=== PATIENT | male | born 1945 | race Caucasian/White ===

== ENCOUNTER 2019-08-26 22:35 | Inpatient (IN) | payer MEDICARE ==
[~2019-08-26] VITALS: Ht 160 cm; Wt 77.6 kg
[2019-08-26 22:30] VITALS: BP 81/56
[2019-08-26 22:45] VITALS: BP 125/56
[2019-08-26 23:00] VITALS: BP 82/41
[2019-08-26] MEDS ORDERED: fentaNYL PF VIAL 100 MCG/2 ML VIAL IV PRN ×2 (23:00)
[2019-08-26] MEDS ORDERED: ENOXAPARIN 40 MG/0.4 ML SYRINGE. SQ SCH (23:00)
[2019-08-26] MEDS ORDERED: MORPHINE SULFATE 2 MG/ML VIAL. IV PRN (23:00)
[2019-08-26] MEDS ORDERED: MORPHINE SULFATE 4 MG/ML VIAL. IV PRN (23:00)
[2019-08-26 23:13] LABS: BASE EXCESS ABG -6 mmol/L (-3-3); CORRECTED PCO2 ABG 35 mmHg; CORRECTED PH ABG 7.35; CORRECTED PO2 ABG 113 mmHg; HCO3 ABG 19 mmol/L (21-28); PCO2 ABG 33 mmHg (35-46); PO2 ABG 106 mmHg (65-108); SAT O2 ABG 97 % (92-99)
[2019-08-26 23:15] VITALS: BP 102/57
[2019-08-26 23:17] LABS: FIO2 ABG 40
[2019-08-26 23:26] LABS: BILIRUBIN,URINE NEGATIVE (NEG); CLARITY,URINE CLOUDY; COLOR,URINE AMBER; NITRITE,URINE NEGATIVE (NEG); PROTEIN,URINE 100 mg/dL (NEG-TRACE); UROBILINOGEN,URINE 0.2 mg/dL (0.2 mg/dL)
[2019-08-26 23:30] VITALS: BP 118/55
[2019-08-26 23:31] LABS: BACTERIA,URINE 0 /HPF (0-FEW); RBC,URINE OCC /HPF (0-2)
[2019-08-26 23:32] LABS: AMORPHOUS SEDIMENT,UR PRESENT /HPF; HYALINE CASTS, URINE FEW /HPF; SQUAMOUS EPITHELIAL CELL,UR OCC /LPF
[2019-08-26 23:39] LABS: BASO # 0.1 x10^3/uL (0.0-0.2); BASO % 1 % (0-3); EOS # 0.3 x10^3/uL (0.0-0.7); EOS % 4 % (0-3); HEMATOCRIT 27.7 % (39.0-53.0); HEMOGLOBIN 9.4 g/dL (13.0-17.5); LYMPH # 0.3 x10^3/uL (1.0-4.8); LYMPH % 4 % (24-48); MEAN CORPUSCULAR HEMOGLOBIN 27 pg (25-35); MEAN CORPUSCULAR HGB CONC 34 g/dL (31-37); MEAN CORPUSCULAR VOLUME 79 fL (79-100); MONO # 0.8 x10^3/uL (0.0-1.1); MONO % 11 % (0-9); NEUT # 6.4 x10^3/uL (1.8-7.7); NEUT % 82 % (31-73); PLATELET COUNT 552 x10^3/uL (140-400); RED BLOOD COUNT 3.49 x10^6/uL (4.30-5.70); RED CELL DISTRIBUTION WIDTH 17.9 % (11.5-14.5); WHITE BLOOD COUNT 7.9 x10^3/uL (4.0-11.0)
[2019-08-26 23:45] VITALS: BP 119/66
--- NOTE | 2019-08-26 23:45 | NUR ---
Patient admitted to room 107, arrived via EMS. Patient transferred to bed, placed on monitor and ventilator. Patient sedated, unable to orient to surroundings. Received admit orders from Dr. Hansen, decided to test patient for covid due to coming from a [facility]. Called Jocelin, given passcode and nurse station telephone number. Jocelin states patient has recently tested negative for covid three times during recent hospital stay at [facility]. Admission and med rec completed using [facility] discharge paperwork as patient was only at [facility] for a few hours.
[2019-08-26 23:51] LABS: ALBUMIN/GLOBULIN RATIO 0.5 (1.0-1.7); CALCIUM 7.6 mg/dL (8.5-10.1); CREATININE 1.6 mg/dL (0.7-1.3); GFR 42.7; TOTAL BILIRUBIN 0.7 mg/dL (0.2-1.0); TOTAL PROTEIN 6.1 g/dL (6.4-8.2)
[2019-08-27] VITALS (41 sets, daily range): BP systolic 63–149; BP diastolic 43–82
[2019-08-27 00:03] LABS: % BANDS 30 % (0-9); % EOS 6 % (0-5); % LYMPHS 3 % (24-48); % MONOS 4 % (0-10); % SEGS 57 % (35-66); ANISOCYTOSIS SLIGHT; NUCLEATED RBC 1; PLT ESTIMATE INCREASED (ADEQUATE); POLYCHROMASIA SLIGHT
[2019-08-27] MEDS: IV NORMAL SALINE 1000ML BAG 1,000 ML IV SCH ×3 (00:43→20:39)
[2019-08-27] MEDS ORDERED: ASPI-630 PEG (01:40)
[2019-08-27] MEDS ORDERED: APIX5TAB PEG (01:40)
[2019-08-27] MEDS ORDERED: INSU100I13 SQ (01:40)
[2019-08-27] MEDS ORDERED: ACET325T21 PEG (01:40)
[2019-08-27] MEDS ORDERED: FAMO-63 PEG (01:40)
[2019-08-27] MEDS ORDERED: FAMO20TA5 PO (01:40)
[2019-08-27] MEDS ORDERED: INSU100V6 SQ (01:40)
[2019-08-27] MEDS ORDERED: PROVENTIL HFA6.7 G2 INH (01:40)
[2019-08-27] MEDS ORDERED: TAMS0.4C97 PEG (01:40)
[2019-08-27] MEDS ORDERED: BUDE10.2 IH (01:40)
[2019-08-27] MEDS ORDERED: OLAN20TA15 PEG (01:40)
[2019-08-27] MEDS ORDERED: METO25TA4 PEG (01:40)
[2019-08-27] MEDS ORDERED: OXYC5TAB88 PEG (01:40)
[2019-08-27] MEDS ORDERED: OLAN10TA9 PEG (01:40)
[2019-08-27] MEDS ORDERED: CRESTOR40 MG PEG (01:40)
[2019-08-27] MEDS: MIDAZOLAM 100mg/100ml NS BAG 100 ML IV PRN (01:52)
[2019-08-27] MEDS ORDERED: ACETAMINOPHEN 650 MG SUPP.RECT. PR PRN (02:00)
--- NOTE | 2019-08-27 02:24 | RAD ---
AP portable chest radiograph 08/26/2019 Clinical History: Post intubation. An AP semi erect portable digital radiograph of the chest was obtained. Comparison study is dated 08/26/2019. The patient is post CABG procedure. An ET tube has been placed. The tip of this tube overlies the trachea 5 cm above the level of the marialuisa. The cardiac silhouette is normal in size. Atherosclerotic calcification thoracic aorta is seen. Prominence of the pulmonary vasculature is again noted. No area of consolidation is seen. Linear bands of subsegmental atelectasis are seen involving both lower lobes. No pneumothorax or pleural effusion is noted. The osseous structures are unchanged. Impression: Interval placement of an ET tube. The tip of this tube overlies the trachea 5 cm above the level of the marialuisa. Electronically signed by: Bimal Vázquez MD (08/27/2019 2:22 AM) [id number]
[2019-08-27] MEDS: NOREPINEPHRINE VIAL 8 MG in IV DEXTROSE 5% 250 ML IV PRN (02:32)
[2019-08-27 08:15] LABS: BASE EXCESS ABG -5 mmol/L (-3-3); HCO3 ABG 19 mmol/L (21-28); PCO2 ABG 32 mmHg (35-46); PO2 ABG 105 mmHg (65-108); SAT O2 ABG 98 % (92-99)
[2019-08-27] MEDS: FAMOTIDINE 20 MG/2 ML VIAL IVP SCH ×2 (08:31→20:32)
[2019-08-27 08:38] LABS: FIO2 ABG 40
[2019-08-27] MEDS ORDERED: cefTRIAXone IV Push 1 GM VIAL. IVP SCH (09:00)
--- NOTE | 2019-08-27 12:22 | PDOC ---
PULMONARY PROGRESS NOTES Vitals Vital Signs Date Time Temp Pulse Resp B/P (MAP) Pulse Ox O2 Delivery O2 Flow Rate FiO2 08/27/19 11:39 100 Ventilator 08/27/19 06:56 16 08/27/19 06:00 99.2 107 111/51 (71) 99.2 Labs Laboratory Tests Test 08/26/19 23:05 08/26/19 23:15 08/26/19 23:20 08/27/19 05:46 O2 Saturation 97 % (92-99) Arterial Blood pH 7.37 (7.35-7.45) Arterial Blood pH (Temp corrected) 7.35 Arterial Blood pCO2 at Patient Temp 33 mmHg (35-46) Arterial Blood pCO2 (Temp correct) 35 mmHg Arterial Blood pO2 at Patient Temp 106 mmHg (65-108) Arterial Blood pO2 (Temp corrected) 113 mmHg Arterial Blood HCO3 19 mmol/L (21-28) Arterial Blood Base Excess -6 mmol/L (-3-3) FiO2 40 Urine Collection Type Unknown Urine Color Flora Urine Clarity Cloudy Urine pH 5.0 (<5.0-8.0) Urine Specific [place] 1.025 (1.000-1.030) Urine Protein 100 mg/dL (NEG-TRACE) Urine Glucose (UA) Negative mg/dL (NEG) Urine Ketones (Stick) Trace mg/dL (NEG) Urine Blood Negative (NEG) Urine Nitrite Negative (NEG) Urine Bilirubin Negative (NEG) Urine Urobilinogen Dipstick 0.2 mg/dL (0.2 mg/dL) Urine Leukocyte Esterase Trace (NEG) Urine RBC Occ /HPF (0-2) Urine WBC 5-10 /HPF (0-4) Urine Squamous Epithelial Cells Occ /LPF Urine Amorphous Sediment Present /HPF Urine Bacteria 0 /HPF (0-FEW) Urine Hyaline Casts Few /HPF Urine Mucus Mod /LPF White Blood Count 7.9 x10^3/uL (4.0-11.0) Red Blood Count 3.49 x10^6/uL (4.30-5.70) Hemoglobin 9.4 g/dL (13.0-17.5) Hematocrit 27.7 % (39.0-53.0) Mean Corpuscular Volume 79 fL (79-100) Mean Corpuscular Hemoglobin 27 pg (25-35) Mean Corpuscular Hemoglobin Concent 34 g/dL (31-37) Red Cell Distribution Width 17.9 % (11.5-14.5) Platelet Count 552 x10^3/uL (140-400) Neutrophils (%) (Auto) 82 % (31-73) Lymphocytes (%) (Auto) 4 % (24-48) Monocytes (%) (Auto) 11 % (0-9) Eosinophils (%) (Auto) 4 % (0-3) Basophils (%) (Auto) 1 % (0-3) Neutrophils # (Auto) 6.4 x10^3/uL (1.8-7.7) Lymphocytes # (Auto) 0.3 x10^3/uL (1.0-4.8) Monocytes # (Auto) 0.8 x10^3/uL (0.0-1.1) Eosinophils # (Auto) 0.3 x10^3/uL (0.0-0.7) Basophils # (Auto) 0.1 x10^3/uL (0.0-0.2) Segmented Neutrophils % 57 % (35-66) Band Neutrophils % 30 % (0-9) Lymphocytes % 3 % (24-48) Monocytes % 4 % (0-10) Eosinophils % 6 % (0-5) Nucleated Red Blood Cells 1 Platelet Estimate Increased (ADEQUATE) Polychromasia Slight Anisocytosis Slight Sodium Level 138 mmol/L (136-145) Potassium Level 5.0 mmol/L (3.5-5.1) Chloride Level 107 mmol/L (98-107) Carbon Dioxide Level 21 mmol/L (21-32) Anion Gap 10 (6-14) Blood Urea Nitrogen 25 mg/dL (8-26) Creatinine 1.6 mg/dL (0.7-1.3) Estimated GFR (Cockcroft-Gault) 42.7 BUN/Creatinine Ratio 16 (6-20) Glucose Level 199 mg/dL (70-99) Lactic Acid Level 1.6 mmol/L (0.4-2.0) Calcium Level 7.6 mg/dL (8.5-10.1) Total Bilirubin 0.7 mg/dL (0.2-1.0) Aspartate Amino Transf (AST/SGOT) 30 U/L (15-37) Alanine Aminotransferase (ALT/SGPT) 40 U/L (16-63) Alkaline Phosphatase 188 U/L (46-116) Total Protein 6.1 g/dL (6.4-8.2) Albumin 2.0 g/dL (3.4-5.0) Albumin/Globulin Ratio 0.5 (1.0-1.7) Glucose (Fingerstick) 155 mg/dL (70-99) Test 08/27/19 08:00 08/27/19 11:41 O2 Saturation 98 % (92-99) Arterial Blood pH 7.39 (7.35-7.45) Arterial Blood pCO2 at Patient Temp 32 mmHg (35-46) Arterial Blood pO2 at Patient Temp 105 mmHg (65-108) Arterial Blood HCO3 19 mmol/L (21-28) Arterial Blood Base Excess -5 mmol/L (-3-3) FiO2 40 Glucose (Fingerstick) 160 mg/dL (70-99) Laboratory Tests Test 08/26/19 23:05 08/26/19 23:15 08/26/19 23:20 08/27/19 05:46 O2 Saturation 97 % (92-99) Arterial Blood pH 7.37 (7.35-7.45) Arterial Blood pH (Temp corrected) 7.35 Arterial Blood pCO2 at Patient Temp 33 mmHg (35-46) Arterial Blood pCO2 (Temp correct) 35 mmHg Arterial Blood pO2 at Patient Temp 106 mmHg (65-108) Arterial Blood pO2 (Temp corrected) 113 mmHg Arterial Blood HCO3 19 mmol/L (21-28) Arterial Blood Base Excess -6 mmol/L (-3-3) FiO2 40 Urine Collection Type Unknown Urine Color Flora Urine Clarity Cloudy Urine pH 5.0 (<5.0-8.0) Urine Specific [place] 1.025 (1.000-1.030) Urine Protein 100 mg/dL (NEG-TRACE) Urine Glucose (UA) Negative mg/dL (NEG) Urine Ketones (Stick) Trace mg/dL (NEG) Urine Blood Negative (NEG) Urine Nitrite Negative (NEG) Urine Bilirubin Negative (NEG) Urine Urobilinogen Dipstick 0.2 mg/dL (0.2 mg/dL) Urine Leukocyte Esterase Trace (NEG) Urine RBC Occ /HPF (0-2) Urine WBC 5-10 /HPF (0-4) Urine Squamous Epithelial Cells Occ /LPF Urine Amorphous Sediment Present /HPF Urine Bacteria 0 /HPF (0-FEW) Urine Hyaline Casts Few /HPF Urine Mucus Mod /LPF White Blood Count 7.9 x10^3/uL (4.0-11.0) Red Blood Count 3.49 x10^6/uL (4.30-5.70) Hemoglobin 9.4 g/dL (13.0-17.5) Hematocrit 27.7 % (39.0-53.0) Mean Corpuscular Volume 79 fL (79-100) Mean Corpuscular Hemoglobin 27 pg (25-35) Mean Corpuscular Hemoglobin Concent 34 g/dL (31-37) Red Cell Distribution Width 17.9 % (11.5-14.5) Platelet Count 552 x10^3/uL (140-400) Neutrophils (%) (Auto) 82 % (31-73) Lymphocytes (%) (Auto) 4 % (24-48) Monocytes (%) (Auto) 11 % (0-9) Eosinophils (%) (Auto) 4 % (0-3) Basophils (%) (Auto) 1 % (0-3) Neutrophils # (Auto) 6.4 x10^3/uL (1.8-7.7) Lymphocytes # (Auto) 0.3 x10^3/uL (1.0-4.8) Monocytes # (Auto) 0.8 x10^3/uL (0.0-1.1) Eosinophils # (Auto) 0.3 x10^3/uL (0.0-0.7) Basophils # (Auto) 0.1 x10^3/uL (0.0-0.2) Segmented Neutrophils % 57 % (35-66) Band Neutrophils % 30 % (0-9) Lymphocytes % 3 % (24-48) Monocytes % 4 % (0-10) Eosinophils % 6 % (0-5) Nucleated Red Blood Cells 1 Platelet Estimate Increased (ADEQUATE) Polychromasia Slight Anisocytosis Slight Sodium Level 138 mmol/L (136-145) Potassium Level 5.0 mmol/L (3.5-5.1) Chloride Level 107 mmol/L (98-107) Carbon Dioxide Level 21 mmol/L (21-32) Anion Gap 10 (6-14) Blood Urea Nitrogen 25 mg/dL (8-26) Creatinine 1.6 mg/dL (0.7-1.3) Estimated GFR (Cockcroft-Gault) 42.7 BUN/Creatinine Ratio 16 (6-20) Glucose Level 199 mg/dL (70-99) Lactic Acid Level 1.6 mmol/L (0.4-2.0) Calcium Level 7.6 mg/dL (8.5-10.1) Total Bilirubin 0.7 mg/dL (0.2-1.0) Aspartate Amino Transf (AST/SGOT) 30 U/L (15-37) Alanine Aminotransferase (ALT/SGPT) 40 U/L (16-63) Alkaline Phosphatase 188 U/L (46-116) Total Protein 6.1 g/dL (6.4-8.2) Albumin 2.0 g/dL (3.4-5.0) Albumin/Globulin Ratio 0.5 (1.0-1.7) Glucose (Fingerstick) 155 mg/dL (70-99) Test 08/27/19 08:00 08/27/19 11:41 O2 Saturation 98 % (92-99) Arterial Blood pH 7.39 (7.35-7.45) Arterial Blood pCO2 at Patient Temp 32 mmHg (35-46) Arterial Blood pO2 at Patient Temp 105 mmHg (65-108) Arterial Blood HCO3 19 mmol/L (21-28) Arterial Blood Base Excess -5 mmol/L (-3-3) FiO2 40 Glucose (Fingerstick) 160 mg/dL (70-99) Medications Active Scripts Medications Dose Route/Sig Max Daily Dose Days Date Category Dose Instructions Pepcid (Famotidine) 20 Mg Tablet 20 Mg PEG BID 08/27/19 Reported Famotidine 20 Mg Tablet 20 Mg PO BID 08/27/19 Reported Aspirin 81 Mg Tab.chew 1 Tab PEG DAILY 08/27/19 Reported Eliquis (Apixaban) 5 Mg Tablet 5 Mg PEG BID 08/27/19 Reported Proventil Hfa (Albuterol Sulfate) 6.7 Gm Hfa.aer.ad 1 Puff INH PRN Q6HRS PRN 08/27/19 Reported Acetaminophen 325 Mg Tablet 2 Tab PEG PRN Q4-6HRS PRN 24 08/27/19 Reported Humalog (Insulin Lispro) 100 Unit/1 Ml Vial 100 Unit SQ Q6HRS 08/27/19 Reported Inject 0-24 units under the skin every 6 hours Lantus Solostar (Insulin Glargine,Hum.rec.anlog) 100 Unit/1 Ml Insuln.pen 35 Unit SQ BID 08/27/19 Reported Symbicort 160-4.5 Mcg Inhaler (Budesonide/Formoterol Fumarate) 10.2 Gm Hfa.aer.ad 2 Puff IH BID 08/27/19 Reported Flomax (Tamsulosin Hcl) 0.4 Mg Cap.er.24h 0.4 Mg PEG DAILY 08/27/19 Reported Crestor (Rosuvastatin Calcium) 40 Mg Tablet 1 Tab PEG HS 08/27/19 Reported Roxicodone (Oxycodone HCl) 5 Mg Tablet 5 Mg PEG PRN Q4HRS PRN 08/27/19 Reported Olanzapine 20 Mg Tablet 1 Tab PEG QHS 08/27/19 Reported Olanzapine 10 Mg Tablet 1 Tab PEG DAILY 08/27/19 Reported Metoprolol Tartrate 25 Mg Tablet 1 Tab PEG BID 08/27/19 Reported Impression . Full note dictated Respiratory failure secondary to sepsis, metabolic toxic encephalopathy, fever. Consult ID, rule out SARS-CoV-2 DIPAK MARTINEZ MD Aug 27, 2019 12:22
--- NOTE | 2019-08-27 13:09 | PDOC ---
Infectious Disease Note Vital Sign Vital Signs Vital Signs Date Time Temp Pulse Resp B/P (MAP) Pulse Ox O2 Delivery O2 Flow Rate FiO2 08/27/19 12:00 122 16 144/82 (102) 100 Ventilator 08/27/19 07:30 98.3 98.3 Labs Lab Laboratory Tests Test 08/26/19 23:05 08/26/19 23:15 08/26/19 23:20 08/27/19 05:46 O2 Saturation 97 % (92-99) Arterial Blood pH 7.37 (7.35-7.45) Arterial Blood pH (Temp corrected) 7.35 Arterial Blood pCO2 at Patient Temp 33 mmHg (35-46) Arterial Blood pCO2 (Temp correct) 35 mmHg Arterial Blood pO2 at Patient Temp 106 mmHg (65-108) Arterial Blood pO2 (Temp corrected) 113 mmHg Arterial Blood HCO3 19 mmol/L (21-28) Arterial Blood Base Excess -6 mmol/L (-3-3) FiO2 40 Urine Collection Type Unknown Urine Color Flora Urine Clarity Cloudy Urine pH 5.0 (<5.0-8.0) Urine Specific [place] 1.025 (1.000-1.030) Urine Protein 100 mg/dL (NEG-TRACE) Urine Glucose (UA) Negative mg/dL (NEG) Urine Ketones (Stick) Trace mg/dL (NEG) Urine Blood Negative (NEG) Urine Nitrite Negative (NEG) Urine Bilirubin Negative (NEG) Urine Urobilinogen Dipstick 0.2 mg/dL (0.2 mg/dL) Urine Leukocyte Esterase Trace (NEG) Urine RBC Occ /HPF (0-2) Urine WBC 5-10 /HPF (0-4) Urine Squamous Epithelial Cells Occ /LPF Urine Amorphous Sediment Present /HPF Urine Bacteria 0 /HPF (0-FEW) Urine Hyaline Casts Few /HPF Urine Mucus Mod /LPF White Blood Count 7.9 x10^3/uL (4.0-11.0) Red Blood Count 3.49 x10^6/uL (4.30-5.70) Hemoglobin 9.4 g/dL (13.0-17.5) Hematocrit 27.7 % (39.0-53.0) Mean Corpuscular Volume 79 fL (79-100) Mean Corpuscular Hemoglobin 27 pg (25-35) Mean Corpuscular Hemoglobin Concent 34 g/dL (31-37) Red Cell Distribution Width 17.9 % (11.5-14.5) Platelet Count 552 x10^3/uL (140-400) Neutrophils (%) (Auto) 82 % (31-73) Lymphocytes (%) (Auto) 4 % (24-48) Monocytes (%) (Auto) 11 % (0-9) Eosinophils (%) (Auto) 4 % (0-3) Basophils (%) (Auto) 1 % (0-3) Neutrophils # (Auto) 6.4 x10^3/uL (1.8-7.7) Lymphocytes # (Auto) 0.3 x10^3/uL (1.0-4.8) Monocytes # (Auto) 0.8 x10^3/uL (0.0-1.1) Eosinophils # (Auto) 0.3 x10^3/uL (0.0-0.7) Basophils # (Auto) 0.1 x10^3/uL (0.0-0.2) Segmented Neutrophils % 57 % (35-66) Band Neutrophils % 30 % (0-9) Lymphocytes % 3 % (24-48) Monocytes % 4 % (0-10) Eosinophils % 6 % (0-5) Nucleated Red Blood Cells 1 Platelet Estimate Increased (ADEQUATE) Polychromasia Slight Anisocytosis Slight Sodium Level 138 mmol/L (136-145) Potassium Level 5.0 mmol/L (3.5-5.1) Chloride Level 107 mmol/L (98-107) Carbon Dioxide Level 21 mmol/L (21-32) Anion Gap 10 (6-14) Blood Urea Nitrogen 25 mg/dL (8-26) Creatinine 1.6 mg/dL (0.7-1.3) Estimated GFR (Cockcroft-Gault) 42.7 BUN/Creatinine Ratio 16 (6-20) Glucose Level 199 mg/dL (70-99) Lactic Acid Level 1.6 mmol/L (0.4-2.0) Calcium Level 7.6 mg/dL (8.5-10.1) Total Bilirubin 0.7 mg/dL (0.2-1.0) Aspartate Amino Transf (AST/SGOT) 30 U/L (15-37) Alanine Aminotransferase (ALT/SGPT) 40 U/L (16-63) Alkaline Phosphatase 188 U/L (46-116) Total Protein 6.1 g/dL (6.4-8.2) Albumin 2.0 g/dL (3.4-5.0) Albumin/Globulin Ratio 0.5 (1.0-1.7) Glucose (Fingerstick) 155 mg/dL (70-99) Test 08/27/19 08:00 08/27/19 11:41 O2 Saturation 98 % (92-99) Arterial Blood pH 7.39 (7.35-7.45) Arterial Blood pCO2 at Patient Temp 32 mmHg (35-46) Arterial Blood pO2 at Patient Temp 105 mmHg (65-108) Arterial Blood HCO3 19 mmol/L (21-28) Arterial Blood Base Excess -5 mmol/L (-3-3) FiO2 40 Glucose (Fingerstick) 160 mg/dL (70-99) Objective Assessment pt seen, consult dictated Plan Plan of Care / REHAN WARE MD Aug 27, 2019 13:09
--- NOTE | 2019-08-27 13:14 | CARD ---
MR#: [id number] Date of Study: 08/27/2019 Ordering Physician: BEBETO RICHTER, Referring Physician: BEBETO RICHTER, Tech: Ibis Burnett APPROVED REPORT EXAM: Two-dimensional and M-mode echocardiogram with Doppler and color Doppler. Other Information Quality : AverageHR: 118bpm INDICATION Respiratory Failure, Hypotension RISK FACTORS Smoking 2D DIMENSIONS Left Atrium(2D)3.8 (1.6-4.0cm)IVSd0.9 (0.7-1.1cm) Aortic Root(2D)3.6 (2.0-3.7cm)LVDd5.5 (3.9-5.9cm) LVOT Diameter1.9 (1.8-2.4cm)PWd1.1 (0.7-1.1cm) LVDs4.6 (2.5-4.0cm)FS (%) 16.4 % SV50.6 mlLVEF(%)34.1 (>50%) Aortic Valve AoV Peak Masoud.154.5cm/sAoV VTI25.4cm AO Peak GR.9.5mmHgLVOT VTI 15.38cm AO Mean GR.6mmHg Mitral Valve MV E Zalttoml62.8cm/sMV E Peak Gr.6mmHg MV DECEL [id number] A Bxaqqpin774.5cm/s MV E Mean Gr.3mmHgE/A Ratio0.7 TDI Lateral E' P. V9.98cm/sMedial E' P. V5.86cm/s E/Lateral E'8.3E/Medial E'14.1 LEFT VENTRICLE The left ventricle is normal size. There is normal left ventricular wall thickness. The left ventricu lar systolic function is low normal. The ejection fraction is 50%. Transmitral Doppler flow pattern i s Grade I-abnormal relaxation pattern. RIGHT VENTRICLE The right ventricle is normal size. There is normal right ventricular wall thickness. The right ventr icular systolic function is normal. ATRIA The left atrium size is normal. The right atrium size is normal. The interatrial septum is intact wit h no evidence for an atrial septal defect or patent foramen ovale as noted on 2-D or Doppler imaging. AORTIC VALVE The aortic valve is calcified. Doppler and Color Flow revealed no significant aortic regurgitation. C alculated aortic valve area is 1.59 cm2 with maximum pressure gradient of 12 mmHg and mean pressure g radient of 8 mmHg. MITRAL VALVE The mitral valve is thickened but opens well. There is no evidence of mitral valve prolapse. There is no mitral valve stenosis. Doppler and Color-flow revealed trace mitral regurgitation. TRICUSPID VALVE The tricuspid valve is normal in structure and function. Doppler and Color Flow revealed no tricuspid valve regurgitation noted. There is no tricuspid valve stenosis. PULMONIC VALVE The pulmonic valve is not well visualized. Doppler and Color Flow revealed no pulmonic valvular regur gitation. GREAT VESSELS The aortic root is normal in size. The IVC is normal in size and collapses >50% with inspiration. PERICARDIAL EFFUSION There is no evidence of significant pericardial effusion. Critical Notification Critical Value: No <Conclusion> The left ventricular systolic function is low normal. The ejection fraction is 50%. Transmitral Doppler flow pattern is Grade I-abnormal relaxation pattern. Doppler and Color-flow revealed trace mitral regurgitation. There is no evidence of significant pericardial effusion. Signed by : Be Zarco, Electronically Approved : 08/27/2019 13:13:38
--- NOTE | 2019-08-27 13:29 | CONS ---
DATE OF CONSULTATION: 08/27/2019 REQUESTING PHYSICIAN: Nahomi Rock MD REASON FOR CONSULTATION: Antibiotic management, suspected aspiration pneumonia. HISTORY OF PRESENT ILLNESS: This is a 73-year-old gentleman with history of hypertension, diabetes, COPD, CAD, CHF, who was at [facility] for a long time with bowel obstruction, has had a surgery done eventually PEG tube placement done and the patient after prolonged stay, he was discharged to shelter facility where he was there for several hours. He vomited and was hypoxic and change in mental status, hence he was taken to [facility] where he required intubation. The patient had fever up to 101 on arrival here, heart rate 132, normal blood pressure, normal white count, creatinine 1.6. The patient has been put on Rocephin and Flagyl and consult has been requested. The patient is not able to provide any information. Information was obtained through chart review and discussing with the patient's nurse. PAST MEDICAL HISTORY: Positive for hypertension, congestive heart failure, coronary artery disease with coronary artery bypass grafting done, COPD, diabetes, recent bowel obstruction, status post surgery and PEG tube placement done. SOCIAL HISTORY: Unable to obtain. ALLERGIES: No known drug allergies. CURRENT MEDICATIONS: Reviewed. REVIEW OF SYSTEMS: As per HPI, all other systems reviewed are negative. PHYSICAL EXAMINATION: GENERAL: Sedated, orally intubated gentleman, not in any distress. VITAL SIGNS: Stable with T-max of 101, pulse 122, respirations 16, blood pressure 144/82. HEENT: Both pupils are round and reacting. No conjunctival lesion. Mouth cannot be visualized, orally intubated. NECK: Supple, no JVP, no lymphadenopathy. LUNGS: Decreased breath sounds bilaterally. HEART: S1, S2 regular. No gallop or murmur. ABDOMEN: Soft, nontender, no organomegaly. PEG tube is in place. EXTREMITIES: No edema, cyanosis. SKIN: Unremarkable. NEUROLOGIC: The patient had been moving all the extremities before intubation and sedation. LABORATORY DATA: White count is normal. BUN and creatinine is 25 and 1.6. Urinalysis 5-10 wbc's. Chest x-ray showed no consolidation, no pneumothorax. IMPRESSION: 1. Respiratory failure. 2. Fever. 3. Suspected aspiration. 4. Recent bowel obstruction, status post surgery and percutaneous endoscopic gastrostomy tube placement. 5. Renal insufficiency. RECOMMENDATIONS: Change Rocephin and Flagyl to Zosyn. Panculture, supportive care and we will continue to follow. Thank you very much, Dr. Hansen and Dr. Rock for giving me the opportunity to participate in this patient's care. REHAN WARE MD DR: HANNAH/felisha JOB#: [id number] / [id number]
[2019-08-27] MEDS: PIPERACILLIN/TAZOBACTAM 3.375 GM in IV NORMAL SALINE 50ML 50 ML IV SCH ×3 (13:35→23:40)
[2019-08-27] MEDS ORDERED: DEXTROSE 50% 25 GM / 50ML DISP.SYRIN. IV PRN (14:00)
--- NOTE | 2019-08-27 15:06 | NUR ---
SS following for discharge planning. SS reviewed pt chart and discussed with pt RN. Pt is skilled rehabilitation resident from [facility], ; fax [phone]. Pt COVID19 pending. Pt currently on the vent and IV Zosyn. SS was notified that pt was only at [facility] for a matter of hours prior to admitting to the hospital. Previous to that [place] [facility] SS will continue to follow for discharge planning.
--- NOTE | 2019-08-27 16:56 | PDOC1 ---
History and Physical Date of Admission Date of Admission DATE: 08/27/19 TIME: 16:44 Identification/Chief Complaint Chief Complaint AMS Source Source: Chart review, Patient History of Present Illness History of Present Illness 73 year old CM hx of HTN, DM, COPD, CAD, CHF, hx of bowel obstruction s/p PEG residing at [place] where he vomited became hypoxic and altered. taken to [facility] where he was intubated. BP dropped and femoral line placed. transferred to [place] for higher level of care. noted fever of 101 upon arrival to [place]. Hx difficult as patient intubated and sedated on vent. Past Medical History Past Medical History hypertension, congestive heart failure,coronary artery disease with coronary artery bypass grafting done, COPD,diabetes, recent bowel obstruction, status post surgery and PEG tube placement Past Surgical History Past Surgical History unable to obtain Family History Family History unable to obtain Social History Smoke: No ALCOHOL: none Drugs: None Current Medications Current Medications Current Medications Norepinephrine Bitartrate 8 mg/ Dextrose 258 ml @ 13.603 mls/ hr CONT PRN IV PER PROTOCOL Last administered on 08/27/19at 02:32; Start 08/26/19 at 23:00 Fentanyl Citrate 30 ml @ 0 mls/hr CONT PRN IV SEE PROTOCOL Last administered on 08/27/19at 06:26; Start 08/26/19 at 23:00 Fentanyl Citrate (Fentanyl 2ml Vial) 25 mcg PRN Q1HR PRN IV SEE COMMENTS; Start 08/26/19 at 23:00 Fentanyl Citrate (Fentanyl 2ml Vial) 50 mcg PRN Q1HR PRN IV SEE COMMENTS; Start 08/26/19 at 23:00 Famotidine (Pepcid Vial) 20 mg BID IVP Last administered on 08/27/19at 08:31; Start 08/27/19 at 09:00 Morphine Sulfate (Morphine Sulfate) 2 mg PRN Q1HR PRN IV SEE COMMENTS.; Start 08/26/19 at 23:00 Morphine Sulfate (Morphine Sulfate) 4 mg PRN Q1HR PRN IV SEE COMMENTS.; Start 08/26/19 at 23:00 Midazolam HCl 100 ml @ 0 mls/hr CONT PRN IV SEE PROTOCOL Last administered on 08/27/19at 01:52; Start 08/26/19 at 23:00 Enoxaparin Sodium (Lovenox 40mg Syringe) 40 mg Q24H SQ Last administered on 08/27/19at 00:42; Start 08/26/19 at 23:00 Metronidazole 100 ml @ 100 mls/hr Q8HRS IV Last administered on 08/27/19at 05:32; Start 08/27/19 at 06:00; Stop 08/27/19 at 13:14; Status DC Ceftriaxone Sodium (Rocephin) 1 gm Q24H IVP Last administered on 08/27/19at 08:32; Start 08/27/19 at 09:00; Stop 08/27/19 at 13:14; Status DC Sodium Chloride 1,000 ml @ 75 mls/hr [id number] IV Last administered on 08/27/19at 13:35; Start 08/26/19 at 23:00 Acetaminophen (Tylenol Supp) 650 mg PRN Q6HRS PRN CA MILD PAIN / TEMP > 100.3'F Last administered on 08/27/19at 02:09; Start 08/27/19 at 02:00 Piperacillin Sod/ Tazobactam Sod 3.375 gm/Sodium Chloride 50 ml @ 100 mls/hr Q6HRS IV Last administered on 08/27/19at 13:35; Start 08/27/19 at 14:00 Insulin Human Lispro (HumaLOG) 0-7 UNITS TIDWMEALS SQ ; Start 08/27/19 at 17:00 Dextrose (Dextrose 50%-Water Syringe) 12.5 gm PRN Q15MIN PRN IV SEE COMMENTS; Start 08/27/19 at 14:00 Active Scripts Active Reported Pepcid (Famotidine) 20 Mg Tablet 20 Mg PEG BID Famotidine 20 Mg Tablet 20 Mg PO BID Aspirin 81 Mg Tab.chew 1 Tab PEG DAILY Eliquis (Apixaban) 5 Mg Tablet 5 Mg PEG BID Proventil Hfa (Albuterol Sulfate) 6.7 Gm Hfa.aer.ad 1 Puff INH PRN Q6HRS PRN Acetaminophen 325 Mg Tablet 2 Tab PEG PRN Q4-6HRS PRN 24 Days Humalog (Insulin Lispro) 100 Unit/1 Ml Vial 100 Unit SQ Q6HRS Inject 0-24 units under the skin every 6 hours Lantus Solostar (Insulin Glargine,Hum.rec.anlog) 100 Unit/1 Ml Insuln.pen 35 Unit SQ BID Symbicort 160-4.5 Mcg Inhaler (Budesonide/Formoterol Fumarate) 10.2 Gm Hfa.aer .ad 2 Puff IH BID Flomax (Tamsulosin Hcl) 0.4 Mg Cap.er.24h 0.4 Mg PEG DAILY Crestor (Rosuvastatin Calcium) 40 Mg Tablet 1 Tab PEG HS Roxicodone (Oxycodone HCl) 5 Mg Tablet 5 Mg PEG PRN Q4HRS PRN Olanzapine 20 Mg Tablet 1 Tab PEG QHS Olanzapine 10 Mg Tablet 1 Tab PEG DAILY Metoprolol Tartrate 25 Mg Tablet 1 Tab PEG BID Allergies Allergies: Coded Allergies: No Known Drug Allergies (Unverified , 08/26/19) ROS Review of System unable to obtain as patient vented Physical Exam Physical Exam GENERAL: sedated on vent HEENT: Head normocephalic, atraumatic. NECK: Supple LUNGS: Clear to auscultation. HEART: RRR, S1, S2 present, pulses intact ABDOMEN: + PEG EXTREMITIES: No cyanosis or edema. NEUROLOGIC: Normal speech, normal tone PSYCHIATRIC: Normal affect, normal mood. SKIN: No ulceration. + alvarez + fem line Vitals Vitals Vital Signs Date Time Temp Pulse Resp B/P (MAP) Pulse Ox O2 Delivery O2 Flow Rate FiO2 08/27/19 15:59 100 Ventilator 08/27/19 12:00 122 16 144/82 (102) 08/27/19 07:30 98.3 98.3 Labs Labs Laboratory Tests Test 08/26/19 23:05 08/26/19 23:15 08/26/19 23:20 08/27/19 05:46 O2 Saturation 97 % (92-99) Arterial Blood pH 7.37 (7.35-7.45) Arterial Blood pH (Temp corrected) 7.35 Arterial Blood pCO2 at Patient Temp 33 mmHg (35-46) Arterial Blood pCO2 (Temp correct) 35 mmHg Arterial Blood pO2 at Patient Temp 106 mmHg (65-108) Arterial Blood pO2 (Temp corrected) 113 mmHg Arterial Blood HCO3 19 mmol/L (21-28) Arterial Blood Base Excess -6 mmol/L (-3-3) FiO2 40 Urine Collection Type Unknown Urine Color Flora Urine Clarity Cloudy Urine pH 5.0 (<5.0-8.0) Urine Specific Liguori 1.025 (1.000-1.030) Urine Protein 100 mg/dL (NEG-TRACE) Urine Glucose (UA) Negative mg/dL (NEG) Urine Ketones (Stick) Trace mg/dL (NEG) Urine Blood Negative (NEG) Urine Nitrite Negative (NEG) Urine Bilirubin Negative (NEG) Urine Urobilinogen Dipstick 0.2 mg/dL (0.2 mg/dL) Urine Leukocyte Esterase Trace (NEG) Urine RBC Occ /HPF (0-2) Urine WBC 5-10 /HPF (0-4) Urine Squamous Epithelial Cells Occ /LPF Urine Amorphous Sediment Present /HPF Urine Bacteria 0 /HPF (0-FEW) Urine Hyaline Casts Few /HPF Urine Mucus Mod /LPF White Blood Count 7.9 x10^3/uL (4.0-11.0) Red Blood Count 3.49 x10^6/uL (4.30-5.70) Hemoglobin 9.4 g/dL (13.0-17.5) Hematocrit 27.7 % (39.0-53.0) Mean Corpuscular Volume 79 fL (79-100) Mean Corpuscular Hemoglobin 27 pg (25-35) Mean Corpuscular Hemoglobin Concent 34 g/dL (31-37) Red Cell Distribution Width 17.9 % (11.5-14.5) Platelet Count 552 x10^3/uL (140-400) Neutrophils (%) (Auto) 82 % (31-73) Lymphocytes (%) (Auto) 4 % (24-48) Monocytes (%) (Auto) 11 % (0-9) Eosinophils (%) (Auto) 4 % (0-3) Basophils (%) (Auto) 1 % (0-3) Neutrophils # (Auto) 6.4 x10^3/uL (1.8-7.7) Lymphocytes # (Auto) 0.3 x10^3/uL (1.0-4.8) Monocytes # (Auto) 0.8 x10^3/uL (0.0-1.1) Eosinophils # (Auto) 0.3 x10^3/uL (0.0-0.7) Basophils # (Auto) 0.1 x10^3/uL (0.0-0.2) Segmented Neutrophils % 57 % (35-66) Band Neutrophils % 30 % (0-9) Lymphocytes % 3 % (24-48) Monocytes % 4 % (0-10) Eosinophils % 6 % (0-5) Nucleated Red Blood Cells 1 Platelet Estimate Increased (ADEQUATE) Polychromasia Slight Anisocytosis Slight Sodium Level 138 mmol/L (136-145) Potassium Level 5.0 mmol/L (3.5-5.1) Chloride Level 107 mmol/L (98-107) Carbon Dioxide Level 21 mmol/L (21-32) Anion Gap 10 (6-14) Blood Urea Nitrogen 25 mg/dL (8-26) Creatinine 1.6 mg/dL (0.7-1.3) Estimated GFR (Cockcroft-Gault) 42.7 BUN/Creatinine Ratio 16 (6-20) Glucose Level 199 mg/dL (70-99) Lactic Acid Level 1.6 mmol/L (0.4-2.0) Calcium Level 7.6 mg/dL (8.5-10.1) Total Bilirubin 0.7 mg/dL (0.2-1.0) Aspartate Amino Transf (AST/SGOT) 30 U/L (15-37) Alanine Aminotransferase (ALT/SGPT) 40 U/L (16-63) Alkaline Phosphatase 188 U/L (46-116) Total Protein 6.1 g/dL (6.4-8.2) Albumin 2.0 g/dL (3.4-5.0) Albumin/Globulin Ratio 0.5 (1.0-1.7) Glucose (Fingerstick) 155 mg/dL (70-99) Test 08/27/19 08:00 08/27/19 11:41 O2 Saturation 98 % (92-99) Arterial Blood pH 7.39 (7.35-7.45) Arterial Blood pCO2 at Patient Temp 32 mmHg (35-46) Arterial Blood pO2 at Patient Temp 105 mmHg (65-108) Arterial Blood HCO3 19 mmol/L (21-28) Arterial Blood Base Excess -5 mmol/L (-3-3) FiO2 40 Glucose (Fingerstick) 160 mg/dL (70-99) Laboratory Tests Test 08/26/19 23:05 08/26/19 23:15 08/26/19 23:20 08/27/19 05:46 O2 Saturation 97 % (92-99) Arterial Blood pH 7.37 (7.35-7.45) Arterial Blood pH (Temp corrected) 7.35 Arterial Blood pCO2 at Patient Temp 33 mmHg (35-46) Arterial Blood pCO2 (Temp correct) 35 mmHg Arterial Blood pO2 at Patient Temp 106 mmHg (65-108) Arterial Blood pO2 (Temp corrected) 113 mmHg Arterial Blood HCO3 19 mmol/L (21-28) Arterial Blood Base Excess -6 mmol/L (-3-3) FiO2 40 Urine Collection Type Unknown Urine Color Flora Urine Clarity Cloudy Urine pH 5.0 (<5.0-8.0) Urine Specific Liguori 1.025 (1.000-1.030) Urine Protein 100 mg/dL (NEG-TRACE) Urine Glucose (UA) Negative mg/dL (NEG) Urine Ketones (Stick) Trace mg/dL (NEG) Urine Blood Negative (NEG) Urine Nitrite Negative (NEG) Urine Bilirubin Negative (NEG) Urine Urobilinogen Dipstick 0.2 mg/dL (0.2 mg/dL) Urine Leukocyte Esterase Trace (NEG) Urine RBC Occ /HPF (0-2) Urine WBC 5-10 /HPF (0-4) Urine Squamous Epithelial Cells Occ /LPF Urine Amorphous Sediment Present /HPF Urine Bacteria 0 /HPF (0-FEW) Urine Hyaline Casts Few /HPF Urine Mucus Mod /LPF White Blood Count 7.9 x10^3/uL (4.0-11.0) Red Blood Count 3.49 x10^6/uL (4.30-5.70) Hemoglobin 9.4 g/dL (13.0-17.5) Hematocrit 27.7 % (39.0-53.0) Mean Corpuscular Volume 79 fL (79-100) Mean Corpuscular Hemoglobin 27 pg (25-35) Mean Corpuscular Hemoglobin Concent 34 g/dL (31-37) Red Cell Distribution Width 17.9 % (11.5-14.5) Platelet Count 552 x10^3/uL (140-400) Neutrophils (%) (Auto) 82 % (31-73) Lymphocytes (%) (Auto) 4 % (24-48) Monocytes (%) (Auto) 11 % (0-9) Eosinophils (%) (Auto) 4 % (0-3) Basophils (%) (Auto) 1 % (0-3) Neutrophils # (Auto) 6.4 x10^3/uL (1.8-7.7) Lymphocytes # (Auto) 0.3 x10^3/uL (1.0-4.8) Monocytes # (Auto) 0.8 x10^3/uL (0.0-1.1) Eosinophils # (Auto) 0.3 x10^3/uL (0.0-0.7) Basophils # (Auto) 0.1 x10^3/uL (0.0-0.2) Segmented Neutrophils % 57 % (35-66) Band Neutrophils % 30 % (0-9) Lymphocytes % 3 % (24-48) Monocytes % 4 % (0-10) Eosinophils % 6 % (0-5) Nucleated Red Blood Cells 1 Platelet Estimate Increased (ADEQUATE) Polychromasia Slight Anisocytosis Slight Sodium Level 138 mmol/L (136-145) Potassium Level 5.0 mmol/L (3.5-5.1) Chloride Level 107 mmol/L (98-107) Carbon Dioxide Level 21 mmol/L (21-32) Anion Gap 10 (6-14) Blood Urea Nitrogen 25 mg/dL (8-26) Creatinine 1.6 mg/dL (0.7-1.3) Estimated GFR (Cockcroft-Gault) 42.7 BUN/Creatinine Ratio 16 (6-20) Glucose Level 199 mg/dL (70-99) Lactic Acid Level 1.6 mmol/L (0.4-2.0) Calcium Level 7.6 mg/dL (8.5-10.1) Total Bilirubin 0.7 mg/dL (0.2-1.0) Aspartate Amino Transf (AST/SGOT) 30 U/L (15-37) Alanine Aminotransferase (ALT/SGPT) 40 U/L (16-63) Alkaline Phosphatase 188 U/L (46-116) Total Protein 6.1 g/dL (6.4-8.2) Albumin 2.0 g/dL (3.4-5.0) Albumin/Globulin Ratio 0.5 (1.0-1.7) Glucose (Fingerstick) 155 mg/dL (70-99) Test 08/27/19 08:00 08/27/19 11:41 O2 Saturation 98 % (92-99) Arterial Blood pH 7.39 (7.35-7.45) Arterial Blood pCO2 at Patient Temp 32 mmHg (35-46) Arterial Blood pO2 at Patient Temp 105 mmHg (65-108) Arterial Blood HCO3 19 mmol/L (21-28) Arterial Blood Base Excess -5 mmol/L (-3-3) FiO2 40 Glucose (Fingerstick) 160 mg/dL (70-99) VTE Prophylaxis Ordered VTE Prophylaxis Devices: Yes VTE Pharmacological Prophylaxi: Yes Assessment/Plan Assessment/Plan ASSESSMENT Acute Hypoxic Resp Failure requiring mechanical Ventilation, intubated 08/25 Suspected Aspiration PNA Septic Shock, present on admission Bowel Obstruction with PEG placement Anemia Acute Renal Failure secondary to Vasomotor Nephropathy DM2 HLD patient on oral AC, need to confirm reason BPH PLAN admit to ICU vent support continue pressors sedation support IV abx changed from Flagyl Rocephin to Zosyn per ID check covid test can resume TFs pulm and ID consults GI and DVT PPX FULL CODE labs in AM Justicifation of Admission Dx: Justifications for Admission: Justification of Admission Dx: Yes Respiratory Failure: Mechanical Ventilation BEBETO RICHTER MD Aug 27, 2019 16:56
[2019-08-27] MEDS ORDERED: INSULIN LISPRO 300 UNITS/3 ML VIAL. SQ SCH (17:00)
--- NOTE | 2019-08-27 17:23 | CONS ---
DATE OF CONSULTATION: 08/27/2019 ATTENDING PHYSICIAN: Dr. Hansen REASON FOR CONSULTATION: The patient is seen in pulmonary consultation at the request of Dr. Hansen for ____ upper respiratory failure, on mechanical ventilation. HISTORY OF PRESENT ILLNESS: The patient is a 73-year-old with comorbidities of hypertension, diabetes, COPD, coronary artery disease, status post coronary artery bypass grafting, and chronic heart failure, who was at a [facility]. Apparently, he had a recent small bowel resection and PEG tube placement. He was at [facility] for a short period of time. He became somewhat unresponsive with altered mental status. The patient was transferred to [facility] Emergency Department. He underwent endotracheal tube placement. He was started on IV fluids and Levophed. Central line placement was attempted. The patient was subsequently transferred to the ICU at [facility]. I was asked to see him in consultation. He is currently sedated. He is on IV fluids. He is on Levophed. LABORATORY DATA: His labs were reviewed. His white count is 7.9, hemoglobin of 9, hematocrit of 27, and platelet count is elevated. Arterial blood gas last time checked was pH 7.39, PaCO2 of 32, and pO2 of 105. His electrolytes were noted. BUN was normal. Creatinine was elevated at 1.6. Glucose was 199. Lactic acid level checked last evening was 1.6. Albumin was low at 2. I reviewed his x-ray. No significant consolidation. There is some mild vascular congestion. PAST MEDICAL HISTORY: As indicated above, COPD, coronary artery disease, chronic heart failure, diabetes, and hypertension. PAST SURGICAL HISTORY: Status post coronary artery bypass grafting, recent small bowel resection, and PEG tube placement. Unknown etiology for the small bowel resection. ALLERGIES: No known drug allergies listed. REVIEW OF SYSTEMS: Unobtainable secondary to the patient's condition. SOCIAL HISTORY: Unknown if he smoked. PHYSICAL EXAMINATION: GENERAL: The patient was in the intensive care unit. VITAL SIGNS: Noted. He was afebrile. O2 saturation was greater than 92%. He had a T-max yesterday of 101.0. HEENT: Eyes, the sclerae were nonicteric. NECK: Jugular venous distention was not elevated. No lymphadenopathy. CHEST: Full expansion. LUNGS: Adequate flow. No wheezes. CARDIOVASCULAR: Regular rate and rhythm with S1, S2. No S3. ABDOMEN: Soft. Evidence of recent surgery. PEG in place. EXTREMITIES: No clubbing, cyanosis, or edema. NEUROLOGIC: The patient was sedated. Labs and chest x-ray as indicated above. IMPRESSION: 1. Acute hypoxemic respiratory failure, multifactorial. 2. Toxic metabolic encephalopathy, present upon admission. 3. Septic shock. 4. Severe protein malnutrition, present upon admission. 5. Recent small bowel resection with PEG tube placement, etiology for the small bowel resection is unclear. 6. Multiple comorbidities of diabetes, chronic obstructive pulmonary disease, and chronic heart failure. 7. Coronary artery disease, status post coronary artery bypass grafting. 8. Acute renal insufficiency. 9. Chronic anemia. PLAN: 1. We will continue support with assist control ventilation. 2. Empiric antibiotics. 3. Continue IV fluids. 4. Levophed for mean arterial pressure above 60. 5. Sedate. 6. DVT and GI prophylaxes. 7. Consult ID. Total cumulative critical care time of 50 minutes reviewing data, chest x-ray, labs, and formulating the plan. The above was discussed with RN and Dr. Hansen. DIPAK MARTINEZ MD DR: JOSEFINA/felisha JOB#: [id number] / [id number]
[2019-08-27] MEDS: ASPIRIN CHEWABLE 81 MG TABLET. PEG SCH (20:32)
[2019-08-27] MEDS: APIXABAN 5 MG TABLET. FT SCH (20:32)
[2019-08-27] MEDS: INSULIN LISPRO 300 UNITS/3 ML VIAL. SQ SCH (23:39)
[2019-08-28] VITALS (30 sets, daily range): BP systolic 85–124; BP diastolic 44–67
[2019-08-28] MEDS: NOREPINEPHRINE VIAL 8 MG in IV DEXTROSE 5% 250 ML IV PRN (01:21)
[2019-08-28] MEDS: MIDAZOLAM 100mg/100ml NS BAG 100 ML IV PRN (03:33)
[2019-08-28 04:42] LABS: BASO # 0.1 x10^3/uL (0.0-0.2); BASO % 1 % (0-3); EOS # 0.9 x10^3/uL (0.0-0.7); EOS % 12 % (0-3); HEMATOCRIT 23.5 % (39.0-53.0); HEMOGLOBIN 7.6 g/dL (13.0-17.5); LYMPH # 0.8 x10^3/uL (1.0-4.8); LYMPH % 10 % (24-48); MEAN CORPUSCULAR HEMOGLOBIN 26 pg (25-35); MEAN CORPUSCULAR HGB CONC 32 g/dL (31-37); MEAN CORPUSCULAR VOLUME 80 fL (79-100); MONO # 0.9 x10^3/uL (0.0-1.1); MONO % 11 % (0-9); NEUT # 5.2 x10^3/uL (1.8-7.7); NEUT % 66 % (31-73); PLATELET COUNT 443 x10^3/uL (140-400); RED BLOOD COUNT 2.94 x10^6/uL (4.30-5.70); WHITE BLOOD COUNT 7.9 x10^3/uL (4.0-11.0)
[2019-08-28 05:07] LABS: ALBUMIN 1.7 g/dL (3.4-5.0); ALBUMIN/GLOBULIN RATIO 0.4 (1.0-1.7); CALCIUM 7.6 mg/dL (8.5-10.1); CREATININE 1.1 mg/dL (0.7-1.3); GFR 65.8; POTASSIUM 4.1 mmol/L (3.5-5.1); TOTAL BILIRUBIN 0.5 mg/dL (0.2-1.0); TOTAL PROTEIN 5.8 g/dL (6.4-8.2)
[2019-08-28] MEDS: INSULIN LISPRO 300 UNITS/3 ML VIAL. SQ SCH ×4 (05:45→23:30)
[2019-08-28] MEDS: PIPERACILLIN/TAZOBACTAM 3.375 GM in IV NORMAL SALINE 50ML 50 ML IV SCH ×4 (05:46→23:30)
--- NOTE | 2019-08-28 08:09 | PDOC ---
Infectious Disease Note Subjective Subjective sedated on vent ROS ROS no n/v/d/sob Vital Sign Vital Signs Vital Signs Date Time Temp Pulse Resp B/P (MAP) Pulse Ox O2 Delivery O2 Flow Rate FiO2 08/28/19 06:15 97/51 (66) 08/28/19 06:00 98 16 100 Ventilator 08/28/19 04:00 98.9 98.9 Physical Exam PHYSICAL EXAM GENERAL: Sedated, orally intubated gentleman, not in any distress. VITAL SIGNS: Stable HEENT: Both pupils are round and reacting. No conjunctival lesion. Mouth cannot be visualized, orally intubated. NECK: Supple, no JVP, no lymphadenopathy. LUNGS: Decreased breath sounds bilaterally. HEART: S1, S2 regular. No gallop or murmur. ABDOMEN: Soft, nontender, no organomegaly. PEG tube is in place. EXTREMITIES: No edema, cyanosis. SKIN: Unremarkable. NEUROLOGIC: The patient had been moving all the extremities before intubation and sedation. Labs Lab Laboratory Tests Test 08/27/19 11:41 08/27/19 17:03 08/27/19 23:38 08/28/19 04:00 Glucose (Fingerstick) 160 mg/dL (70-99) 144 mg/dL (70-99) 130 mg/dL (70-99) White Blood Count 7.9 x10^3/uL (4.0-11.0) Red Blood Count 2.94 x10^6/uL (4.30-5.70) Hemoglobin 7.6 g/dL (13.0-17.5) Hematocrit 23.5 % (39.0-53.0) Mean Corpuscular Volume 80 fL (79-100) Mean Corpuscular Hemoglobin 26 pg (25-35) Mean Corpuscular Hemoglobin Concent 32 g/dL (31-37) Red Cell Distribution Width 18.0 % (11.5-14.5) Platelet Count 443 x10^3/uL (140-400) Neutrophils (%) (Auto) 66 % (31-73) Lymphocytes (%) (Auto) 10 % (24-48) Monocytes (%) (Auto) 11 % (0-9) Eosinophils (%) (Auto) 12 % (0-3) Basophils (%) (Auto) 1 % (0-3) Neutrophils # (Auto) 5.2 x10^3/uL (1.8-7.7) Lymphocytes # (Auto) 0.8 x10^3/uL (1.0-4.8) Monocytes # (Auto) 0.9 x10^3/uL (0.0-1.1) Eosinophils # (Auto) 0.9 x10^3/uL (0.0-0.7) Basophils # (Auto) 0.1 x10^3/uL (0.0-0.2) Sodium Level 139 mmol/L (136-145) Potassium Level 4.1 mmol/L (3.5-5.1) Chloride Level 108 mmol/L (98-107) Carbon Dioxide Level 21 mmol/L (21-32) Anion Gap 10 (6-14) Blood Urea Nitrogen 23 mg/dL (8-26) Creatinine 1.1 mg/dL (0.7-1.3) Estimated GFR (Cockcroft-Gault) 65.8 BUN/Creatinine Ratio 21 (6-20) Glucose Level 137 mg/dL (70-99) Calcium Level 7.6 mg/dL (8.5-10.1) Total Bilirubin 0.5 mg/dL (0.2-1.0) Aspartate Amino Transf (AST/SGOT) 30 U/L (15-37) Alanine Aminotransferase (ALT/SGPT) 25 U/L (16-63) Alkaline Phosphatase 146 U/L (46-116) Total Protein 5.8 g/dL (6.4-8.2) Albumin 1.7 g/dL (3.4-5.0) Albumin/Globulin Ratio 0.4 (1.0-1.7) Test 08/28/19 05:44 Glucose (Fingerstick) 147 mg/dL (70-99) Micro Microbiology 08/26/19 Blood Culture - Preliminary, Resulted NO GROWTH AFTER 1 DAY Objective Assessment IMPRESSION: 1. Respiratory failure. 2. Fever. 3. Suspected aspiration. 4. Recent bowel obstruction, status post surgery and percutaneous endoscopic gastrostomy tube placement. 5. Renal insufficiency. Plan Plan of Care cont zosyn cont supportive care check cultures REHAN WARE MD Aug 28, 2019 08:09
[2019-08-28 08:59] LABS: BASE EXCESS ABG -4 mmol/L (-3-3); HCO3 ABG 20 mmol/L (21-28); PCO2 ABG 33 mmHg (35-46); PO2 ABG 115 mmHg (65-108); SAT O2 ABG 98 % (92-99)
[2019-08-28 09:04] LABS: FIO2 ABG 40
[2019-08-28] MEDS: APIXABAN 5 MG TABLET. FT SCH ×2 (09:42→20:40)
[2019-08-28] MEDS: ASPIRIN CHEWABLE 81 MG TABLET. PEG SCH (09:42)
[2019-08-28] MEDS: FAMOTIDINE 20 MG/2 ML VIAL IVP SCH ×2 (09:42→20:40)
--- NOTE | 2019-08-28 10:25 | PDOC ---
PULMONARY PROGRESS NOTES Subjective Patient sedated on assist control ventilation on Levophed Vitals Vital Signs Date Time Temp Pulse Resp B/P (MAP) Pulse Ox O2 Delivery O2 Flow Rate FiO2 08/28/19 08:18 100 Ventilator 08/28/19 06:15 97/51 (66) 08/28/19 06:00 98 16 08/28/19 04:00 98.9 98.9 Lungs: Clear Cardiovascular: S1, S2 Abdomen: Soft Extremities: No Edema Skin: Warm Labs Laboratory Tests Test 08/26/19 23:05 08/26/19 23:15 08/26/19 23:20 08/27/19 05:46 O2 Saturation 97 % (92-99) Arterial Blood pH 7.37 (7.35-7.45) Arterial Blood pH (Temp corrected) 7.35 Arterial Blood pCO2 at Patient Temp 33 mmHg (35-46) Arterial Blood pCO2 (Temp correct) 35 mmHg Arterial Blood pO2 at Patient Temp 106 mmHg (65-108) Arterial Blood pO2 (Temp corrected) 113 mmHg Arterial Blood HCO3 19 mmol/L (21-28) Arterial Blood Base Excess -6 mmol/L (-3-3) FiO2 40 Urine Collection Type Unknown Urine Color Flora Urine Clarity Cloudy Urine pH 5.0 (<5.0-8.0) Urine Specific [place] 1.025 (1.000-1.030) Urine Protein 100 mg/dL (NEG-TRACE) Urine Glucose (UA) Negative mg/dL (NEG) Urine Ketones (Stick) Trace mg/dL (NEG) Urine Blood Negative (NEG) Urine Nitrite Negative (NEG) Urine Bilirubin Negative (NEG) Urine Urobilinogen Dipstick 0.2 mg/dL (0.2 mg/dL) Urine Leukocyte Esterase Trace (NEG) Urine RBC Occ /HPF (0-2) Urine WBC 5-10 /HPF (0-4) Urine Squamous Epithelial Cells Occ /LPF Urine Amorphous Sediment Present /HPF Urine Bacteria 0 /HPF (0-FEW) Urine Hyaline Casts Few /HPF Urine Mucus Mod /LPF White Blood Count 7.9 x10^3/uL (4.0-11.0) Red Blood Count 3.49 x10^6/uL (4.30-5.70) Hemoglobin 9.4 g/dL (13.0-17.5) Hematocrit 27.7 % (39.0-53.0) Mean Corpuscular Volume 79 fL (79-100) Mean Corpuscular Hemoglobin 27 pg (25-35) Mean Corpuscular Hemoglobin Concent 34 g/dL (31-37) Red Cell Distribution Width 17.9 % (11.5-14.5) Platelet Count 552 x10^3/uL (140-400) Neutrophils (%) (Auto) 82 % (31-73) Lymphocytes (%) (Auto) 4 % (24-48) Monocytes (%) (Auto) 11 % (0-9) Eosinophils (%) (Auto) 4 % (0-3) Basophils (%) (Auto) 1 % (0-3) Neutrophils # (Auto) 6.4 x10^3/uL (1.8-7.7) Lymphocytes # (Auto) 0.3 x10^3/uL (1.0-4.8) Monocytes # (Auto) 0.8 x10^3/uL (0.0-1.1) Eosinophils # (Auto) 0.3 x10^3/uL (0.0-0.7) Basophils # (Auto) 0.1 x10^3/uL (0.0-0.2) Segmented Neutrophils % 57 % (35-66) Band Neutrophils % 30 % (0-9) Lymphocytes % 3 % (24-48) Monocytes % 4 % (0-10) Eosinophils % 6 % (0-5) Nucleated Red Blood Cells 1 Platelet Estimate Increased (ADEQUATE) Polychromasia Slight Anisocytosis Slight Sodium Level 138 mmol/L (136-145) Potassium Level 5.0 mmol/L (3.5-5.1) Chloride Level 107 mmol/L (98-107) Carbon Dioxide Level 21 mmol/L (21-32) Anion Gap 10 (6-14) Blood Urea Nitrogen 25 mg/dL (8-26) Creatinine 1.6 mg/dL (0.7-1.3) Estimated GFR (Cockcroft-Gault) 42.7 BUN/Creatinine Ratio 16 (6-20) Glucose Level 199 mg/dL (70-99) Lactic Acid Level 1.6 mmol/L (0.4-2.0) Calcium Level 7.6 mg/dL (8.5-10.1) Total Bilirubin 0.7 mg/dL (0.2-1.0) Aspartate Amino Transf (AST/SGOT) 30 U/L (15-37) Alanine Aminotransferase (ALT/SGPT) 40 U/L (16-63) Alkaline Phosphatase 188 U/L (46-116) Total Protein 6.1 g/dL (6.4-8.2) Albumin 2.0 g/dL (3.4-5.0) Albumin/Globulin Ratio 0.5 (1.0-1.7) Coronavirus (PCR) Not detected (Not Detected) Glucose (Fingerstick) 155 mg/dL (70-99) Test 08/27/19 08:00 08/27/19 11:41 08/27/19 17:03 08/27/19 23:38 O2 Saturation 98 % (92-99) Arterial Blood pH 7.39 (7.35-7.45) Arterial Blood pCO2 at Patient Temp 32 mmHg (35-46) Arterial Blood pO2 at Patient Temp 105 mmHg (65-108) Arterial Blood HCO3 19 mmol/L (21-28) Arterial Blood Base Excess -5 mmol/L (-3-3) FiO2 40 Glucose (Fingerstick) 160 mg/dL (70-99) 144 mg/dL (70-99) 130 mg/dL (70-99) Test 08/28/19 04:00 08/28/19 05:44 08/28/19 08:00 White Blood Count 7.9 x10^3/uL (4.0-11.0) Red Blood Count 2.94 x10^6/uL (4.30-5.70) Hemoglobin 7.6 g/dL (13.0-17.5) Hematocrit 23.5 % (39.0-53.0) Mean Corpuscular Volume 80 fL (79-100) Mean Corpuscular Hemoglobin 26 pg (25-35) Mean Corpuscular Hemoglobin Concent 32 g/dL (31-37) Red Cell Distribution Width 18.0 % (11.5-14.5) Platelet Count 443 x10^3/uL (140-400) Neutrophils (%) (Auto) 66 % (31-73) Lymphocytes (%) (Auto) 10 % (24-48) Monocytes (%) (Auto) 11 % (0-9) Eosinophils (%) (Auto) 12 % (0-3) Basophils (%) (Auto) 1 % (0-3) Neutrophils # (Auto) 5.2 x10^3/uL (1.8-7.7) Lymphocytes # (Auto) 0.8 x10^3/uL (1.0-4.8) Monocytes # (Auto) 0.9 x10^3/uL (0.0-1.1) Eosinophils # (Auto) 0.9 x10^3/uL (0.0-0.7) Basophils # (Auto) 0.1 x10^3/uL (0.0-0.2) Sodium Level 139 mmol/L (136-145) Potassium Level 4.1 mmol/L (3.5-5.1) Chloride Level 108 mmol/L (98-107) Carbon Dioxide Level 21 mmol/L (21-32) Anion Gap 10 (6-14) Blood Urea Nitrogen 23 mg/dL (8-26) Creatinine 1.1 mg/dL (0.7-1.3) Estimated GFR (Cockcroft-Gault) 65.8 BUN/Creatinine Ratio 21 (6-20) Glucose Level 137 mg/dL (70-99) Calcium Level 7.6 mg/dL (8.5-10.1) Total Bilirubin 0.5 mg/dL (0.2-1.0) Aspartate Amino Transf (AST/SGOT) 30 U/L (15-37) Alanine Aminotransferase (ALT/SGPT) 25 U/L (16-63) Alkaline Phosphatase 146 U/L (46-116) Total Protein 5.8 g/dL (6.4-8.2) Albumin 1.7 g/dL (3.4-5.0) Albumin/Globulin Ratio 0.4 (1.0-1.7) Glucose (Fingerstick) 147 mg/dL (70-99) O2 Saturation 98 % (92-99) Arterial Blood pH 7.39 (7.35-7.45) Arterial Blood pCO2 at Patient Temp 33 mmHg (35-46) Arterial Blood pO2 at Patient Temp 115 mmHg (65-108) Arterial Blood HCO3 20 mmol/L (21-28) Arterial Blood Base Excess -4 mmol/L (-3-3) FiO2 40 Laboratory Tests Test 08/27/19 11:41 08/27/19 17:03 08/27/19 23:38 08/28/19 04:00 Glucose (Fingerstick) 160 mg/dL (70-99) 144 mg/dL (70-99) 130 mg/dL (70-99) White Blood Count 7.9 x10^3/uL (4.0-11.0) Red Blood Count 2.94 x10^6/uL (4.30-5.70) Hemoglobin 7.6 g/dL (13.0-17.5) Hematocrit 23.5 % (39.0-53.0) Mean Corpuscular Volume 80 fL (79-100) Mean Corpuscular Hemoglobin 26 pg (25-35) Mean Corpuscular Hemoglobin Concent 32 g/dL (31-37) Red Cell Distribution Width 18.0 % (11.5-14.5) Platelet Count 443 x10^3/uL (140-400) Neutrophils (%) (Auto) 66 % (31-73) Lymphocytes (%) (Auto) 10 % (24-48) Monocytes (%) (Auto) 11 % (0-9) Eosinophils (%) (Auto) 12 % (0-3) Basophils (%) (Auto) 1 % (0-3) Neutrophils # (Auto) 5.2 x10^3/uL (1.8-7.7) Lymphocytes # (Auto) 0.8 x10^3/uL (1.0-4.8) Monocytes # (Auto) 0.9 x10^3/uL (0.0-1.1) Eosinophils # (Auto) 0.9 x10^3/uL (0.0-0.7) Basophils # (Auto) 0.1 x10^3/uL (0.0-0.2) Sodium Level 139 mmol/L (136-145) Potassium Level 4.1 mmol/L (3.5-5.1) Chloride Level 108 mmol/L (98-107) Carbon Dioxide Level 21 mmol/L (21-32) Anion Gap 10 (6-14) Blood Urea Nitrogen 23 mg/dL (8-26) Creatinine 1.1 mg/dL (0.7-1.3) Estimated GFR (Cockcroft-Gault) 65.8 BUN/Creatinine Ratio 21 (6-20) Glucose Level 137 mg/dL (70-99) Calcium Level 7.6 mg/dL (8.5-10.1) Total Bilirubin 0.5 mg/dL (0.2-1.0) Aspartate Amino Transf (AST/SGOT) 30 U/L (15-37) Alanine Aminotransferase (ALT/SGPT) 25 U/L (16-63) Alkaline Phosphatase 146 U/L (46-116) Total Protein 5.8 g/dL (6.4-8.2) Albumin 1.7 g/dL (3.4-5.0) Albumin/Globulin Ratio 0.4 (1.0-1.7) Test 08/28/19 05:44 08/28/19 08:00 Glucose (Fingerstick) 147 mg/dL (70-99) O2 Saturation 98 % (92-99) Arterial Blood pH 7.39 (7.35-7.45) Arterial Blood pCO2 at Patient Temp 33 mmHg (35-46) Arterial Blood pO2 at Patient Temp 115 mmHg (65-108) Arterial Blood HCO3 20 mmol/L (21-28) Arterial Blood Base Excess -4 mmol/L (-3-3) FiO2 40 Medications Active Scripts Medications Dose Route/Sig Max Daily Dose Days Date Category Dose Instructions Pepcid (Famotidine) 20 Mg Tablet 20 Mg PEG BID 08/27/19 Reported Famotidine 20 Mg Tablet 20 Mg PO BID 08/27/19 Reported Aspirin 81 Mg Tab.chew 1 Tab PEG DAILY 08/27/19 Reported Eliquis (Apixaban) 5 Mg Tablet 5 Mg PEG BID 08/27/19 Reported Proventil Hfa (Albuterol Sulfate) 6.7 Gm Hfa.aer.ad 1 Puff INH PRN Q6HRS PRN 08/27/19 Reported Acetaminophen 325 Mg Tablet 2 Tab PEG PRN Q4-6HRS PRN 24 08/27/19 Reported Humalog (Insulin Lispro) 100 Unit/1 Ml Vial 100 Unit SQ Q6HRS 08/27/19 Reported Inject 0-24 units under the skin every 6 hours Lantus Solostar (Insulin Glargine,Hum.rec.anlog) 100 Unit/1 Ml Insuln.pen 35 Unit SQ BID 08/27/19 Reported Symbicort 160-4.5 Mcg Inhaler (Budesonide/Formoterol Fumarate) 10.2 Gm Hfa.aer.ad 2 Puff IH BID 08/27/19 Reported Flomax (Tamsulosin Hcl) 0.4 Mg Cap.er.24h 0.4 Mg PEG DAILY 08/27/19 Reported Crestor (Rosuvastatin Calcium) 40 Mg Tablet 1 Tab PEG HS 08/27/19 Reported Roxicodone (Oxycodone HCl) 5 Mg Tablet 5 Mg PEG PRN Q4HRS PRN 08/27/19 Reported Olanzapine 20 Mg Tablet 1 Tab PEG QHS 08/27/19 Reported Olanzapine 10 Mg Tablet 1 Tab PEG DAILY 08/27/19 Reported Metoprolol Tartrate 25 Mg Tablet 1 Tab PEG BID 08/27/19 Reported Impression . IMPRESSION: 1. Acute hypoxemic respiratory failure, multifactorial. 2. Toxic metabolic encephalopathy, present upon admission. 3. Septic shock. 4. Severe protein malnutrition, present upon admission. 5. Recent small bowel resection with PEG tube placement, etiology for the small bowel resection is unclear. 6. Multiple comorbidities of diabetes, chronic obstructive pulmonary disease, and chronic heart failure. 7. Coronary artery disease, status post coronary artery bypass grafting. 8. Acute renal insufficiency. 9. Chronic anemia. 10. SARS-CoV-2 negative 11. Acute drop in hematocrit, will monitor Plan . Monitor H&H Continue assist control ventilation Continue Levophed IV fluids Empiric antibiotics per ID Above discussed with RN Total cumulative critical care time of 30 minutes reviewing data, chest x-ray, labs, and formulating the plan. DIPAK MARTINEZ MD Aug 28, 2019 10:25
--- NOTE | 2019-08-28 13:00 | PDOC ---
PROGRESS NOTES Chief Complaint Chief Complaint ASSESSMENT Acute Hypoxic Resp Failure requiring mechanical Ventilation, intubated 08/25 Suspected Aspiration PNA Septic Shock, present on admission Bowel Obstruction with PEG placement Anemia Acute Renal Failure secondary to Vasomotor Nephropathy, resolved DM2 HLD patient on oral AC, need to confirm reason BPH PLAN vent support continue pressors sedation support zosyn covid negative check covid test pulm and ID consults GI and DVT PPX FULL CODE labs in AM History of Present Illness History of Present Illness remains sedated on vent. Vitals Vitals Vital Signs Date Time Temp Pulse Resp B/P (MAP) Pulse Ox O2 Delivery O2 Flow Rate FiO2 08/28/19 11:42 100 Ventilator 08/28/19 06:15 97/51 (66) 08/28/19 06:00 98 16 08/28/19 04:00 98.9 98.9 Physical Exam Physical Exam GENERAL: Sedated, orally intubated gentleman, not in any distress. VITAL SIGNS: Stable HEENT: Both pupils are round and reacting. No conjunctival lesion. Mouth cannot be visualized, orally intubated. NECK: Supple, no JVP, no lymphadenopathy. LUNGS: Decreased breath sounds bilaterally. HEART: S1, S2 regular. No gallop or murmur. ABDOMEN: Soft, nontender, no organomegaly. PEG tube is in place. EXTREMITIES: No edema, cyanosis. SKIN: Unremarkable. NEUROLOGIC: The patient had been moving all the extremities before intubation and sedation. General: Other (sedated on vent) Heart: Regular rate Lungs: Clear Abdomen: Normal bowel sounds Skin: No rashes Labs LABS Laboratory Tests Test 08/27/19 17:03 08/27/19 23:38 08/28/19 04:00 08/28/19 05:44 Glucose (Fingerstick) 144 mg/dL (70-99) 130 mg/dL (70-99) 147 mg/dL (70-99) White Blood Count 7.9 x10^3/uL (4.0-11.0) Red Blood Count 2.94 x10^6/uL (4.30-5.70) Hemoglobin 7.6 g/dL (13.0-17.5) Hematocrit 23.5 % (39.0-53.0) Mean Corpuscular Volume 80 fL (79-100) Mean Corpuscular Hemoglobin 26 pg (25-35) Mean Corpuscular Hemoglobin Concent 32 g/dL (31-37) Red Cell Distribution Width 18.0 % (11.5-14.5) Platelet Count 443 x10^3/uL (140-400) Neutrophils (%) (Auto) 66 % (31-73) Lymphocytes (%) (Auto) 10 % (24-48) Monocytes (%) (Auto) 11 % (0-9) Eosinophils (%) (Auto) 12 % (0-3) Basophils (%) (Auto) 1 % (0-3) Neutrophils # (Auto) 5.2 x10^3/uL (1.8-7.7) Lymphocytes # (Auto) 0.8 x10^3/uL (1.0-4.8) Monocytes # (Auto) 0.9 x10^3/uL (0.0-1.1) Eosinophils # (Auto) 0.9 x10^3/uL (0.0-0.7) Basophils # (Auto) 0.1 x10^3/uL (0.0-0.2) Sodium Level 139 mmol/L (136-145) Potassium Level 4.1 mmol/L (3.5-5.1) Chloride Level 108 mmol/L (98-107) Carbon Dioxide Level 21 mmol/L (21-32) Anion Gap 10 (6-14) Blood Urea Nitrogen 23 mg/dL (8-26) Creatinine 1.1 mg/dL (0.7-1.3) Estimated GFR (Cockcroft-Gault) 65.8 BUN/Creatinine Ratio 21 (6-20) Glucose Level 137 mg/dL (70-99) Calcium Level 7.6 mg/dL (8.5-10.1) Total Bilirubin 0.5 mg/dL (0.2-1.0) Aspartate Amino Transf (AST/SGOT) 30 U/L (15-37) Alanine Aminotransferase (ALT/SGPT) 25 U/L (16-63) Alkaline Phosphatase 146 U/L (46-116) Total Protein 5.8 g/dL (6.4-8.2) Albumin 1.7 g/dL (3.4-5.0) Albumin/Globulin Ratio 0.4 (1.0-1.7) Test 08/28/19 08:00 O2 Saturation 98 % (92-99) Arterial Blood pH 7.39 (7.35-7.45) Arterial Blood pCO2 at Patient Temp 33 mmHg (35-46) Arterial Blood pO2 at Patient Temp 115 mmHg (65-108) Arterial Blood HCO3 20 mmol/L (21-28) Arterial Blood Base Excess -4 mmol/L (-3-3) FiO2 40 Comment Review of Relevant I have reviewed the following items parminder (where applicable) has been applied. Labs Laboratory Tests Test 08/26/19 23:05 08/26/19 23:15 08/26/19 23:20 08/27/19 05:46 O2 Saturation 97 % (92-99) Arterial Blood pH 7.37 (7.35-7.45) Arterial Blood pH (Temp corrected) 7.35 Arterial Blood pCO2 at Patient Temp 33 mmHg (35-46) Arterial Blood pCO2 (Temp correct) 35 mmHg Arterial Blood pO2 at Patient Temp 106 mmHg (65-108) Arterial Blood pO2 (Temp corrected) 113 mmHg Arterial Blood HCO3 19 mmol/L (21-28) Arterial Blood Base Excess -6 mmol/L (-3-3) FiO2 40 Urine Collection Type Unknown Urine Color Flora Urine Clarity Cloudy Urine pH 5.0 (<5.0-8.0) Urine Specific Nunn 1.025 (1.000-1.030) Urine Protein 100 mg/dL (NEG-TRACE) Urine Glucose (UA) Negative mg/dL (NEG) Urine Ketones (Stick) Trace mg/dL (NEG) Urine Blood Negative (NEG) Urine Nitrite Negative (NEG) Urine Bilirubin Negative (NEG) Urine Urobilinogen Dipstick 0.2 mg/dL (0.2 mg/dL) Urine Leukocyte Esterase Trace (NEG) Urine RBC Occ /HPF (0-2) Urine WBC 5-10 /HPF (0-4) Urine Squamous Epithelial Cells Occ /LPF Urine Amorphous Sediment Present /HPF Urine Bacteria 0 /HPF (0-FEW) Urine Hyaline Casts Few /HPF Urine Mucus Mod /LPF White Blood Count 7.9 x10^3/uL (4.0-11.0) Red Blood Count 3.49 x10^6/uL (4.30-5.70) Hemoglobin 9.4 g/dL (13.0-17.5) Hematocrit 27.7 % (39.0-53.0) Mean Corpuscular Volume 79 fL (79-100) Mean Corpuscular Hemoglobin 27 pg (25-35) Mean Corpuscular Hemoglobin Concent 34 g/dL (31-37) Red Cell Distribution Width 17.9 % (11.5-14.5) Platelet Count 552 x10^3/uL (140-400) Neutrophils (%) (Auto) 82 % (31-73) Lymphocytes (%) (Auto) 4 % (24-48) Monocytes (%) (Auto) 11 % (0-9) Eosinophils (%) (Auto) 4 % (0-3) Basophils (%) (Auto) 1 % (0-3) Neutrophils # (Auto) 6.4 x10^3/uL (1.8-7.7) Lymphocytes # (Auto) 0.3 x10^3/uL (1.0-4.8) Monocytes # (Auto) 0.8 x10^3/uL (0.0-1.1) Eosinophils # (Auto) 0.3 x10^3/uL (0.0-0.7) Basophils # (Auto) 0.1 x10^3/uL (0.0-0.2) Segmented Neutrophils % 57 % (35-66) Band Neutrophils % 30 % (0-9) Lymphocytes % 3 % (24-48) Monocytes % 4 % (0-10) Eosinophils % 6 % (0-5) Nucleated Red Blood Cells 1 Platelet Estimate Increased (ADEQUATE) Polychromasia Slight Anisocytosis Slight Sodium Level 138 mmol/L (136-145) Potassium Level 5.0 mmol/L (3.5-5.1) Chloride Level 107 mmol/L (98-107) Carbon Dioxide Level 21 mmol/L (21-32) Anion Gap 10 (6-14) Blood Urea Nitrogen 25 mg/dL (8-26) Creatinine 1.6 mg/dL (0.7-1.3) Estimated GFR (Cockcroft-Gault) 42.7 BUN/Creatinine Ratio 16 (6-20) Glucose Level 199 mg/dL (70-99) Lactic Acid Level 1.6 mmol/L (0.4-2.0) Calcium Level 7.6 mg/dL (8.5-10.1) Total Bilirubin 0.7 mg/dL (0.2-1.0) Aspartate Amino Transf (AST/SGOT) 30 U/L (15-37) Alanine Aminotransferase (ALT/SGPT) 40 U/L (16-63) Alkaline Phosphatase 188 U/L (46-116) Total Protein 6.1 g/dL (6.4-8.2) Albumin 2.0 g/dL (3.4-5.0) Albumin/Globulin Ratio 0.5 (1.0-1.7) Coronavirus (PCR) Not detected (Not Detected) Glucose (Fingerstick) 155 mg/dL (70-99) Test 08/27/19 08:00 08/27/19 11:41 08/27/19 17:03 08/27/19 23:38 O2 Saturation 98 % (92-99) Arterial Blood pH 7.39 (7.35-7.45) Arterial Blood pCO2 at Patient Temp 32 mmHg (35-46) Arterial Blood pO2 at Patient Temp 105 mmHg (65-108) Arterial Blood HCO3 19 mmol/L (21-28) Arterial Blood Base Excess -5 mmol/L (-3-3) FiO2 40 Glucose (Fingerstick) 160 mg/dL (70-99) 144 mg/dL (70-99) 130 mg/dL (70-99) Test 08/28/19 04:00 08/28/19 05:44 08/28/19 08:00 White Blood Count 7.9 x10^3/uL (4.0-11.0) Red Blood Count 2.94 x10^6/uL (4.30-5.70) Hemoglobin 7.6 g/dL (13.0-17.5) Hematocrit 23.5 % (39.0-53.0) Mean Corpuscular Volume 80 fL (79-100) Mean Corpuscular Hemoglobin 26 pg (25-35) Mean Corpuscular Hemoglobin Concent 32 g/dL (31-37) Red Cell Distribution Width 18.0 % (11.5-14.5) Platelet Count 443 x10^3/uL (140-400) Neutrophils (%) (Auto) 66 % (31-73) Lymphocytes (%) (Auto) 10 % (24-48) Monocytes (%) (Auto) 11 % (0-9) Eosinophils (%) (Auto) 12 % (0-3) Basophils (%) (Auto) 1 % (0-3) Neutrophils # (Auto) 5.2 x10^3/uL (1.8-7.7) Lymphocytes # (Auto) 0.8 x10^3/uL (1.0-4.8) Monocytes # (Auto) 0.9 x10^3/uL (0.0-1.1) Eosinophils # (Auto) 0.9 x10^3/uL (0.0-0.7) Basophils # (Auto) 0.1 x10^3/uL (0.0-0.2) Sodium Level 139 mmol/L (136-145) Potassium Level 4.1 mmol/L (3.5-5.1) Chloride Level 108 mmol/L (98-107) Carbon Dioxide Level 21 mmol/L (21-32) Anion Gap 10 (6-14) Blood Urea Nitrogen 23 mg/dL (8-26) Creatinine 1.1 mg/dL (0.7-1.3) Estimated GFR (Cockcroft-Gault) 65.8 BUN/Creatinine Ratio 21 (6-20) Glucose Level 137 mg/dL (70-99) Calcium Level 7.6 mg/dL (8.5-10.1) Total Bilirubin 0.5 mg/dL (0.2-1.0) Aspartate Amino Transf (AST/SGOT) 30 U/L (15-37) Alanine Aminotransferase (ALT/SGPT) 25 U/L (16-63) Alkaline Phosphatase 146 U/L (46-116) Total Protein 5.8 g/dL (6.4-8.2) Albumin 1.7 g/dL (3.4-5.0) Albumin/Globulin Ratio 0.4 (1.0-1.7) Glucose (Fingerstick) 147 mg/dL (70-99) O2 Saturation 98 % (92-99) Arterial Blood pH 7.39 (7.35-7.45) Arterial Blood pCO2 at Patient Temp 33 mmHg (35-46) Arterial Blood pO2 at Patient Temp 115 mmHg (65-108) Arterial Blood HCO3 20 mmol/L (21-28) Arterial Blood Base Excess -4 mmol/L (-3-3) FiO2 40 Laboratory Tests Test 08/27/19 17:03 08/27/19 23:38 08/28/19 04:00 08/28/19 05:44 Glucose (Fingerstick) 144 mg/dL (70-99) 130 mg/dL (70-99) 147 mg/dL (70-99) White Blood Count 7.9 x10^3/uL (4.0-11.0) Red Blood Count 2.94 x10^6/uL (4.30-5.70) Hemoglobin 7.6 g/dL (13.0-17.5) Hematocrit 23.5 % (39.0-53.0) Mean Corpuscular Volume 80 fL (79-100) Mean Corpuscular Hemoglobin 26 pg (25-35) Mean Corpuscular Hemoglobin Concent 32 g/dL (31-37) Red Cell Distribution Width 18.0 % (11.5-14.5) Platelet Count 443 x10^3/uL (140-400) Neutrophils (%) (Auto) 66 % (31-73) Lymphocytes (%) (Auto) 10 % (24-48) Monocytes (%) (Auto) 11 % (0-9) Eosinophils (%) (Auto) 12 % (0-3) Basophils (%) (Auto) 1 % (0-3) Neutrophils # (Auto) 5.2 x10^3/uL (1.8-7.7) Lymphocytes # (Auto) 0.8 x10^3/uL (1.0-4.8) Monocytes # (Auto) 0.9 x10^3/uL (0.0-1.1) Eosinophils # (Auto) 0.9 x10^3/uL (0.0-0.7) Basophils # (Auto) 0.1 x10^3/uL (0.0-0.2) Sodium Level 139 mmol/L (136-145) Potassium Level 4.1 mmol/L (3.5-5.1) Chloride Level 108 mmol/L (98-107) Carbon Dioxide Level 21 mmol/L (21-32) Anion Gap 10 (6-14) Blood Urea Nitrogen 23 mg/dL (8-26) Creatinine 1.1 mg/dL (0.7-1.3) Estimated GFR (Cockcroft-Gault) 65.8 BUN/Creatinine Ratio 21 (6-20) Glucose Level 137 mg/dL (70-99) Calcium Level 7.6 mg/dL (8.5-10.1) Total Bilirubin 0.5 mg/dL (0.2-1.0) Aspartate Amino Transf (AST/SGOT) 30 U/L (15-37) Alanine Aminotransferase (ALT/SGPT) 25 U/L (16-63) Alkaline Phosphatase 146 U/L (46-116) Total Protein 5.8 g/dL (6.4-8.2) Albumin 1.7 g/dL (3.4-5.0) Albumin/Globulin Ratio 0.4 (1.0-1.7) Test 08/28/19 08:00 O2 Saturation 98 % (92-99) Arterial Blood pH 7.39 (7.35-7.45) Arterial Blood pCO2 at Patient Temp 33 mmHg (35-46) Arterial Blood pO2 at Patient Temp 115 mmHg (65-108) Arterial Blood HCO3 20 mmol/L (21-28) Arterial Blood Base Excess -4 mmol/L (-3-3) FiO2 40 Microbiology 08/26/19 Urine Culture - Final, Complete 08/26/19 Blood Culture - Preliminary, Resulted NO GROWTH AFTER 1 DAY Medications Current Medications Norepinephrine Bitartrate 8 mg/ Dextrose 258 ml @ 13.603 mls/ hr CONT PRN IV PER PROTOCOL Last administered on 08/28/19at 01:21; Start 08/26/19 at 23:00 Fentanyl Citrate 30 ml @ 0 mls/hr CONT PRN IV SEE PROTOCOL Last administered on 08/28/19at 04:50; Start 08/26/19 at 23:00 Fentanyl Citrate (Fentanyl 2ml Vial) 25 mcg PRN Q1HR PRN IV SEE COMMENTS; Start 08/26/19 at 23:00 Fentanyl Citrate (Fentanyl 2ml Vial) 50 mcg PRN Q1HR PRN IV SEE COMMENTS; Start 08/26/19 at 23:00 Famotidine (Pepcid Vial) 20 mg BID IVP Last administered on 08/28/19at 09:42; Start 08/27/19 at 09:00 Morphine Sulfate (Morphine Sulfate) 2 mg PRN Q1HR PRN IV SEE COMMENTS.; Start 08/26/19 at 23:00 Morphine Sulfate (Morphine Sulfate) 4 mg PRN Q1HR PRN IV SEE COMMENTS.; Start 08/26/19 at 23:00 Midazolam HCl 100 ml @ 0 mls/hr CONT PRN IV SEE PROTOCOL Last administered on 08/28/19at 03:33; Start 08/26/19 at 23:00 Enoxaparin Sodium (Lovenox 40mg Syringe) 40 mg Q24H SQ Last administered on 08/27/19at 00:42; Start 08/26/19 at 23:00; Stop 08/27/19 at 16:55; Status DC Metronidazole 100 ml @ 100 mls/hr Q8HRS IV Last administered on 08/27/19at 05:32; Start 08/27/19 at 06:00; Stop 08/27/19 at 13:14; Status DC Ceftriaxone Sodium (Rocephin) 1 gm Q24H IVP Last administered on 08/27/19at 08:32; Start 08/27/19 at 09:00; Stop 08/27/19 at 13:14; Status DC Sodium Chloride 1,000 ml @ 75 mls/hr [id number] IV Last administered on 08/27/19at 20:39; Start 08/26/19 at 23:00 Acetaminophen (Tylenol Supp) 650 mg PRN Q6HRS PRN [place] MILD PAIN / TEMP > 100.3'F Last administered on 08/27/19at 02:09; Start 08/27/19 at 02:00 Piperacillin Sod/ Tazobactam Sod 3.375 gm/Sodium Chloride 50 ml @ 100 mls/hr Q6HRS IV Last administered on 08/28/19at 05:46; Start 08/27/19 at 14:00 Insulin Human Lispro (HumaLOG) 0-7 UNITS TIDWMEALS SQ ; Start 08/27/19 at 17:00; Stop 08/27/19 at 20:28; Status DC Dextrose (Dextrose 50%-Water Syringe) 12.5 gm PRN Q15MIN PRN IV SEE COMMENTS; Start 08/27/19 at 14:00 Apixaban (Eliquis) 5 mg BID FT Last administered on 08/28/19at 09:42; Start 08/27/19 at 21:00 Aspirin (Aspirin Chewable) 81 mg DAILY PEG Last administered on 08/28/19at 09:42; Start 08/27/19 at 17:00 Insulin Human Lispro (HumaLOG) 0-7 UNITS Q6HRS SQ ; Start 08/28/19 at 00:00 Active Scripts Active Reported Pepcid (Famotidine) 20 Mg Tablet 20 Mg PEG BID Famotidine 20 Mg Tablet 20 Mg PO BID Aspirin 81 Mg Tab.chew 1 Tab PEG DAILY Eliquis (Apixaban) 5 Mg Tablet 5 Mg PEG BID Proventil Hfa (Albuterol Sulfate) 6.7 Gm Hfa.aer.ad 1 Puff INH PRN Q6HRS PRN Acetaminophen 325 Mg Tablet 2 Tab PEG PRN Q4-6HRS PRN 24 Days Humalog (Insulin Lispro) 100 Unit/1 Ml Vial 100 Unit SQ Q6HRS Inject 0-24 units under the skin every 6 hours Lantus Solostar (Insulin Glargine,Hum.rec.anlog) 100 Unit/1 Ml Insuln.pen 35 Unit SQ BID Symbicort 160-4.5 Mcg Inhaler (Budesonide/Formoterol Fumarate) 10.2 Gm Hfa.aer.ad 2 Puff IH BID Flomax (Tamsulosin Hcl) 0.4 Mg Cap.er.24h 0.4 Mg PEG DAILY Crestor (Rosuvastatin Calcium) 40 Mg Tablet 1 Tab PEG HS Roxicodone (Oxycodone HCl) 5 Mg Tablet 5 Mg PEG PRN Q4HRS PRN Olanzapine 20 Mg Tablet 1 Tab PEG QHS Olanzapine 10 Mg Tablet 1 Tab PEG DAILY Metoprolol Tartrate 25 Mg Tablet 1 Tab PEG BID Vitals/I & O Vital Sign - Last 24 Hours 08/27/19 08/27/19 08/27/19 08/27/19 13:00 13:30 14:00 14:30 Temp 99.3 99.3 Pulse 122 122 122 120 Resp 16 16 16 16 B/P (MAP) 100/55 (70) 87/43 (58) Pulse Ox 40 40 40 40 O2 Delivery Ventilator Ventilator Ventilator Ventilator 08/27/19 08/27/19 08/27/19 08/27/19 15:00 15:30 15:59 16:00 Temp 99.2 99.2 Pulse 118 114 Resp 16 16 B/P (MAP) 91/48 (62) 104/55 (71) Pulse Ox 40 40 100 O2 Delivery Ventilator Ventilator Ventilator Mechanical Ventilator 08/27/19 08/27/19 08/27/19 08/27/19 16:00 17:00 17:00 17:30 Pulse 108 106 Resp 16 16 16 16 B/P (MAP) 112/53 (72) 114/61 (78) Pulse Ox 40 40 O2 Delivery Ventilator Ventilator Ventilator Ventilator 08/27/19 08/27/19 08/27/19 08/27/19 18:00 19:00 19:50 20:00 Temp 99.1 99.1 Pulse 104 107 108 Resp 16 16 16 B/P (MAP) 104/54 (71) 100/54 (69) 99/52 (68) Pulse Ox 100 100 O2 Delivery Ventilator Ventilator Mechanical Ventilator Ventilator 08/27/19 08/27/19 08/27/19 08/27/19 20:01 21:00 22:00 23:00 Pulse 102 107 98 Resp 16 16 16 B/P (MAP) 103/55 (71) 110/54 (72) 93/45 (61) Pulse Ox 100 100 100 100 O2 Delivery Ventilator Ventilator Ventilator Ventilator 08/27/19 08/28/19 08/28/19 08/28/19 23:16 00:00 00:00 00:15 Temp 98.7 98.7 Pulse 100 Resp 16 B/P (MAP) 107/56 (73) 103/50 (67) Pulse Ox 100 100 O2 Delivery Ventilator Mechanical Ventilator Ventilator 08/28/19 08/28/19 08/28/19 08/28/19 00:45 01:00 02:00 02:15 Pulse 98 93 Resp 16 16 B/P (MAP) 108/52 (70) 110/53 (72) 97/55 (69) 90/49 (63) Pulse Ox 100 100 O2 Delivery Ventilator Ventilator 08/28/19 08/28/19 08/28/19 08/28/19 03:00 03:10 03:30 04:00 Temp 98.9 98.9 Pulse 90 90 Resp 16 16 B/P (MAP) 92/50 (64) 96/51 (66) Pulse Ox 100 100 100 O2 Delivery Ventilator Ventilator Mechanical Ventilator Ventilator 08/28/19 08/28/19 08/28/19 08/28/19 04:30 04:45 04:50 05:00 Pulse 93 Resp 16 B/P (MAP) 95/47 (63) 106/52 (70) 98/52 (67) Pulse Ox 100 100 O2 Delivery Ventilator Ventilator 08/28/19 08/28/19 08/28/19 08/28/19 05:30 05:45 06:00 06:15 Pulse 98 Resp 16 16 B/P (MAP) 102/46 (64) 85/58 (67) 97/51 (66) Pulse Ox 100 100 O2 Delivery Ventilator Ventilator 08/28/19 08/28/19 08:18 11:42 Pulse Ox 100 100 O2 Delivery Ventilator Ventilator Intake and Output 08/27/19 08/27/19 08/28/19 15:00 23:00 07:00 Intake Total 1442 ml 1996 ml Output Total 170 ml 475 ml 280 ml Balance -170 ml 967 ml 1716 ml Justicifation of Admission Dx: Justifications for Admission: Justification of Admission Dx: Yes Respiratory Failure: Mechanical Ventilation BEBETO RICHTER MD Aug 28, 2019 13:00
--- NOTE | 2019-08-28 14:57 | NUR ---
SS following up with discharge planning. SS reviewed pt chart and discussed with pt RN. Pt remains on the vent at this time. Pt on IV Zosyn. COVID19 negative. SS will continue to follow for discharge planning.
[2019-08-28] MEDS: IV NORMAL SALINE 1000ML BAG 1,000 ML IV SCH (18:01)
[2019-08-29] VITALS (26 sets, daily range): BP systolic 87–134; BP diastolic 50–78
[2019-08-29] MEDS: IV NORMAL SALINE 1000ML BAG 1,000 ML IV SCH ×2 (03:04→18:31)
[2019-08-29 04:35] LABS: BASO # 0.1 x10^3/uL (0.0-0.2); BASO % 1 % (0-3); EOS # 0.8 x10^3/uL (0.0-0.7); EOS % 10 % (0-3); HEMATOCRIT 21.8 % (39.0-53.0); HEMOGLOBIN 7.2 g/dL (13.0-17.5); LYMPH # 0.9 x10^3/uL (1.0-4.8); LYMPH % 11 % (24-48); MEAN CORPUSCULAR HEMOGLOBIN 26 pg (25-35); MEAN CORPUSCULAR HGB CONC 33 g/dL (31-37); MEAN CORPUSCULAR VOLUME 79 fL (79-100); MONO # 0.8 x10^3/uL (0.0-1.1); MONO % 10 % (0-9); NEUT # 5.4 x10^3/uL (1.8-7.7); NEUT % 68 % (31-73); PLATELET COUNT 431 x10^3/uL (140-400); RED BLOOD COUNT 2.77 x10^6/uL (4.30-5.70); RED CELL DISTRIBUTION WIDTH 17.8 % (11.5-14.5); WHITE BLOOD COUNT 7.9 x10^3/uL (4.0-11.0)
[2019-08-29 05:00] LABS: ALBUMIN 1.6 g/dL (3.4-5.0); CALCIUM 7.8 mg/dL (8.5-10.1); DIRECT BILIRUBIN 0.3 mg/dL (0.0-0.2); GFR 73.5; POTASSIUM 3.4 mmol/L (3.5-5.1); TOTAL BILIRUBIN 0.4 mg/dL (0.2-1.0); TOTAL PROTEIN 5.5 g/dL (6.4-8.2)
[2019-08-29] MEDS: INSULIN LISPRO 300 UNITS/3 ML VIAL. SQ SCH ×4 (05:22→23:25)
[2019-08-29] MEDS: PIPERACILLIN/TAZOBACTAM 3.375 GM in IV NORMAL SALINE 50ML 50 ML IV SCH ×4 (05:23→23:23)
--- NOTE | 2019-08-29 07:48 | PDOC ---
Infectious Disease Note Subjective Subjective sedated on vent ROS ROS No nausea vomiting diarrhea Low-grade fever Vital Sign Vital Signs Vital Signs Date Time Temp Pulse Resp B/P (MAP) Pulse Ox O2 Delivery O2 Flow Rate FiO2 08/29/19 05:15 107 22 114/54 (74) 100 Ventilator 08/29/19 04:00 98.6 98.6 Physical Exam PHYSICAL EXAM GENERAL: Sedated, orally intubated gentleman, not in any distress. VITAL SIGNS: Stable HEENT: Both pupils are round and reacting. No conjunctival lesion. Mouth cannot be visualized, orally intubated. NECK: Supple, no JVP, no lymphadenopathy. LUNGS: Decreased breath sounds bilaterally. HEART: S1, S2 regular. No gallop or murmur. ABDOMEN: Soft, nontender, no organomegaly. PEG tube is in place. EXTREMITIES: No edema, cyanosis. SKIN: Unremarkable. NEUROLOGIC: The patient had been moving all the extremities before intubation and sedation. Labs Lab Laboratory Tests Test 08/28/19 08:00 08/28/19 18:03 08/28/19 23:26 08/29/19 04:00 O2 Saturation 98 % (92-99) Arterial Blood pH 7.39 (7.35-7.45) Arterial Blood pCO2 at Patient Temp 33 mmHg (35-46) Arterial Blood pO2 at Patient Temp 115 mmHg (65-108) Arterial Blood HCO3 20 mmol/L (21-28) Arterial Blood Base Excess -4 mmol/L (-3-3) FiO2 40 Glucose (Fingerstick) 161 mg/dL (70-99) 164 mg/dL (70-99) White Blood Count 7.9 x10^3/uL (4.0-11.0) Red Blood Count 2.77 x10^6/uL (4.30-5.70) Hemoglobin 7.2 g/dL (13.0-17.5) Hematocrit 21.8 % (39.0-53.0) Mean Corpuscular Volume 79 fL (79-100) Mean Corpuscular Hemoglobin 26 pg (25-35) Mean Corpuscular Hemoglobin Concent 33 g/dL (31-37) Red Cell Distribution Width 17.8 % (11.5-14.5) Platelet Count 431 x10^3/uL (140-400) Neutrophils (%) (Auto) 68 % (31-73) Lymphocytes (%) (Auto) 11 % (24-48) Monocytes (%) (Auto) 10 % (0-9) Eosinophils (%) (Auto) 10 % (0-3) Basophils (%) (Auto) 1 % (0-3) Neutrophils # (Auto) 5.4 x10^3/uL (1.8-7.7) Lymphocytes # (Auto) 0.9 x10^3/uL (1.0-4.8) Monocytes # (Auto) 0.8 x10^3/uL (0.0-1.1) Eosinophils # (Auto) 0.8 x10^3/uL (0.0-0.7) Basophils # (Auto) 0.1 x10^3/uL (0.0-0.2) Sodium Level 139 mmol/L (136-145) Potassium Level 3.4 mmol/L (3.5-5.1) Chloride Level 107 mmol/L (98-107) Carbon Dioxide Level 21 mmol/L (21-32) Anion Gap 11 (6-14) Blood Urea Nitrogen 17 mg/dL (8-26) Creatinine 1.0 mg/dL (0.7-1.3) Estimated GFR (Cockcroft-Gault) 73.5 Glucose Level 185 mg/dL (70-99) Calcium Level 7.8 mg/dL (8.5-10.1) Total Bilirubin 0.4 mg/dL (0.2-1.0) Direct Bilirubin 0.3 mg/dL (0.0-0.2) Aspartate Amino Transf (AST/SGOT) 23 U/L (15-37) Alanine Aminotransferase (ALT/SGPT) 20 U/L (16-63) Alkaline Phosphatase 179 U/L (46-116) Total Protein 5.5 g/dL (6.4-8.2) Albumin 1.6 g/dL (3.4-5.0) Test 08/29/19 05:19 Glucose (Fingerstick) 166 mg/dL (70-99) Micro Microbiology 08/26/19 Blood Culture - Preliminary, Resulted NO GROWTH AFTER 1 DAY Objective Assessment IMPRESSION: 1. Respiratory failure. 2. Fever. 3. Suspected aspiration. 4. Recent bowel obstruction, status post surgery and percutaneous endoscopic gastrostomy tube placement. 5. Renal insufficiency. Plan Plan of Care cont zosyn cont supportive care check cultures REHAN WARE MD Aug 29, 2019 07:48
[2019-08-29 08:13] LABS: BASE EXCESS ABG -3 mmol/L (-3-3); HCO3 ABG 21 mmol/L (21-28); PCO2 ABG 33 mmHg (35-46); PO2 ABG 93 mmHg (65-108); SAT O2 ABG 97 % (92-99)
[2019-08-29 08:32] LABS: FIO2 ABG 35% VENT
[2019-08-29] MEDS: APIXABAN 5 MG TABLET. FT SCH ×2 (08:59→20:44)
[2019-08-29] MEDS ORDERED: POTASSIUM BICARB 20 MEQ EFFERVESCENT TABLET. PO ONE (09:00)
--- NOTE | 2019-08-29 09:05 | PDOC ---
PULMONARY PROGRESS NOTES Subjective On Levophed assist control ventilation sedated Vitals Vital Signs Date Time Temp Pulse Resp B/P (MAP) Pulse Ox O2 Delivery O2 Flow Rate FiO2 08/29/19 08:47 100 Ventilator 08/29/19 05:15 107 22 114/54 (74) 08/29/19 04:00 98.6 98.6 Lungs: Clear Cardiovascular: S1, S2 Abdomen: Soft Extremities: No Edema Skin: Warm Labs Laboratory Tests Test 08/27/19 11:41 08/27/19 17:03 08/27/19 23:38 08/28/19 04:00 Glucose (Fingerstick) 160 mg/dL (70-99) 144 mg/dL (70-99) 130 mg/dL (70-99) White Blood Count 7.9 x10^3/uL (4.0-11.0) Red Blood Count 2.94 x10^6/uL (4.30-5.70) Hemoglobin 7.6 g/dL (13.0-17.5) Hematocrit 23.5 % (39.0-53.0) Mean Corpuscular Volume 80 fL (79-100) Mean Corpuscular Hemoglobin 26 pg (25-35) Mean Corpuscular Hemoglobin Concent 32 g/dL (31-37) Red Cell Distribution Width 18.0 % (11.5-14.5) Platelet Count 443 x10^3/uL (140-400) Neutrophils (%) (Auto) 66 % (31-73) Lymphocytes (%) (Auto) 10 % (24-48) Monocytes (%) (Auto) 11 % (0-9) Eosinophils (%) (Auto) 12 % (0-3) Basophils (%) (Auto) 1 % (0-3) Neutrophils # (Auto) 5.2 x10^3/uL (1.8-7.7) Lymphocytes # (Auto) 0.8 x10^3/uL (1.0-4.8) Monocytes # (Auto) 0.9 x10^3/uL (0.0-1.1) Eosinophils # (Auto) 0.9 x10^3/uL (0.0-0.7) Basophils # (Auto) 0.1 x10^3/uL (0.0-0.2) Sodium Level 139 mmol/L (136-145) Potassium Level 4.1 mmol/L (3.5-5.1) Chloride Level 108 mmol/L (98-107) Carbon Dioxide Level 21 mmol/L (21-32) Anion Gap 10 (6-14) Blood Urea Nitrogen 23 mg/dL (8-26) Creatinine 1.1 mg/dL (0.7-1.3) Estimated GFR (Cockcroft-Gault) 65.8 BUN/Creatinine Ratio 21 (6-20) Glucose Level 137 mg/dL (70-99) Calcium Level 7.6 mg/dL (8.5-10.1) Total Bilirubin 0.5 mg/dL (0.2-1.0) Aspartate Amino Transf (AST/SGOT) 30 U/L (15-37) Alanine Aminotransferase (ALT/SGPT) 25 U/L (16-63) Alkaline Phosphatase 146 U/L (46-116) Total Protein 5.8 g/dL (6.4-8.2) Albumin 1.7 g/dL (3.4-5.0) Albumin/Globulin Ratio 0.4 (1.0-1.7) Test 08/28/19 05:44 08/28/19 08:00 08/28/19 18:03 08/28/19 23:26 Glucose (Fingerstick) 147 mg/dL (70-99) 161 mg/dL (70-99) 164 mg/dL (70-99) O2 Saturation 98 % (92-99) Arterial Blood pH 7.39 (7.35-7.45) Arterial Blood pCO2 at Patient Temp 33 mmHg (35-46) Arterial Blood pO2 at Patient Temp 115 mmHg (65-108) Arterial Blood HCO3 20 mmol/L (21-28) Arterial Blood Base Excess -4 mmol/L (-3-3) FiO2 40 Test 08/29/19 04:00 08/29/19 05:19 08/29/19 08:00 White Blood Count 7.9 x10^3/uL (4.0-11.0) Red Blood Count 2.77 x10^6/uL (4.30-5.70) Hemoglobin 7.2 g/dL (13.0-17.5) Hematocrit 21.8 % (39.0-53.0) Mean Corpuscular Volume 79 fL (79-100) Mean Corpuscular Hemoglobin 26 pg (25-35) Mean Corpuscular Hemoglobin Concent 33 g/dL (31-37) Red Cell Distribution Width 17.8 % (11.5-14.5) Platelet Count 431 x10^3/uL (140-400) Neutrophils (%) (Auto) 68 % (31-73) Lymphocytes (%) (Auto) 11 % (24-48) Monocytes (%) (Auto) 10 % (0-9) Eosinophils (%) (Auto) 10 % (0-3) Basophils (%) (Auto) 1 % (0-3) Neutrophils # (Auto) 5.4 x10^3/uL (1.8-7.7) Lymphocytes # (Auto) 0.9 x10^3/uL (1.0-4.8) Monocytes # (Auto) 0.8 x10^3/uL (0.0-1.1) Eosinophils # (Auto) 0.8 x10^3/uL (0.0-0.7) Basophils # (Auto) 0.1 x10^3/uL (0.0-0.2) Sodium Level 139 mmol/L (136-145) Potassium Level 3.4 mmol/L (3.5-5.1) Chloride Level 107 mmol/L (98-107) Carbon Dioxide Level 21 mmol/L (21-32) Anion Gap 11 (6-14) Blood Urea Nitrogen 17 mg/dL (8-26) Creatinine 1.0 mg/dL (0.7-1.3) Estimated GFR (Cockcroft-Gault) 73.5 Glucose Level 185 mg/dL (70-99) Calcium Level 7.8 mg/dL (8.5-10.1) Total Bilirubin 0.4 mg/dL (0.2-1.0) Direct Bilirubin 0.3 mg/dL (0.0-0.2) Aspartate Amino Transf (AST/SGOT) 23 U/L (15-37) Alanine Aminotransferase (ALT/SGPT) 20 U/L (16-63) Alkaline Phosphatase 179 U/L (46-116) Total Protein 5.5 g/dL (6.4-8.2) Albumin 1.6 g/dL (3.4-5.0) Glucose (Fingerstick) 166 mg/dL (70-99) O2 Saturation 97 % (92-99) Arterial Blood pH 7.42 (7.35-7.45) Arterial Blood pCO2 at Patient Temp 33 mmHg (35-46) Arterial Blood pO2 at Patient Temp 93 mmHg (65-108) Arterial Blood HCO3 21 mmol/L (21-28) Arterial Blood Base Excess -3 mmol/L (-3-3) FiO2 35% vent Laboratory Tests Test 08/28/19 18:03 08/28/19 23:26 08/29/19 04:00 08/29/19 05:19 Glucose (Fingerstick) 161 mg/dL (70-99) 164 mg/dL (70-99) 166 mg/dL (70-99) White Blood Count 7.9 x10^3/uL (4.0-11.0) Red Blood Count 2.77 x10^6/uL (4.30-5.70) Hemoglobin 7.2 g/dL (13.0-17.5) Hematocrit 21.8 % (39.0-53.0) Mean Corpuscular Volume 79 fL (79-100) Mean Corpuscular Hemoglobin 26 pg (25-35) Mean Corpuscular Hemoglobin Concent 33 g/dL (31-37) Red Cell Distribution Width 17.8 % (11.5-14.5) Platelet Count 431 x10^3/uL (140-400) Neutrophils (%) (Auto) 68 % (31-73) Lymphocytes (%) (Auto) 11 % (24-48) Monocytes (%) (Auto) 10 % (0-9) Eosinophils (%) (Auto) 10 % (0-3) Basophils (%) (Auto) 1 % (0-3) Neutrophils # (Auto) 5.4 x10^3/uL (1.8-7.7) Lymphocytes # (Auto) 0.9 x10^3/uL (1.0-4.8) Monocytes # (Auto) 0.8 x10^3/uL (0.0-1.1) Eosinophils # (Auto) 0.8 x10^3/uL (0.0-0.7) Basophils # (Auto) 0.1 x10^3/uL (0.0-0.2) Sodium Level 139 mmol/L (136-145) Potassium Level 3.4 mmol/L (3.5-5.1) Chloride Level 107 mmol/L (98-107) Carbon Dioxide Level 21 mmol/L (21-32) Anion Gap 11 (6-14) Blood Urea Nitrogen 17 mg/dL (8-26) Creatinine 1.0 mg/dL (0.7-1.3) Estimated GFR (Cockcroft-Gault) 73.5 Glucose Level 185 mg/dL (70-99) Calcium Level 7.8 mg/dL (8.5-10.1) Total Bilirubin 0.4 mg/dL (0.2-1.0) Direct Bilirubin 0.3 mg/dL (0.0-0.2) Aspartate Amino Transf (AST/SGOT) 23 U/L (15-37) Alanine Aminotransferase (ALT/SGPT) 20 U/L (16-63) Alkaline Phosphatase 179 U/L (46-116) Total Protein 5.5 g/dL (6.4-8.2) Albumin 1.6 g/dL (3.4-5.0) Test 08/29/19 08:00 O2 Saturation 97 % (92-99) Arterial Blood pH 7.42 (7.35-7.45) Arterial Blood pCO2 at Patient Temp 33 mmHg (35-46) Arterial Blood pO2 at Patient Temp 93 mmHg (65-108) Arterial Blood HCO3 21 mmol/L (21-28) Arterial Blood Base Excess -3 mmol/L (-3-3) FiO2 35% vent Medications Active Scripts Medications Dose Route/Sig Max Daily Dose Days Date Category Dose Instructions Pepcid (Famotidine) 20 Mg Tablet 20 Mg PEG BID 08/27/19 Reported Famotidine 20 Mg Tablet 20 Mg PO BID 08/27/19 Reported Aspirin 81 Mg Tab.chew 1 Tab PEG DAILY 08/27/19 Reported Eliquis (Apixaban) 5 Mg Tablet 5 Mg PEG BID 08/27/19 Reported Proventil Hfa (Albuterol Sulfate) 6.7 Gm Hfa.aer.ad 1 Puff INH PRN Q6HRS PRN 08/27/19 Reported Acetaminophen 325 Mg Tablet 2 Tab PEG PRN Q4-6HRS PRN 24 08/27/19 Reported Humalog (Insulin Lispro) 100 Unit/1 Ml Vial 100 Unit SQ Q6HRS 08/27/19 Reported Inject 0-24 units under the skin every 6 hours Lantus Solostar (Insulin Glargine,Hum.rec.anlog) 100 Unit/1 Ml Insuln.pen 35 Unit SQ BID 08/27/19 Reported Symbicort 160-4.5 Mcg Inhaler (Budesonide/Formoterol Fumarate) 10.2 Gm Hfa.aer.ad 2 Puff IH BID 08/27/19 Reported Flomax (Tamsulosin Hcl) 0.4 Mg Cap.er.24h 0.4 Mg PEG DAILY 08/27/19 Reported Crestor (Rosuvastatin Calcium) 40 Mg Tablet 1 Tab PEG HS 08/27/19 Reported Roxicodone (Oxycodone HCl) 5 Mg Tablet 5 Mg PEG PRN Q4HRS PRN 08/27/19 Reported Olanzapine 20 Mg Tablet 1 Tab PEG QHS 08/27/19 Reported Olanzapine 10 Mg Tablet 1 Tab PEG DAILY 08/27/19 Reported Metoprolol Tartrate 25 Mg Tablet 1 Tab PEG BID 08/27/19 Reported Impression . IMPRESSION: 1. Acute hypoxemic respiratory failure, multifactorial. 2. Toxic metabolic encephalopathy, present upon admission. 3. Septic shock. 4. Severe protein malnutrition, present upon admission. 5. Recent small bowel resection with PEG tube placement, etiology for the small bowel resection is unclear. 6. Multiple comorbidities of diabetes, chronic obstructive pulmonary disease, and chronic heart failure. 7. Coronary artery disease, status post coronary artery bypass grafting. 8. Acute renal insufficiency. 9. Chronic anemia. 10. SARS-CoV-2 negative 11. Acute drop in hematocrit, will monitor Plan . H&H noted continue the same Continue assist control ventilation Continue Levophed IV fluids Empiric antibiotics per ID Above discussed with RN Total cumulative critical care time of 30 minutes reviewing data, chest x-ray, labs, and formulating the plan. DIPAK MARTINEZ MD Aug 29, 2019 09:05
[2019-08-29] MEDS: ASPIRIN CHEWABLE 81 MG TABLET. PEG SCH (09:14)
[2019-08-29] MEDS: FAMOTIDINE 20 MG/2 ML VIAL IVP SCH ×2 (09:14→20:44)
--- NOTE | 2019-08-29 10:49 | PDOC ---
PROGRESS NOTES Chief Complaint Chief Complaint ASSESSMENT Acute Hypoxic Resp Failure requiring mechanical Ventilation, intubated 08/25 Suspected Aspiration PNA Septic Shock, present on admission Bowel Obstruction with PEG placement Anemia Acute Renal Failure secondary to Vasomotor Nephropathy, resolved DM2 HLD patient on oral AC, need to confirm reason BPH PLAN vent support continue pressors, wean a tolerated sedation support zosyn covid negative pulm and ID consults GI and DVT PPX FULL CODE follow labs History of Present Illness History of Present Illness remains sedated on vent. Vitals Vitals Vital Signs Date Time Temp Pulse Resp B/P (MAP) Pulse Ox O2 Delivery O2 Flow Rate FiO2 08/29/19 09:00 104 19 111/51 (71) 99 Ventilator 08/29/19 08:00 100.0 100.0 Physical Exam Physical Exam GENERAL: Sedated, orally intubated gentleman, not in any distress. VITAL SIGNS: Stable HEENT: Both pupils are round and reacting. No conjunctival lesion. Mouth cannot be visualized, orally intubated. NECK: Supple, no JVP, no lymphadenopathy. LUNGS: Decreased breath sounds bilaterally. HEART: S1, S2 regular. No gallop or murmur. ABDOMEN: Soft, nontender, no organomegaly. PEG tube is in place. EXTREMITIES: No edema, cyanosis. SKIN: Unremarkable. NEUROLOGIC: The patient had been moving all the extremities before intubation and sedation. General: Other (sedated on vent) Heart: Regular rate Lungs: Clear Abdomen: Normal bowel sounds Skin: No rashes Labs LABS Laboratory Tests Test 08/28/19 18:03 08/28/19 23:26 08/29/19 04:00 08/29/19 05:19 Glucose (Fingerstick) 161 mg/dL (70-99) 164 mg/dL (70-99) 166 mg/dL (70-99) White Blood Count 7.9 x10^3/uL (4.0-11.0) Red Blood Count 2.77 x10^6/uL (4.30-5.70) Hemoglobin 7.2 g/dL (13.0-17.5) Hematocrit 21.8 % (39.0-53.0) Mean Corpuscular Volume 79 fL (79-100) Mean Corpuscular Hemoglobin 26 pg (25-35) Mean Corpuscular Hemoglobin Concent 33 g/dL (31-37) Red Cell Distribution Width 17.8 % (11.5-14.5) Platelet Count 431 x10^3/uL (140-400) Neutrophils (%) (Auto) 68 % (31-73) Lymphocytes (%) (Auto) 11 % (24-48) Monocytes (%) (Auto) 10 % (0-9) Eosinophils (%) (Auto) 10 % (0-3) Basophils (%) (Auto) 1 % (0-3) Neutrophils # (Auto) 5.4 x10^3/uL (1.8-7.7) Lymphocytes # (Auto) 0.9 x10^3/uL (1.0-4.8) Monocytes # (Auto) 0.8 x10^3/uL (0.0-1.1) Eosinophils # (Auto) 0.8 x10^3/uL (0.0-0.7) Basophils # (Auto) 0.1 x10^3/uL (0.0-0.2) Sodium Level 139 mmol/L (136-145) Potassium Level 3.4 mmol/L (3.5-5.1) Chloride Level 107 mmol/L (98-107) Carbon Dioxide Level 21 mmol/L (21-32) Anion Gap 11 (6-14) Blood Urea Nitrogen 17 mg/dL (8-26) Creatinine 1.0 mg/dL (0.7-1.3) Estimated GFR (Cockcroft-Gault) 73.5 Glucose Level 185 mg/dL (70-99) Calcium Level 7.8 mg/dL (8.5-10.1) Total Bilirubin 0.4 mg/dL (0.2-1.0) Direct Bilirubin 0.3 mg/dL (0.0-0.2) Aspartate Amino Transf (AST/SGOT) 23 U/L (15-37) Alanine Aminotransferase (ALT/SGPT) 20 U/L (16-63) Alkaline Phosphatase 179 U/L (46-116) Total Protein 5.5 g/dL (6.4-8.2) Albumin 1.6 g/dL (3.4-5.0) Test 08/29/19 08:00 O2 Saturation 97 % (92-99) Arterial Blood pH 7.42 (7.35-7.45) Arterial Blood pCO2 at Patient Temp 33 mmHg (35-46) Arterial Blood pO2 at Patient Temp 93 mmHg (65-108) Arterial Blood HCO3 21 mmol/L (21-28) Arterial Blood Base Excess -3 mmol/L (-3-3) FiO2 35% vent Comment Review of Relevant I have reviewed the following items parminder (where applicable) has been applied. Labs Laboratory Tests Test 08/27/19 11:41 08/27/19 17:03 08/27/19 23:38 08/28/19 04:00 Glucose (Fingerstick) 160 mg/dL (70-99) 144 mg/dL (70-99) 130 mg/dL (70-99) White Blood Count 7.9 x10^3/uL (4.0-11.0) Red Blood Count 2.94 x10^6/uL (4.30-5.70) Hemoglobin 7.6 g/dL (13.0-17.5) Hematocrit 23.5 % (39.0-53.0) Mean Corpuscular Volume 80 fL (79-100) Mean Corpuscular Hemoglobin 26 pg (25-35) Mean Corpuscular Hemoglobin Concent 32 g/dL (31-37) Red Cell Distribution Width 18.0 % (11.5-14.5) Platelet Count 443 x10^3/uL (140-400) Neutrophils (%) (Auto) 66 % (31-73) Lymphocytes (%) (Auto) 10 % (24-48) Monocytes (%) (Auto) 11 % (0-9) Eosinophils (%) (Auto) 12 % (0-3) Basophils (%) (Auto) 1 % (0-3) Neutrophils # (Auto) 5.2 x10^3/uL (1.8-7.7) Lymphocytes # (Auto) 0.8 x10^3/uL (1.0-4.8) Monocytes # (Auto) 0.9 x10^3/uL (0.0-1.1) Eosinophils # (Auto) 0.9 x10^3/uL (0.0-0.7) Basophils # (Auto) 0.1 x10^3/uL (0.0-0.2) Sodium Level 139 mmol/L (136-145) Potassium Level 4.1 mmol/L (3.5-5.1) Chloride Level 108 mmol/L (98-107) Carbon Dioxide Level 21 mmol/L (21-32) Anion Gap 10 (6-14) Blood Urea Nitrogen 23 mg/dL (8-26) Creatinine 1.1 mg/dL (0.7-1.3) Estimated GFR (Cockcroft-Gault) 65.8 BUN/Creatinine Ratio 21 (6-20) Glucose Level 137 mg/dL (70-99) Calcium Level 7.6 mg/dL (8.5-10.1) Total Bilirubin 0.5 mg/dL (0.2-1.0) Aspartate Amino Transf (AST/SGOT) 30 U/L (15-37) Alanine Aminotransferase (ALT/SGPT) 25 U/L (16-63) Alkaline Phosphatase 146 U/L (46-116) Total Protein 5.8 g/dL (6.4-8.2) Albumin 1.7 g/dL (3.4-5.0) Albumin/Globulin Ratio 0.4 (1.0-1.7) Test 08/28/19 05:44 08/28/19 08:00 08/28/19 18:03 08/28/19 23:26 Glucose (Fingerstick) 147 mg/dL (70-99) 161 mg/dL (70-99) 164 mg/dL (70-99) O2 Saturation 98 % (92-99) Arterial Blood pH 7.39 (7.35-7.45) Arterial Blood pCO2 at Patient Temp 33 mmHg (35-46) Arterial Blood pO2 at Patient Temp 115 mmHg (65-108) Arterial Blood HCO3 20 mmol/L (21-28) Arterial Blood Base Excess -4 mmol/L (-3-3) FiO2 40 Test 08/29/19 04:00 08/29/19 05:19 08/29/19 08:00 White Blood Count 7.9 x10^3/uL (4.0-11.0) Red Blood Count 2.77 x10^6/uL (4.30-5.70) Hemoglobin 7.2 g/dL (13.0-17.5) Hematocrit 21.8 % (39.0-53.0) Mean Corpuscular Volume 79 fL (79-100) Mean Corpuscular Hemoglobin 26 pg (25-35) Mean Corpuscular Hemoglobin Concent 33 g/dL (31-37) Red Cell Distribution Width 17.8 % (11.5-14.5) Platelet Count 431 x10^3/uL (140-400) Neutrophils (%) (Auto) 68 % (31-73) Lymphocytes (%) (Auto) 11 % (24-48) Monocytes (%) (Auto) 10 % (0-9) Eosinophils (%) (Auto) 10 % (0-3) Basophils (%) (Auto) 1 % (0-3) Neutrophils # (Auto) 5.4 x10^3/uL (1.8-7.7) Lymphocytes # (Auto) 0.9 x10^3/uL (1.0-4.8) Monocytes # (Auto) 0.8 x10^3/uL (0.0-1.1) Eosinophils # (Auto) 0.8 x10^3/uL (0.0-0.7) Basophils # (Auto) 0.1 x10^3/uL (0.0-0.2) Sodium Level 139 mmol/L (136-145) Potassium Level 3.4 mmol/L (3.5-5.1) Chloride Level 107 mmol/L (98-107) Carbon Dioxide Level 21 mmol/L (21-32) Anion Gap 11 (6-14) Blood Urea Nitrogen 17 mg/dL (8-26) Creatinine 1.0 mg/dL (0.7-1.3) Estimated GFR (Cockcroft-Gault) 73.5 Glucose Level 185 mg/dL (70-99) Calcium Level 7.8 mg/dL (8.5-10.1) Total Bilirubin 0.4 mg/dL (0.2-1.0) Direct Bilirubin 0.3 mg/dL (0.0-0.2) Aspartate Amino Transf (AST/SGOT) 23 U/L (15-37) Alanine Aminotransferase (ALT/SGPT) 20 U/L (16-63) Alkaline Phosphatase 179 U/L (46-116) Total Protein 5.5 g/dL (6.4-8.2) Albumin 1.6 g/dL (3.4-5.0) Glucose (Fingerstick) 166 mg/dL (70-99) O2 Saturation 97 % (92-99) Arterial Blood pH 7.42 (7.35-7.45) Arterial Blood pCO2 at Patient Temp 33 mmHg (35-46) Arterial Blood pO2 at Patient Temp 93 mmHg (65-108) Arterial Blood HCO3 21 mmol/L (21-28) Arterial Blood Base Excess -3 mmol/L (-3-3) FiO2 35% vent Laboratory Tests Test 08/28/19 18:03 08/28/19 23:26 08/29/19 04:00 08/29/19 05:19 Glucose (Fingerstick) 161 mg/dL (70-99) 164 mg/dL (70-99) 166 mg/dL (70-99) White Blood Count 7.9 x10^3/uL (4.0-11.0) Red Blood Count 2.77 x10^6/uL (4.30-5.70) Hemoglobin 7.2 g/dL (13.0-17.5) Hematocrit 21.8 % (39.0-53.0) Mean Corpuscular Volume 79 fL (79-100) Mean Corpuscular Hemoglobin 26 pg (25-35) Mean Corpuscular Hemoglobin Concent 33 g/dL (31-37) Red Cell Distribution Width 17.8 % (11.5-14.5) Platelet Count 431 x10^3/uL (140-400) Neutrophils (%) (Auto) 68 % (31-73) Lymphocytes (%) (Auto) 11 % (24-48) Monocytes (%) (Auto) 10 % (0-9) Eosinophils (%) (Auto) 10 % (0-3) Basophils (%) (Auto) 1 % (0-3) Neutrophils # (Auto) 5.4 x10^3/uL (1.8-7.7) Lymphocytes # (Auto) 0.9 x10^3/uL (1.0-4.8) Monocytes # (Auto) 0.8 x10^3/uL (0.0-1.1) Eosinophils # (Auto) 0.8 x10^3/uL (0.0-0.7) Basophils # (Auto) 0.1 x10^3/uL (0.0-0.2) Sodium Level 139 mmol/L (136-145) Potassium Level 3.4 mmol/L (3.5-5.1) Chloride Level 107 mmol/L (98-107) Carbon Dioxide Level 21 mmol/L (21-32) Anion Gap 11 (6-14) Blood Urea Nitrogen 17 mg/dL (8-26) Creatinine 1.0 mg/dL (0.7-1.3) Estimated GFR (Cockcroft-Gault) 73.5 Glucose Level 185 mg/dL (70-99) Calcium Level 7.8 mg/dL (8.5-10.1) Total Bilirubin 0.4 mg/dL (0.2-1.0) Direct Bilirubin 0.3 mg/dL (0.0-0.2) Aspartate Amino Transf (AST/SGOT) 23 U/L (15-37) Alanine Aminotransferase (ALT/SGPT) 20 U/L (16-63) Alkaline Phosphatase 179 U/L (46-116) Total Protein 5.5 g/dL (6.4-8.2) Albumin 1.6 g/dL (3.4-5.0) Test 08/29/19 08:00 O2 Saturation 97 % (92-99) Arterial Blood pH 7.42 (7.35-7.45) Arterial Blood pCO2 at Patient Temp 33 mmHg (35-46) Arterial Blood pO2 at Patient Temp 93 mmHg (65-108) Arterial Blood HCO3 21 mmol/L (21-28) Arterial Blood Base Excess -3 mmol/L (-3-3) FiO2 35% vent Microbiology 08/26/19 Urine Culture - Final, Complete 08/26/19 Blood Culture - Preliminary, Resulted NO GROWTH AFTER 2 DAYS Medications Current Medications Norepinephrine Bitartrate 8 mg/ Dextrose 258 ml @ 13.603 mls/ hr CONT PRN IV PER PROTOCOL Last administered on 08/28/19at 01:21; Start 08/26/19 at 23:00 Fentanyl Citrate 30 ml @ 0 mls/hr CONT PRN IV SEE PROTOCOL Last administered on 08/28/19at 18:27; Start 08/26/19 at 23:00 Fentanyl Citrate (Fentanyl 2ml Vial) 25 mcg PRN Q1HR PRN IV SEE COMMENTS; Start 08/26/19 at 23:00 Fentanyl Citrate (Fentanyl 2ml Vial) 50 mcg PRN Q1HR PRN IV SEE COMMENTS; Start 08/26/19 at 23:00 Famotidine (Pepcid Vial) 20 mg BID IVP Last administered on 08/29/19at 09:14; Start 08/27/19 at 09:00 Morphine Sulfate (Morphine Sulfate) 2 mg PRN Q1HR PRN IV SEE COMMENTS.; Start 08/26/19 at 23:00 Morphine Sulfate (Morphine Sulfate) 4 mg PRN Q1HR PRN IV SEE COMMENTS.; Start 08/26/19 at 23:00 Midazolam HCl 100 ml @ 0 mls/hr CONT PRN IV SEE PROTOCOL Last administered on 08/28/19at 03:33; Start 08/26/19 at 23:00 Enoxaparin Sodium (Lovenox 40mg Syringe) 40 mg Q24H SQ Last administered on 08/27/19at 00:42; Start 08/26/19 at 23:00; Stop 08/27/19 at 16:55; Status DC Metronidazole 100 ml @ 100 mls/hr Q8HRS IV Last administered on 08/27/19at 05:32; Start 08/27/19 at 06:00; Stop 08/27/19 at 13:14; Status DC Ceftriaxone Sodium (Rocephin) 1 gm Q24H IVP Last administered on 08/27/19at 08:32; Start 08/27/19 at 09:00; Stop 08/27/19 at 13:14; Status DC Sodium Chloride 1,000 ml @ 75 mls/hr [id number] IV Last administered on 08/29/19at 03:04; Start 08/26/19 at 23:00 Acetaminophen (Tylenol Supp) 650 mg PRN Q6HRS PRN GA MILD PAIN / TEMP > 100.3'F Last administered on 08/27/19at 02:09; Start 08/27/19 at 02:00 Piperacillin Sod/ Tazobactam Sod 3.375 gm/Sodium Chloride 50 ml @ 100 mls/hr Q6HRS IV Last administered on 08/29/19at 05:23; Start 08/27/19 at 14:00 Insulin Human Lispro (HumaLOG) 0-7 UNITS TIDWMEALS SQ ; Start 08/27/19 at 17:00; Stop 08/27/19 at 20:28; Status DC Dextrose (Dextrose 50%-Water Syringe) 12.5 gm PRN Q15MIN PRN IV SEE COMMENTS; Start 08/27/19 at 14:00 Apixaban (Eliquis) 5 mg BID FT Last administered on 08/29/19at 08:59; Start 08/27/19 at 21:00 Aspirin (Aspirin Chewable) 81 mg DAILY PEG Last administered on 08/29/19at 09:14; Start 08/27/19 at 17:00 Insulin Human Lispro (HumaLOG) 0-7 UNITS Q6HRS SQ Last administered on 08/29/19at 05:22; Start 08/28/19 at 00:00 Potassium Bicarbonate (Potassium Effervescent Tablet) 40 meq 1X ONCE PO Last administered on 08/29/19at 08:59; Start 08/29/19 at 09:00; Stop 08/29/19 at 09:01; Status DC Active Scripts Active Reported Pepcid (Famotidine) 20 Mg Tablet 20 Mg PEG BID Famotidine 20 Mg Tablet 20 Mg PO BID Aspirin 81 Mg Tab.chew 1 Tab PEG DAILY Eliquis (Apixaban) 5 Mg Tablet 5 Mg PEG BID Proventil Hfa (Albuterol Sulfate) 6.7 Gm Hfa.aer.ad 1 Puff INH PRN Q6HRS PRN Acetaminophen 325 Mg Tablet 2 Tab PEG PRN Q4-6HRS PRN 24 Days Humalog (Insulin Lispro) 100 Unit/1 Ml Vial 100 Unit SQ Q6HRS Inject 0-24 units under the skin every 6 hours Lantus Solostar (Insulin Glargine,Hum.rec.anlog) 100 Unit/1 Ml Insuln.pen 35 Unit SQ BID Symbicort 160-4.5 Mcg Inhaler (Budesonide/Formoterol Fumarate) 10.2 Gm Hfa.aer.ad 2 Puff IH BID Flomax (Tamsulosin Hcl) 0.4 Mg Cap.er.24h 0.4 Mg PEG DAILY Crestor (Rosuvastatin Calcium) 40 Mg Tablet 1 Tab PEG HS Roxicodone (Oxycodone HCl) 5 Mg Tablet 5 Mg PEG PRN Q4HRS PRN Olanzapine 20 Mg Tablet 1 Tab PEG QHS Olanzapine 10 Mg Tablet 1 Tab PEG DAILY Metoprolol Tartrate 25 Mg Tablet 1 Tab PEG BID Vitals/I & O Vital Sign - Last 24 Hours 08/28/19 08/28/19 08/28/19 08/28/19 11:00 11:42 12:00 12:00 Temp 99.2 99.2 Pulse 98 98 Resp 16 16 B/P (MAP) 110/55 (73) 104/57 (73) Pulse Ox 100 100 100 O2 Delivery Ventilator Ventilator Ventilator Mechanical Ventilator 08/28/19 08/28/19 08/28/19 08/28/19 13:00 14:00 15:00 15:46 Pulse 98 98 98 Resp 16 16 16 B/P (MAP) 117/57 (77) 105/53 (70) 118/60 (79) Pulse Ox 100 100 100 100 O2 Delivery Ventilator Ventilator Ventilator Ventilator 08/28/19 08/28/19 08/28/19 08/28/19 16:00 16:00 17:00 18:00 Temp 99.9 99.9 Pulse 98 98 112 Resp 16 16 16 B/P (MAP) 111/58 (75) 102/58 (73) 116/57 (76) Pulse Ox 100 100 96 O2 Delivery Ventilator Mechanical Ventilator Ventilator Ventilator 08/28/19 08/28/19 08/28/19 08/28/19 18:21 18:27 19:00 19:00 Pulse 98 Resp 17 16 B/P (MAP) 104/52 (69) Pulse Ox 98 98 99 O2 Delivery Ventilator Ventilator Ventilator 08/28/19 08/28/19 08/28/19 08/28/19 20:00 20:00 20:07 21:00 Temp 99.2 99.2 Pulse 100 96 Resp 17 16 B/P (MAP) 116/64 (81) 116/56 (76) Pulse Ox 99 99 99 O2 Delivery Ventilator Mechanical Ventilator Ventilator Ventilator 08/28/19 08/28/19 08/29/19 08/29/19 22:00 23:00 00:00 00:00 Temp 99.3 99.3 Pulse 107 97 105 Resp 16 17 17 B/P (MAP) 117/67 (84) 119/61 (80) 87/54 (65) Pulse Ox 97 99 100 O2 Delivery Ventilator Ventilator Mechanical Ventilator Ventilator 08/29/19 08/29/19 08/29/19 08/29/19 00:28 01:00 01:15 02:00 Pulse 100 101 Resp 16 16 B/P (MAP) 115/55 (75) 121/54 (76) 114/61 (78) Pulse Ox 99 99 99 O2 Delivery Ventilator Ventilator Ventilator 08/29/19 08/29/19 08/29/19 08/29/19 02:15 03:00 03:15 04:00 Pulse 114 Resp 24 B/P (MAP) 124/57 (79) 134/63 (86) 122/56 (78) Pulse Ox 100 O2 Delivery Ventilator Mechanical Ventilator 08/29/19 08/29/19 08/29/19 08/29/19 04:00 04:46 05:00 05:15 Temp 98.6 98.6 Pulse 106 104 Resp 19 B/P (MAP) 104/53 (70) 124/56 (78) 124/54 (77) Pulse Ox 100 99 100 O2 Delivery Ventilator Ventilator Ventilator 08/29/19 08/29/19 08/29/19 08/29/19 05:15 07:00 08:00 08:00 Temp 100.0 100.0 Pulse 107 107 104 Resp 20 B/P (MAP) 114/54 (74) 102/50 (67) 93/52 (66) Pulse Ox 100 99 99 100 O2 Delivery Ventilator Ventilator Ventilator Ventilator 08/29/19 08/29/19 08/29/19 08:00 08:47 09:00 Pulse 104 Resp 19 B/P (MAP) 111/51 (71) Pulse Ox 100 99 O2 Delivery Mechanical Ventilator Ventilator Ventilator Intake and Output 08/28/19 08/28/19 08/29/19 15:00 23:00 07:00 Intake Total 300 ml 2081 ml 1407 ml Output Total 650 ml 810 ml 315 ml Balance -350 ml 1271 ml 1092 ml Justicifation of Admission Dx: Justifications for Admission: Justification of Admission Dx: Yes Respiratory Failure: Mechanical Ventilation BEBETO RICHTER MD Aug 29, 2019 10:48
--- NOTE | 2019-08-29 13:47 | NUR ---
SS following up with discharge planning. SS reviewed pt chart and discussed with pt RN. Pt remains on the vent at this time. Per RN, pt having difficulties coming off sedation. Pt on IV Zosyn. LTACH referral requested. SS phoned and faxed referral to [facility], ; fax [phone]. SS will continue to follow for discharge planning.
[2019-08-30] VITALS (22 sets, daily range): BP systolic 86–131; BP diastolic 41–78
[2019-08-30] MEDS: PIPERACILLIN/TAZOBACTAM 3.375 GM in IV NORMAL SALINE 50ML 50 ML IV SCH ×4 (06:11→23:45)
[2019-08-30] MEDS: INSULIN LISPRO 300 UNITS/3 ML VIAL. SQ SCH ×4 (06:11→23:44)
--- NOTE | 2019-08-30 06:50 | PDOC ---
PULMONARY PROGRESS NOTES Subjective on vent sedated, on versed fentanyl, small ett secretion, off levo Vitals Vital Signs Date Time Temp Pulse Resp B/P (MAP) Pulse Ox O2 Delivery O2 Flow Rate FiO2 08/30/19 06:00 100 20 101/57 (72) 100 Ventilator 08/30/19 04:00 99.0 99.0 Comments ros unable to obtain sedated on vent HEENT: Other (nc at perrl nose clear orally intibated neck no lad no thyromegaly) Lungs: Crackles Cardiovascular: S1, S2 Abdomen: Soft, Non-tender Extremities: No Edema Skin: Warm Labs Laboratory Tests Test 08/28/19 08:00 08/28/19 18:03 08/28/19 23:26 08/29/19 04:00 O2 Saturation 98 % (92-99) Arterial Blood pH 7.39 (7.35-7.45) Arterial Blood pCO2 at Patient Temp 33 mmHg (35-46) Arterial Blood pO2 at Patient Temp 115 mmHg (65-108) Arterial Blood HCO3 20 mmol/L (21-28) Arterial Blood Base Excess -4 mmol/L (-3-3) FiO2 40 Glucose (Fingerstick) 161 mg/dL (70-99) 164 mg/dL (70-99) White Blood Count 7.9 x10^3/uL (4.0-11.0) Red Blood Count 2.77 x10^6/uL (4.30-5.70) Hemoglobin 7.2 g/dL (13.0-17.5) Hematocrit 21.8 % (39.0-53.0) Mean Corpuscular Volume 79 fL (79-100) Mean Corpuscular Hemoglobin 26 pg (25-35) Mean Corpuscular Hemoglobin Concent 33 g/dL (31-37) Red Cell Distribution Width 17.8 % (11.5-14.5) Platelet Count 431 x10^3/uL (140-400) Neutrophils (%) (Auto) 68 % (31-73) Lymphocytes (%) (Auto) 11 % (24-48) Monocytes (%) (Auto) 10 % (0-9) Eosinophils (%) (Auto) 10 % (0-3) Basophils (%) (Auto) 1 % (0-3) Neutrophils # (Auto) 5.4 x10^3/uL (1.8-7.7) Lymphocytes # (Auto) 0.9 x10^3/uL (1.0-4.8) Monocytes # (Auto) 0.8 x10^3/uL (0.0-1.1) Eosinophils # (Auto) 0.8 x10^3/uL (0.0-0.7) Basophils # (Auto) 0.1 x10^3/uL (0.0-0.2) Sodium Level 139 mmol/L (136-145) Potassium Level 3.4 mmol/L (3.5-5.1) Chloride Level 107 mmol/L (98-107) Carbon Dioxide Level 21 mmol/L (21-32) Anion Gap 11 (6-14) Blood Urea Nitrogen 17 mg/dL (8-26) Creatinine 1.0 mg/dL (0.7-1.3) Estimated GFR (Cockcroft-Gault) 73.5 Glucose Level 185 mg/dL (70-99) Calcium Level 7.8 mg/dL (8.5-10.1) Total Bilirubin 0.4 mg/dL (0.2-1.0) Direct Bilirubin 0.3 mg/dL (0.0-0.2) Aspartate Amino Transf (AST/SGOT) 23 U/L (15-37) Alanine Aminotransferase (ALT/SGPT) 20 U/L (16-63) Alkaline Phosphatase 179 U/L (46-116) Total Protein 5.5 g/dL (6.4-8.2) Albumin 1.6 g/dL (3.4-5.0) Test 08/29/19 05:19 08/29/19 08:00 08/29/19 15:30 08/29/19 18:27 Glucose (Fingerstick) 166 mg/dL (70-99) 186 mg/dL (70-99) 172 mg/dL (70-99) O2 Saturation 97 % (92-99) Arterial Blood pH 7.42 (7.35-7.45) Arterial Blood pCO2 at Patient Temp 33 mmHg (35-46) Arterial Blood pO2 at Patient Temp 93 mmHg (65-108) Arterial Blood HCO3 21 mmol/L (21-28) Arterial Blood Base Excess -3 mmol/L (-3-3) FiO2 35% vent Test 08/29/19 23:24 08/30/19 06:09 Glucose (Fingerstick) 147 mg/dL (70-99) 152 mg/dL (70-99) Laboratory Tests Test 08/29/19 08:00 08/29/19 15:30 08/29/19 18:27 08/29/19 23:24 O2 Saturation 97 % (92-99) Arterial Blood pH 7.42 (7.35-7.45) Arterial Blood pCO2 at Patient Temp 33 mmHg (35-46) Arterial Blood pO2 at Patient Temp 93 mmHg (65-108) Arterial Blood HCO3 21 mmol/L (21-28) Arterial Blood Base Excess -3 mmol/L (-3-3) FiO2 35% vent Glucose (Fingerstick) 186 mg/dL (70-99) 172 mg/dL (70-99) 147 mg/dL (70-99) Test 08/30/19 06:09 Glucose (Fingerstick) 152 mg/dL (70-99) Medications Active Scripts Medications Dose Route/Sig Max Daily Dose Days Date Category Dose Instructions Pepcid (Famotidine) 20 Mg Tablet 20 Mg PEG BID 08/27/19 Reported Famotidine 20 Mg Tablet 20 Mg PO BID 08/27/19 Reported Aspirin 81 Mg Tab.chew 1 Tab PEG DAILY 08/27/19 Reported Eliquis (Apixaban) 5 Mg Tablet 5 Mg PEG BID 08/27/19 Reported Proventil Hfa (Albuterol Sulfate) 6.7 Gm Hfa.aer.ad 1 Puff INH PRN Q6HRS PRN 08/27/19 Reported Acetaminophen 325 Mg Tablet 2 Tab PEG PRN Q4-6HRS PRN 24 08/27/19 Reported Humalog (Insulin Lispro) 100 Unit/1 Ml Vial 100 Unit SQ Q6HRS 08/27/19 Reported Inject 0-24 units under the skin every 6 hours Lantus Solostar (Insulin Glargine,Hum.rec.anlog) 100 Unit/1 Ml Insuln.pen 35 Unit SQ BID 08/27/19 Reported Symbicort 160-4.5 Mcg Inhaler (Budesonide/Formoterol Fumarate) 10.2 Gm Hfa.aer.ad 2 Puff IH BID 08/27/19 Reported Flomax (Tamsulosin Hcl) 0.4 Mg Cap.er.24h 0.4 Mg PEG DAILY 08/27/19 Reported Crestor (Rosuvastatin Calcium) 40 Mg Tablet 1 Tab PEG HS 08/27/19 Reported Roxicodone (Oxycodone HCl) 5 Mg Tablet 5 Mg PEG PRN Q4HRS PRN 08/27/19 Reported Olanzapine 20 Mg Tablet 1 Tab PEG QHS 08/27/19 Reported Olanzapine 10 Mg Tablet 1 Tab PEG DAILY 08/27/19 Reported Metoprolol Tartrate 25 Mg Tablet 1 Tab PEG BID 08/27/19 Reported Comments cxr reviewed ett ok increased vm Impression . IMPRESSION: 1. Acute hypoxemic respiratory failure, multifactorial. 2. Toxic metabolic encephalopathy, present upon admission. 3. Septic shock. 4. Severe protein malnutrition, present upon admission. 5. Recent small bowel resection with PEG tube placement, etiology for the small bowel resection is unclear. 6. Multiple comorbidities of diabetes, chronic obstructive pulmonary disease, and chronic heart failure. 7. Coronary artery disease, status post coronary artery bypass grafting. 8. Acute renal insufficiency. 9. Chronic anemia. 10. SARS-CoV-2 negative 11. Acute drop in hematocrit, will monitor Plan . cont vent support, setting reviewed, will decrease sedation, sbt when awake monitor H/H Continue assist control ventilation IV fluids Empiric antibiotics per ID Above discussed with RN critically ill Total cumulative critical care time of 30 minutes reviewing data, chest x-ray, labs, and formulating the plan. no overlap BRANDY MANTILLA MD Aug 30, 2019 06:50
[2019-08-30] MEDS: ASPIRIN CHEWABLE 81 MG TABLET. PEG SCH (08:06)
[2019-08-30] MEDS: APIXABAN 5 MG TABLET. FT SCH ×2 (08:06→21:05)
[2019-08-30] MEDS: FAMOTIDINE 20 MG/2 ML VIAL IVP SCH ×2 (08:07→21:05)
[2019-08-30] MEDS: IV NORMAL SALINE 1000ML BAG 1,000 ML IV SCH ×2 (08:07→21:05)
--- NOTE | 2019-08-30 08:23 | PDOC ---
Infectious Disease Note Subjective Subjective Intubated/vent, FiO2 35% Less fevers. Tmax 100.7 ROS ROS unobtainable due to patient's condition Vital Sign Vital Signs Vital Signs Date Time Temp Pulse Resp B/P (MAP) Pulse Ox O2 Delivery O2 Flow Rate FiO2 08/30/19 08:05 Mechanical Ventilator 08/30/19 08:04 100 104/52 (69) 97 08/30/19 07:00 99.2 20 99.2 Physical Exam PHYSICAL EXAM GENERAL: Sedated, orally intubated, + mitts HEENT: Both pupils are round and reacting. No conjunctival lesion. ETT NECK: Supple, no JVP, no lymphadenopathy. LUNGS: Decreased breath sounds bilaterally. HEART: S1, S2 regular w/ PVCs : Nava ABDOMEN: Soft, + BS, PEG tube is in place. EXTREMITIES: Trace edema. No cyanosis. SCDs bilaterally SKIN: without rash NEUROLOGIC:Sedated PIV Labs Lab Laboratory Tests Test 08/29/19 15:30 08/29/19 18:27 08/29/19 23:24 08/30/19 06:09 Glucose (Fingerstick) 186 mg/dL (70-99) 172 mg/dL (70-99) 147 mg/dL (70-99) 152 mg/dL (70-99) Micro 08/26/19 Blood Culture - Preliminary, Resulted NO GROWTH AFTER 3 DAYS Objective Assessment Respiratory failure. Fever. Suspected aspiration. Recent bowel obstruction, s/p surgery and PEG-tube placement. Renal insufficiency. Plan Plan of Care continue zosyn f/u cultures Monitor WBC/temp Maintain aspiration precautions Supportive care D/w nursing Critically ill Attending Co-Sign The patient was seen and interviewed as well as examined at the bedside. The chart was reviewed. The case was discussed. Agree with the plan of care. AMANDA CHACKO APRN Aug 30, 2019 08:23 REHAN WARE MD Aug 30, 2019 13:03
[2019-08-30 08:45] LABS: BASE EXCESS ABG -2 mmol/L (-3-3); HCO3 ABG 22 mmol/L (21-28); PCO2 ABG 31 mmHg (35-46); PO2 ABG 81 mmHg (65-108); SAT O2 ABG 96 % (92-99)
[2019-08-30 08:47] LABS: FIO2 ABG 35
--- NOTE | 2019-08-30 10:29 | PDOC ---
PROGRESS NOTES Chief Complaint Chief Complaint ASSESSMENT Acute Hypoxic Resp Failure requiring mechanical Ventilation, intubated 08/25 Suspected Aspiration PNA Septic Shock, present on admission Bowel Obstruction with PEG placement Anemia Acute Renal Failure secondary to Vasomotor Nephropathy, resolved DM2 HLD patient on oral AC, need to confirm reason BPH Severe protein malnutrition, present upon admission. Coronary artery disease, status post coronary artery bypass grafting PLAN vent support, weaning trial today off pressors zosyn continue oral AC covid negative pulm and ID consults GI and DVT PPX FULL CODE follow labs History of Present Illness History of Present Illness remains on vent support. weaning trial today. Vitals Vitals Vital Signs Date Time Temp Pulse Resp B/P (MAP) Pulse Ox O2 Delivery O2 Flow Rate FiO2 08/30/19 08:32 98 Ventilator 08/30/19 08:04 100 104/52 (69) 08/30/19 07:00 99.2 20 99.2 Physical Exam Physical Exam GENERAL: Sedated, orally intubated, + mitts HEENT: Both pupils are round and reacting. No conjunctival lesion. ETT NECK: Supple, no JVP, no lymphadenopathy. LUNGS: Decreased breath sounds bilaterally. HEART: S1, S2 regular w/ PVCs : Nava ABDOMEN: Soft, + BS, PEG tube is in place. EXTREMITIES: Trace edema. No cyanosis. SCDs bilaterally SKIN: without rash NEUROLOGIC:Sedated PIV General: Other (sedated on vent) Heart: Regular rate Lungs: Clear Abdomen: Normal bowel sounds Skin: No rashes Labs LABS Laboratory Tests Test 08/29/19 15:30 08/29/19 18:27 08/29/19 23:24 08/30/19 06:09 Glucose (Fingerstick) 186 mg/dL (70-99) 172 mg/dL (70-99) 147 mg/dL (70-99) 152 mg/dL (70-99) Test 08/30/19 08:40 O2 Saturation 96 % (92-99) Arterial Blood pH 7.47 (7.35-7.45) Arterial Blood pCO2 at Patient Temp 31 mmHg (35-46) Arterial Blood pO2 at Patient Temp 81 mmHg (65-108) Arterial Blood HCO3 22 mmol/L (21-28) Arterial Blood Base Excess -2 mmol/L (-3-3) FiO2 35 Comment Review of Relevant I have reviewed the following items parminder (where applicable) has been applied. Labs Laboratory Tests Test 08/28/19 18:03 08/28/19 23:26 08/29/19 04:00 08/29/19 05:19 Glucose (Fingerstick) 161 mg/dL (70-99) 164 mg/dL (70-99) 166 mg/dL (70-99) White Blood Count 7.9 x10^3/uL (4.0-11.0) Red Blood Count 2.77 x10^6/uL (4.30-5.70) Hemoglobin 7.2 g/dL (13.0-17.5) Hematocrit 21.8 % (39.0-53.0) Mean Corpuscular Volume 79 fL (79-100) Mean Corpuscular Hemoglobin 26 pg (25-35) Mean Corpuscular Hemoglobin Concent 33 g/dL (31-37) Red Cell Distribution Width 17.8 % (11.5-14.5) Platelet Count 431 x10^3/uL (140-400) Neutrophils (%) (Auto) 68 % (31-73) Lymphocytes (%) (Auto) 11 % (24-48) Monocytes (%) (Auto) 10 % (0-9) Eosinophils (%) (Auto) 10 % (0-3) Basophils (%) (Auto) 1 % (0-3) Neutrophils # (Auto) 5.4 x10^3/uL (1.8-7.7) Lymphocytes # (Auto) 0.9 x10^3/uL (1.0-4.8) Monocytes # (Auto) 0.8 x10^3/uL (0.0-1.1) Eosinophils # (Auto) 0.8 x10^3/uL (0.0-0.7) Basophils # (Auto) 0.1 x10^3/uL (0.0-0.2) Sodium Level 139 mmol/L (136-145) Potassium Level 3.4 mmol/L (3.5-5.1) Chloride Level 107 mmol/L (98-107) Carbon Dioxide Level 21 mmol/L (21-32) Anion Gap 11 (6-14) Blood Urea Nitrogen 17 mg/dL (8-26) Creatinine 1.0 mg/dL (0.7-1.3) Estimated GFR (Cockcroft-Gault) 73.5 Glucose Level 185 mg/dL (70-99) Calcium Level 7.8 mg/dL (8.5-10.1) Total Bilirubin 0.4 mg/dL (0.2-1.0) Direct Bilirubin 0.3 mg/dL (0.0-0.2) Aspartate Amino Transf (AST/SGOT) 23 U/L (15-37) Alanine Aminotransferase (ALT/SGPT) 20 U/L (16-63) Alkaline Phosphatase 179 U/L (46-116) Total Protein 5.5 g/dL (6.4-8.2) Albumin 1.6 g/dL (3.4-5.0) Test 08/29/19 08:00 08/29/19 15:30 08/29/19 18:27 08/29/19 23:24 O2 Saturation 97 % (92-99) Arterial Blood pH 7.42 (7.35-7.45) Arterial Blood pCO2 at Patient Temp 33 mmHg (35-46) Arterial Blood pO2 at Patient Temp 93 mmHg (65-108) Arterial Blood HCO3 21 mmol/L (21-28) Arterial Blood Base Excess -3 mmol/L (-3-3) FiO2 35% vent Glucose (Fingerstick) 186 mg/dL (70-99) 172 mg/dL (70-99) 147 mg/dL (70-99) Test 08/30/19 06:09 08/30/19 08:40 Glucose (Fingerstick) 152 mg/dL (70-99) O2 Saturation 96 % (92-99) Arterial Blood pH 7.47 (7.35-7.45) Arterial Blood pCO2 at Patient Temp 31 mmHg (35-46) Arterial Blood pO2 at Patient Temp 81 mmHg (65-108) Arterial Blood HCO3 22 mmol/L (21-28) Arterial Blood Base Excess -2 mmol/L (-3-3) FiO2 35 Laboratory Tests Test 08/29/19 15:30 08/29/19 18:27 08/29/19 23:24 08/30/19 06:09 Glucose (Fingerstick) 186 mg/dL (70-99) 172 mg/dL (70-99) 147 mg/dL (70-99) 152 mg/dL (70-99) Test 08/30/19 08:40 O2 Saturation 96 % (92-99) Arterial Blood pH 7.47 (7.35-7.45) Arterial Blood pCO2 at Patient Temp 31 mmHg (35-46) Arterial Blood pO2 at Patient Temp 81 mmHg (65-108) Arterial Blood HCO3 22 mmol/L (21-28) Arterial Blood Base Excess -2 mmol/L (-3-3) FiO2 35 Microbiology 08/26/19 Urine Culture - Final, Complete 08/26/19 Blood Culture - Preliminary, Resulted NO GROWTH AFTER 3 DAYS Medications Current Medications Norepinephrine Bitartrate 8 mg/ Dextrose 258 ml @ 13.603 mls/ hr CONT PRN IV PER PROTOCOL Last administered on 08/28/19at 01:21; Start 08/26/19 at 23:00 Fentanyl Citrate 30 ml @ 0 mls/hr CONT PRN IV SEE PROTOCOL Last administered on 08/29/19at 20:50; Start 08/26/19 at 23:00 Fentanyl Citrate (Fentanyl 2ml Vial) 25 mcg PRN Q1HR PRN IV SEE COMMENTS; Start 08/26/19 at 23:00 Fentanyl Citrate (Fentanyl 2ml Vial) 50 mcg PRN Q1HR PRN IV SEE COMMENTS; Start 08/26/19 at 23:00 Famotidine (Pepcid Vial) 20 mg BID IVP Last administered on 08/30/19at 08:07; Start 08/27/19 at 09:00 Morphine Sulfate (Morphine Sulfate) 2 mg PRN Q1HR PRN IV SEE COMMENTS.; Start 08/26/19 at 23:00 Morphine Sulfate (Morphine Sulfate) 4 mg PRN Q1HR PRN IV SEE COMMENTS.; Start 08/26/19 at 23:00 Midazolam HCl 100 ml @ 0 mls/hr CONT PRN IV SEE PROTOCOL Last administered on 08/28/19at 03:33; Start 08/26/19 at 23:00 Enoxaparin Sodium (Lovenox 40mg Syringe) 40 mg Q24H SQ Last administered on 08/27/19at 00:42; Start 08/26/19 at 23:00; Stop 08/27/19 at 16:55; Status DC Metronidazole 100 ml @ 100 mls/hr Q8HRS IV Last administered on 08/27/19at 05:32; Start 08/27/19 at 06:00; Stop 08/27/19 at 13:14; Status DC Ceftriaxone Sodium (Rocephin) 1 gm Q24H IVP Last administered on 08/27/19at 08:32; Start 08/27/19 at 09:00; Stop 08/27/19 at 13:14; Status DC Sodium Chloride 1,000 ml @ 75 mls/hr [id number] IV Last administered on 08/30/19at 08:07; Start 08/26/19 at 23:00 Acetaminophen (Tylenol Supp) 650 mg PRN Q6HRS PRN HI MILD PAIN / TEMP > 100.3'F Last administered on 08/27/19at 02:09; Start 08/27/19 at 02:00 Piperacillin Sod/ Tazobactam Sod 3.375 gm/Sodium Chloride 50 ml @ 100 mls/hr Q6HRS IV Last administered on 08/30/19at 06:11; Start 08/27/19 at 14:00 Insulin Human Lispro (HumaLOG) 0-7 UNITS TIDWMEALS SQ ; Start 08/27/19 at 17:00; Stop 08/27/19 at 20:28; Status DC Dextrose (Dextrose 50%-Water Syringe) 12.5 gm PRN Q15MIN PRN IV SEE COMMENTS; Start 08/27/19 at 14:00 Apixaban (Eliquis) 5 mg BID FT Last administered on 08/30/19at 08:06; Start 08/27/19 at 21:00 Aspirin (Aspirin Chewable) 81 mg DAILY PEG Last administered on 08/30/19at 08:06; Start 08/27/19 at 17:00 Insulin Human Lispro (HumaLOG) 0-7 UNITS Q6HRS SQ Last administered on 08/30/19at 06:11; Start 08/28/19 at 00:00 Potassium Bicarbonate (Potassium Effervescent Tablet) 40 meq 1X ONCE PO Last administered on 08/29/19at 08:59; Start 08/29/19 at 09:00; Stop 08/29/19 at 09:01; Status DC Active Scripts Active Reported Pepcid (Famotidine) 20 Mg Tablet 20 Mg PEG BID Famotidine 20 Mg Tablet 20 Mg PO BID Aspirin 81 Mg Tab.chew 1 Tab PEG DAILY Eliquis (Apixaban) 5 Mg Tablet 5 Mg PEG BID Proventil Hfa (Albuterol Sulfate) 6.7 Gm Hfa.aer.ad 1 Puff INH PRN Q6HRS PRN Acetaminophen 325 Mg Tablet 2 Tab PEG PRN Q4-6HRS PRN 24 Days Humalog (Insulin Lispro) 100 Unit/1 Ml Vial 100 Unit SQ Q6HRS Inject 0-24 units under the skin every 6 hours Lantus Solostar (Insulin Glargine,Hum.rec.anlog) 100 Unit/1 Ml Insuln.pen 35 Unit SQ BID Symbicort 160-4.5 Mcg Inhaler (Budesonide/Formoterol Fumarate) 10.2 Gm Hfa.aer.ad 2 Puff IH BID Flomax (Tamsulosin Hcl) 0.4 Mg Cap.er.24h 0.4 Mg PEG DAILY Crestor (Rosuvastatin Calcium) 40 Mg Tablet 1 Tab PEG HS Roxicodone (Oxycodone HCl) 5 Mg Tablet 5 Mg PEG PRN Q4HRS PRN Olanzapine 20 Mg Tablet 1 Tab PEG QHS Olanzapine 10 Mg Tablet 1 Tab PEG DAILY Metoprolol Tartrate 25 Mg Tablet 1 Tab PEG BID Vitals/I & O Vital Sign - Last 24 Hours 08/29/19 08/29/19 08/29/19 08/29/19 11:00 12:00 12:00 12:22 Temp 99.2 99.2 Pulse 108 108 Resp 19 22 B/P (MAP) 111/51 (71) 111/51 (71) Pulse Ox 99 97 100 O2 Delivery Ventilator Ventilator Mechanical Ventilator Ventilator 08/29/19 08/29/19 08/29/19 08/29/19 13:00 14:00 15:00 15:41 Pulse 106 110 110 Resp 20 23 20 B/P (MAP) 111/51 (71) 111/51 (71) 111/51 (71) Pulse Ox 96 99 97 97 O2 Delivery Ventilator Ventilator Ventilator Ventilator 08/29/19 08/29/19 08/29/19 08/29/19 16:00 16:00 17:00 17:08 Temp 100.1 100.1 Pulse 110 110 Resp 20 19 B/P (MAP) 111/51 (71) 111/51 (71) Pulse Ox 97 97 98 O2 Delivery Ventilator Mechanical Ventilator Ventilator Ventilator 08/29/19 08/29/19 08/29/19 08/29/19 18:00 20:00 20:00 20:50 Temp 100.7 99.9 100.7 99.9 Pulse 112 105 Resp 18 B/P (MAP) 111/51 (71) 117/57 (77) Pulse Ox 95 99 O2 Delivery Ventilator Ventilator Mechanical Ventilator Ventilator 08/29/19 08/29/19 08/29/19 08/29/19 20:50 21:00 21:30 22:00 Pulse 101 108 Resp 18 18 20 B/P (MAP) 103/53 (70) 92/53 (66) Pulse Ox 98 99 100 O2 Delivery Ventilator Ventilator Ventilator Ventilator 08/29/19 08/30/19 08/30/19 08/30/19 23:00 00:00 00:00 00:12 Temp 99.8 99.8 Pulse 110 95 Resp 17 B/P (MAP) 131/78 (95) 131/78 (95) Pulse Ox 96 98 98 O2 Delivery Ventilator Ventilator Mechanical Ventilator Ventilator 08/30/19 08/30/19 08/30/19 08/30/19 01:00 02:00 03:00 04:00 Temp 99.0 99.0 Pulse 107 96 108 109 Resp 18 18 B/P (MAP) 103/50 (67) 86/44 (58) 99/52 (68) 93/53 (66) Pulse Ox 99 99 99 99 O2 Delivery Ventilator Ventilator Ventilator Ventilator 08/30/19 08/30/19 08/30/19 08/30/19 04:00 04:21 05:00 06:00 Pulse 103 100 Resp 18 20 B/P (MAP) 94/54 (67) 101/57 (72) Pulse Ox 98 99 100 O2 Delivery Mechanical Ventilator Ventilator Ventilator Ventilator 08/30/19 08/30/19 08/30/19 08/30/19 07:00 08:04 08:05 08:32 Temp 99.2 99.2 Pulse 101 100 Resp 20 B/P (MAP) 100/41 (60) 104/52 (69) Pulse Ox 97 97 98 O2 Delivery Ventilator Ventilator Mechanical Ventilator Ventilator Intake and Output 08/29/19 08/29/19 08/30/19 15:00 23:00 07:00 Intake Total 250 ml 2405 ml 1805 ml Output Total 405 ml 315 ml 385 ml Balance -155 ml 2090 ml 1420 ml Justicifation of Admission Dx: Justifications for Admission: Justification of Admission Dx: Yes Respiratory Failure: Mechanical Ventilation BEBETO RICHTER MD Aug 30, 2019 10:29
[2019-08-30 11:14] LABS: CALCIUM 7.9 mg/dL (8.5-10.1); CREATININE 0.9 mg/dL (0.7-1.3); GFR 82.9
[2019-08-30 11:15] LABS: POTASSIUM 3.6 mmol/L (3.5-5.1)
[2019-08-30 11:19] LABS: BASO # 0.1 x10^3/uL (0.0-0.2); BASO % 1 % (0-3); EOS # 0.7 x10^3/uL (0.0-0.7); EOS % 9 % (0-3); HEMOGLOBIN 7.4 g/dL (13.0-17.5); LYMPH # 1.1 x10^3/uL (1.0-4.8); LYMPH % 14 % (24-48); MEAN CORPUSCULAR HEMOGLOBIN 26 pg (25-35); MEAN CORPUSCULAR HGB CONC 32 g/dL (31-37); MEAN CORPUSCULAR VOLUME 80 fL (79-100); MONO # 0.7 x10^3/uL (0.0-1.1); MONO % 9 % (0-9); NEUT # 5.2 x10^3/uL (1.8-7.7); NEUT % 67 % (31-73); PLATELET COUNT 388 x10^3/uL (140-400); RED BLOOD COUNT 2.87 x10^6/uL (4.30-5.70); RED CELL DISTRIBUTION WIDTH 17.8 % (11.5-14.5); WHITE BLOOD COUNT 7.9 x10^3/uL (4.0-11.0)
[2019-08-30] MEDS: MIDAZOLAM 100mg/100ml NS BAG 100 ML IV PRN (11:23)
[2019-08-31] VITALS (22 sets, daily range): BP systolic 79–132; BP diastolic 37–67
[2019-08-31] MEDS: INSULIN LISPRO 300 UNITS/3 ML VIAL. SQ SCH ×4 (06:00→23:46)
[2019-08-31] MEDS: PIPERACILLIN/TAZOBACTAM 3.375 GM in IV NORMAL SALINE 50ML 50 ML IV SCH ×4 (06:15→23:44)
--- NOTE | 2019-08-31 07:04 | PDOC ---
PULMONARY PROGRESS NOTES Subjective on vent sedated, on versed fentanyl, small ett secretion, off levo, became agitated on sbt yesterday Vitals Vital Signs Date Time Temp Pulse Resp B/P (MAP) Pulse Ox O2 Delivery O2 Flow Rate FiO2 08/31/19 06:00 96 16 112/51 (71) 99 Ventilator 08/31/19 04:00 98.7 98.7 Comments ros unable to obtain sedated on vent HEENT: Other (nc at perrl nose clear orally intibated neck no lad no thyromegaly) Lungs: Crackles Cardiovascular: S1, S2 Abdomen: Soft, Non-tender Extremities: No Edema Skin: Warm Labs Laboratory Tests Test 08/29/19 08:00 08/29/19 15:30 08/29/19 18:27 08/29/19 23:24 O2 Saturation 97 % (92-99) Arterial Blood pH 7.42 (7.35-7.45) Arterial Blood pCO2 at Patient Temp 33 mmHg (35-46) Arterial Blood pO2 at Patient Temp 93 mmHg (65-108) Arterial Blood HCO3 21 mmol/L (21-28) Arterial Blood Base Excess -3 mmol/L (-3-3) FiO2 35% vent Glucose (Fingerstick) 186 mg/dL (70-99) 172 mg/dL (70-99) 147 mg/dL (70-99) Test 08/30/19 06:09 08/30/19 08:40 08/30/19 09:55 08/30/19 11:26 Glucose (Fingerstick) 152 mg/dL (70-99) 171 mg/dL (70-99) O2 Saturation 96 % (92-99) Arterial Blood pH 7.47 (7.35-7.45) Arterial Blood pCO2 at Patient Temp 31 mmHg (35-46) Arterial Blood pO2 at Patient Temp 81 mmHg (65-108) Arterial Blood HCO3 22 mmol/L (21-28) Arterial Blood Base Excess -2 mmol/L (-3-3) FiO2 35 White Blood Count 7.9 x10^3/uL (4.0-11.0) Red Blood Count 2.87 x10^6/uL (4.30-5.70) Hemoglobin 7.4 g/dL (13.0-17.5) Hematocrit 23.0 % (39.0-53.0) Mean Corpuscular Volume 80 fL (79-100) Mean Corpuscular Hemoglobin 26 pg (25-35) Mean Corpuscular Hemoglobin Concent 32 g/dL (31-37) Red Cell Distribution Width 17.8 % (11.5-14.5) Platelet Count 388 x10^3/uL (140-400) Neutrophils (%) (Auto) 67 % (31-73) Lymphocytes (%) (Auto) 14 % (24-48) Monocytes (%) (Auto) 9 % (0-9) Eosinophils (%) (Auto) 9 % (0-3) Basophils (%) (Auto) 1 % (0-3) Neutrophils # (Auto) 5.2 x10^3/uL (1.8-7.7) Lymphocytes # (Auto) 1.1 x10^3/uL (1.0-4.8) Monocytes # (Auto) 0.7 x10^3/uL (0.0-1.1) Eosinophils # (Auto) 0.7 x10^3/uL (0.0-0.7) Basophils # (Auto) 0.1 x10^3/uL (0.0-0.2) Sodium Level 137 mmol/L (136-145) Potassium Level 3.6 mmol/L (3.5-5.1) Chloride Level 108 mmol/L (98-107) Carbon Dioxide Level 21 mmol/L (21-32) Anion Gap 8 (6-14) Blood Urea Nitrogen 15 mg/dL (8-26) Creatinine 0.9 mg/dL (0.7-1.3) Estimated GFR (Cockcroft-Gault) 82.9 Glucose Level 171 mg/dL (70-99) Calcium Level 7.9 mg/dL (8.5-10.1) Test 08/30/19 17:32 08/30/19 23:42 08/31/19 06:14 Glucose (Fingerstick) 152 mg/dL (70-99) 155 mg/dL (70-99) 129 mg/dL (70-99) Laboratory Tests Test 08/30/19 08:40 08/30/19 09:55 08/30/19 11:26 08/30/19 17:32 O2 Saturation 96 % (92-99) Arterial Blood pH 7.47 (7.35-7.45) Arterial Blood pCO2 at Patient Temp 31 mmHg (35-46) Arterial Blood pO2 at Patient Temp 81 mmHg (65-108) Arterial Blood HCO3 22 mmol/L (21-28) Arterial Blood Base Excess -2 mmol/L (-3-3) FiO2 35 White Blood Count 7.9 x10^3/uL (4.0-11.0) Red Blood Count 2.87 x10^6/uL (4.30-5.70) Hemoglobin 7.4 g/dL (13.0-17.5) Hematocrit 23.0 % (39.0-53.0) Mean Corpuscular Volume 80 fL (79-100) Mean Corpuscular Hemoglobin 26 pg (25-35) Mean Corpuscular Hemoglobin Concent 32 g/dL (31-37) Red Cell Distribution Width 17.8 % (11.5-14.5) Platelet Count 388 x10^3/uL (140-400) Neutrophils (%) (Auto) 67 % (31-73) Lymphocytes (%) (Auto) 14 % (24-48) Monocytes (%) (Auto) 9 % (0-9) Eosinophils (%) (Auto) 9 % (0-3) Basophils (%) (Auto) 1 % (0-3) Neutrophils # (Auto) 5.2 x10^3/uL (1.8-7.7) Lymphocytes # (Auto) 1.1 x10^3/uL (1.0-4.8) Monocytes # (Auto) 0.7 x10^3/uL (0.0-1.1) Eosinophils # (Auto) 0.7 x10^3/uL (0.0-0.7) Basophils # (Auto) 0.1 x10^3/uL (0.0-0.2) Sodium Level 137 mmol/L (136-145) Potassium Level 3.6 mmol/L (3.5-5.1) Chloride Level 108 mmol/L (98-107) Carbon Dioxide Level 21 mmol/L (21-32) Anion Gap 8 (6-14) Blood Urea Nitrogen 15 mg/dL (8-26) Creatinine 0.9 mg/dL (0.7-1.3) Estimated GFR (Cockcroft-Gault) 82.9 Glucose Level 171 mg/dL (70-99) Calcium Level 7.9 mg/dL (8.5-10.1) Glucose (Fingerstick) 171 mg/dL (70-99) 152 mg/dL (70-99) Test 08/30/19 23:42 08/31/19 06:14 Glucose (Fingerstick) 155 mg/dL (70-99) 129 mg/dL (70-99) Medications Active Scripts Medications Dose Route/Sig Max Daily Dose Days Date Category Dose Instructions Pepcid (Famotidine) 20 Mg Tablet 20 Mg PEG BID 08/27/19 Reported Famotidine 20 Mg Tablet 20 Mg PO BID 08/27/19 Reported Aspirin 81 Mg Tab.chew 1 Tab PEG DAILY 08/27/19 Reported Eliquis (Apixaban) 5 Mg Tablet 5 Mg PEG BID 08/27/19 Reported Proventil Hfa (Albuterol Sulfate) 6.7 Gm Hfa.aer.ad 1 Puff INH PRN Q6HRS PRN 08/27/19 Reported Acetaminophen 325 Mg Tablet 2 Tab PEG PRN Q4-6HRS PRN 24 08/27/19 Reported Humalog (Insulin Lispro) 100 Unit/1 Ml Vial 100 Unit SQ Q6HRS 08/27/19 Reported Inject 0-24 units under the skin every 6 hours Lantus Solostar (Insulin Glargine,Hum.rec.anlog) 100 Unit/1 Ml Insuln.pen 35 Unit SQ BID 08/27/19 Reported Symbicort 160-4.5 Mcg Inhaler (Budesonide/Formoterol Fumarate) 10.2 Gm Hfa.aer.ad 2 Puff IH BID 08/27/19 Reported Flomax (Tamsulosin Hcl) 0.4 Mg Cap.er.24h 0.4 Mg PEG DAILY 08/27/19 Reported Crestor (Rosuvastatin Calcium) 40 Mg Tablet 1 Tab PEG HS 08/27/19 Reported Roxicodone (Oxycodone HCl) 5 Mg Tablet 5 Mg PEG PRN Q4HRS PRN 08/27/19 Reported Olanzapine 20 Mg Tablet 1 Tab PEG QHS 08/27/19 Reported Olanzapine 10 Mg Tablet 1 Tab PEG DAILY 08/27/19 Reported Metoprolol Tartrate 25 Mg Tablet 1 Tab PEG BID 08/27/19 Reported Comments cxr reviewed ett ok increased vm Impression . IMPRESSION: 1. Acute hypoxemic respiratory failure, multifactorial. 2. Toxic metabolic encephalopathy, present upon admission. 3. Septic shock. 4. Severe protein malnutrition, present upon admission. 5. Recent small bowel resection with PEG tube placement, etiology for the small bowel resection is unclear. 6. Multiple comorbidities of diabetes, chronic obstructive pulmonary disease, and chronic heart failure. 7. Coronary artery disease, status post coronary artery bypass grafting. 8. Acute renal insufficiency. 9. Chronic anemia. 10. SARS-CoV-2 negative 11. Acute drop in hematocrit, will monitor Plan . cont vent support, setting reviewed, will decrease sedation, sbt when awake am cxr monitor H/H Continue assist control ventilation antibiotics per ID, cx neg Above discussed with RN critically ill Total cumulative critical care time of 30 minutes reviewing data, chest x-ray, labs, and formulating the plan. no overlap BRANDY MANTILLA MD Aug 31, 2019 07:04
--- NOTE | 2019-08-31 08:13 | PDOC ---
Infectious Disease Note Subjective Subjective Remains intubated/vent, FiO2 35% No fevers last 24 hrs + tube feedings ROS ROS unobtainable due to patient's condition Vital Sign Vital Signs Vital Signs Date Time Temp Pulse Resp B/P (MAP) Pulse Ox O2 Delivery O2 Flow Rate FiO2 08/31/19 07:11 16 98 Ventilator 08/31/19 06:00 96 112/51 (71) 08/31/19 04:00 98.7 98.7 Physical Exam PHYSICAL EXAM GENERAL: Sedated, orally intubated, + mitts HEENT: Pupils equal. ETT NECK: Supple LUNGS: Decreased breath sounds bilaterally. HEART: S1, S2 regular w/ PVCs : Nava ABDOMEN: Soft, + BS, PEG tube is in place. EXTREMITIES: Trace edema. No cyanosis. SCDs bilaterally SKIN: without rash NEUROLOGIC:Sedated PIV Labs Lab Laboratory Tests Test 08/30/19 08:40 08/30/19 09:55 08/30/19 11:26 08/30/19 17:32 O2 Saturation 96 % (92-99) Arterial Blood pH 7.47 (7.35-7.45) Arterial Blood pCO2 at Patient Temp 31 mmHg (35-46) Arterial Blood pO2 at Patient Temp 81 mmHg (65-108) Arterial Blood HCO3 22 mmol/L (21-28) Arterial Blood Base Excess -2 mmol/L (-3-3) FiO2 35 White Blood Count 7.9 x10^3/uL (4.0-11.0) Red Blood Count 2.87 x10^6/uL (4.30-5.70) Hemoglobin 7.4 g/dL (13.0-17.5) Hematocrit 23.0 % (39.0-53.0) Mean Corpuscular Volume 80 fL (79-100) Mean Corpuscular Hemoglobin 26 pg (25-35) Mean Corpuscular Hemoglobin Concent 32 g/dL (31-37) Red Cell Distribution Width 17.8 % (11.5-14.5) Platelet Count 388 x10^3/uL (140-400) Neutrophils (%) (Auto) 67 % (31-73) Lymphocytes (%) (Auto) 14 % (24-48) Monocytes (%) (Auto) 9 % (0-9) Eosinophils (%) (Auto) 9 % (0-3) Basophils (%) (Auto) 1 % (0-3) Neutrophils # (Auto) 5.2 x10^3/uL (1.8-7.7) Lymphocytes # (Auto) 1.1 x10^3/uL (1.0-4.8) Monocytes # (Auto) 0.7 x10^3/uL (0.0-1.1) Eosinophils # (Auto) 0.7 x10^3/uL (0.0-0.7) Basophils # (Auto) 0.1 x10^3/uL (0.0-0.2) Sodium Level 137 mmol/L (136-145) Potassium Level 3.6 mmol/L (3.5-5.1) Chloride Level 108 mmol/L (98-107) Carbon Dioxide Level 21 mmol/L (21-32) Anion Gap 8 (6-14) Blood Urea Nitrogen 15 mg/dL (8-26) Creatinine 0.9 mg/dL (0.7-1.3) Estimated GFR (Cockcroft-Gault) 82.9 Glucose Level 171 mg/dL (70-99) Calcium Level 7.9 mg/dL (8.5-10.1) Glucose (Fingerstick) 171 mg/dL (70-99) 152 mg/dL (70-99) Test 08/30/19 23:42 08/31/19 06:14 Glucose (Fingerstick) 155 mg/dL (70-99) 129 mg/dL (70-99) Micro 08/26/19 Blood Culture - Preliminary, Resulted NO GROWTH AFTER 3 DAYS Objective Assessment Respiratory failure. Fever - better Suspected aspiration. Recent bowel obstruction, s/p surgery and PEG-tube placement. Renal insufficiency. Plan Plan of Care continue zosyn f/u cultures Monitor WBC/temp Maintain aspiration precautions Supportive care D/w nursing Critically ill Attending Co-Sign The patient was seen and interviewed as well as examined at the bedside. The xiomara post was reviewed. The case was discussed. Agree with the plan of care. AMANDA CHACKO APRN Aug 31, 2019 08:13 REHAN WARE MD Aug 31, 2019 10:22
[2019-08-31 08:23] LABS: BASE EXCESS ABG -1 mmol/L (-3-3); HCO3 ABG 23 mmol/L (21-28); PCO2 ABG 33 mmHg (35-46); PO2 ABG 77 mmHg (65-108); SAT O2 ABG 96 % (92-99)
[2019-08-31 08:30] LABS: FIO2 ABG 35
[2019-08-31] MEDS ORDERED: PROPOFOL 100 ML IV PRN (08:30)
[2019-08-31] MEDS: APIXABAN 5 MG TABLET. FT SCH ×2 (08:34→21:20)
[2019-08-31] MEDS: ASPIRIN CHEWABLE 81 MG TABLET. PEG SCH (08:34)
[2019-08-31] MEDS: FAMOTIDINE 20 MG/2 ML VIAL IVP SCH ×2 (08:35→21:20)
[2019-08-31] MEDS: ANTI-COAG MONITOR BY PHARMACY. MC PRN (09:48)
--- NOTE | 2019-08-31 10:31 | PDOC ---
PROGRESS NOTES Chief Complaint Chief Complaint ASSESSMENT Acute Hypoxic Resp Failure requiring mechanical Ventilation, intubated 08/25 Suspected Aspiration PNA Septic Shock, present on admission hx of Bowel Obstruction with PEG placement Anemia Acute Renal Failure secondary to Vasomotor Nephropathy, resolved DM2 HLD BPH Severe protein malnutrition, present upon admission. Coronary artery disease, status post coronary artery bypass grafting on oral AC PLAN on vent sedated, on versed fentanyl, became agitated on sbt yesterday off pressors zosyn continue oral AC covid negative pulm and ID consults GI and DVT PPX FULL CODE follow labs attempt liberation jazz. chest xray in AM History of Present Illness History of Present Illness remains on vent support. weaning trial today. Vitals Vitals Vital Signs Date Time Temp Pulse Resp B/P (MAP) Pulse Ox O2 Delivery O2 Flow Rate FiO2 08/31/19 09:50 100 16 100/45 (63) 99 Ventilator 08/31/19 08:00 99.2 99.2 Physical Exam Physical Exam GENERAL: Sedated, orally intubated, + mitts HEENT: Pupils equal. ETT NECK: Supple LUNGS: Decreased breath sounds bilaterally. HEART: S1, S2 regular w/ PVCs : Nava ABDOMEN: Soft, + BS, PEG tube is in place. EXTREMITIES: Trace edema. No cyanosis. SCDs bilaterally SKIN: without rash NEUROLOGIC:Sedated PIV General: Other (sedated on vent) Heart: Regular rate Lungs: Crackles Abdomen: Normal bowel sounds Skin: No rashes Labs LABS Laboratory Tests Test 08/30/19 11:26 08/30/19 17:32 08/30/19 23:42 08/31/19 06:14 Glucose (Fingerstick) 171 mg/dL (70-99) 152 mg/dL (70-99) 155 mg/dL (70-99) 129 mg/dL (70-99) Test 08/31/19 08:00 O2 Saturation 96 % (92-99) Arterial Blood pH 7.46 (7.35-7.45) Arterial Blood pCO2 at Patient Temp 33 mmHg (35-46) Arterial Blood pO2 at Patient Temp 77 mmHg (65-108) Arterial Blood HCO3 23 mmol/L (21-28) Arterial Blood Base Excess -1 mmol/L (-3-3) FiO2 35 Comment Review of Relevant I have reviewed the following items parminder (where applicable) has been applied. Labs Laboratory Tests Test 08/29/19 15:30 08/29/19 18:27 08/29/19 23:24 08/30/19 06:09 Glucose (Fingerstick) 186 mg/dL (70-99) 172 mg/dL (70-99) 147 mg/dL (70-99) 152 mg/dL (70-99) Test 08/30/19 08:40 08/30/19 09:55 08/30/19 11:26 08/30/19 17:32 O2 Saturation 96 % (92-99) Arterial Blood pH 7.47 (7.35-7.45) Arterial Blood pCO2 at Patient Temp 31 mmHg (35-46) Arterial Blood pO2 at Patient Temp 81 mmHg (65-108) Arterial Blood HCO3 22 mmol/L (21-28) Arterial Blood Base Excess -2 mmol/L (-3-3) FiO2 35 White Blood Count 7.9 x10^3/uL (4.0-11.0) Red Blood Count 2.87 x10^6/uL (4.30-5.70) Hemoglobin 7.4 g/dL (13.0-17.5) Hematocrit 23.0 % (39.0-53.0) Mean Corpuscular Volume 80 fL (79-100) Mean Corpuscular Hemoglobin 26 pg (25-35) Mean Corpuscular Hemoglobin Concent 32 g/dL (31-37) Red Cell Distribution Width 17.8 % (11.5-14.5) Platelet Count 388 x10^3/uL (140-400) Neutrophils (%) (Auto) 67 % (31-73) Lymphocytes (%) (Auto) 14 % (24-48) Monocytes (%) (Auto) 9 % (0-9) Eosinophils (%) (Auto) 9 % (0-3) Basophils (%) (Auto) 1 % (0-3) Neutrophils # (Auto) 5.2 x10^3/uL (1.8-7.7) Lymphocytes # (Auto) 1.1 x10^3/uL (1.0-4.8) Monocytes # (Auto) 0.7 x10^3/uL (0.0-1.1) Eosinophils # (Auto) 0.7 x10^3/uL (0.0-0.7) Basophils # (Auto) 0.1 x10^3/uL (0.0-0.2) Sodium Level 137 mmol/L (136-145) Potassium Level 3.6 mmol/L (3.5-5.1) Chloride Level 108 mmol/L (98-107) Carbon Dioxide Level 21 mmol/L (21-32) Anion Gap 8 (6-14) Blood Urea Nitrogen 15 mg/dL (8-26) Creatinine 0.9 mg/dL (0.7-1.3) Estimated GFR (Cockcroft-Gault) 82.9 Glucose Level 171 mg/dL (70-99) Calcium Level 7.9 mg/dL (8.5-10.1) Glucose (Fingerstick) 171 mg/dL (70-99) 152 mg/dL (70-99) Test 08/30/19 23:42 08/31/19 06:14 08/31/19 08:00 Glucose (Fingerstick) 155 mg/dL (70-99) 129 mg/dL (70-99) O2 Saturation 96 % (92-99) Arterial Blood pH 7.46 (7.35-7.45) Arterial Blood pCO2 at Patient Temp 33 mmHg (35-46) Arterial Blood pO2 at Patient Temp 77 mmHg (65-108) Arterial Blood HCO3 23 mmol/L (21-28) Arterial Blood Base Excess -1 mmol/L (-3-3) FiO2 35 Laboratory Tests Test 08/30/19 11:26 08/30/19 17:32 08/30/19 23:42 08/31/19 06:14 Glucose (Fingerstick) 171 mg/dL (70-99) 152 mg/dL (70-99) 155 mg/dL (70-99) 129 mg/dL (70-99) Test 08/31/19 08:00 O2 Saturation 96 % (92-99) Arterial Blood pH 7.46 (7.35-7.45) Arterial Blood pCO2 at Patient Temp 33 mmHg (35-46) Arterial Blood pO2 at Patient Temp 77 mmHg (65-108) Arterial Blood HCO3 23 mmol/L (21-28) Arterial Blood Base Excess -1 mmol/L (-3-3) FiO2 35 Microbiology 08/26/19 Urine Culture - Final, Complete 08/26/19 Blood Culture - Preliminary, Resulted NO GROWTH AFTER 4 DAYS Medications Current Medications Norepinephrine Bitartrate 8 mg/ Dextrose 258 ml @ 13.603 mls/ hr CONT PRN IV PER PROTOCOL Last administered on 08/28/19at 01:21; Start 08/26/19 at 23:00 Fentanyl Citrate 30 ml @ 0 mls/hr CONT PRN IV SEE PROTOCOL Last administered on 08/31/19at 07:11; Start 08/26/19 at 23:00 Fentanyl Citrate (Fentanyl 2ml Vial) 25 mcg PRN Q1HR PRN IV SEE COMMENTS; Start 08/26/19 at 23:00 Fentanyl Citrate (Fentanyl 2ml Vial) 50 mcg PRN Q1HR PRN IV SEE COMMENTS; Start 08/26/19 at 23:00 Famotidine (Pepcid Vial) 20 mg BID IVP Last administered on 08/31/19at 08:35; Start 08/27/19 at 09:00 Morphine Sulfate (Morphine Sulfate) 2 mg PRN Q1HR PRN IV SEE COMMENTS.; Start 08/26/19 at 23:00 Morphine Sulfate (Morphine Sulfate) 4 mg PRN Q1HR PRN IV SEE COMMENTS.; Start 08/26/19 at 23:00 Midazolam HCl 100 ml @ 0 mls/hr CONT PRN IV SEE PROTOCOL Last administered on 08/30/19at 11:23; Start 08/26/19 at 23:00 Enoxaparin Sodium (Lovenox 40mg Syringe) 40 mg Q24H SQ Last administered on 08/27/19at 00:42; Start 08/26/19 at 23:00; Stop 08/27/19 at 16:55; Status DC Metronidazole 100 ml @ 100 mls/hr Q8HRS IV Last administered on 08/27/19at 05:32; Start 08/27/19 at 06:00; Stop 08/27/19 at 13:14; Status DC Ceftriaxone Sodium (Rocephin) 1 gm Q24H IVP Last administered on 08/27/19at 08:32; Start 08/27/19 at 09:00; Stop 08/27/19 at 13:14; Status DC Sodium Chloride 1,000 ml @ 75 mls/hr [id number] IV Last administered on 08/30/19at 21:05; Start 08/26/19 at 23:00 Acetaminophen (Tylenol Supp) 650 mg PRN Q6HRS PRN [place] MILD PAIN / TEMP > 100.3'F Last administered on 08/27/19at 02:09; Start 08/27/19 at 02:00 Piperacillin Sod/ Tazobactam Sod 3.375 gm/Sodium Chloride 50 ml @ 100 mls/hr Q6HRS IV Last administered on 08/31/19at 06:15; Start 08/27/19 at 14:00 Insulin Human Lispro (HumaLOG) 0-7 UNITS TIDWMEALS SQ ; Start 08/27/19 at 17:00; Stop 08/27/19 at 20:28; Status DC Dextrose (Dextrose 50%-Water Syringe) 12.5 gm PRN Q15MIN PRN IV SEE COMMENTS; Start 08/27/19 at 14:00 Apixaban (Eliquis) 5 mg BID FT Last administered on 08/31/19at 08:34; Start 08/27/19 at 21:00 Aspirin (Aspirin Chewable) 81 mg DAILY PEG Last administered on 08/31/19at 08:34; Start 08/27/19 at 17:00 Insulin Human Lispro (HumaLOG) 0-7 UNITS Q6HRS SQ Last administered on 08/30/19at 23:44; Start 08/28/19 at 00:00 Potassium Bicarbonate (Potassium Effervescent Tablet) 40 meq 1X ONCE PO Last administered on 08/29/19at 08:59; Start 08/29/19 at 09:00; Stop 08/29/19 at 09:01; Status DC Info (Anti-Coagulation Monitoring By Pharmacy) 1 each PRN DAILY PRN MC SEE COMMENTS Last administered on 08/31/19at 09:48; Start 08/31/19 at 08:30 Propofol 100 ml @ 1.133 mls/ hr CONT PRN IV SEE I/O RECORD; Start 08/31/19 at 08:30 Active Scripts Active Reported Pepcid (Famotidine) 20 Mg Tablet 20 Mg PEG BID Famotidine 20 Mg Tablet 20 Mg PO BID Aspirin 81 Mg Tab.chew 1 Tab PEG DAILY Eliquis (Apixaban) 5 Mg Tablet 5 Mg PEG BID Proventil Hfa (Albuterol Sulfate) 6.7 Gm Hfa.aer.ad 1 Puff INH PRN Q6HRS PRN Acetaminophen 325 Mg Tablet 2 Tab PEG PRN Q4-6HRS PRN 24 Days Humalog (Insulin Lispro) 100 Unit/1 Ml Vial 100 Unit SQ Q6HRS Inject 0-24 units under the skin every 6 hours Lantus Solostar (Insulin Glargine,Hum.rec.anlog) 100 Unit/1 Ml Insuln.pen 35 Unit SQ BID Symbicort 160-4.5 Mcg Inhaler (Budesonide/Formoterol Fumarate) 10.2 Gm Hfa.aer.ad 2 Puff IH BID Flomax (Tamsulosin Hcl) 0.4 Mg Cap.er.24h 0.4 Mg PEG DAILY Crestor (Rosuvastatin Calcium) 40 Mg Tablet 1 Tab PEG HS Roxicodone (Oxycodone HCl) 5 Mg Tablet 5 Mg PEG PRN Q4HRS PRN Olanzapine 20 Mg Tablet 1 Tab PEG QHS Olanzapine 10 Mg Tablet 1 Tab PEG DAILY Metoprolol Tartrate 25 Mg Tablet 1 Tab PEG BID Vitals/I & O Vital Sign - Last 24 Hours 08/30/19 08/30/19 08/30/19 08/30/19 11:00 11:40 12:00 12:01 Temp 98.6 98.6 Pulse 104 98 B/P (MAP) 97/51 (66) 100/60 (73) Pulse Ox 98 99 99 O2 Delivery Ventilator Mechanical Ventilator Ventilator Ventilator 08/30/19 08/30/19 08/30/19 08/30/19 14:00 15:00 15:09 15:39 Pulse 98 98 Resp 16 16 20 20 B/P (MAP) 101/58 (72) 108/50 (69) Pulse Ox 99 99 97 O2 Delivery Ventilator Ventilator Ventilator 08/30/19 08/30/19 08/30/19 08/30/19 15:52 16:00 16:00 17:00 Pulse 98 98 Resp 16 16 B/P (MAP) 103/58 (73) 99/58 (72) Pulse Ox 98 99 99 O2 Delivery Ventilator Ventilator Mechanical Ventilator Ventilator 08/30/19 08/30/19 08/30/19 08/30/19 19:00 20:00 20:06 20:48 Pulse 94 80 Resp 16 16 B/P (MAP) 107/60 (76) 102/59 (73) Pulse Ox 99 99 98 O2 Delivery Ventilator Ventilator Mechanical Ventilator Ventilator 08/30/19 08/30/19 08/30/19 08/31/19 21:00 22:00 23:00 00:00 Temp 98.8 98.8 Pulse 92 92 94 88 Resp 16 16 16 16 B/P (MAP) 120/60 (80) 108/52 (70) 113/56 (75) 108/61 (77) Pulse Ox 99 99 99 98 O2 Delivery Ventilator Ventilator Ventilator Ventilator 08/31/19 08/31/19 08/31/19 08/31/19 00:02 00:29 01:00 02:00 Pulse 94 92 Resp 16 16 B/P (MAP) 95/61 (72) 97/50 (66) Pulse Ox 98 98 100 O2 Delivery Mechanical Ventilator Ventilator Ventilator Ventilator 08/31/19 08/31/19 08/31/19 08/31/19 03:00 04:00 04:14 04:15 Temp 98.7 98.7 Pulse 90 98 Resp 16 16 B/P (MAP) 92/58 (69) 107/56 (73) Pulse Ox 99 99 98 O2 Delivery Ventilator Ventilator Ventilator Mechanical Ventilator 08/31/19 08/31/19 08/31/19 08/31/19 05:00 06:00 07:11 08:00 Temp 99.2 99.2 Pulse 100 96 111 Resp 16 16 16 18 B/P (MAP) 109/55 (73) 112/51 (71) 117/61 (79) Pulse Ox 99 99 98 97 O2 Delivery Ventilator Ventilator Ventilator Ventilator 08/31/19 08/31/19 08/31/19 08:00 08:00 09:50 Pulse 100 Resp 16 B/P (MAP) 100/45 (63) Pulse Ox 99 99 O2 Delivery Ventilator Mechanical Ventilator Ventilator Intake and Output 08/30/19 08/30/19 08/31/19 15:00 23:00 07:00 Intake Total 250 ml 2805 ml 1769 ml Output Total 165 ml 190 ml 425 ml Balance 85 ml 2615 ml 1344 ml Justicifation of Admission Dx: Justifications for Admission: Justification of Admission Dx: Yes Respiratory Failure: Mechanical Ventilation BEBETO RICHTER MD Aug 31, 2019 10:31
[2019-08-31] MEDS: IV NORMAL SALINE 1000ML BAG 1,000 ML IV SCH ×2 (11:30→23:44)
[2019-08-31] MEDS: DEXMEDETOMIDINE 400 MCG in IV NORMAL SALINE 100ML 96 ML IV PRN ×2 (13:01→23:43)
[2019-08-31] MEDS: NICOTINE 21MG PATCH. TD SCH (13:20)
[2019-08-31 16:54] LABS: BILIRUBIN,URINE NEGATIVE (NEG); CLARITY,URINE CLOUDY; COLOR,URINE YELLOW; NITRITE,URINE NEGATIVE (NEG); PROTEIN,URINE 30 mg/dL (NEG-TRACE); UROBILINOGEN,URINE 0.2 mg/dL (0.2 mg/dL)
[2019-08-31 17:04] LABS: BACTERIA,URINE 0 /HPF (0-FEW); WBC,URINE 20-40 /HPF (0-4); YEAST,URINE PRESENT /HPF
[2019-08-31] MEDS: NYSTATIN TOPICAL POWDER 15GM BOTTLE. TP SCH (21:20)
[2019-09-01] VITALS (26 sets, daily range): BP systolic 83–146; BP diastolic 40–68
[2019-09-01] MEDS: PIPERACILLIN/TAZOBACTAM 3.375 GM in IV NORMAL SALINE 50ML 50 ML IV SCH ×3 (05:31→18:25)
[2019-09-01] MEDS: INSULIN LISPRO 300 UNITS/3 ML VIAL. SQ SCH ×3 (05:36→18:00)
--- NOTE | 2019-09-01 08:43 | PDOC ---
Infectious Disease Note Subjective: Subjective Remains intubated/vent No fevers last 24 hrs + tube feedings Vital Signs: Vital Signs Vital Signs Date Time Temp Pulse Resp B/P (MAP) Pulse Ox O2 Delivery O2 Flow Rate FiO2 09/01/19 08:25 82 16 114/68 (83) 98 Ventilator 09/01/19 07:54 97.0 09/01/19 07:01 98.8 98.8 Physical Exam: PHYSICAL EXAM GENERAL: Sedated, orally intubated, + mitts HEENT: Pupils equal. ETT NECK: Supple LUNGS: Decreased breath sounds bilaterally. HEART: S1, S2 regular w/ PVCs : Nava ABDOMEN: Soft, + BS, PEG tube is in place. Yeast in groin EXTREMITIES: Trace edema. No cyanosis. SCDs bilaterally SKIN: without rash NEUROLOGIC:Sedated PIV Medications: Inpatient Meds: Current Medications Medications (Trade) Dose Ordered Sig/Yanet Start Time Stop Time Status Last Admin Dose Admin Acetaminophen (Tylenol Supp) 650 mg PRN Q6HRS PRN 08/27/19 02:00 08/27/19 02:09 650 MG Apixaban (Eliquis) 5 mg BID 08/27/19 21:00 08/31/19 21:20 5 MG Aspirin (Aspirin Chewable) 81 mg DAILY 08/27/19 17:00 08/31/19 08:34 81 MG Ceftriaxone Sodium (Rocephin) 1 gm Q24H 08/27/19 09:00 08/27/19 13:14 DC 08/27/19 08:32 1 GM Dexmedetomidine HCl 400 mcg/ Sodium Chloride 100 ml @ 0 mls/hr CONT PRN 08/31/19 12:45 08/31/19 23:43 7 MLS/HR Dextrose (Dextrose 50%-Water Syringe) 12.5 gm PRN Q15MIN PRN 08/27/19 14:00 Enoxaparin Sodium (Lovenox 40mg Syringe) 40 mg Q24H 08/26/19 23:00 08/27/19 16:55 DC 08/27/19 00:42 40 MG Famotidine (Pepcid Vial) 20 mg BID 08/27/19 09:00 08/31/19 21:20 20 MG Fentanyl Citrate (Fentanyl 2ml Vial) 50 mcg PRN Q1HR PRN 08/26/19 23:00 Info (Anti-Coagulation Monitoring By Pharmacy) 1 each PRN DAILY PRN 08/31/19 08:30 08/31/19 09:48 1 EACH Insulin Human Lispro (HumaLOG) 0-7 UNITS Q6HRS 08/28/19 00:00 09/01/19 05:36 3 UNITS Metronidazole 100 ml @ 100 mls/hr Q8HRS 08/27/19 06:00 08/27/19 13:14 DC 08/27/19 05:32 100 MLS/HR Midazolam HCl 100 ml @ 0 mls/hr CONT PRN 08/26/19 23:00 08/30/19 11:23 2 MLS/HR Morphine Sulfate (Morphine Sulfate) 4 mg PRN Q1HR PRN 08/26/19 23:00 Nicotine (Nicoderm Cq 21mg) 1 patch DAILY 08/31/19 13:30 08/31/19 13:20 1 PATCH Norepinephrine Bitartrate 8 mg/ Dextrose 258 ml @ 13.603 mls/ hr CONT PRN 08/26/19 23:00 08/28/19 01:21 10.882 MLS/HR Nystatin (Nystop) 1 lexus BID 08/31/19 21:00 08/31/19 21:20 1 LEXUS Piperacillin Sod/ Tazobactam Sod 3.375 gm/Sodium Chloride 50 ml @ 100 mls/hr Q6HRS 08/27/19 14:00 09/01/19 05:31 100 MLS/HR Potassium Bicarbonate (Potassium Effervescent Tablet) 40 meq 1X ONCE 08/29/19 09:00 08/29/19 09:01 DC 08/29/19 08:59 40 MEQ Propofol 100 ml @ 1.133 mls/ hr CONT PRN 08/31/19 08:30 Sodium Chloride 1,000 ml @ 75 mls/hr [id number] 08/26/19 23:00 08/31/19 23:44 75 MLS/HR Labs: Lab Laboratory Tests Test 08/31/19 11:37 08/31/19 15:00 08/31/19 17:53 08/31/19 23:42 Glucose (Fingerstick) 154 mg/dL (70-99) 164 mg/dL (70-99) 167 mg/dL (70-99) Urine Collection Type Unknown Urine Color Yellow Urine Clarity Cloudy Urine pH 6.0 (<5.0-8.0) Urine Specific [place] 1.025 (1.000-1.030) Urine Protein 30 mg/dL (NEG-TRACE) Urine Glucose (UA) Negative mg/dL (NEG) Urine Ketones (Stick) Negative mg/dL (NEG) Urine Blood Moderate (NEG) Urine Nitrite Negative (NEG) Urine Bilirubin Negative (NEG) Urine Urobilinogen Dipstick 0.2 mg/dL (0.2 mg/dL) Urine Leukocyte Esterase Large (NEG) Urine RBC 6-10 /HPF (0-2) Urine WBC 20-40 /HPF (0-4) Urine Bacteria 0 /HPF (0-FEW) Urine Yeast Present /HPF Test 09/01/19 05:34 Glucose (Fingerstick) 188 mg/dL (70-99) Objective: Assessment: Respiratory failure. Fever - better Suspected aspiration.;sputum culture positive for MRSA Recent bowel obstruction, s/p surgery and PEG-tube placement. Renal insufficiency yeast in groin. Plan: Plan of Care continue zosyn micafungin zyvox 600 mg bid f/u cultures Monitor WBC/temp Maintain aspiration precautions Supportive care D/w nursing Critically ill KAYCEE WARE MD Sep 01, 2019 08:43
[2019-09-01] MEDS ORDERED: MICAFUNGIN 100 MG in IV DEXTROSE 5% 100ML 100 ML IV SCH (09:00)
[2019-09-01 09:01] LABS: BASE EXCESS ABG -2 mmol/L (-3-3); HCO3 ABG 21 mmol/L (21-28); PCO2 ABG 30 mmHg (35-46); PO2 ABG 76 mmHg (65-108); SAT O2 ABG 95 % (92-99)
[2019-09-01 09:04] LABS: FIO2 ABG 35% cpap
[2019-09-01] MEDS: NICOTINE 21MG PATCH. TD SCH (09:22)
[2019-09-01] MEDS: ASPIRIN CHEWABLE 81 MG TABLET. PEG SCH (09:23)
[2019-09-01] MEDS: FAMOTIDINE 20 MG/2 ML VIAL IVP SCH ×2 (09:23→21:12)
[2019-09-01] MEDS: LINEZOLID 600 MG TABLET PO SCH ×2 (09:23→21:12)
[2019-09-01] MEDS: NYSTATIN TOPICAL POWDER 15GM BOTTLE. TP SCH ×2 (09:23→21:16)
[2019-09-01] MEDS: APIXABAN 5 MG TABLET. FT SCH ×2 (09:23→21:12)
--- NOTE | 2019-09-01 09:29 | RAD ---
CHEST AP ONLY History: Reason: vent patient / Spl. Instructions: / History: Comparison: August 26, 2019 Findings: Increased patchy bibasilar opacities, left greater than right. Mild interstitial thickening, increased compared to prior. No pleural effusion. Unchanged heart size. Stable endotracheal tube. Prior median sternotomy. Impression: 1. Increased interstitial thickening and patchy bibasilar opacities, may represent pulmonary edema. Electronically signed by: Piero Husain DO (09/01/2019 9:26 AM) [id number]
[2019-09-01] MEDS ORDERED: MICAFUNGIN 100 MG in IV DEXTROSE 5% 100ML 100 ML IV ONE (10:00)
[2019-09-01] MEDS ORDERED: FUROSEMIDE 40 MG/4 ML VIAL. IVP ONE (10:45)
[2019-09-01 10:52] LABS: CALCIUM 8.4 mg/dL (8.5-10.1); CREATININE 0.8 mg/dL (0.7-1.3); POTASSIUM 3.4 mmol/L (3.5-5.1)
[2019-09-01 10:58] LABS: BASO # 0.1 x10^3/uL (0.0-0.2); BASO % 1 % (0-3); EOS # 0.1 x10^3/uL (0.0-0.7); EOS % 2 % (0-3); LYMPH # 1.4 x10^3/uL (1.0-4.8); LYMPH % 17 % (24-48); MEAN CORPUSCULAR HEMOGLOBIN 26 pg (25-35); MEAN CORPUSCULAR HGB CONC 33 g/dL (31-37); MEAN CORPUSCULAR VOLUME 80 fL (79-100); MONO # 0.2 x10^3/uL (0.0-1.1); MONO % 2 % (0-9); NEUT # 6.8 x10^3/uL (1.8-7.7); NEUT % 79 % (31-73); PLATELET COUNT 353 x10^3/uL (140-400); RED BLOOD COUNT 2.62 x10^6/uL (4.30-5.70); RED CELL DISTRIBUTION WIDTH 17.8 % (11.5-14.5); WHITE BLOOD COUNT 8.6 x10^3/uL (4.0-11.0)
[2019-09-01 11:04] LABS: HEMOGLOBIN 6.9 g/dL (13.0-17.5)
[2019-09-01] MEDS ORDERED: ACETAMINOPHEN 325 MG TABLET. PO PRN (11:30)
[2019-09-01] MEDS: OLANZapine 5 MG TABLET PEG SCH (12:44)
[2019-09-01] MEDS: TAMSULOSIN 0.4 MG CAP.ER.24H. PO SCH (12:47)
[2019-09-01] MEDS: METOPROLOL TART IMMED RELEASE 25 MG TABLET. PEG SCH ×2 (12:47→21:16)
[2019-09-01] MEDS: IV NORMAL SALINE 1000ML BAG 1,000 ML IV SCH (12:48)
--- NOTE | 2019-09-01 13:24 | PDOC ---
PULMONARY PROGRESS NOTES Subjective Patient seen during spontaneous breathing trial, awake alert following commands shakes he had yes to removing tube Vitals Vital Signs Date Time Temp Pulse Resp B/P (MAP) Pulse Ox O2 Delivery O2 Flow Rate FiO2 09/01/19 12:47 97 128/61 09/01/19 12:00 Mechanical Ventilator 09/01/19 11:32 100 09/01/19 11:04 98.3 16 98.3 09/01/19 07:54 97.0 HEENT: Other (nc at perrl nose clear orally intibated neck no lad no thyromegaly) Lungs: Crackles Cardiovascular: S1, S2 Abdomen: Soft, Non-tender Extremities: No Edema Skin: Warm Labs Laboratory Tests Test 08/30/19 17:32 08/30/19 23:42 08/31/19 06:14 08/31/19 08:00 Glucose (Fingerstick) 152 mg/dL (70-99) 155 mg/dL (70-99) 129 mg/dL (70-99) O2 Saturation 96 % (92-99) Arterial Blood pH 7.46 (7.35-7.45) Arterial Blood pCO2 at Patient Temp 33 mmHg (35-46) Arterial Blood pO2 at Patient Temp 77 mmHg (65-108) Arterial Blood HCO3 23 mmol/L (21-28) Arterial Blood Base Excess -1 mmol/L (-3-3) FiO2 35 Test 08/31/19 11:37 08/31/19 15:00 08/31/19 17:53 08/31/19 23:42 Glucose (Fingerstick) 154 mg/dL (70-99) 164 mg/dL (70-99) 167 mg/dL (70-99) Urine Collection Type Unknown Urine Color Yellow Urine Clarity Cloudy Urine pH 6.0 (<5.0-8.0) Urine Specific [place] 1.025 (1.000-1.030) Urine Protein 30 mg/dL (NEG-TRACE) Urine Glucose (UA) Negative mg/dL (NEG) Urine Ketones (Stick) Negative mg/dL (NEG) Urine Blood Moderate (NEG) Urine Nitrite Negative (NEG) Urine Bilirubin Negative (NEG) Urine Urobilinogen Dipstick 0.2 mg/dL (0.2 mg/dL) Urine Leukocyte Esterase Large (NEG) Urine RBC 6-10 /HPF (0-2) Urine WBC 20-40 /HPF (0-4) Urine Bacteria 0 /HPF (0-FEW) Urine Yeast Present /HPF Test 09/01/19 05:34 09/01/19 08:58 09/01/19 10:05 09/01/19 12:50 Glucose (Fingerstick) 188 mg/dL (70-99) 227 mg/dL (70-99) O2 Saturation 95 % (92-99) Arterial Blood pH 7.47 (7.35-7.45) Arterial Blood pCO2 at Patient Temp 30 mmHg (35-46) Arterial Blood pO2 at Patient Temp 76 mmHg (65-108) Arterial Blood HCO3 21 mmol/L (21-28) Arterial Blood Base Excess -2 mmol/L (-3-3) FiO2 35% cpap White Blood Count 8.6 x10^3/uL (4.0-11.0) Red Blood Count 2.62 x10^6/uL (4.30-5.70) Hemoglobin 6.9 g/dL (13.0-17.5) Hematocrit 21.0 % (39.0-53.0) Mean Corpuscular Volume 80 fL (79-100) Mean Corpuscular Hemoglobin 26 pg (25-35) Mean Corpuscular Hemoglobin Concent 33 g/dL (31-37) Red Cell Distribution Width 17.8 % (11.5-14.5) Platelet Count 353 x10^3/uL (140-400) Neutrophils (%) (Auto) 79 % (31-73) Lymphocytes (%) (Auto) 17 % (24-48) Monocytes (%) (Auto) 2 % (0-9) Eosinophils (%) (Auto) 2 % (0-3) Basophils (%) (Auto) 1 % (0-3) Neutrophils # (Auto) 6.8 x10^3/uL (1.8-7.7) Lymphocytes # (Auto) 1.4 x10^3/uL (1.0-4.8) Monocytes # (Auto) 0.2 x10^3/uL (0.0-1.1) Eosinophils # (Auto) 0.1 x10^3/uL (0.0-0.7) Basophils # (Auto) 0.1 x10^3/uL (0.0-0.2) Sodium Level 138 mmol/L (136-145) Potassium Level 3.4 mmol/L (3.5-5.1) Chloride Level 106 mmol/L (98-107) Carbon Dioxide Level 21 mmol/L (21-32) Anion Gap 11 (6-14) Blood Urea Nitrogen 14 mg/dL (8-26) Creatinine 0.8 mg/dL (0.7-1.3) Estimated GFR (Cockcroft-Gault) 95.0 Glucose Level 221 mg/dL (70-99) Calcium Level 8.4 mg/dL (8.5-10.1) Laboratory Tests Test 08/31/19 15:00 08/31/19 17:53 08/31/19 23:42 09/01/19 05:34 Urine Collection Type Unknown Urine Color Yellow Urine Clarity Cloudy Urine pH 6.0 (<5.0-8.0) Urine Specific [place] 1.025 (1.000-1.030) Urine Protein 30 mg/dL (NEG-TRACE) Urine Glucose (UA) Negative mg/dL (NEG) Urine Ketones (Stick) Negative mg/dL (NEG) Urine Blood Moderate (NEG) Urine Nitrite Negative (NEG) Urine Bilirubin Negative (NEG) Urine Urobilinogen Dipstick 0.2 mg/dL (0.2 mg/dL) Urine Leukocyte Esterase Large (NEG) Urine RBC 6-10 /HPF (0-2) Urine WBC 20-40 /HPF (0-4) Urine Bacteria 0 /HPF (0-FEW) Urine Yeast Present /HPF Glucose (Fingerstick) 164 mg/dL (70-99) 167 mg/dL (70-99) 188 mg/dL (70-99) Test 09/01/19 08:58 09/01/19 10:05 09/01/19 12:50 O2 Saturation 95 % (92-99) Arterial Blood pH 7.47 (7.35-7.45) Arterial Blood pCO2 at Patient Temp 30 mmHg (35-46) Arterial Blood pO2 at Patient Temp 76 mmHg (65-108) Arterial Blood HCO3 21 mmol/L (21-28) Arterial Blood Base Excess -2 mmol/L (-3-3) FiO2 35% cpap White Blood Count 8.6 x10^3/uL (4.0-11.0) Red Blood Count 2.62 x10^6/uL (4.30-5.70) Hemoglobin 6.9 g/dL (13.0-17.5) Hematocrit 21.0 % (39.0-53.0) Mean Corpuscular Volume 80 fL (79-100) Mean Corpuscular Hemoglobin 26 pg (25-35) Mean Corpuscular Hemoglobin Concent 33 g/dL (31-37) Red Cell Distribution Width 17.8 % (11.5-14.5) Platelet Count 353 x10^3/uL (140-400) Neutrophils (%) (Auto) 79 % (31-73) Lymphocytes (%) (Auto) 17 % (24-48) Monocytes (%) (Auto) 2 % (0-9) Eosinophils (%) (Auto) 2 % (0-3) Basophils (%) (Auto) 1 % (0-3) Neutrophils # (Auto) 6.8 x10^3/uL (1.8-7.7) Lymphocytes # (Auto) 1.4 x10^3/uL (1.0-4.8) Monocytes # (Auto) 0.2 x10^3/uL (0.0-1.1) Eosinophils # (Auto) 0.1 x10^3/uL (0.0-0.7) Basophils # (Auto) 0.1 x10^3/uL (0.0-0.2) Sodium Level 138 mmol/L (136-145) Potassium Level 3.4 mmol/L (3.5-5.1) Chloride Level 106 mmol/L (98-107) Carbon Dioxide Level 21 mmol/L (21-32) Anion Gap 11 (6-14) Blood Urea Nitrogen 14 mg/dL (8-26) Creatinine 0.8 mg/dL (0.7-1.3) Estimated GFR (Cockcroft-Gault) 95.0 Glucose Level 221 mg/dL (70-99) Calcium Level 8.4 mg/dL (8.5-10.1) Glucose (Fingerstick) 227 mg/dL (70-99) Medications Active Scripts Medications Dose Route/Sig Max Daily Dose Days Date Category Dose Instructions Pepcid (Famotidine) 20 Mg Tablet 20 Mg PEG BID 08/27/19 Reported Famotidine 20 Mg Tablet 20 Mg PO BID 08/27/19 Reported Aspirin 81 Mg Tab.chew 1 Tab PEG DAILY 08/27/19 Reported Eliquis (Apixaban) 5 Mg Tablet 5 Mg PEG BID 08/27/19 Reported Proventil Hfa (Albuterol Sulfate) 6.7 Gm Hfa.aer.ad 1 Puff INH PRN Q6HRS PRN 08/27/19 Reported Acetaminophen 325 Mg Tablet 2 Tab PEG PRN Q4-6HRS PRN 24 08/27/19 Reported Humalog (Insulin Lispro) 100 Unit/1 Ml Vial 100 Unit SQ Q6HRS 08/27/19 Reported Inject 0-24 units under the skin every 6 hours Lantus Solostar (Insulin Glargine,Hum.rec.anlog) 100 Unit/1 Ml Insuln.pen 35 Unit SQ BID 08/27/19 Reported Symbicort 160-4.5 Mcg Inhaler (Budesonide/Formoterol Fumarate) 10.2 Gm Hfa.aer.ad 2 Puff IH BID 08/27/19 Reported Flomax (Tamsulosin Hcl) 0.4 Mg Cap.er.24h 0.4 Mg PEG DAILY 08/27/19 Reported Crestor (Rosuvastatin Calcium) 40 Mg Tablet 1 Tab PEG HS 08/27/19 Reported Roxicodone (Oxycodone HCl) 5 Mg Tablet 5 Mg PEG PRN Q4HRS PRN 08/27/19 Reported Olanzapine 20 Mg Tablet 1 Tab PEG QHS 08/27/19 Reported Olanzapine 10 Mg Tablet 1 Tab PEG DAILY 08/27/19 Reported Metoprolol Tartrate 25 Mg Tablet 1 Tab PEG BID 08/27/19 Reported Comments cxr reviewed ett ok increased vm Impression . IMPRESSION: 1. Acute hypoxemic respiratory failure, multifactorial. 2. Toxic metabolic encephalopathy, present upon admission. 3. Septic shock. 4. Severe protein malnutrition, present upon admission. 5. Recent small bowel resection with PEG tube placement, etiology for the small bowel resection is unclear. 6. Multiple comorbidities of diabetes, chronic obstructive pulmonary disease, and chronic heart failure. 7. Coronary artery disease, status post coronary artery bypass grafting. 8. Acute renal insufficiency. 9. Chronic anemia. 10. SARS-CoV-2 negative 11. Acute drop in hematocrit Plan . Transfuse Did well on spontaneous breathing trial will extubate Monitor H&H Antibiotics per ID DVT GI prophylaxis Above discussed with RN critically ill Total cumulative critical care time of 30 minutes reviewing data, chest x-ray, labs, and formulating the plan. no overlap DIPAK MARTINEZ MD Sep 01, 2019 13:24
--- NOTE | 2019-09-01 13:44 | PDOC ---
[employer] PROGRESS NOTE Chief Complaint Chief Complaint Acute Hypoxic Resp Failure requiring mechanical Ventilation, intubated 08/25 Suspected Aspiration PNA Septic Shock, present on admission hx of Bowel Obstruction with PEG placement Anemia Acute Renal Failure secondary to Vasomotor Nephropathy, resolved DM2 HLD BPH Severe protein malnutrition, present upon admission. Coronary artery disease, status post coronary artery bypass grafting on oral AC History of Present Illness History of Present Illness 09/01/2019 Patient seen and examined in the ICU He remains mechanically ventilated 100/35% Hemoglobin has dropped to 6.9 we have ordered 1 unit of blood Also ordered 40 of Lasix He is currently being fed via PEG Discussed with RN Chart reviewed Discussed with returned case inspector Vitals/I&O Vitals/I&O: Vital Signs Date Time Temp Pulse Resp B/P (MAP) Pulse Ox O2 Delivery O2 Flow Rate FiO2 09/01/19 13:17 83 16 128/67 (87) 100 Ventilator 09/01/19 11:04 98.3 98.3 09/01/19 07:54 97.0 I & O 08/31/19 08/31/19 09/01/19 15:00 23:00 07:00 Intake Total 300 ml 2151 ml 2104 ml Output Total 440 ml 250 ml 215 ml Balance -140 ml 1901 ml 1889 ml Physical Exam Physical Exam: GENERAL: Sedated, orally intubated, + mitts HEENT: Pupils equal. ETT NECK: Supple LUNGS: Decreased breath sounds bilaterally. HEART: S1, S2 regular w/ PVCs : Nava ABDOMEN: Soft, + BS, PEG tube is in place. Yeast in groin EXTREMITIES: Trace edema. No cyanosis. SCDs bilaterally SKIN: without rash NEUROLOGIC:Sedated PIV General: Other (sedated on vent) Heart: Regular rate Lungs: Crackles Abdomen: Normal bowel sounds Skin: No rashes Labs Labs: Laboratory Tests Test 08/31/19 15:00 08/31/19 17:53 08/31/19 23:42 09/01/19 05:34 Urine Collection Type Unknown Urine Color Yellow Urine Clarity Cloudy Urine pH 6.0 (<5.0-8.0) Urine Specific [place] 1.025 (1.000-1.030) Urine Protein 30 mg/dL (NEG-TRACE) Urine Glucose (UA) Negative mg/dL (NEG) Urine Ketones (Stick) Negative mg/dL (NEG) Urine Blood Moderate (NEG) Urine Nitrite Negative (NEG) Urine Bilirubin Negative (NEG) Urine Urobilinogen Dipstick 0.2 mg/dL (0.2 mg/dL) Urine Leukocyte Esterase Large (NEG) Urine RBC 6-10 /HPF (0-2) Urine WBC 20-40 /HPF (0-4) Urine Bacteria 0 /HPF (0-FEW) Urine Yeast Present /HPF Glucose (Fingerstick) 164 mg/dL (70-99) 167 mg/dL (70-99) 188 mg/dL (70-99) Test 09/01/19 08:58 09/01/19 10:05 09/01/19 12:50 O2 Saturation 95 % (92-99) Arterial Blood pH 7.47 (7.35-7.45) Arterial Blood pCO2 at Patient Temp 30 mmHg (35-46) Arterial Blood pO2 at Patient Temp 76 mmHg (65-108) Arterial Blood HCO3 21 mmol/L (21-28) Arterial Blood Base Excess -2 mmol/L (-3-3) FiO2 35% cpap White Blood Count 8.6 x10^3/uL (4.0-11.0) Red Blood Count 2.62 x10^6/uL (4.30-5.70) Hemoglobin 6.9 g/dL (13.0-17.5) Hematocrit 21.0 % (39.0-53.0) Mean Corpuscular Volume 80 fL (79-100) Mean Corpuscular Hemoglobin 26 pg (25-35) Mean Corpuscular Hemoglobin Concent 33 g/dL (31-37) Red Cell Distribution Width 17.8 % (11.5-14.5) Platelet Count 353 x10^3/uL (140-400) Neutrophils (%) (Auto) 79 % (31-73) Lymphocytes (%) (Auto) 17 % (24-48) Monocytes (%) (Auto) 2 % (0-9) Eosinophils (%) (Auto) 2 % (0-3) Basophils (%) (Auto) 1 % (0-3) Neutrophils # (Auto) 6.8 x10^3/uL (1.8-7.7) Lymphocytes # (Auto) 1.4 x10^3/uL (1.0-4.8) Monocytes # (Auto) 0.2 x10^3/uL (0.0-1.1) Eosinophils # (Auto) 0.1 x10^3/uL (0.0-0.7) Basophils # (Auto) 0.1 x10^3/uL (0.0-0.2) Sodium Level 138 mmol/L (136-145) Potassium Level 3.4 mmol/L (3.5-5.1) Chloride Level 106 mmol/L (98-107) Carbon Dioxide Level 21 mmol/L (21-32) Anion Gap 11 (6-14) Blood Urea Nitrogen 14 mg/dL (8-26) Creatinine 0.8 mg/dL (0.7-1.3) Estimated GFR (Cockcroft-Gault) 95.0 Glucose Level 221 mg/dL (70-99) Calcium Level 8.4 mg/dL (8.5-10.1) Glucose (Fingerstick) 227 mg/dL (70-99) Assessment and Plan Assessmemt and Plan Acute Hypoxic Resp Failure requiring mechanical Ventilation, intubated 08/25 Suspected Aspiration PNA Septic Shock, present on admission hx of Bowel Obstruction with PEG placement Anemia Acute Renal Failure secondary to Vasomotor Nephropathy, resolved DM2 HLD BPH Severe protein malnutrition, present upon admission. Coronary artery disease, status post coronary artery bypass grafting on oral AC Plan ICU monitoring Vent weaning Transfuse 1 unit of blood IV Lasix PEG feeds DVT prophylaxis Full code Trend labs Home meds Appreciate subspecialist input He remains critically ill Total time 31 Comment Review of Relevant I have reviewed the following items parminder (where applicable) has been applied. Medications: Current Medications Medications (Trade) Dose Ordered Sig/Yanet Route PRN Reason Start Time Stop Time Status Last Admin Dose Admin Nystatin (Nystop) 1 lexus BID TP 08/31/19 21:00 09/01/19 09:23 Linezolid (Zyvox) 600 mg BID PO 09/01/19 09:00 09/01/19 09:23 Micafungin Sodium 100 mg/Dextrose 100 ml @ 100 mls/hr ONCE ONCE IV 09/01/19 10:00 09/01/19 10:59 DC 09/01/19 09:41 Furosemide (Lasix) 40 mg 1X ONCE IVP 09/01/19 10:45 09/01/19 11:03 DC 09/01/19 11:10 Metoprolol Tartrate (Lopressor) 25 mg BID PEG 09/01/19 12:00 09/01/19 12:47 Tamsulosin HCl (Flomax) 0.4 mg DAILY PO 09/01/19 12:00 09/01/19 12:47 Olanzapine (ZyPREXA) 10 mg DAILY PEG 09/01/19 12:00 09/01/19 12:44 Justicifation of Admission Dx: Justifications for Admission: Justification of Admission Dx: Yes Respiratory Failure: Mechanical Ventilation HASMUKH GRANGER III DO Sep 01, 2019 13:44
--- NOTE | 2019-09-01 13:54 | NUR ---
SS following up with discharge planning. SS reviewed pt chart and discussed with pt RN. Pt remains on the vent at this time. Pt on IV Zosyn and IV Micafungin. Pt being extubated to day. Pt accepted at [facility], ; fax [phone]. SS phoned and faxed clinical updates to [facility]. SS will continue to follow for discharge planning.
--- NOTE | 2019-09-01 17:13 | NUR ---
Wound Care Wound care consult for wounds to buttocks, scrotum and inner thighs. Pt has yeast rash, nystatin powder already ordered. Cleansed rash and reapplied powder. Turned pt to right side with heels floated. Pt unable to retain teaching due to mental status. Discussed POC with Cally PAN.
[2019-09-01] MEDS: OLANZapine 5 MG TABLET PO SCH (21:12)
[2019-09-01] MEDS: ATORVASTATIN CALCIUM 40 MG TABLET. PEG SCH (21:12)
[2019-09-02] VITALS (18 sets, daily range): BP systolic 119–158; BP diastolic 58–77
[2019-09-02] MEDS: PIPERACILLIN/TAZOBACTAM 3.375 GM in IV NORMAL SALINE 50ML 50 ML IV SCH ×4 (01:01→18:05)
[2019-09-02] MEDS: INSULIN LISPRO 300 UNITS/3 ML VIAL. SQ SCH ×4 (01:02→18:13)
[2019-09-02] MEDS: IV NORMAL SALINE 1000ML BAG 1,000 ML IV SCH (03:17)
--- NOTE | 2019-09-02 08:02 | PDOC ---
Infectious Disease Note Subjective: Subjective Patient extubated remainsconfused No fevers last 24 hrs + tube feedings Vital Signs: Vital Signs Vital Signs Date Time Temp Pulse Resp B/P (MAP) Pulse Ox O2 Delivery O2 Flow Rate FiO2 09/02/19 07:54 Nasal Cannula 2.0 09/02/19 07:04 110 28 129/64 (85) 98 09/02/19 04:00 99.0 99.0 Physical Exam: PHYSICAL EXAM GENERAL: Alert awake confused; not answer any questions, pulse HEENT: anicteric NECK: Supple LUNGS: Decreased breath sounds bilaterally. HEART: S1, S2 regular w/ PVCs : Nava ABDOMEN: Soft, + BS, incision intact ,PEG tube is in place. Yeast in groin EXTREMITIES: Trace edema. No cyanosis. SCDs bilaterally SKIN: without rash NEUROLOGIC alert awake confused PIV Medications: Inpatient Meds: Current Medications Medications (Trade) Dose Ordered Sig/Yanet Start Time Stop Time Status Last Admin Dose Admin Acetaminophen (Tylenol Supp) 650 mg PRN Q6HRS PRN 08/27/19 02:00 08/27/19 02:09 650 MG Acetaminophen (Tylenol) 650 mg PRN Q6HRS PRN 09/01/19 11:30 UNV Apixaban (Eliquis) 5 mg BID 08/27/19 21:00 09/01/19 21:12 5 MG Aspirin (Aspirin Chewable) 81 mg DAILY 08/27/19 17:00 09/01/19 09:23 81 MG Atorvastatin Calcium (Lipitor) 40 mg QHS 09/01/19 21:00 09/01/19 21:12 40 MG Ceftriaxone Sodium (Rocephin) 1 gm Q24H 08/27/19 09:00 08/27/19 13:14 DC 08/27/19 08:32 1 GM Dexmedetomidine HCl 400 mcg/ Sodium Chloride 100 ml @ 0 mls/hr CONT PRN 08/31/19 12:45 08/31/19 23:43 7 MLS/HR Dextrose (Dextrose 50%-Water Syringe) 12.5 gm PRN Q15MIN PRN 08/27/19 14:00 Enoxaparin Sodium (Lovenox 40mg Syringe) 40 mg Q24H 08/26/19 23:00 08/27/19 16:55 DC 08/27/19 00:42 40 MG Famotidine (Pepcid Vial) 20 mg BID 08/27/19 09:00 09/01/19 21:12 20 MG Fentanyl Citrate (Fentanyl 2ml Vial) 50 mcg PRN Q1HR PRN 08/26/19 23:00 Furosemide (Lasix) 40 mg 1X ONCE 09/01/19 10:45 09/01/19 11:03 DC 09/01/19 11:10 40 MG Info (Anti-Coagulation Monitoring By Pharmacy) 1 each PRN DAILY PRN 08/31/19 08:30 08/31/19 09:48 1 EACH Insulin Human Lispro (HumaLOG) 0-7 UNITS Q6HRS 08/28/19 00:00 09/02/19 05:57 3 UNITS Linezolid (Zyvox) 600 mg BID 09/01/19 09:00 09/01/19 21:12 600 MG Metoprolol Tartrate (Lopressor) 25 mg BID 09/01/19 12:00 09/01/19 21:16 25 MG Metronidazole 100 ml @ 100 mls/hr Q8HRS 08/27/19 06:00 08/27/19 13:14 DC 08/27/19 05:32 100 MLS/HR Micafungin Sodium 100 mg/Dextrose 100 ml @ 100 mls/hr ONCE ONCE 09/01/19 10:00 09/01/19 10:59 DC 09/01/19 09:41 100 MLS/HR Midazolam HCl 100 ml @ 0 mls/hr CONT PRN 08/26/19 23:00 08/30/19 11:23 2 MLS/HR Morphine Sulfate (Morphine Sulfate) 4 mg PRN Q1HR PRN 08/26/19 23:00 Nicotine (Nicoderm Cq 21mg) 1 patch DAILY 08/31/19 13:30 09/01/19 09:22 1 PATCH Norepinephrine Bitartrate 8 mg/ Dextrose 258 ml @ 13.603 mls/ hr CONT PRN 08/26/19 23:00 08/28/19 01:21 10.882 MLS/HR Nystatin (Nystop) 1 lexus BID 08/31/19 21:00 09/01/19 21:16 1 LEXUS Olanzapine (ZyPREXA) 20 mg QHS 09/01/19 21:00 09/01/19 21:12 20 MG Piperacillin Sod/ Tazobactam Sod 3.375 gm/Sodium Chloride 50 ml @ 100 mls/hr Q6HRS 08/27/19 14:00 09/02/19 05:54 100 MLS/HR Potassium Bicarbonate (Potassium Effervescent Tablet) 40 meq 1X ONCE 08/29/19 09:00 08/29/19 09:01 DC 08/29/19 08:59 40 MEQ Propofol 100 ml @ 1.133 mls/ hr CONT PRN 08/31/19 08:30 Sodium Chloride 1,000 ml @ 75 mls/hr [id number] 08/26/19 23:00 09/02/19 03:17 75 MLS/HR Tamsulosin HCl (Flomax) 0.4 mg DAILY 09/01/19 12:00 09/01/19 12:47 0.4 MG Labs: Lab Laboratory Tests Test 09/01/19 08:58 09/01/19 10:05 09/01/19 12:50 09/02/19 00:11 O2 Saturation 95 % (92-99) Arterial Blood pH 7.47 (7.35-7.45) Arterial Blood pCO2 at Patient Temp 30 mmHg (35-46) Arterial Blood pO2 at Patient Temp 76 mmHg (65-108) Arterial Blood HCO3 21 mmol/L (21-28) Arterial Blood Base Excess -2 mmol/L (-3-3) FiO2 35% cpap White Blood Count 8.6 x10^3/uL (4.0-11.0) Red Blood Count 2.62 x10^6/uL (4.30-5.70) Hemoglobin 6.9 g/dL (13.0-17.5) Hematocrit 21.0 % (39.0-53.0) Mean Corpuscular Volume 80 fL (79-100) Mean Corpuscular Hemoglobin 26 pg (25-35) Mean Corpuscular Hemoglobin Concent 33 g/dL (31-37) Red Cell Distribution Width 17.8 % (11.5-14.5) Platelet Count 353 x10^3/uL (140-400) Neutrophils (%) (Auto) 79 % (31-73) Lymphocytes (%) (Auto) 17 % (24-48) Monocytes (%) (Auto) 2 % (0-9) Eosinophils (%) (Auto) 2 % (0-3) Basophils (%) (Auto) 1 % (0-3) Neutrophils # (Auto) 6.8 x10^3/uL (1.8-7.7) Lymphocytes # (Auto) 1.4 x10^3/uL (1.0-4.8) Monocytes # (Auto) 0.2 x10^3/uL (0.0-1.1) Eosinophils # (Auto) 0.1 x10^3/uL (0.0-0.7) Basophils # (Auto) 0.1 x10^3/uL (0.0-0.2) Sodium Level 138 mmol/L (136-145) Potassium Level 3.4 mmol/L (3.5-5.1) Chloride Level 106 mmol/L (98-107) Carbon Dioxide Level 21 mmol/L (21-32) Anion Gap 11 (6-14) Blood Urea Nitrogen 14 mg/dL (8-26) Creatinine 0.8 mg/dL (0.7-1.3) Estimated GFR (Cockcroft-Gault) 95.0 Glucose Level 221 mg/dL (70-99) Calcium Level 8.4 mg/dL (8.5-10.1) Glucose (Fingerstick) 227 mg/dL (70-99) 169 mg/dL (70-99) Test 09/02/19 05:24 Glucose (Fingerstick) 151 mg/dL (70-99) Objective: Assessment: Respiratory failure. Fever - better Suspected aspiration.;sputum culture positive for MRSA Recent bowel obstruction, s/p surgery and PEG-tube placement. Renal insufficiency yeast in groin. Plan: Plan of Care continue zosyn micafungin for couple of days cont zyvox 600 mg bid f/u cultures Monitor WBC/temp Maintain aspiration precautions Supportive care D/w nursing Critically ill KAYCEE WARE MD Sep 02, 2019 08:02
[2019-09-02] MEDS: TAMSULOSIN 0.4 MG CAP.ER.24H. PO SCH (09:53)
[2019-09-02] MEDS: OLANZapine 5 MG TABLET PEG SCH (09:53)
[2019-09-02] MEDS: APIXABAN 5 MG TABLET. FT SCH ×2 (09:53→21:27)
[2019-09-02] MEDS: FAMOTIDINE 20 MG/2 ML VIAL IVP SCH ×2 (09:53→21:23)
[2019-09-02] MEDS: ASPIRIN CHEWABLE 81 MG TABLET. PEG SCH (09:53)
[2019-09-02] MEDS: LINEZOLID 600 MG TABLET PO SCH ×2 (09:54→21:28)
[2019-09-02] MEDS: METOPROLOL TART IMMED RELEASE 25 MG TABLET. PEG SCH ×2 (09:54→21:28)
[2019-09-02] MEDS: NICOTINE 21MG PATCH. TD SCH (09:54)
[2019-09-02] MEDS: NYSTATIN TOPICAL POWDER 15GM BOTTLE. TP SCH ×2 (09:56→21:28)
[2019-09-02] MEDS: MICAFUNGIN 100 MG in IV DEXTROSE 5% 100ML 100 ML IV SCH (09:56)
[2019-09-02 10:19] LABS: BASO # 0.1 x10^3/uL (0.0-0.2); BASO % 1 % (0-3); EOS # 0.4 x10^3/uL (0.0-0.7); EOS % 3 % (0-3); HEMATOCRIT 27.3 % (39.0-53.0); HEMOGLOBIN 8.9 g/dL (13.0-17.5); LYMPH # 1.6 x10^3/uL (1.0-4.8); LYMPH % 13 % (24-48); MEAN CORPUSCULAR HEMOGLOBIN 25 pg (25-35); MEAN CORPUSCULAR HGB CONC 33 g/dL (31-37); MEAN CORPUSCULAR VOLUME 78 fL (79-100); MONO # 0.9 x10^3/uL (0.0-1.1); MONO % 7 % (0-9); NEUT # 9.1 x10^3/uL (1.8-7.7); NEUT % 75 % (31-73); PLATELET COUNT 419 x10^3/uL (140-400); RED BLOOD COUNT 3.52 x10^6/uL (4.30-5.70); RED CELL DISTRIBUTION WIDTH 17.2 % (11.5-14.5); WHITE BLOOD COUNT 12.1 x10^3/uL (4.0-11.0)
[2019-09-02 10:29] LABS: CALCIUM 8.2 mg/dL (8.5-10.1); CREATININE 0.8 mg/dL (0.7-1.3)
[2019-09-02 10:34] LABS: POTASSIUM 2.7 mmol/L (3.5-5.1)
[2019-09-02] MEDS ORDERED: MAGNESIUM SULFATE 2GM 50 ML IV ONE (11:00)
[2019-09-02] MEDS: POTASSIUM CHLORIDE 10MEQ 100 ML IV SCH ×8 (11:21→18:06)
--- NOTE | 2019-09-02 12:11 | NUR ---
SS following up with discharge planning. SS reviewed pt chart and discussed with pt RN. COVID19 negative. Pt is currently requiring oxygen. Pt on IV Micafungin and Zosyn. PT/OT ordered. Pt has PEG tube. LTACH recommended. Pt accepted at [facility], ; fax [phone]. Per RN, not medically ready today. SS discussed with [facility]. Pt on list for bed. SS will continue to follow for discharge planning.
--- NOTE | 2019-09-02 13:16 | PDOC ---
[facility] PROGRESS NOTE Chief Complaint Chief Complaint Acute Hypoxic Resp Failure requiring mechanical Ventilation, intubated 08/25 Suspected Aspiration PNA Sputum culture returned MRSA Septic Shock, present on admission hx of Bowel Obstruction with PEG placement Anemia Acute Renal Failure secondary to Vasomotor Nephropathy, resolved DM2 HLD BPH Severe protein malnutrition, present upon admission. Coronary artery disease, status post coronary artery bypass grafting on oral AC History of Present Illness History of Present Illness 09/01 Patient seen and examined Chart reviewed Discussed with RN 09/01/2019 Patient seen and examined in the ICU He remains mechanically ventilated 100/35% Hemoglobin has dropped to 6.9 we have ordered 1 unit of blood Also ordered 40 of Lasix He is currently being fed via PEG Discussed with RN Chart reviewed Discussed with director case Vitals/I&O Vitals/I&O: Vital Signs Date Time Temp Pulse Resp B/P (MAP) Pulse Ox O2 Delivery O2 Flow Rate FiO2 09/02/19 12:50 95 29 141/71 (94) 97 Nasal Cannula 2.0 09/02/19 11:17 97.8 97.8 I & O 09/01/19 09/01/19 09/02/19 15:00 23:00 07:00 Intake Total 250 ml 1050 ml 3428 ml Output Total 1810 ml 1530 ml 740 ml Balance -1560 ml -480 ml 2688 ml Physical Exam Physical Exam: GENERAL: Sedated HEENT: Anicteric NECK: Supple LUNGS: Decreased breath sounds bilaterally. HEART: S1, S2 regular w/ PVCs : Nava ABDOMEN: Soft, + BS, incision intact, PEG tube is in place. Yeast in groin. EXTREMITIES: Trace edema. No cyanosis. SCDs bilaterally SKIN: Without rash NEUROLOGIC: Sedated PIV General: Other (sedated on vent) Heart: Regular rate Lungs: Crackles Abdomen: Normal bowel sounds Skin: No rashes Labs Labs: Laboratory Tests Test 09/02/19 00:11 09/02/19 05:24 09/02/19 09:18 09/02/19 13:08 Glucose (Fingerstick) 169 mg/dL (70-99) 151 mg/dL (70-99) 214 mg/dL (70-99) White Blood Count 12.1 x10^3/uL (4.0-11.0) Red Blood Count 3.52 x10^6/uL (4.30-5.70) Hemoglobin 8.9 g/dL (13.0-17.5) Hematocrit 27.3 % (39.0-53.0) Mean Corpuscular Volume 78 fL (79-100) Mean Corpuscular Hemoglobin 25 pg (25-35) Mean Corpuscular Hemoglobin Concent 33 g/dL (31-37) Red Cell Distribution Width 17.2 % (11.5-14.5) Platelet Count 419 x10^3/uL (140-400) Neutrophils (%) (Auto) 75 % (31-73) Lymphocytes (%) (Auto) 13 % (24-48) Monocytes (%) (Auto) 7 % (0-9) Eosinophils (%) (Auto) 3 % (0-3) Basophils (%) (Auto) 1 % (0-3) Neutrophils # (Auto) 9.1 x10^3/uL (1.8-7.7) Lymphocytes # (Auto) 1.6 x10^3/uL (1.0-4.8) Monocytes # (Auto) 0.9 x10^3/uL (0.0-1.1) Eosinophils # (Auto) 0.4 x10^3/uL (0.0-0.7) Basophils # (Auto) 0.1 x10^3/uL (0.0-0.2) Sodium Level 141 mmol/L (136-145) Potassium Level 2.7 mmol/L (3.5-5.1) Chloride Level 106 mmol/L (98-107) Carbon Dioxide Level 26 mmol/L (21-32) Anion Gap 9 (6-14) Blood Urea Nitrogen 10 mg/dL (8-26) Creatinine 0.8 mg/dL (0.7-1.3) Estimated GFR (Cockcroft-Gault) 95.0 Glucose Level 159 mg/dL (70-99) Calcium Level 8.2 mg/dL (8.5-10.1) Magnesium Level 1.6 mg/dL (1.8-2.4) Assessment and Plan Assessmemt and Plan Assessmemt and Plan Acute Hypoxic Resp Failure requiring mechanical Ventilation, intubated 08/25 Suspected Aspiration PNA, MRSA Septic Shock, present on admission hx of Bowel Obstruction with PEG placement Anemia Acute Renal Failure secondary to Vasomotor Nephropathy, resolved DM2 HLD BPH Severe protein malnutrition, present upon admission. Coronary artery disease, status post coronary artery bypass grafting on oral AC Plan ICU monitoring Vent weaning IV Lasix PEG feeds DVT prophylaxis Full code Trend labs Home meds Appreciate subspecialist input He remains critically ill Comment Review of Relevant I have reviewed the following items parminder (where applicable) has been applied. Medications: Current Medications Medications (Trade) Dose Ordered Sig/Yanet Route PRN Reason Start Time Stop Time Status Last Admin Dose Admin Micafungin Sodium 100 mg/Dextrose 100 ml @ 100 mls/hr DAILY IV 09/02/19 09:00 09/02/19 09:56 Olanzapine (ZyPREXA) 20 mg QHS PO 09/01/19 21:00 09/01/19 21:12 Atorvastatin Calcium (Lipitor) 40 mg QHS PEG 09/01/19 21:00 09/01/19 21:12 Potassium Chloride/Water 100 ml @ 100 mls/hr Q1H IV 09/02/19 11:00 09/02/19 18:59 09/02/19 13:11 Magnesium Sulfate 50 ml @ 25 mls/hr 1X ONCE IV 09/02/19 11:00 09/02/19 12:59 DC 09/02/19 11:21 Justicifation of Admission Dx: Justifications for Admission: Justification of Admission Dx: Yes Respiratory Failure: Mechanical Ventilation HASMUKH GRANGER III DO Sep 02, 2019 13:16
[2019-09-02] MEDS: ANTI-COAG MONITOR BY PHARMACY. MC PRN (13:24)
[2019-09-02] MEDS ORDERED: MAGNESIUM SULFATE 4GM 100 ML IV ONE (14:00)
--- NOTE | 2019-09-02 14:13 | PDOC ---
PULMONARY PROGRESS NOTES Subjective Patient extubated yesterday no signs of respiratory distress Vitals Vital Signs Date Time Temp Pulse Resp B/P (MAP) Pulse Ox O2 Delivery O2 Flow Rate FiO2 09/02/19 14:04 114 30 158/73 (101) 95 Nasal Cannula 2.0 09/02/19 11:17 97.8 97.8 HEENT: Other (nc at perrl nose clear orally intibated neck no lad no thyromegaly) Lungs: Crackles Cardiovascular: S1, S2 Abdomen: Soft, Non-tender Extremities: No Edema Skin: Warm Labs Laboratory Tests Test 08/31/19 15:00 08/31/19 17:53 08/31/19 23:42 09/01/19 05:34 Urine Collection Type Unknown Urine Color Yellow Urine Clarity Cloudy Urine pH 6.0 (<5.0-8.0) Urine Specific [place] 1.025 (1.000-1.030) Urine Protein 30 mg/dL (NEG-TRACE) Urine Glucose (UA) Negative mg/dL (NEG) Urine Ketones (Stick) Negative mg/dL (NEG) Urine Blood Moderate (NEG) Urine Nitrite Negative (NEG) Urine Bilirubin Negative (NEG) Urine Urobilinogen Dipstick 0.2 mg/dL (0.2 mg/dL) Urine Leukocyte Esterase Large (NEG) Urine RBC 6-10 /HPF (0-2) Urine WBC 20-40 /HPF (0-4) Urine Bacteria 0 /HPF (0-FEW) Urine Yeast Present /HPF Glucose (Fingerstick) 164 mg/dL (70-99) 167 mg/dL (70-99) 188 mg/dL (70-99) Test 09/01/19 08:58 09/01/19 10:05 09/01/19 12:50 09/02/19 00:11 O2 Saturation 95 % (92-99) Arterial Blood pH 7.47 (7.35-7.45) Arterial Blood pCO2 at Patient Temp 30 mmHg (35-46) Arterial Blood pO2 at Patient Temp 76 mmHg (65-108) Arterial Blood HCO3 21 mmol/L (21-28) Arterial Blood Base Excess -2 mmol/L (-3-3) FiO2 35% cpap White Blood Count 8.6 x10^3/uL (4.0-11.0) Red Blood Count 2.62 x10^6/uL (4.30-5.70) Hemoglobin 6.9 g/dL (13.0-17.5) Hematocrit 21.0 % (39.0-53.0) Mean Corpuscular Volume 80 fL (79-100) Mean Corpuscular Hemoglobin 26 pg (25-35) Mean Corpuscular Hemoglobin Concent 33 g/dL (31-37) Red Cell Distribution Width 17.8 % (11.5-14.5) Platelet Count 353 x10^3/uL (140-400) Neutrophils (%) (Auto) 79 % (31-73) Lymphocytes (%) (Auto) 17 % (24-48) Monocytes (%) (Auto) 2 % (0-9) Eosinophils (%) (Auto) 2 % (0-3) Basophils (%) (Auto) 1 % (0-3) Neutrophils # (Auto) 6.8 x10^3/uL (1.8-7.7) Lymphocytes # (Auto) 1.4 x10^3/uL (1.0-4.8) Monocytes # (Auto) 0.2 x10^3/uL (0.0-1.1) Eosinophils # (Auto) 0.1 x10^3/uL (0.0-0.7) Basophils # (Auto) 0.1 x10^3/uL (0.0-0.2) Sodium Level 138 mmol/L (136-145) Potassium Level 3.4 mmol/L (3.5-5.1) Chloride Level 106 mmol/L (98-107) Carbon Dioxide Level 21 mmol/L (21-32) Anion Gap 11 (6-14) Blood Urea Nitrogen 14 mg/dL (8-26) Creatinine 0.8 mg/dL (0.7-1.3) Estimated GFR (Cockcroft-Gault) 95.0 Glucose Level 221 mg/dL (70-99) Calcium Level 8.4 mg/dL (8.5-10.1) Glucose (Fingerstick) 227 mg/dL (70-99) 169 mg/dL (70-99) Test 09/02/19 05:24 09/02/19 09:18 09/02/19 13:08 Glucose (Fingerstick) 151 mg/dL (70-99) 214 mg/dL (70-99) White Blood Count 12.1 x10^3/uL (4.0-11.0) Red Blood Count 3.52 x10^6/uL (4.30-5.70) Hemoglobin 8.9 g/dL (13.0-17.5) Hematocrit 27.3 % (39.0-53.0) Mean Corpuscular Volume 78 fL (79-100) Mean Corpuscular Hemoglobin 25 pg (25-35) Mean Corpuscular Hemoglobin Concent 33 g/dL (31-37) Red Cell Distribution Width 17.2 % (11.5-14.5) Platelet Count 419 x10^3/uL (140-400) Neutrophils (%) (Auto) 75 % (31-73) Lymphocytes (%) (Auto) 13 % (24-48) Monocytes (%) (Auto) 7 % (0-9) Eosinophils (%) (Auto) 3 % (0-3) Basophils (%) (Auto) 1 % (0-3) Neutrophils # (Auto) 9.1 x10^3/uL (1.8-7.7) Lymphocytes # (Auto) 1.6 x10^3/uL (1.0-4.8) Monocytes # (Auto) 0.9 x10^3/uL (0.0-1.1) Eosinophils # (Auto) 0.4 x10^3/uL (0.0-0.7) Basophils # (Auto) 0.1 x10^3/uL (0.0-0.2) Sodium Level 141 mmol/L (136-145) Potassium Level 2.7 mmol/L (3.5-5.1) Chloride Level 106 mmol/L (98-107) Carbon Dioxide Level 26 mmol/L (21-32) Anion Gap 9 (6-14) Blood Urea Nitrogen 10 mg/dL (8-26) Creatinine 0.8 mg/dL (0.7-1.3) Estimated GFR (Cockcroft-Gault) 95.0 Glucose Level 159 mg/dL (70-99) Calcium Level 8.2 mg/dL (8.5-10.1) Magnesium Level 1.6 mg/dL (1.8-2.4) Laboratory Tests Test 09/02/19 00:11 09/02/19 05:24 09/02/19 09:18 09/02/19 13:08 Glucose (Fingerstick) 169 mg/dL (70-99) 151 mg/dL (70-99) 214 mg/dL (70-99) White Blood Count 12.1 x10^3/uL (4.0-11.0) Red Blood Count 3.52 x10^6/uL (4.30-5.70) Hemoglobin 8.9 g/dL (13.0-17.5) Hematocrit 27.3 % (39.0-53.0) Mean Corpuscular Volume 78 fL (79-100) Mean Corpuscular Hemoglobin 25 pg (25-35) Mean Corpuscular Hemoglobin Concent 33 g/dL (31-37) Red Cell Distribution Width 17.2 % (11.5-14.5) Platelet Count 419 x10^3/uL (140-400) Neutrophils (%) (Auto) 75 % (31-73) Lymphocytes (%) (Auto) 13 % (24-48) Monocytes (%) (Auto) 7 % (0-9) Eosinophils (%) (Auto) 3 % (0-3) Basophils (%) (Auto) 1 % (0-3) Neutrophils # (Auto) 9.1 x10^3/uL (1.8-7.7) Lymphocytes # (Auto) 1.6 x10^3/uL (1.0-4.8) Monocytes # (Auto) 0.9 x10^3/uL (0.0-1.1) Eosinophils # (Auto) 0.4 x10^3/uL (0.0-0.7) Basophils # (Auto) 0.1 x10^3/uL (0.0-0.2) Sodium Level 141 mmol/L (136-145) Potassium Level 2.7 mmol/L (3.5-5.1) Chloride Level 106 mmol/L (98-107) Carbon Dioxide Level 26 mmol/L (21-32) Anion Gap 9 (6-14) Blood Urea Nitrogen 10 mg/dL (8-26) Creatinine 0.8 mg/dL (0.7-1.3) Estimated GFR (Cockcroft-Gault) 95.0 Glucose Level 159 mg/dL (70-99) Calcium Level 8.2 mg/dL (8.5-10.1) Magnesium Level 1.6 mg/dL (1.8-2.4) Medications Active Scripts Medications Dose Route/Sig Max Daily Dose Days Date Category Dose Instructions Pepcid (Famotidine) 20 Mg Tablet 20 Mg PEG BID 08/27/19 Reported Famotidine 20 Mg Tablet 20 Mg PO BID 08/27/19 Reported Aspirin 81 Mg Tab.chew 1 Tab PEG DAILY 08/27/19 Reported Eliquis (Apixaban) 5 Mg Tablet 5 Mg PEG BID 08/27/19 Reported Proventil Hfa (Albuterol Sulfate) 6.7 Gm Hfa.aer.ad 1 Puff INH PRN Q6HRS PRN 08/27/19 Reported Acetaminophen 325 Mg Tablet 2 Tab PEG PRN Q4-6HRS PRN 24 08/27/19 Reported Humalog (Insulin Lispro) 100 Unit/1 Ml Vial 100 Unit SQ Q6HRS 08/27/19 Reported Inject 0-24 units under the skin every 6 hours Lantus Solostar (Insulin Glargine,Hum.rec.anlog) 100 Unit/1 Ml Insuln.pen 35 Unit SQ BID 08/27/19 Reported Symbicort 160-4.5 Mcg Inhaler (Budesonide/Formoterol Fumarate) 10.2 Gm Hfa.aer.ad 2 Puff IH BID 08/27/19 Reported Flomax (Tamsulosin Hcl) 0.4 Mg Cap.er.24h 0.4 Mg PEG DAILY 08/27/19 Reported Crestor (Rosuvastatin Calcium) 40 Mg Tablet 1 Tab PEG HS 08/27/19 Reported Roxicodone (Oxycodone HCl) 5 Mg Tablet 5 Mg PEG PRN Q4HRS PRN 08/27/19 Reported Olanzapine 20 Mg Tablet 1 Tab PEG QHS 08/27/19 Reported Olanzapine 10 Mg Tablet 1 Tab PEG DAILY 08/27/19 Reported Metoprolol Tartrate 25 Mg Tablet 1 Tab PEG BID 08/27/19 Reported Comments cxr reviewed ett ok increased vm Impression . IMPRESSION: 1. Acute hypoxemic respiratory failure, multifactorial. 2. Toxic metabolic encephalopathy, present upon admission. 3. Septic shock. 4. Severe protein malnutrition, present upon admission. 5. Recent small bowel resection with PEG tube placement, etiology for the small bowel resection is unclear. 6. Multiple comorbidities of diabetes, chronic obstructive pulmonary disease, and chronic heart failure. 7. Coronary artery disease, status post coronary artery bypass grafting. 8. Acute renal insufficiency. 9. Chronic anemia. 10. SARS-CoV-2 negative 11. Acute drop in hematocrit Plan . Patient extubated 08/31 Up to chair PT OT Monitor H&H Antibiotics per ID DVT GI prophylaxis Above discussed with DIPAK JOSUE MD Sep 02, 2019 14:13
--- NOTE | 2019-09-02 14:59 | PDOC2 ---
NEUROLOGY CONSULT Date of Admission Date of Admission DATE: 09/02/19 TIME: 14:49 Reason for Consult Reason for Consult: Altered mental status Referring Physician Referring Physician: Dr. Rasmussen Source Source: Caregiver (, daughter), Chart review History of Present Illness History of Present Illness The patient is a 73-year-old right-handed male admitted 5 days ago with acute rest for a failure. He was admitted to [facility] in [place] on 08/06 w ith acute abdominal pain and found to have mesenteric ischemia. he underwent a small bowel resection. He was intubated for nearly 1 week and on extubation, had difficulty speaking. He was confused. says he was ruled out for a stroke, but the records from [facility] do not refer to any such workup. Interestingly, discharge instructions include what to do in case of a stroke. There is no history of stroke, seizure, or head injury. Here, he was just activated yesterday and remains confused. Past Medical History Cardiovascular: CAD, HTN, MS, Other ( sinus arrhythmia, carotid artery disease, peripheral vascular disease) Pulmonary: COPD CENTRAL NERVOUS SYSTEM: Periperal neuropathy GI: GERD Psych: Other ( post traumatic stress disorder) Musculoskeletal: low back pain ( degenerative disc disease), Osteoarthritis ENT: Other ( tinnitus) Endocrine: Diabetes, Osteoporosis Past Surgical History Past Surgical History: Other ( bilateral carotid endarterectomy, coronary artery bypass surgery, coronary stent, small bowel resection, PEG) Family History Family History: CAD Social History Social History , retired, current smoker, generally works on the computer and reads books, shops, cooks, cleans, fully functional Current Medications Current Medications Current Medications Norepinephrine Bitartrate 8 mg/ Dextrose 258 ml @ 13.603 mls/ hr CONT PRN IV PER PROTOCOL Last administered on 08/28/19at 01:21; Start 08/26/19 at 23:00 Fentanyl Citrate 30 ml @ 0 mls/hr CONT PRN IV SEE PROTOCOL Last administered on 09/01/19at 07:24; Start 08/26/19 at 23:00; Stop 09/01/19 at 16:41; Status DC Fentanyl Citrate (Fentanyl 2ml Vial) 25 mcg PRN Q1HR PRN IV SEE COMMENTS; Start 08/26/19 at 23:00 Fentanyl Citrate (Fentanyl 2ml Vial) 50 mcg PRN Q1HR PRN IV SEE COMMENTS; Start 08/26/19 at 23:00 Famotidine (Pepcid Vial) 20 mg BID IVP Last administered on 09/02/19at 09:53; Start 08/27/19 at 09:00 Morphine Sulfate (Morphine Sulfate) 2 mg PRN Q1HR PRN IV SEE COMMENTS.; Start 08/26/19 at 23:00 Morphine Sulfate (Morphine Sulfate) 4 mg PRN Q1HR PRN IV SEE COMMENTS.; Start 08/26/19 at 23:00 Midazolam HCl 100 ml @ 0 mls/hr CONT PRN IV SEE PROTOCOL Last administered on 08/30/19at 11:23; Start 08/26/19 at 23:00 Enoxaparin Sodium (Lovenox 40mg Syringe) 40 mg Q24H SQ Last administered on 08/27/19at 00:42; Start 08/26/19 at 23:00; Stop 08/27/19 at 16:55; Status DC Metronidazole 100 ml @ 100 mls/hr Q8HRS IV Last administered on 08/27/19at 05:32; Start 08/27/19 at 06:00; Stop 08/27/19 at 13:14; Status DC Ceftriaxone Sodium (Rocephin) 1 gm Q24H IVP Last administered on 08/27/19at 08:32; Start 08/27/19 at 09:00; Stop 08/27/19 at 13:14; Status DC Sodium Chloride 1,000 ml @ 75 mls/hr [id number] IV Last administered on 09/02/19at 03:17; Start 08/26/19 at 23:00; Stop 09/02/19 at 13:47; Status DC Acetaminophen (Tylenol Supp) 650 mg PRN Q6HRS PRN UT MILD PAIN / TEMP > 100.3'F Last administered on 08/27/19at 02:09; Start 08/27/19 at 02:00 Piperacillin Sod/ Tazobactam Sod 3.375 gm/Sodium Chloride 50 ml @ 100 mls/hr Q6HRS IV Last administered on 09/02/19at 13:13; Start 08/27/19 at 14:00 Insulin Human Lispro (HumaLOG) 0-7 UNITS TIDWMEALS SQ ; Start 08/27/19 at 17:00; Stop 08/27/19 at 20:28; Status DC Dextrose (Dextrose 50%-Water Syringe) 12.5 gm PRN Q15MIN PRN IV SEE COMMENTS; Start 08/27/19 at 14:00 Apixaban (Eliquis) 5 mg BID FT Last administered on 09/02/19at 09:53; Start 08/27/19 at 21:00 Aspirin (Aspirin Chewable) 81 mg DAILY PEG Last administered on 09/02/19at 09:53; Start 08/27/19 at 17:00 Insulin Human Lispro (HumaLOG) 0-7 UNITS Q6HRS SQ Last administered on 09/02/19at 13:10; Start 08/28/19 at 00:00 Potassium Bicarbonate (Potassium Effervescent Tablet) 40 meq 1X ONCE PO Last administered on 08/29/19at 08:59; Start 08/29/19 at 09:00; Stop 08/29/19 at 09:01; Status DC Info (Anti-Coagulation Monitoring By Pharmacy) 1 each PRN DAILY PRN MC SEE COM MENTS Last administered on 09/02/19at 13:24; Start 08/31/19 at 08:30 Propofol 100 ml @ 1.133 mls/ hr CONT PRN IV SEE I/O RECORD; Start 08/31/19 at 08:30 Dexmedetomidine HCl 400 mcg/ Sodium Chloride 100 ml @ 0 mls/hr CONT PRN IV SEE COMMENTS Last administered on 08/31/19at 23:43; Start 08/31/19 at 12:45 Nicotine (Nicoderm Cq 21mg) 1 patch DAILY TD Last administered on 09/02/19at 09 :54; Start 08/31/19 at 13:30 Nystatin (Nystop) 1 lexus BID TP Last administered on 09/02/19at 09:56; Start 08/31/19 at 21:00 Linezolid (Zyvox) 600 mg BID PO Last administered on 09/02/19at 09:54; Start 09/01/19 at 09:00 Micafungin Sodium 100 mg/Dextrose 100 ml @ 100 mls/hr BID IV ; Start 09/01/19 at 09:00; Stop 09/01/19 at 09:27; Status DC Micafungin Sodium 100 mg/Dextrose 100 ml @ 100 mls/hr DAILY IV Last administered on 09/02/19at 09:56; Start 09/02/19 at 09:00 Micafungin Sodium 100 mg/Dextrose 100 ml @ 100 mls/hr ONCE ONCE IV Last administered on 09/01/19at 09:41; Start 09/01/19 at 10:00; Stop 09/01/19 at 10:59; Status DC Furosemide (Lasix) 40 mg 1X ONCE IVP Last administered on 09/01/19at 11:10; Start 09/01/19 at 10:45; Stop 09/01/19 at 11:03; Status DC Acetaminophen (Tylenol) 650 mg PRN Q6HRS PRN PO pain or fever; Start 09/01/19 at 11:30; Status UNV Metoprolol Tartrate (Lopressor) 25 mg BID PEG Last administered on 09/02/19at 09:54; Start 09/01/19 at 12:00 Tamsulosin HCl (Flomax) 0.4 mg DAILY PO Last administered on 09/02/19at 09:53; Start 09/01/19 at 12:00 Olanzapine (ZyPREXA) 10 mg DAILY PEG Last administered on 09/02/19at 09:53; Start 09/01/19 at 12:00 Olanzapine (ZyPREXA) 20 mg QHS PO Last administered on 09/01/19at 21:12; Start 09/01/19 at 21:00 Atorvastatin Calcium (Lipitor) 40 mg QHS PEG Last administered on 09/01/19at 21:12; Start 09/01/19 at 21:00 Potassium Chloride/Water 100 ml @ 100 mls/hr Q1H IV Last administered on 09/02/19at 14:01; Start 09/02/19 at 11:00; Stop 09/02/19 at 18:59 Magnesium Sulfate 50 ml @ 25 mls/hr 1X ONCE IV Last administered on 09/02/19at 11:21; Start 09/02/19 at 11:00; Stop 09/02/19 at 12:59; Status DC Magnesium Sulfate 100 ml @ 25 mls/hr 1X ONCE IV ; Start 09/02/19 at 14:00; Stop 09/02/19 at 14:05; Status DC Active Scripts Active Reported Pepcid (Famotidine) 20 Mg Tablet 20 Mg PEG BID Famotidine 20 Mg Tablet 20 Mg PO BID Aspirin 81 Mg Tab.chew 1 Tab PEG DAILY Eliquis (Apixaban) 5 Mg Tablet 5 Mg PEG BID Proventil Hfa (Albuterol Sulfate) 6.7 Gm Hfa.aer.ad 1 Puff INH PRN Q6HRS PRN Acetaminophen 325 Mg Tablet 2 Tab PEG PRN Q4-6HRS PRN 24 Days Humalog (Insulin Lispro) 100 Unit/1 Ml Vial 100 Unit SQ Q6HRS Inject 0-24 units under the skin every 6 hours Lantus Solostar (Insulin Glargine,Hum.rec.anlog) 100 Unit/1 Ml Insuln.pen 35 Unit SQ BID Symbicort 160-4.5 Mcg Inhaler (Budesonide/Formoterol Fumarate) 10.2 Gm Hfa.aer.ad 2 Puff IH BID Flomax (Tamsulosin Hcl) 0.4 Mg Cap.er.24h 0.4 Mg PEG DAILY Crestor (Rosuvastatin Calcium) 40 Mg Tablet 1 Tab PEG HS Roxicodone (Oxycodone HCl) 5 Mg Tablet 5 Mg PEG PRN Q4HRS PRN Olanzapine 20 Mg Tablet 1 Tab PEG QHS Olanzapine 10 Mg Tablet 1 Tab PEG DAILY Metoprolol Tartrate 25 Mg Tablet 1 Tab PEG BID Allergies Allergies: Coded Allergies: I S O L A T I O N *CONTACT* (Verified Allergy, Unknown, 09/01/19) MRSA No Known Medication Allergies (Verified Allergy, Unknown, 09/01/19) ROS Review of System Negative for fever, chills, weight loss, shortness of breath, chest pain, indigestion, hematochezia, melena, and dysuria. Full 14-point review of systems is negative. Physical Exam Physical Examination General: Well-developed, well-nourished white male in no acute distress HEENT: Normocephalic andatraumatic.Temporal arteriespulsatile and nontender. Neck: Supple without bruit, no meningismus Musculoskeletal: Stability:see neurologic. Gait exam:see neurologic. Tone:see neurologic.Strength:see neurologic. Neurological: Mental Status: orientation, memory, attention span/concentration, language, fund of knowledge: no intelligible speech, does not follow commands, alert, laughs when the rest the family is laughing. Cranial Nerves:Pupils equal and reactive to light, extraocular movements areintact, visual yusuf are full to confrontation. Facial sensation is normal. There is no facial asymmetry. Vestibulo-ocular reflex is intact. Palate elevates and tongue protrudes in midline. All other cranial related problems are negative except as mentioned before.Reflexes:1+ and symmetric with flexor plantar responses. Motor: moves all extremities to light pain. Coordination and gait:Not cooperative. Sensory: responds to pinprick in all 4 extremities Vitals VITALS Vital Signs Date Time Temp Pulse Resp B/P (MAP) Pulse Ox O2 Delivery O2 Flow Rate FiO2 09/02/19 14:04 114 30 158/73 (101) 95 Nasal Cannula 2.0 09/02/19 11:17 97.8 97.8 Labs Labs Laboratory Tests Test 08/31/19 15:00 08/31/19 17:53 08/31/19 23:42 09/01/19 05:34 Urine Collection Type Unknown Urine Color Yellow Urine Clarity Cloudy Urine pH 6.0 (<5.0-8.0) Urine Specific [place] 1.025 (1.000-1.030) Urine Protein 30 mg/dL (NEG-TRACE) Urine Glucose (UA) Negative mg/dL (NEG) Urine Ketones (Stick) Negative mg/dL (NEG) Urine Blood Moderate (NEG) Urine Nitrite Negative (NEG) Urine Bilirubin Negative (NEG) Urine Urobilinogen Dipstick 0.2 mg/dL (0.2 mg/dL) Urine Leukocyte Esterase Large (NEG) Urine RBC 6-10 /HPF (0-2) Urine WBC 20-40 /HPF (0-4) Urine Bacteria 0 /HPF (0-FEW) Urine Yeast Present /HPF Glucose (Fingerstick) 164 mg/dL (70-99) 167 mg/dL (70-99) 188 mg/dL (70-99) Test 09/01/19 08:58 09/01/19 10:05 09/01/19 12:50 09/02/19 00:11 O2 Saturation 95 % (92-99) Arterial Blood pH 7.47 (7.35-7.45) Arterial Blood pCO2 at Patient Temp 30 mmHg (35-46) Arterial Blood pO2 at Patient Temp 76 mmHg (65-108) Arterial Blood HCO3 21 mmol/L (21-28) Arterial Blood Base Excess -2 mmol/L (-3-3) FiO2 35% cpap White Blood Count 8.6 x10^3/uL (4.0-11.0) Red Blood Count 2.62 x10^6/uL (4.30-5.70) Hemoglobin 6.9 g/dL (13.0-17.5) Hematocrit 21.0 % (39.0-53.0) Mean Corpuscular Volume 80 fL (79-100) Mean Corpuscular Hemoglobin 26 pg (25-35) Mean Corpuscular Hemoglobin Concent 33 g/dL (31-37) Red Cell Distribution Width 17.8 % (11.5-14.5) Platelet Count 353 x10^3/uL (140-400) Neutrophils (%) (Auto) 79 % (31-73) Lymphocytes (%) (Auto) 17 % (24-48) Monocytes (%) (Auto) 2 % (0-9) Eosinophils (%) (Auto) 2 % (0-3) Basophils (%) (Auto) 1 % (0-3) Neutrophils # (Auto) 6.8 x10^3/uL (1.8-7.7) Lymphocytes # (Auto) 1.4 x10^3/uL (1.0-4.8) Monocytes # (Auto) 0.2 x10^3/uL (0.0-1.1) Eosinophils # (Auto) 0.1 x10^3/uL (0.0-0.7) Basophils # (Auto) 0.1 x10^3/uL (0.0-0.2) Sodium Level 138 mmol/L (136-145) Potassium Level 3.4 mmol/L (3.5-5.1) Chloride Level 106 mmol/L (98-107) Carbon Dioxide Level 21 mmol/L (21-32) Anion Gap 11 (6-14) Blood Urea Nitrogen 14 mg/dL (8-26) Creatinine 0.8 mg/dL (0.7-1.3) Estimated GFR (Cockcroft-Gault) 95.0 Glucose Level 221 mg/dL (70-99) Calcium Level 8.4 mg/dL (8.5-10.1) Glucose (Fingerstick) 227 mg/dL (70-99) 169 mg/dL (70-99) Test 09/02/19 05:24 09/02/19 09:18 09/02/19 13:08 Glucose (Fingerstick) 151 mg/dL (70-99) 214 mg/dL (70-99) White Blood Count 12.1 x10^3/uL (4.0-11.0) Red Blood Count 3.52 x10^6/uL (4.30-5.70) Hemoglobin 8.9 g/dL (13.0-17.5) Hematocrit 27.3 % (39.0-53.0) Mean Corpuscular Volume 78 fL (79-100) Mean Corpuscular Hemoglobin 25 pg (25-35) Mean Corpuscular Hemoglobin Concent 33 g/dL (31-37) Red Cell Distribution Width 17.2 % (11.5-14.5) Platelet Count 419 x10^3/uL (140-400) Neutrophils (%) (Auto) 75 % (31-73) Lymphocytes (%) (Auto) 13 % (24-48) Monocytes (%) (Auto) 7 % (0-9) Eosinophils (%) (Auto) 3 % (0-3) Basophils (%) (Auto) 1 % (0-3) Neutrophils # (Auto) 9.1 x10^3/uL (1.8-7.7) Lymphocytes # (Auto) 1.6 x10^3/uL (1.0-4.8) Monocytes # (Auto) 0.9 x10^3/uL (0.0-1.1) Eosinophils # (Auto) 0.4 x10^3/uL (0.0-0.7) Basophils # (Auto) 0.1 x10^3/uL (0.0-0.2) Sodium Level 141 mmol/L (136-145) Potassium Level 2.7 mmol/L (3.5-5.1) Chloride Level 106 mmol/L (98-107) Carbon Dioxide Level 26 mmol/L (21-32) Anion Gap 9 (6-14) Blood Urea Nitrogen 10 mg/dL (8-26) Creatinine 0.8 mg/dL (0.7-1.3) Estimated GFR (Cockcroft-Gault) 95.0 Glucose Level 159 mg/dL (70-99) Calcium Level 8.2 mg/dL (8.5-10.1) Magnesium Level 1.6 mg/dL (1.8-2.4) Laboratory Tests Test 09/02/19 00:11 7/21/20 05:24 09/02/19 09:18 09/02/19 13:08 Glucose (Fingerstick) 169 mg/dL (70-99) 151 mg/dL (70-99) 214 mg/dL (70-99) White Blood Count 12.1 x10^3/uL (4.0-11.0) Red Blood Count 3.52 x10^6/uL (4.30-5.70) Hemoglobin 8.9 g/dL (13.0-17.5) Hematocrit 27.3 % (39.0-53.0) Mean Corpuscular Volume 78 fL (79-100) Mean Corpuscular Hemoglobin 25 pg (25-35) Mean Corpuscular Hemoglobin Concent 33 g/dL (31-37) Red Cell Distribution Width 17.2 % (11.5-14.5) Platelet Count 419 x10^3/uL (140-400) Neutrophils (%) (Auto) 75 % (31-73) Lymphocytes (%) (Auto) 13 % (24-48) Monocytes (%) (Auto) 7 % (0-9) Eosinophils (%) (Auto) 3 % (0-3) Basophils (%) (Auto) 1 % (0-3) Neutrophils # (Auto) 9.1 x10^3/uL (1.8-7.7) Lymphocytes # (Auto) 1.6 x10^3/uL (1.0-4.8) Monocytes # (Auto) 0.9 x10^3/uL (0.0-1.1) Eosinophils # (Auto) 0.4 x10^3/uL (0.0-0.7) Basophils # (Auto) 0.1 x10^3/uL (0.0-0.2) Sodium Level 141 mmol/L (136-145) Potassium Level 2.7 mmol/L (3.5-5.1) Chloride Level 106 mmol/L (98-107) Carbon Dioxide Level 26 mmol/L (21-32) Anion Gap 9 (6-14) Blood Urea Nitrogen 10 mg/dL (8-26) Creatinine 0.8 mg/dL (0.7-1.3) Estimated GFR (Cockcroft-Gault) 95.0 Glucose Level 159 mg/dL (70-99) Calcium Level 8.2 mg/dL (8.5-10.1) Magnesium Level 1.6 mg/dL (1.8-2.4) Assessment/Plan Assessment/Plan Impression: Metabolic encephalopathy, prolonged intubation, sedation, sepsis, bowel resection, no bedside examination evidence of stroke History of neuropathy and lumbar disc disease. Recommendations: I requested neurologic-related records from [facility] Observed for the next day or 2, consider brain MRI and EEG if he does not improve. Consider additional laboratory studies if he does not improve Fully discussed with patient's family. Thank you for letting me help with the patient's care. ADDIE HILL MD Sep 02, 2019 14:59
--- NOTE | 2019-09-02 17:40 | NUR ---
Patient has aphasia, however moves all extremities equally with pupil equal and reactive. Dr. Dominguez consulted per Dr. Rasmussen. Requested all neurology consults and imaging pertaining to brain and head from [place] per Dr. Dominguez. informed this RN that a CVA workup was obtained at [place] [facility] due to patient's confusion and aphasia. Potassium and Mag replaced IV. Patient enjoyed visit from his and friend. Patient downgraded to CVC per Dr. Rasmussen. This RN will continue to monitor and care for patient.
--- NOTE | 2019-09-02 19:15 | NUR ---
Attempted to do vitals, Unable to get B/P, temperature. Patient pinching RN. Attempted to do oral care and turn, Patient refusing. Will attempt later.
--- NOTE | 2019-09-02 21:25 | NUR ---
Meds given, Patient allowing RN to do vitals, oral care.
[2019-09-02] MEDS: OLANZapine 5 MG TABLET PO SCH (21:27)
[2019-09-02] MEDS: ATORVASTATIN CALCIUM 40 MG TABLET. PEG SCH (21:28)
[2019-09-03] MEDS: PIPERACILLIN/TAZOBACTAM 3.375 GM in IV NORMAL SALINE 50ML 50 ML IV SCH ×4 (00:59→18:24)
[2019-09-03] MEDS: INSULIN LISPRO 300 UNITS/3 ML VIAL. SQ SCH ×4 (01:03→18:23)
[2019-09-03 03:20] VITALS: BP 146/70
[2019-09-03 07:30] VITALS: BP 150/82
--- NOTE | 2019-09-03 07:50 | PDOC ---
Infectious Disease Note Subjective: Subjective Patient remainsconfused No fevers last 24 hrs + tube feedings Has liquid stool Vital Signs: Vital Signs Vital Signs Date Time Temp Pulse Resp B/P (MAP) Pulse Ox O2 Delivery O2 Flow Rate FiO2 09/03/19 07:30 98.0 112 30 150/82 (104) 97 Nasal Cannula 2.0 98.0 Physical Exam: PHYSICAL EXAM GENERAL: Alert awake confused, does not follow commands HEENT: Anicteric NECK: Supple LUNGS: Decreased breath sounds bilaterally. HEART: S1, S2 tachycardia w/ PVCs : Nava ABDOMEN: Soft, + BS, incision intact, PEG tube is in place. Yeast in groin. Fecal tube in place EXTREMITIES: Trace edema. No cyanosis. SCDs bilaterally SKIN: Without rash NEUROLOGIC: Alert awake confused PIV Medications: Inpatient Meds: Current Medications Medications (Trade) Dose Ordered Sig/Yanet Start Time Stop Time Status Last Admin Dose Admin Acetaminophen (Tylenol Supp) 650 mg PRN Q6HRS PRN 08/27/19 02:00 08/27/19 02:09 650 MG Acetaminophen (Tylenol) 650 mg PRN Q6HRS PRN 09/01/19 11:30 UNV Apixaban (Eliquis) 5 mg BID 08/27/19 21:00 09/02/19 21:27 5 MG Aspirin (Aspirin Chewable) 81 mg DAILY 08/27/19 17:00 09/02/19 09:53 81 MG Atorvastatin Calcium (Lipitor) 40 mg QHS 09/01/19 21:00 09/02/19 21:28 40 MG Ceftriaxone Sodium (Rocephin) 1 gm Q24H 08/27/19 09:00 08/27/19 13:14 DC 08/27/19 08:32 1 GM Dexmedetomidine HCl 400 mcg/ Sodium Chloride 100 ml @ 0 mls/hr CONT PRN 08/31/19 12:45 08/31/19 23:43 7 MLS/HR Dextrose (Dextrose 50%-Water Syringe) 12.5 gm PRN Q15MIN PRN 08/27/19 14:00 Enoxaparin Sodium (Lovenox 40mg Syringe) 40 mg Q24H 08/26/19 23:00 08/27/19 16:55 DC 08/27/19 00:42 40 MG Famotidine (Pepcid Vial) 20 mg BID 08/27/19 09:00 09/02/19 21:23 20 MG Fentanyl Citrate (Fentanyl 2ml Vial) 50 mcg PRN Q1HR PRN 08/26/19 23:00 Furosemide (Lasix) 40 mg 1X ONCE 09/01/19 10:45 09/01/19 11:03 DC 09/01/19 11:10 40 MG Info (Anti-Coagulation Monitoring By Pharmacy) 1 each PRN DAILY PRN 08/31/19 08:30 09/02/19 13:24 1 EACH Insulin Human Lispro (HumaLOG) 0-7 UNITS Q6HRS 08/28/19 00:00 09/03/19 06:44 3 UNITS Linezolid (Zyvox) 600 mg BID 09/01/19 09:00 09/02/19 21:28 600 MG Magnesium Sulfate 100 ml @ 25 mls/hr 1X ONCE 09/02/19 14:00 09/02/19 14:05 DC Metoprolol Tartrate (Lopressor) 25 mg BID 09/01/19 12:00 09/02/19 21:28 25 MG Metronidazole 100 ml @ 100 mls/hr Q8HRS 08/27/19 06:00 08/27/19 13:14 DC 08/27/19 05:32 100 MLS/HR Micafungin Sodium 100 mg/Dextrose 100 ml @ 100 mls/hr ONCE ONCE 09/01/19 10:00 09/01/19 10:59 DC 09/01/19 09:41 100 MLS/HR Midazolam HCl 100 ml @ 0 mls/hr CONT PRN 08/26/19 23:00 08/30/19 11:23 2 MLS/HR Morphine Sulfate (Morphine Sulfate) 4 mg PRN Q1HR PRN 08/26/19 23:00 Nicotine (Nicoderm Cq 21mg) 1 patch DAILY 08/31/19 13:30 09/02/19 09:54 1 PATCH Norepinephrine Bitartrate 8 mg/ Dextrose 258 ml @ 13.603 mls/ hr CONT PRN 08/26/19 23:00 08/28/19 01:21 10.882 MLS/HR Nystatin (Nystop) 1 lexus BID 08/31/19 21:00 09/02/19 21:28 1 LEXUS Olanzapine (ZyPREXA) 20 mg QHS 09/01/19 21:00 09/02/19 21:27 20 MG Piperacillin Sod/ Tazobactam Sod 3.375 gm/Sodium Chloride 50 ml @ 100 mls/hr Q6HRS 08/27/19 14:00 09/03/19 06:42 100 MLS/HR Potassium Bicarbonate (Potassium Effervescent Tablet) 40 meq 1X ONCE 08/29/19 09:00 08/29/19 09:01 DC 08/29/19 08:59 40 MEQ Potassium Chloride/Water 100 ml @ 100 mls/hr Q1H 09/02/19 11:00 09/02/19 18:59 DC 09/02/19 18:06 100 MLS/HR Propofol 100 ml @ 1.133 mls/ hr CONT PRN 08/31/19 08:30 Sodium Chloride 1,000 ml @ 75 mls/hr [id number] 08/26/19 23:00 09/02/19 13:47 DC 09/02/19 03:17 75 MLS/HR Tamsulosin HCl (Flomax) 0.4 mg DAILY 09/01/19 12:00 09/02/19 09:53 0.4 MG Labs: Lab Laboratory Tests Test 09/02/19 09:18 09/02/19 13:08 09/02/19 18:12 09/03/19 01:02 White Blood Count 12.1 x10^3/uL (4.0-11.0) Red Blood Count 3.52 x10^6/uL (4.30-5.70) Hemoglobin 8.9 g/dL (13.0-17.5) Hematocrit 27.3 % (39.0-53.0) Mean Corpuscular Volume 78 fL (79-100) Mean Corpuscular Hemoglobin 25 pg (25-35) Mean Corpuscular Hemoglobin Concent 33 g/dL (31-37) Red Cell Distribution Width 17.2 % (11.5-14.5) Platelet Count 419 x10^3/uL (140-400) Neutrophils (%) (Auto) 75 % (31-73) Lymphocytes (%) (Auto) 13 % (24-48) Monocytes (%) (Auto) 7 % (0-9) Eosinophils (%) (Auto) 3 % (0-3) Basophils (%) (Auto) 1 % (0-3) Neutrophils # (Auto) 9.1 x10^3/uL (1.8-7.7) Lymphocytes # (Auto) 1.6 x10^3/uL (1.0-4.8) Monocytes # (Auto) 0.9 x10^3/uL (0.0-1.1) Eosinophils # (Auto) 0.4 x10^3/uL (0.0-0.7) Basophils # (Auto) 0.1 x10^3/uL (0.0-0.2) Sodium Level 141 mmol/L (136-145) Potassium Level 2.7 mmol/L (3.5-5.1) Chloride Level 106 mmol/L (98-107) Carbon Dioxide Level 26 mmol/L (21-32) Anion Gap 9 (6-14) Blood Urea Nitrogen 10 mg/dL (8-26) Creatinine 0.8 mg/dL (0.7-1.3) Estimated GFR (Cockcroft-Gault) 95.0 Glucose Level 159 mg/dL (70-99) Calcium Level 8.2 mg/dL (8.5-10.1) Magnesium Level 1.6 mg/dL (1.8-2.4) Glucose (Fingerstick) 214 mg/dL (70-99) 176 mg/dL (70-99) 190 mg/dL (70-99) Test 09/03/19 06:40 Glucose (Fingerstick) 195 mg/dL (70-99) Objective: Assessment: Respiratory failure. Fever - better Suspected aspiration.;sputum culture positive for MRSA Recent bowel obstruction, s/p surgery and PEG-tube placement. Renal insufficiency yeast in groin. Yeast in urine culture Plan: Plan of Care continue zosyn micafungin for couple of days cont zyvox 600 mg bid Change Nava C. difficile PCR f/u cultures Monitor WBC/temp Maintain aspiration precautions Supportive care D/w nursing Critically ill KAYCEE WARE MD Sep 03, 2019 07:50
[2019-09-03] MEDS: FAMOTIDINE 20 MG/2 ML VIAL IVP SCH ×2 (09:22→21:13)
[2019-09-03] MEDS: TAMSULOSIN 0.4 MG CAP.ER.24H. PO SCH (09:22)
[2019-09-03] MEDS: METOPROLOL TART IMMED RELEASE 25 MG TABLET. PEG SCH ×2 (09:22→21:12)
[2019-09-03] MEDS: OLANZapine 5 MG TABLET PEG SCH (09:22)
[2019-09-03] MEDS: LINEZOLID 600 MG TABLET PO SCH ×2 (09:22→21:12)
[2019-09-03] MEDS: APIXABAN 5 MG TABLET. FT SCH ×2 (09:22→21:12)
[2019-09-03] MEDS: NICOTINE 21MG PATCH. TD SCH (09:23)
--- NOTE | 2019-09-03 09:23 | PDOC ---
PULMONARY PROGRESS NOTES Subjective Patient extubated 08/31 Patient this morning increasingly more short of air. Follows some commands. Vitals Vital Signs Date Time Temp Pulse Resp B/P (MAP) Pulse Ox O2 Delivery O2 Flow Rate FiO2 09/03/19 08:30 Nasal Cannula 2.0 09/03/19 07:30 98.0 112 30 150/82 (104) 97 98.0 General: Moderate Distress HEENT: Other (nc at perrl nose clear orally intibated neck no lad no thyromegaly) Lungs: Crackles Cardiovascular: S1, S2 Abdomen: Soft, Non-tender Extremities: No Edema Skin: Warm Labs Laboratory Tests Test 09/01/19 10:05 09/01/19 12:50 09/02/19 00:11 09/02/19 05:24 White Blood Count 8.6 x10^3/uL (4.0-11.0) Red Blood Count 2.62 x10^6/uL (4.30-5.70) Hemoglobin 6.9 g/dL (13.0-17.5) Hematocrit 21.0 % (39.0-53.0) Mean Corpuscular Volume 80 fL (79-100) Mean Corpuscular Hemoglobin 26 pg (25-35) Mean Corpuscular Hemoglobin Concent 33 g/dL (31-37) Red Cell Distribution Width 17.8 % (11.5-14.5) Platelet Count 353 x10^3/uL (140-400) Neutrophils (%) (Auto) 79 % (31-73) Lymphocytes (%) (Auto) 17 % (24-48) Monocytes (%) (Auto) 2 % (0-9) Eosinophils (%) (Auto) 2 % (0-3) Basophils (%) (Auto) 1 % (0-3) Neutrophils # (Auto) 6.8 x10^3/uL (1.8-7.7) Lymphocytes # (Auto) 1.4 x10^3/uL (1.0-4.8) Monocytes # (Auto) 0.2 x10^3/uL (0.0-1.1) Eosinophils # (Auto) 0.1 x10^3/uL (0.0-0.7) Basophils # (Auto) 0.1 x10^3/uL (0.0-0.2) Sodium Level 138 mmol/L (136-145) Potassium Level 3.4 mmol/L (3.5-5.1) Chloride Level 106 mmol/L (98-107) Carbon Dioxide Level 21 mmol/L (21-32) Anion Gap 11 (6-14) Blood Urea Nitrogen 14 mg/dL (8-26) Creatinine 0.8 mg/dL (0.7-1.3) Estimated GFR (Cockcroft-Gault) 95.0 Glucose Level 221 mg/dL (70-99) Calcium Level 8.4 mg/dL (8.5-10.1) Glucose (Fingerstick) 227 mg/dL (70-99) 169 mg/dL (70-99) 151 mg/dL (70-99) Test 09/02/19 09:18 09/02/19 13:08 09/02/19 18:12 09/03/19 01:02 White Blood Count 12.1 x10^3/uL (4.0-11.0) Red Blood Count 3.52 x10^6/uL (4.30-5.70) Hemoglobin 8.9 g/dL (13.0-17.5) Hematocrit 27.3 % (39.0-53.0) Mean Corpuscular Volume 78 fL (79-100) Mean Corpuscular Hemoglobin 25 pg (25-35) Mean Corpuscular Hemoglobin Concent 33 g/dL (31-37) Red Cell Distribution Width 17.2 % (11.5-14.5) Platelet Count 419 x10^3/uL (140-400) Neutrophils (%) (Auto) 75 % (31-73) Lymphocytes (%) (Auto) 13 % (24-48) Monocytes (%) (Auto) 7 % (0-9) Eosinophils (%) (Auto) 3 % (0-3) Basophils (%) (Auto) 1 % (0-3) Neutrophils # (Auto) 9.1 x10^3/uL (1.8-7.7) Lymphocytes # (Auto) 1.6 x10^3/uL (1.0-4.8) Monocytes # (Auto) 0.9 x10^3/uL (0.0-1.1) Eosinophils # (Auto) 0.4 x10^3/uL (0.0-0.7) Basophils # (Auto) 0.1 x10^3/uL (0.0-0.2) Sodium Level 141 mmol/L (136-145) Potassium Level 2.7 mmol/L (3.5-5.1) Chloride Level 106 mmol/L (98-107) Carbon Dioxide Level 26 mmol/L (21-32) Anion Gap 9 (6-14) Blood Urea Nitrogen 10 mg/dL (8-26) Creatinine 0.8 mg/dL (0.7-1.3) Estimated GFR (Cockcroft-Gault) 95.0 Glucose Level 159 mg/dL (70-99) Calcium Level 8.2 mg/dL (8.5-10.1) Magnesium Level 1.6 mg/dL (1.8-2.4) Glucose (Fingerstick) 214 mg/dL (70-99) 176 mg/dL (70-99) 190 mg/dL (70-99) Test 09/03/19 06:40 Glucose (Fingerstick) 195 mg/dL (70-99) Laboratory Tests Test 09/02/19 13:08 09/02/19 18:12 09/03/19 01:02 09/03/19 06:40 Glucose (Fingerstick) 214 mg/dL (70-99) 176 mg/dL (70-99) 190 mg/dL (70-99) 195 mg/dL (70-99) Medications Active Scripts Medications Dose Route/Sig Max Daily Dose Days Date Category Dose Instructions Pepcid (Famotidine) 20 Mg Tablet 20 Mg PEG BID 08/27/19 Reported Famotidine 20 Mg Tablet 20 Mg PO BID 08/27/19 Reported Aspirin 81 Mg Tab.chew 1 Tab PEG DAILY 08/27/19 Reported Eliquis (Apixaban) 5 Mg Tablet 5 Mg PEG BID 08/27/19 Reported Proventil Hfa (Albuterol Sulfate) 6.7 Gm Hfa.aer.ad 1 Puff INH PRN Q6HRS PRN 08/27/19 Reported Acetaminophen 325 Mg Tablet 2 Tab PEG PRN Q4-6HRS PRN 24 08/27/19 Reported Humalog (Insulin Lispro) 100 Unit/1 Ml Vial 100 Unit SQ Q6HRS 08/27/19 Reported Inject 0-24 units under the skin every 6 hours Lantus Solostar (Insulin Glargine,Hum.rec.anlog) 100 Unit/1 Ml Insuln.pen 35 Unit SQ BID 08/27/19 Reported Symbicort 160-4.5 Mcg Inhaler (Budesonide/Formoterol Fumarate) 10.2 Gm Hfa.aer.ad 2 Puff IH BID 08/27/19 Reported Flomax (Tamsulosin Hcl) 0.4 Mg Cap.er.24h 0.4 Mg PEG DAILY 08/27/19 Reported Crestor (Rosuvastatin Calcium) 40 Mg Tablet 1 Tab PEG HS 08/27/19 Reported Roxicodone (Oxycodone HCl) 5 Mg Tablet 5 Mg PEG PRN Q4HRS PRN 08/27/19 Reported Olanzapine 20 Mg Tablet 1 Tab PEG QHS 08/27/19 Reported Olanzapine 10 Mg Tablet 1 Tab PEG DAILY 08/27/19 Reported Metoprolol Tartrate 25 Mg Tablet 1 Tab PEG BID 08/27/19 Reported Impression . IMPRESSION: 1. Acute hypoxemic respiratory failure, multifactorial., Extubated 08/31, started BiPAP 09/02 2. Toxic metabolic encephalopathy, present upon admission. 3. Septic shock. 4. Severe protein malnutrition, present upon admission. 5. Recent small bowel resection with PEG tube placement, etiology for the small bowel resection is unclear. 6. Multiple comorbidities of diabetes, chronic obstructive pulmonary disease, and chronic heart failure. 7. Coronary artery disease, status post coronary artery bypass grafting. 8. Acute renal insufficiency. 9. Chronic anemia. 10. SARS-CoV-2 negative 11. Acute drop in hematocrit status post transfusion Plan . Case discussed with RN and RT, initiate BiPAP IV Lasix A.m. chest x-ray Up to chair PT OT Monitor H&H Antibiotics per ID DVT GI prophylaxis Above discussed with RN Total cumulative critical care time of 30 minutes reviewing data, chest x-ray, l abs, and formulating a plan DIPAK MARTINEZ MD Sep 03, 2019 09:23
[2019-09-03] MEDS: ASPIRIN CHEWABLE 81 MG TABLET. PEG SCH (09:25)
[2019-09-03] MEDS: NYSTATIN TOPICAL POWDER 15GM BOTTLE. TP SCH ×2 (09:25→21:13)
[2019-09-03] MEDS: ANTI-COAG MONITOR BY PHARMACY. MC PRN (10:07)
[2019-09-03] MEDS: MICAFUNGIN 100 MG in IV DEXTROSE 5% 100ML 100 ML IV SCH (10:16)
--- NOTE | 2019-09-03 10:47 | PDOC ---
PROGRESS NOTES Assessment Metabolic encephalopathy, prolonged intubation, sedation, sepsis, bowel resection, no bedside examination evidence of stroke. Better History of neuropathy and lumbar disc disease. Plan I requested neurologic-related records from [facility] on brain MRI and EEG Subjective Denies pain Objective Vital Signs Date Time Temp Pulse Resp B/P (MAP) Pulse Ox O2 Delivery O2 Flow Rate FiO2 09/03/19 09:22 112 150/82 09/03/19 08:30 Nasal Cannula 2.0 09/03/19 07:30 98.0 30 97 98.0 Intake and Output 09/03/19 07:00 Intake Total 2225 ml Output Total 5530 ml Balance -3305 ml Intake Oral 0 ml IV Total 200 ml Tube Feeding 1625 ml Other 400 ml Output Urine Total 3245 ml Stool Total 1950 ml Gastric Drainage Total 335 ml PHYSICAL EXAM Alert. Oriented to person. PERRL. EOMI. CN: no focal findings. Muscle tone: normal. Muscle strength: 4/5 DTR: 1+ Plantar reflex: flexor Gait: not examined in bed. Sensory exam: no abnormal findings. No cerebellar signs elicited. Review of Relevant I have reviewed the following items parminder (where applicable) has been applied. Labs Laboratory Tests Test 09/01/19 12:50 09/02/19 00:11 09/02/19 05:24 09/02/19 09:18 Glucose (Fingerstick) 227 mg/dL (70-99) 169 mg/dL (70-99) 151 mg/dL (70-99) White Blood Count 12.1 x10^3/uL (4.0-11.0) Red Blood Count 3.52 x10^6/uL (4.30-5.70) Hemoglobin 8.9 g/dL (13.0-17.5) Hematocrit 27.3 % (39.0-53.0) Mean Corpuscular Volume 78 fL (79-100) Mean Corpuscular Hemoglobin 25 pg (25-35) Mean Corpuscular Hemoglobin Concent 33 g/dL (31-37) Red Cell Distribution Width 17.2 % (11.5-14.5) Platelet Count 419 x10^3/uL (140-400) Neutrophils (%) (Auto) 75 % (31-73) Lymphocytes (%) (Auto) 13 % (24-48) Monocytes (%) (Auto) 7 % (0-9) Eosinophils (%) (Auto) 3 % (0-3) Basophils (%) (Auto) 1 % (0-3) Neutrophils # (Auto) 9.1 x10^3/uL (1.8-7.7) Lymphocytes # (Auto) 1.6 x10^3/uL (1.0-4.8) Monocytes # (Auto) 0.9 x10^3/uL (0.0-1.1) Eosinophils # (Auto) 0.4 x10^3/uL (0.0-0.7) Basophils # (Auto) 0.1 x10^3/uL (0.0-0.2) Sodium Level 141 mmol/L (136-145) Potassium Level 2.7 mmol/L (3.5-5.1) Chloride Level 106 mmol/L (98-107) Carbon Dioxide Level 26 mmol/L (21-32) Anion Gap 9 (6-14) Blood Urea Nitrogen 10 mg/dL (8-26) Creatinine 0.8 mg/dL (0.7-1.3) Estimated GFR (Cockcroft-Gault) 95.0 Glucose Level 159 mg/dL (70-99) Calcium Level 8.2 mg/dL (8.5-10.1) Magnesium Level 1.6 mg/dL (1.8-2.4) Test 09/02/19 13:08 09/02/19 18:12 09/03/19 01:02 09/03/19 06:40 Glucose (Fingerstick) 214 mg/dL (70-99) 176 mg/dL (70-99) 190 mg/dL (70-99) 195 mg/dL (70-99) Laboratory Tests Test 09/02/19 13:08 09/02/19 18:12 09/03/19 01:02 09/03/19 06:40 Glucose (Fingerstick) 214 mg/dL (70-99) 176 mg/dL (70-99) 190 mg/dL (70-99) 195 mg/dL (70-99) Microbiology 08/31/19 Urine Culture - Final, Complete 08/28/19 Gram Stain Evaluation - Final, Complete 08/28/19 Respiratory Culture - Final, Complete 08/28/19 Antimicrobic Susceptibility - Final, Complete 08/26/19 Blood Culture - Final, Complete NO GROWTH AFTER 5 DAYS Medications Current Medications Norepinephrine Bitartrate 8 mg/ Dextrose 258 ml @ 13.603 mls/ hr CONT PRN IV PER PROTOCOL Last administered on 08/28/19at 01:21; Start 08/26/19 at 23:00 Fentanyl Citrate 30 ml @ 0 mls/hr CONT PRN IV SEE PROTOCOL Last administered on 09/01/19at 07:24; Start 08/26/19 at 23:00; Stop 09/01/19 at 16:41; Status DC Fentanyl Citrate (Fentanyl 2ml Vial) 25 mcg PRN Q1HR PRN IV SEE COMMENTS; Start 08/26/19 at 23:00 Fentanyl Citrate (Fentanyl 2ml Vial) 50 mcg PRN Q1HR PRN IV SEE COMMENTS; Start 08/26/19 at 23:00 Famotidine (Pepcid Vial) 20 mg BID IVP Last administered on 09/03/19at 09:22; Start 08/27/19 at 09:00 Morphine Sulfate (Morphine Sulfate) 2 mg PRN Q1HR PRN IV SEE COMMENTS.; Start 08/26/19 at 23:00 Morphine Sulfate (Morphine Sulfate) 4 mg PRN Q1HR PRN IV SEE COMMENTS.; Start 08/26/19 at 23:00 Midazolam HCl 100 ml @ 0 mls/hr CONT PRN IV SEE PROTOCOL Last administered on 08/30/19at 11:23; Start 08/26/19 at 23:00 Enoxaparin Sodium (Lovenox 40mg Syringe) 40 mg Q24H SQ Last administered on 08/27/19at 00:42; Start 08/26/19 at 23:00; Stop 08/27/19 at 16:55; Status DC Metronidazole 100 ml @ 100 mls/hr Q8HRS IV Last administered on 08/27/19at 05:32; Start 08/27/19 at 06:00; Stop 08/27/19 at 13:14; Status DC Ceftriaxone Sodium (Rocephin) 1 gm Q24H IVP Last administered on 08/27/19at 08:32; Start 08/27/19 at 09:00; Stop 08/27/19 at 13:14; Status DC Sodium Chloride 1,000 ml @ 75 mls/hr [id number] IV Last administered on 09/02/19at 03:17; Start 08/26/19 at 23:00; Stop 09/02/19 at 13:47; Status DC Acetaminophen (Tylenol Supp) 650 mg PRN Q6HRS PRN AL MILD PAIN / TEMP > 100.3'F Last administered on 08/27/19at 02:09; Start 08/27/19 at 02:00 Piperacillin Sod/ Tazobactam Sod 3.375 gm/Sodium Chloride 50 ml @ 100 mls/hr Q6HRS IV Last administered on 09/03/19at 06:42; Start 08/27/19 at 14:00 Insulin Human Lispro (HumaLOG) 0-7 UNITS TIDWMEALS SQ ; Start 08/27/19 at 17:00; Stop 08/27/19 at 20:28; Status DC Dextrose (Dextrose 50%-Water Syringe) 12.5 gm PRN Q15MIN PRN IV SEE COMMENTS; Start 08/27/19 at 14:00 Apixaban (Eliquis) 5 mg BID FT Last administered on 09/03/19at 09:22; Start 08/27/19 at 21:00 Aspirin (Aspirin Chewable) 81 mg DAILY PEG Last administered on 09/03/19at 09:25; Start 08/27/19 at 17:00 Insulin Human Lispro (HumaLOG) 0-7 UNITS Q6HRS SQ Last administered on 09/03/19at 06:44; Start 08/28/19 at 00:00 Potassium Bicarbonate (Potassium Effervescent Tablet) 40 meq 1X ONCE PO Last administered on 08/29/19at 08:59; Start 08/29/19 at 09:00; Stop 08/29/19 at 09:01; Status DC Info (Anti-Coagulation Monitoring By Pharmacy) 1 each PRN DAILY PRN MC SEE COMMENTS Last administered on 09/03/19at 10:07; Start 08/31/19 at 08:30 Propofol 100 ml @ 1.133 mls/ hr CONT PRN IV SEE I/O RECORD; Start 08/31/19 at 08:30 Dexmedetomidine HCl 400 mcg/ Sodium Chloride 100 ml @ 0 mls/hr CONT PRN IV SEE COMMENTS Last administered on 08/31/19at 23:43; Start 08/31/19 at 12:45 Nicotine (Nicoderm Cq 21mg) 1 patch DAILY TD Last administered on 09/03/19at 09:23; Start 08/31/19 at 13:30 Nystatin (Nystop) 1 lexus BID TP Last administered on 09/03/19 09:25; Start 08/31/19 at 21:00 Linezolid (Zyvox) 600 mg BID PO Last administered on 09/03/19 09:22; Start 09/01/19 at 09:00 Micafungin Sodium 100 mg/Dextrose 100 ml @ 100 mls/hr BID IV ; Start 09/01/19 at 09:00; Stop 09/01/19 at 09:27; Status DC Micafungin Sodium 100 mg/Dextrose 100 ml @ 100 mls/hr DAILY IV Last administered on 09/03/19 10:16; Start 09/02/19 at 09:00 Micafungin Sodium 100 mg/Dextrose 100 ml @ 100 mls/hr ONCE ONCE IV Last administered on 09/01/19at 09:41; Start 09/01/19 at 10:00; Stop 09/01/19 at 10:59; Status DC Furosemide (Lasix) 40 mg 1X ONCE IVP Last administered on 09/01/19at 11:10; Start 09/01/19 at 10:45; Stop 09/01/19 at 11:03; Status DC Acetaminophen (Tylenol) 650 mg PRN Q6HRS PRN PO pain or fever; Start 09/01/19 at 11:30; Status UNV Metoprolol Tartrate (Lopressor) 25 mg BID PEG Last administered on 09/03/19 09:22; Start 09/01/19 at 12:00 Tamsulosin HCl (Flomax) 0.4 mg DAILY PO Last administered on 09/03/19 09:22; Start 09/01/19 at 12:00 Olanzapine (ZyPREXA) 10 mg DAILY PEG Last administered on 09/03/19 09:22; Start 09/01/19 at 12:00 Olanzapine (ZyPREXA) 20 mg QHS PO Last administered on 09/02/19at 21:27; Start 09/01/19 at 21:00 Atorvastatin Calcium (Lipitor) 40 mg QHS PEG Last administered on 09/02/19at 21:28; Start 09/01/19 at 21:00 Potassium Chloride/Water 100 ml @ 100 mls/hr Q1H IV Last administered on 09/02/19at 18:06; Start 09/02/19 at 11:00; Stop 09/02/19 at 18:59; Status DC Magnesium Sulfate 50 ml @ 25 mls/hr 1X ONCE IV Last administered on 09/02/19at 11:21; Start 09/02/19 at 11:00; Stop 09/02/19 at 12:59; Status DC Magnesium Sulfate 100 ml @ 25 mls/hr 1X ONCE IV ; Start 09/02/19 at 14:00; Stop 09/02/19 at 14:05; Status DC Active Scripts Active Reported Pepcid (Famotidine) 20 Mg Tablet 20 Mg PEG BID Famotidine 20 Mg Tablet 20 Mg PO BID Aspirin 81 Mg Tab.chew 1 Tab PEG DAILY Eliquis (Apixaban) 5 Mg Tablet 5 Mg PEG BID Proventil Hfa (Albuterol Sulfate) 6.7 Gm Hfa.aer.ad 1 Puff INH PRN Q6HRS PRN Acetaminophen 325 Mg Tablet 2 Tab PEG PRN Q4-6HRS PRN 24 Days Humalog (Insulin Lispro) 100 Unit/1 Ml Vial 100 Unit SQ Q6HRS Inject 0-24 units under the skin every 6 hours Lantus Solostar (Insulin Glargine,Hum.rec.anlog) 100 Unit/1 Ml Insuln.pen 35 Unit SQ BID Symbicort 160-4.5 Mcg Inhaler (Budesonide/Formoterol Fumarate) 10.2 Gm Hfa.aer.ad 2 Puff IH BID Flomax (Tamsulosin Hcl) 0.4 Mg Cap.er.24h 0.4 Mg PEG DAILY Crestor (Rosuvastatin Calcium) 40 Mg Tablet 1 Tab PEG HS Roxicodone (Oxycodone HCl) 5 Mg Tablet 5 Mg PEG PRN Q4HRS PRN Olanzapine 20 Mg Tablet 1 Tab PEG QHS Olanzapine 10 Mg Tablet 1 Tab PEG DAILY Metoprolol Tartrate 25 Mg Tablet 1 Tab PEG BID Vitals/I & O Vital Sign - Last 24 Hours 09/02/19 09/02/19 09/02/19 09/02/19 11:17 12:48 12:50 13:28 Temp 97.8 97.8 Pulse 95 95 91 Resp 28 29 29 B/P (MAP) 121/72 (88) 141/71 (94) 138/73 (94) Pulse Ox 95 97 97 O2 Delivery Nasal Cannula Nasal Cannula Nasal Cannula Nasal Cannula O2 Flow Rate 2.0 2.0 2.0 2.0 09/02/19 09/02/19 09/02/19 09/02/19 14:04 15:53 19:15 20:30 Pulse 114 112 107 Resp 30 30 25 B/P (MAP) 158/73 (101) 139/67 (91) Pulse Ox 95 97 97 O2 Delivery Nasal Cannula Nasal Cannula Nasal Cannula Nasal Cannula O2 Flow Rate 2.0 2.0 2.0 2.0 09/02/19 09/02/19 09/02/19 09/03/19 21:25 21:28 22:55 03:20 Temp 98.6 98.6 99.0 98.6 98.6 99.0 Pulse 114 114 102 113 Resp 29 33 24 B/P (MAP) 135/77 (96) 135/77 133/60 (84) 146/70 (95) Pulse Ox 98 96 98 O2 Delivery Nasal Cannula Nasal Cannula Nasal Cannula O2 Flow Rate 2.0 2.0 2.0 09/03/19 09/03/19 09/03/19 07:30 08:30 09:22 Temp 98.0 98.0 Pulse 112 112 Resp 30 B/P (MAP) 150/82 (104) 150/82 Pulse Ox 97 O2 Delivery Nasal Cannula Nasal Cannula O2 Flow Rate 2.0 2.0 Intake and Output 09/02/19 09/02/19 09/03/19 15:00 23:00 07:00 Intake Total 400 ml 1275 ml 550 ml Output Total 1295 ml 2200 ml 2035 ml Balance -895 ml -925 ml -1485 ml Justicifation of Admission Dx: Justifications for Admission: Justification of Admission Dx: Yes Respiratory Failure: Mechanical Ventilation ADDIE HILL MD Sep 03, 2019 10:47
[2019-09-03 11:14] VITALS: BP 167/93
--- NOTE | 2019-09-03 11:42 | NUR ---
Pt's potassium level 2.7 yesterday, appears pt received 80 mEq KCl yesterday. Refer to EMAR for details. No new potassium level drawn today. This RN referred this information to Dr. Rock who previously put orders in for 40 mEq of KCl today. Dr. Rock gave this RN orders to obtain a STAT potassium level and hold KCl until labs back. Will await labs.
[2019-09-03] MEDS ORDERED: FUROSEMIDE 40 MG/4 ML VIAL. IVP ONE (11:45)
[2019-09-03] MEDS ORDERED: POTASSIUM CHLORIDE 20MEQ 100 ML IV SCH (12:00)
[2019-09-03] MEDS: POTASSIUM CHLORIDE 10MEQ 100 ML IV SCH ×4 (13:15→17:21)
--- NOTE | 2019-09-03 13:25 | PDOC ---
[facility] PROGRESS NOTE Chief Complaint Chief Complaint Acute Hypoxic Resp Failure requiring mechanical Ventilation, intubated 08/25 Suspected Aspiration PNA Sputum culture returned MRSA Septic Shock, present on admission hx of Bowel Obstruction with PEG placement Anemia Acute Renal Failure secondary to Vasomotor Nephropathy, resolved DM2 HLD BPH Severe protein malnutrition, present upon admission. Coronary artery disease, status post coronary artery bypass grafting on oral AC History of Present Illness History of Present Illness 09/03/2019 Patient seen and examined in the ICU Discussed with RN Chart reviewed 09/01 Patient seen and examined Chart reviewed Discussed with RN 09/01/2019 Patient seen and examined in the ICU He remains mechanically ventilated 100/35% Hemoglobin has dropped to 6.9 we have ordered 1 unit of blood Also ordered 40 of Lasix He is currently being fed via PEG Discussed with RN Chart reviewed Discussed with classification case manager Vitals/I&O Vitals/I&O: Vital Signs Date Time Temp Pulse Resp B/P (MAP) Pulse Ox O2 Delivery O2 Flow Rate FiO2 09/03/19 12:34 100 BiPAP/CPAP 09/03/19 11:14 98.4 95 26 167/93 (117) 2.0 98.4 I & O 09/02/19 09/02/19 09/03/19 14:59 22:59 06:59 Intake Total 400 ml 1275 ml 550 ml Output Total 1295 ml 2200 ml 2035 ml Balance -895 ml -925 ml -1485 ml Physical Exam Physical Exam: GENERAL: Alert awake confused, does not follow commands HEENT: Anicteric NECK: Supple LUNGS: Decreased breath sounds bilaterally. HEART: S1, S2 tachycardia w/ PVCs : Nava ABDOMEN: Soft, + BS, incision intact, PEG tube is in place. Yeast in groin. Fecal tube in place EXTREMITIES: Trace edema. No cyanosis. SCDs bilaterally SKIN: Without rash NEUROLOGIC: Alert awake confused PIV General: Other (sedated on vent) Heart: Regular rate Lungs: Crackles Abdomen: Normal bowel sounds Skin: No rashes Labs Labs: Laboratory Tests Test 09/02/19 18:12 09/03/19 01:02 09/03/19 06:40 09/03/19 11:59 Glucose (Fingerstick) 176 mg/dL (70-99) 190 mg/dL (70-99) 195 mg/dL (70-99) 210 mg/dL (70-99) Test 09/03/19 12:00 Potassium Level 2.9 mmol/L (3.5-5.1) Assessment and Plan Assessmemt and Plan Acute Hypoxic Resp Failure requiring mechanical Ventilation, intubated 08/25 Suspected Aspiration PNA, MRSA Septic Shock, present on admission hx of Bowel Obstruction with PEG placement Anemia Acute Renal Failure secondary to Vasomotor Nephropathy, resolved DM2 HLD BPH Severe protein malnutrition, present upon admission. Coronary artery disease, status post coronary artery bypass grafting on oral AC Plan ICU monitoring Vent weaning IV Lasix PEG feeds DVT prophylaxis Full code Trend labs Home meds Appreciate subspecialist input Discussed with case management he might be going to long-term acute care soon? He remains critically ill Comment Review of Relevant I have reviewed the following items parminder (where applicable) has been applied. Medications: Current Medications Medications (Trade) Dose Ordered Sig/Yanet Route PRN Reason Start Time Stop Time Status Last Admin Dose Admin Furosemide (Lasix) 40 mg 1X ONCE IVP 09/03/19 11:45 09/03/19 11:46 DC 09/03/19 11:29 Potassium Chloride/Water 100 ml @ 100 mls/hr Q1H IV 09/03/19 13:00 09/03/19 16:59 09/03/19 13:15 Justicifation of Admission Dx: Justifications for Admission: Justification of Admission Dx: Yes Respiratory Failure: Mechanical Ventilation HASMUKH GRANGER III DO Sep 03, 2019 13:25
[2019-09-03 14:57] VITALS: BP 162/114
--- NOTE | 2019-09-03 14:57 | NUR ---
SS following up with discharge planning. SS reviewed pt chart and discussed with pt RN. Pt is currently on BIPAP. Pt on IV Micafungin and IV Zosyn. Pt has PEG. COVID19 negative. Pt accepted at [facility], ; fax [phone]. Pt #2 on the list for [facility]. SS phoned and faxed clinical updates to [facility]. Per RN, pt not ready today. SS spoke with pt's spouse via phone and pt's spouse is agreeable to discharge plan. SS will continue to follow for discharge planning.
[2019-09-03 19:00] VITALS: BP 151/79
[2019-09-03] MEDS: ALBUTEROL SULFATE 2.5 MG/3 ML NEBU. NEB PRN (20:56)
[2019-09-03] MEDS: BUDESONIDE 0.5 MG/2 ML NEBU. NEB SCH (20:56)
[2019-09-03] MEDS: OLANZapine 5 MG TABLET PO SCH (21:12)
[2019-09-03] MEDS: ATORVASTATIN CALCIUM 40 MG TABLET. PEG SCH (21:13)
[2019-09-03 23:00] VITALS: BP 151/79
--- NOTE | 2019-09-03 23:43 | NUR ---
Collin nunez 09/03/19 Addendum: 09/03/19 at 2814 by FRANK ANG RN RN Amended: Links added.
[2019-09-04] MEDS: PIPERACILLIN/TAZOBACTAM 3.375 GM in IV NORMAL SALINE 50ML 50 ML IV SCH ×4 (00:44→18:28)
[2019-09-04] MEDS: INSULIN LISPRO 300 UNITS/3 ML VIAL. SQ SCH ×4 (00:52→18:35)
[2019-09-04 03:00] VITALS: BP 133/61
[2019-09-04 07:00] VITALS: BP 153/99
--- NOTE | 2019-09-04 07:35 | PDOC ---
Infectious Disease Note Subjective: Subjective Patient on BiPAP No fevers last 24 hrs + tube feedings Vital Signs: Vital Signs Vital Signs Date Time Temp Pulse Resp B/P (MAP) Pulse Ox O2 Delivery O2 Flow Rate FiO2 09/04/19 04:00 100 BiPAP/CPAP 09/04/19 03:00 99.6 74 20 133/61 (85) 99.6 09/03/19 23:00 3.0 Physical Exam: PHYSICAL EXAM GENERAL: Alert awake on BiPAP HEENT: Anicteric NECK: Supple LUNGS: Decreased breath sounds bilaterally. HEART: S1, S2 tachycardia w/ PVCs : Nava ABDOMEN: Soft, + BS, incision intact, PEG tube is in place. Yeast in groin. Fecal tube in place EXTREMITIES: Trace edema. No cyanosis. SCDs bilaterally SKIN: Without rash NEUROLOGIC: Alert awake PIV Medications: Inpatient Meds: Current Medications Medications (Trade) Dose Ordered Sig/Yanet Start Time Stop Time Status Last Admin Dose Admin Acetaminophen (Tylenol Supp) 650 mg PRN Q6HRS PRN 08/27/19 02:00 08/27/19 02:09 650 MG Acetaminophen (Tylenol) 650 mg PRN Q6HRS PRN 09/01/19 11:30 UNV Albuterol Sulfate (Ventolin Neb Soln) 2.5 mg PRN Q4HRS PRN 09/03/19 12:15 09/03/19 20:56 2.5 MG Apixaban (Eliquis) 5 mg BID 08/27/19 21:00 09/03/19 21:12 5 MG Aspirin (Aspirin Chewable) 81 mg DAILY 08/27/19 17:00 09/03/19 09:25 81 MG Atorvastatin Calcium (Lipitor) 40 mg QHS 09/01/19 21:00 09/03/19 21:13 40 MG Budesonide (Pulmicort) 0.5 mg RTBID 09/03/19 20:00 09/03/19 20:56 0.5 MG Ceftriaxone Sodium (Rocephin) 1 gm Q24H 08/27/19 09:00 08/27/19 13:14 DC 08/27/19 08:32 1 GM Dexmedetomidine HCl 400 mcg/ Sodium Chloride 100 ml @ 0 mls/hr CONT PRN 08/31/19 12:45 08/31/19 23:43 7 MLS/HR Dextrose (Dextrose 50%-Water Syringe) 12.5 gm PRN Q15MIN PRN 08/27/19 14:00 Enoxaparin Sodium (Lovenox 40mg Syringe) 40 mg Q24H 08/26/19 23:00 08/27/19 16:55 DC 08/27/19 00:42 40 MG Famotidine (Pepcid Vial) 20 mg BID 08/27/19 09:00 09/03/19 21:13 20 MG Fentanyl Citrate (Fentanyl 2ml Vial) 50 mcg PRN Q1HR PRN 08/26/19 23:00 Furosemide (Lasix) 40 mg 1X ONCE 09/03/19 11:45 09/03/19 11:46 DC 09/03/19 11:29 40 MG Info (Anti-Coagulation Monitoring By Pharmacy) 1 each PRN DAILY PRN 08/31/19 08:30 09/03/19 10:07 1 EACH Insulin Human Lispro (HumaLOG) 0-7 UNITS Q6HRS 08/28/19 00:00 09/04/19 06:26 3 UNITS Linezolid (Zyvox) 600 mg BID 09/01/19 09:00 09/03/19 21:12 600 MG Magnesium Sulfate 100 ml @ 25 mls/hr 1X ONCE 09/02/19 14:00 09/02/19 14:05 DC Metoprolol Tartrate (Lopressor) 25 mg BID 09/01/19 12:00 09/03/19 21:12 25 MG Metronidazole 100 ml @ 100 mls/hr Q8HRS 08/27/19 06:00 08/27/19 13:14 DC 08/27/19 05:32 100 MLS/HR Micafungin Sodium 100 mg/Dextrose 100 ml @ 100 mls/hr ONCE ONCE 09/01/19 10:00 09/01/19 10:59 DC 09/01/19 09:41 100 MLS/HR Midazolam HCl 100 ml @ 0 mls/hr CONT PRN 08/26/19 23:00 08/30/19 11:23 2 MLS/HR Morphine Sulfate (Morphine Sulfate) 4 mg PRN Q1HR PRN 08/26/19 23:00 Nicotine (Nicoderm Cq 21mg) 1 patch DAILY 08/31/19 13:30 09/03/19 09:23 1 PATCH Norepinephrine Bitartrate 8 mg/ Dextrose 258 ml @ 13.603 mls/ hr CONT PRN 08/26/19 23:00 08/28/19 01:21 10.882 MLS/HR Nystatin (Nystop) 1 lexus BID 08/31/19 21:00 09/03/19 21:13 1 LEXUS Olanzapine (ZyPREXA) 20 mg QHS 09/01/19 21:00 09/03/19 21:12 20 MG Piperacillin Sod/ Tazobactam Sod 3.375 gm/Sodium Chloride 50 ml @ 100 mls/hr Q6HRS 08/27/19 14:00 09/04/19 06:23 100 MLS/HR Potassium Bicarbonate (Potassium Effervescent Tablet) 40 meq 1X ONCE 08/29/19 09:00 08/29/19 09:01 DC 08/29/19 08:59 40 MEQ Potassium Chloride/Water 100 ml @ 100 mls/hr Q1H 09/03/19 13:00 09/03/19 16:59 DC 09/03/19 17:21 100 MLS/HR Propofol 100 ml @ 1.133 mls/ hr CONT PRN 08/31/19 08:30 Sodium Chloride 1,000 ml @ 75 mls/hr [id number] 08/26/19 23:00 09/02/19 13:47 DC 09/02/19 03:17 75 MLS/HR Tamsulosin HCl (Flomax) 0.4 mg DAILY 09/01/19 12:00 09/03/19 09:22 0.4 MG Labs: Lab Laboratory Tests Test 09/03/19 11:59 09/03/19 12:00 09/03/19 18:19 09/04/19 00:17 Glucose (Fingerstick) 210 mg/dL (70-99) 180 mg/dL (70-99) 190 mg/dL (70-99) Potassium Level 2.9 mmol/L (3.5-5.1) Test 09/04/19 06:14 Glucose (Fingerstick) 177 mg/dL (70-99) Objective: Assessment: Respiratory failure. Fever - better Suspected aspiration.;sputum culture positive for MRSA Recent bowel obstruction, s/p surgery and PEG-tube placement. Renal insufficiency yeast in groin. Yeast in urine culture Encephalopathy, likely metabolic Plan: Plan of Care continue zosyn micafungin for couple of days cont zyvox 600 mg bid 08/31 Change Nava if not done already f/u C. difficile PCR f/u cultures Monitor WBC/temp Maintain aspiration precautions Supportive care D/w nursing Critically ill KAYCEE WARE MD Sep 04, 2019 07:35
[2019-09-04] MEDS: BUDESONIDE 0.5 MG/2 ML NEBU. NEB SCH ×2 (08:06→19:59)
[2019-09-04 08:22] LABS: BASE EXCESS ABG 0 mmol/L (-3-3); HCO3 ABG 23 mmol/L (21-28); PCO2 ABG 29 mmHg (35-46); PO2 ABG 81 mmHg (65-108); SAT O2 ABG 96 % (92-99)
[2019-09-04 08:25] LABS: FIO2 ABG 25
[2019-09-04] MEDS: LINEZOLID 600 MG TABLET PO SCH ×2 (08:59→21:44)
[2019-09-04] MEDS: FAMOTIDINE 20 MG/2 ML VIAL IVP SCH ×2 (08:59→21:44)
[2019-09-04] MEDS: APIXABAN 5 MG TABLET. FT SCH ×2 (08:59→21:44)
[2019-09-04] MEDS: NICOTINE 21MG PATCH. TD SCH (08:59)
[2019-09-04] MEDS: ASPIRIN CHEWABLE 81 MG TABLET. PEG SCH (08:59)
[2019-09-04] MEDS: TAMSULOSIN 0.4 MG CAP.ER.24H. PO SCH (08:59)
[2019-09-04] MEDS: OLANZapine 5 MG TABLET PEG SCH (08:59)
[2019-09-04] MEDS: LACTOBACILLUS RHAMNOSUS GG 1 CAPSULE. PO SCH ×2 (08:59→21:43)
[2019-09-04] MEDS: NYSTATIN TOPICAL POWDER 15GM BOTTLE. TP SCH ×2 (09:00→21:45)
[2019-09-04] MEDS: MICAFUNGIN 100 MG in IV DEXTROSE 5% 100ML 100 ML IV SCH (09:00)
--- NOTE | 2019-09-04 09:17 | PDOC ---
PULMONARY PROGRESS NOTES Subjective Patient extubated 08/31 Patient this morning increasingly more short of air. Follows some commands. Vitals Vital Signs Date Time Temp Pulse Resp B/P (MAP) Pulse Ox O2 Delivery O2 Flow Rate FiO2 09/04/19 08:06 BiPAP/CPAP 09/04/19 07:00 99.1 126 12 153/99 (117) 25.0 99.1 09/04/19 04:00 100 General: Moderate Distress HEENT: Other (nc at perrl nose clear orally intibated neck no lad no thyromegaly) Lungs: Crackles Cardiovascular: S1, S2 Abdomen: Soft, Non-tender Extremities: No Edema Skin: Warm Labs Laboratory Tests Test 09/02/19 09:18 09/02/19 13:08 09/02/19 18:12 09/03/19 01:02 White Blood Count 12.1 x10^3/uL (4.0-11.0) Red Blood Count 3.52 x10^6/uL (4.30-5.70) Hemoglobin 8.9 g/dL (13.0-17.5) Hematocrit 27.3 % (39.0-53.0) Mean Corpuscular Volume 78 fL (79-100) Mean Corpuscular Hemoglobin 25 pg (25-35) Mean Corpuscular Hemoglobin Concent 33 g/dL (31-37) Red Cell Distribution Width 17.2 % (11.5-14.5) Platelet Count 419 x10^3/uL (140-400) Neutrophils (%) (Auto) 75 % (31-73) Lymphocytes (%) (Auto) 13 % (24-48) Monocytes (%) (Auto) 7 % (0-9) Eosinophils (%) (Auto) 3 % (0-3) Basophils (%) (Auto) 1 % (0-3) Neutrophils # (Auto) 9.1 x10^3/uL (1.8-7.7) Lymphocytes # (Auto) 1.6 x10^3/uL (1.0-4.8) Monocytes # (Auto) 0.9 x10^3/uL (0.0-1.1) Eosinophils # (Auto) 0.4 x10^3/uL (0.0-0.7) Basophils # (Auto) 0.1 x10^3/uL (0.0-0.2) Sodium Level 141 mmol/L (136-145) Potassium Level 2.7 mmol/L (3.5-5.1) Chloride Level 106 mmol/L (98-107) Carbon Dioxide Level 26 mmol/L (21-32) Anion Gap 9 (6-14) Blood Urea Nitrogen 10 mg/dL (8-26) Creatinine 0.8 mg/dL (0.7-1.3) Estimated GFR (Cockcroft-Gault) 95.0 Glucose Level 159 mg/dL (70-99) Calcium Level 8.2 mg/dL (8.5-10.1) Magnesium Level 1.6 mg/dL (1.8-2.4) Glucose (Fingerstick) 214 mg/dL (70-99) 176 mg/dL (70-99) 190 mg/dL (70-99) Test 09/03/19 06:40 09/03/19 11:59 09/03/19 12:00 09/03/19 18:19 Glucose (Fingerstick) 195 mg/dL (70-99) 210 mg/dL (70-99) 180 mg/dL (70-99) Potassium Level 2.9 mmol/L (3.5-5.1) Test 09/04/19 00:17 09/04/19 06:14 09/04/19 08:15 Glucose (Fingerstick) 190 mg/dL (70-99) 177 mg/dL (70-99) O2 Saturation 96 % (92-99) Arterial Blood pH 7.51 (7.35-7.45) Arterial Blood pCO2 at Patient Temp 29 mmHg (35-46) Arterial Blood pO2 at Patient Temp 81 mmHg (65-108) Arterial Blood HCO3 23 mmol/L (21-28) Arterial Blood Base Excess 0 mmol/L (-3-3) FiO2 25 Laboratory Tests Test 09/03/19 11:59 09/03/19 12:00 09/03/19 18:19 09/04/19 00:17 Glucose (Fingerstick) 210 mg/dL (70-99) 180 mg/dL (70-99) 190 mg/dL (70-99) Potassium Level 2.9 mmol/L (3.5-5.1) Test 09/04/19 06:14 09/04/19 08:15 Glucose (Fingerstick) 177 mg/dL (70-99) O2 Saturation 96 % (92-99) Arterial Blood pH 7.51 (7.35-7.45) Arterial Blood pCO2 at Patient Temp 29 mmHg (35-46) Arterial Blood pO2 at Patient Temp 81 mmHg (65-108) Arterial Blood HCO3 23 mmol/L (21-28) Arterial Blood Base Excess 0 mmol/L (-3-3) FiO2 25 Medications Active Scripts Medications Dose Route/Sig Max Daily Dose Days Date Category Dose Instructions Pepcid (Famotidine) 20 Mg Tablet 20 Mg PEG BID 08/27/19 Reported Famotidine 20 Mg Tablet 20 Mg PO BID 08/27/19 Reported Aspirin 81 Mg Tab.chew 1 Tab PEG DAILY 08/27/19 Reported Eliquis (Apixaban) 5 Mg Tablet 5 Mg PEG BID 08/27/19 Reported Proventil Hfa (Albuterol Sulfate) 6.7 Gm Hfa.aer.ad 1 Puff INH PRN Q6HRS PRN 08/27/19 Reported Acetaminophen 325 Mg Tablet 2 Tab PEG PRN Q4-6HRS PRN 24 08/27/19 Reported Humalog (Insulin Lispro) 100 Unit/1 Ml Vial 100 Unit SQ Q6HRS 08/27/19 Reported Inject 0-24 units under the skin every 6 hours Lantus Solostar (Insulin Glargine,Hum.rec.anlog) 100 Unit/1 Ml Insuln.pen 35 Unit SQ BID 08/27/19 Reported Symbicort 160-4.5 Mcg Inhaler (Budesonide/Formoterol Fumarate) 10.2 Gm Hfa.aer.ad 2 Puff IH BID 08/27/19 Reported Flomax (Tamsulosin Hcl) 0.4 Mg Cap.er.24h 0.4 Mg PEG DAILY 08/27/19 Reported Crestor (Rosuvastatin Calcium) 40 Mg Tablet 1 Tab PEG HS 08/27/19 Reported Roxicodone (Oxycodone HCl) 5 Mg Tablet 5 Mg PEG PRN Q4HRS PRN 08/27/19 Reported Olanzapine 20 Mg Tablet 1 Tab PEG QHS 08/27/19 Reported Olanzapine 10 Mg Tablet 1 Tab PEG DAILY 08/27/19 Reported Metoprolol Tartrate 25 Mg Tablet 1 Tab PEG BID 08/27/19 Reported Impression . IMPRESSION: 1. Acute hypoxemic respiratory failure, multifactorial., Extubated 08/31, started BiPAP 09/02 2. Toxic metabolic encephalopathy, present upon admission. 3. Septic shock. 4. Severe protein malnutrition, present upon admission. 5. Recent small bowel resection with PEG tube placement, etiology for the small bowel resection is unclear. 6. Multiple comorbidities of diabetes, chronic obstructive pulmonary disease, and chronic heart failure. 7. Coronary artery disease, status post coronary artery bypass grafting. 8. Acute renal insufficiency. 9. Chronic anemia. 10. SARS-CoV-2 negative 11. Acute drop in hematocrit status post transfusion Plan . Patient discussed with RT, ABG noted alkalotic, decrease IPAP for tidal volume of approximately 400 IV Lasix A.m. chest x-ray Up to chair PT OT Monitor H&H Antibiotics per ID DVT GI prophylaxis Above discussed with RN Total cumulative critical care time of 30 minutes reviewing data, chest x-ray, labs, and formulating a plan DIPAK MARTINEZ MD Sep 04, 2019 09:17
[2019-09-04] MEDS: ANTI-COAG MONITOR BY PHARMACY. MC PRN (09:26)
[2019-09-04] MEDS: METOPROLOL TART IMMED RELEASE 25 MG TABLET. PEG SCH (09:40)
[2019-09-04 11:00] VITALS: BP 155/84
--- NOTE | 2019-09-04 12:56 | PDOC ---
PROGRESS NOTES Assessment Metabolic encephalopathy, prolonged intubation, sedation, sepsis, bowel resection, no bedside examination evidence of stroke. Better History of neuropathy and lumbar disc disease. [place] records reviewed, he had a CT head on 08/24, negative Plan Brain MRI EEG Subjective None Objective Vital Signs Date Time Temp Pulse Resp B/P (MAP) Pulse Ox O2 Delivery O2 Flow Rate FiO2 09/04/19 11:41 98 BiPAP/CPAP 09/04/19 11:00 99.1 105 12 155/84 (107) 25.0 99.1 Intake and Output 09/04/19 06:59 Intake Total 1550 ml Output Total 1805 ml Balance -255 ml IV Total 600 ml Tube Feeding 950 ml Output Urine Total 1605 ml Stool Total 200 ml PHYSICAL EXAM Alert. Speech nonsensical PERRL. EOMI. CN: no focal findings. Muscle tone: normal. Muscle strength: 4/5 DTR: 1+ Plantar reflex: flexor Gait: not examined in bed. Sensory exam: no abnormal findings. No cerebellar signs elicited. Review of Relevant I have reviewed the following items parminder (where applicable) has been applied. Labs Laboratory Tests Test 09/02/19 13:08 09/02/19 18:12 09/03/19 01:02 09/03/19 06:40 Glucose (Fingerstick) 214 mg/dL (70-99) 176 mg/dL (70-99) 190 mg/dL (70-99) 195 mg/dL (70-99) Test 09/03/19 11:59 09/03/19 12:00 09/03/19 12:56 09/03/19 18:19 Glucose (Fingerstick) 210 mg/dL (70-99) 180 mg/dL (70-99) Potassium Level 2.9 mmol/L (3.5-5.1) Clostridium difficile Toxin (PCR) Negative (NEGATIVE) Test 09/04/19 00:17 09/04/19 06:14 09/04/19 08:15 09/04/19 12:16 Glucose (Fingerstick) 190 mg/dL (70-99) 177 mg/dL (70-99) 179 mg/dL (70-99) O2 Saturation 96 % (92-99) Arterial Blood pH 7.51 (7.35-7.45) Arterial Blood pCO2 at Patient Temp 29 mmHg (35-46) Arterial Blood pO2 at Patient Temp 81 mmHg (65-108) Arterial Blood HCO3 23 mmol/L (21-28) Arterial Blood Base Excess 0 mmol/L (-3-3) FiO2 25 Laboratory Tests Test 09/03/19 12:56 09/03/19 18:19 09/04/19 00:17 09/04/19 06:14 Clostridium difficile Toxin (PCR) Negative (NEGATIVE) Glucose (Fingerstick) 180 mg/dL (70-99) 190 mg/dL (70-99) 177 mg/dL (70-99) Test 09/04/19 08:15 09/04/19 12:16 O2 Saturation 96 % (92-99) Arterial Blood pH 7.51 (7.35-7.45) Arterial Blood pCO2 at Patient Temp 29 mmHg (35-46) Arterial Blood pO2 at Patient Temp 81 mmHg (65-108) Arterial Blood HCO3 23 mmol/L (21-28) Arterial Blood Base Excess 0 mmol/L (-3-3) FiO2 25 Glucose (Fingerstick) 179 mg/dL (70-99) Microbiology 08/31/19 Urine Culture - Final, Complete 08/28/19 Gram Stain Evaluation - Final, Complete 08/28/19 Respiratory Culture - Final, Complete 08/28/19 Antimicrobic Susceptibility - Final, Complete 08/26/19 Blood Culture - Final, Complete NO GROWTH AFTER 5 DAYS Medications Current Medications Norepinephrine Bitartrate 8 mg/ Dextrose 258 ml @ 13.603 mls/ hr CONT PRN IV PER PROTOCOL Last administered on 08/28/19at 01:21; Start 08/26/19 at 23:00 Fentanyl Citrate 30 ml @ 0 mls/hr CONT PRN IV SEE PROTOCOL Last administered on 09/01/19at 07:24; Start 08/26/19 at 23:00; Stop 09/01/19 at 16:41; Status DC Fentanyl Citrate (Fentanyl 2ml Vial) 25 mcg PRN Q1HR PRN IV SEE COMMENTS; Start 08/26/19 at 23:00 Fentanyl Citrate (Fentanyl 2ml Vial) 50 mcg PRN Q1HR PRN IV SEE COMMENTS; Start 08/26/19 at 23:00 Famotidine (Pepcid Vial) 20 mg BID IVP Last administered on 09/04/19at 08:59; Start 08/27/19 at 09:00 Morphine Sulfate (Morphine Sulfate) 2 mg PRN Q1HR PRN IV SEE COMMENTS.; Start 08/26/19 at 23:00 Morphine Sulfate (Morphine Sulfate) 4 mg PRN Q1HR PRN IV SEE COMMENTS.; Start 08/26/19 at 23:00 Midazolam HCl 100 ml @ 0 mls/hr CONT PRN IV SEE PROTOCOL Last administered on 08/30/19at 11:23; Start 08/26/19 at 23:00 Enoxaparin Sodium (Lovenox 40mg Syringe) 40 mg Q24H SQ Last administered on 08/27/19at 00:42; Start 08/26/19 at 23:00; Stop 08/27/19 at 16:55; Status DC Metronidazole 100 ml @ 100 mls/hr Q8HRS IV Last administered on 08/27/19at 05:32; Start 08/27/19 at 06:00; Stop 08/27/19 at 13:14; Status DC Ceftriaxone Sodium (Rocephin) 1 gm Q24H IVP Last administered on 08/27/19at 08:32; Start 08/27/19 at 09:00; Stop 08/27/19 at 13:14; Status DC Sodium Chloride 1,000 ml @ 75 mls/hr [id number] IV Last administered on 09/02/19at 03:17; Start 08/26/19 at 23:00; Stop 09/02/19 at 13:47; Status DC Acetaminophen (Tylenol Supp) 650 mg PRN Q6HRS PRN SC MILD PAIN / TEMP > 100.3'F Last administered on 08/27/19at 02:09; Start 08/27/19 at 02:00 Piperacillin Sod/ Tazobactam Sod 3.375 gm/Sodium Chloride 50 ml @ 100 mls/hr Q6HRS IV Last administered on 09/04/19at 12:11; Start 08/27/19 at 14:00 Insulin Human Lispro (HumaLOG) 0-7 UNITS TIDWMEALS SQ ; Start 08/27/19 at 17:00; Stop 08/27/19 at 20:28; Status DC Dextrose (Dextrose 50%-Water Syringe) 12.5 gm PRN Q15MIN PRN IV SEE COMMENTS; Start 08/27/19 at 14:00 Apixaban (Eliquis) 5 mg BID FT Last administered on 09/04/19 08:59; Start 08/27/19 at 21:00 Aspirin (Aspirin Chewable) 81 mg DAILY PEG Last administered on 09/04/19 08:59; Start 08/27/19 at 17:00 Insulin Human Lispro (HumaLOG) 0-7 UNITS Q6HRS SQ Last administered on 09/04/19 12:21; Start 08/28/19 at 00:00 Potassium Bicarbonate (Potassium Effervescent Tablet) 40 meq 1X ONCE PO Last administered on 08/29/19at 08:59; Start 08/29/19 at 09:00; Stop 08/29/19 at 09:01; Status DC Info (Anti-Coagulation Monitoring By Pharmacy) 1 each PRN DAILY PRN MC SEE COMMENTS Last administered on 09/04/19 09:26; Start 08/31/19 at 08:30 Propofol 100 ml @ 1.133 mls/ hr CONT PRN IV SEE I/O RECORD; Start 08/31/19 at 08:30 Dexmedetomidine HCl 400 mcg/ Sodium Chloride 100 ml @ 0 mls/hr CONT PRN IV SEE COMMENTS Last administered on 08/31/19at 23:43; Start 08/31/19 at 12:45 Nicotine (Nicoderm Cq 21mg) 1 patch DAILY TD Last administered on 09/04/19 08:59; Start 08/31/19 at 13:30 Nystatin (Nystop) 1 lexus BID TP Last administered on 09/04/19at 09:00; Start 08/31/19 at 21:00 Linezolid (Zyvox) 600 mg BID PO Last administered on 09/04/19 08:59; Start 09/01/19 at 09:00 Micafungin Sodium 100 mg/Dextrose 100 ml @ 100 mls/hr BID IV ; Start 09/01/19 at 09:00; Stop 09/01/19 at 09:27; Status DC Micafungin Sodium 100 mg/Dextrose 100 ml @ 100 mls/hr DAILY IV Last administered on 09/04/19at 09:00; Start 09/02/19 at 09:00 Micafungin Sodium 100 mg/Dextrose 100 ml @ 100 mls/hr ONCE ONCE IV Last administered on 09/01/19at 09:41; Start 09/01/19 at 10:00; Stop 09/01/19 at 10:59; Status DC Furosemide (Lasix) 40 mg 1X ONCE IVP Last administered on 09/01/19at 11:10; Start 09/01/19 at 10:45; Stop 09/01/19 at 11:03; Status DC Acetaminophen (Tylenol) 650 mg PRN Q6HRS PRN PO pain or fever; Start 09/01/19 at 11:30; Status UNV Metoprolol Tartrate (Lopressor) 25 mg BID PEG Last administered on 09/04/19at 09:40; Start 09/01/19 at 12:00; Stop 09/04/19 at 12:37; Status DC Tamsulosin HCl (Flomax) 0.4 mg DAILY PO Last administered on 09/04/19at 08:59; Start 09/01/19 at 12:00 Olanzapine (ZyPREXA) 10 mg DAILY PEG Last administered on 09/04/19at 08:59; Start 09/01/19 at 12:00 Olanzapine (ZyPREXA) 20 mg QHS PO Last administered on 09/03/19at 21:12; Start 09/01/19 at 21:00 Atorvastatin Calcium (Lipitor) 40 mg QHS PEG Last administered on 09/03/19at 21:13; Start 09/01/19 at 21:00 Potassium Chloride/Water 100 ml @ 100 mls/hr Q1H IV Last administered on 09/02/19at 18:06; Start 09/02/19 at 11:00; Stop 09/02/19 at 18:59; Status DC Magnesium Sulfate 50 ml @ 25 mls/hr 1X ONCE IV Last administered on 09/02/19at 11:21; Start 09/02/19 at 11:00; Stop 09/02/19 at 12:59; Status DC Magnesium Sulfate 100 ml @ 25 mls/hr 1X ONCE IV ; Start 09/02/19 at 14:00; Stop 09/02/19 at 14:05; Status DC Furosemide (Lasix) 40 mg 1X ONCE IVP Last administered on 09/03/19at 11:29; Start 09/03/19 at 11:45; Stop 09/03/19 at 11:46; Status DC Potassium Chloride/Water 100 ml @ 50 mls/hr Q2H IV ; Start 09/03/19 at 12:00; Stop 09/03/19 at 12:35; Status DC Albuterol Sulfate (Ventolin Neb Soln) 2.5 mg PRN Q4HRS PRN NEB SHORTNESS OF BREATH Last administered on 09/03/19at 20:56; Start 09/03/19 at 12:15 Budesonide (Pulmicort) 0.5 mg RTBID NEB Last administered on 09/04/19at 08:06; Start 09/03/19 at 20:00 Potassium Chloride/Water 100 ml @ 100 mls/hr Q1H IV Last administered on 09/03/19at 17:21; Start 09/03/19 at 13:00; Stop 09/03/19 at 16:59; Status DC Lactobacillus Rhamnosus (Culturelle) 1 cap BID PO Last administered on 09/04/19at 08:59; Start 09/04/19 at 09:00 Metoprolol Tartrate (Lopressor) 50 mg BID PEG ; Start 09/04/19 at 13:00 Active Scripts Active Reported Pepcid (Famotidine) 20 Mg Tablet 20 Mg PEG BID Famotidine 20 Mg Tablet 20 Mg PO BID Aspirin 81 Mg Tab.chew 1 Tab PEG DAILY Eliquis (Apixaban) 5 Mg Tablet 5 Mg PEG BID Proventil Hfa (Albuterol Sulfate) 6.7 Gm Hfa.aer.ad 1 Puff INH PRN Q6HRS PRN Acetaminophen 325 Mg Tablet 2 Tab PEG PRN Q4-6HRS PRN 24 Days Humalog (Insulin Lispro) 100 Unit/1 Ml Vial 100 Unit SQ Q6HRS Inject 0-24 units under the skin every 6 hours Lantus Solostar (Insulin Glargine,Hum.rec.anlog) 100 Unit/1 Ml Insuln.pen 35 Unit SQ BID Symbicort 160-4.5 Mcg Inhaler (Budesonide/Formoterol Fumarate) 10.2 Gm Hfa.aer.ad 2 Puff IH BID Flomax (Tamsulosin Hcl) 0.4 Mg Cap.er.24h 0.4 Mg PEG DAILY Crestor (Rosuvastatin Calcium) 40 Mg Tablet 1 Tab PEG HS Roxicodone (Oxycodone HCl) 5 Mg Tablet 5 Mg PEG PRN Q4HRS PRN Olanzapine 20 Mg Tablet 1 Tab PEG QHS Olanzapine 10 Mg Tablet 1 Tab PEG DAILY Metoprolol Tartrate 25 Mg Tablet 1 Tab PEG BID Vitals/I & O Vital Sign - Last 24 Hours 09/03/19 09/03/19 09/03/19 09/03/19 14:57 15:30 19:00 20:00 Temp 98.5 98.5 Pulse 120 113 Resp 26 34 B/P (MAP) 162/114 (130) 151/79 (103) Pulse Ox 99 100 97 O2 Delivery BiPAP/CPAP BiPAP/CPAP Nasal Cannula Nasal Cannula O2 Flow Rate 3.0 3.0 09/03/19 09/03/19 09/03/19 09/04/19 21:02 21:12 23:00 00:25 Temp 98.5 98.5 Pulse 113 100 Resp 26 B/P (MAP) 151/79 151/79 (103) Pulse Ox 100 100 O2 Delivery Nasal Cannula Nasal Cannula BiPAP/CPAP O2 Flow Rate 5.0 3.0 09/04/19 09/04/19 09/04/19 09/04/19 03:00 04:00 07:00 08:00 Temp 99.6 99.1 99.6 99.1 Pulse 74 126 Resp 20 12 B/P (MAP) 133/61 (85) 153/99 (117) Pulse Ox 98 100 O2 Delivery BiPAP/CPAP BiPAP/CPAP BiPAP/CPAP Bi-pap O2 Flow Rate 25.0 25.0 09/04/19 09/04/19 09/04/19 09/04/19 08:06 09:40 11:00 11:41 Temp 99.1 99.1 Pulse 126 105 Resp 12 B/P (MAP) 153/99 155/84 (107) Pulse Ox 99 98 O2 Delivery BiPAP/CPAP BiPAP/CPAP BiPAP/CPAP O2 Flow Rate 25.0 Intake and Output 09/03/19 09/03/19 09/04/19 14:59 22:59 06:59 Intake Total 700 ml 600 ml 250 ml Output Total 700 ml 950 ml 155 ml Balance 0 ml -350 ml 95 ml Justicifation of Admission Dx: Justifications for Admission: Justification of Admission Dx: Yes Respiratory Failure: Mechanical Ventilation ADDIE HILL MD Sep 04, 2019 12:56
--- NOTE | 2019-09-04 13:16 | PDOC ---
[facility] PROGRESS NOTE Chief Complaint Chief Complaint Acute Hypoxic Resp Failure requiring mechanical Ventilation, intubated 08/25 Suspected Aspiration PNA Sputum culture returned MRSA Septic Shock, present on admission hx of Bowel Obstruction with PEG placement Anemia Acute Renal Failure secondary to Vasomotor Nephropathy, resolved DM2 HLD BPH Severe protein malnutrition, present upon admission. Coronary artery disease, status post coronary artery bypass grafting on oral AC History of Present Illness History of Present Illness 09/04/2019 IPAP 12/ EPAP 4/ Rate 12/ O2 25% Patient seen and examined Discussed with RN Chart reviewed 09/03/2019 Patient seen and examined in the ICU Discussed with RN Chart reviewed 09/01 Patient seen and examined Chart reviewed Discussed with RN 09/01/2019 Patient seen and examined in the ICU He remains mechanically ventilated 100/35% Hemoglobin has dropped to 6.9 we have ordered 1 unit of blood Also ordered 40 of Lasix He is currently being fed via PEG Discussed with RN Chart reviewed 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 HEART: S1, S2 tachycardia w/ PVCs : Nava ABDOMEN: Soft, + BS, incision intact, PEG tube is in place. Yeast in groin. Fecal tube in place EXTREMITIES: Trace edema. No cyanosis. SCDs bilaterally SKIN: Without rash NEUROLOGIC: Sedated PIV General: Other (Sedated on vent) Heart: Regular rate Lungs: Crackles Abdomen: Normal bowel sounds Extremities: No clubbing, No edema Skin: No rashes Labs Labs: Laboratory Tests Test 09/03/19 18:19 09/04/19 00:17 09/04/19 06:14 09/04/19 08:15 Glucose (Fingerstick) 180 mg/dL (70-99) 190 mg/dL (70-99) 177 mg/dL (70-99) O2 Saturation 96 % (92-99) Arterial Blood pH 7.51 (7.35-7.45) Arterial Blood pCO2 at Patient Temp 29 mmHg (35-46) Arterial Blood pO2 at Patient Temp 81 mmHg (65-108) Arterial Blood HCO3 23 mmol/L (21-28) Arterial Blood Base Excess 0 mmol/L (-3-3) FiO2 25 Test 09/04/19 12:16 Glucose (Fingerstick) 179 mg/dL (70-99) Assessment and Plan Assessmemt and Plan Acute Hypoxic Resp Failure requiring mechanical Ventilation, intubated 08/25 Suspected Aspiration PNA Sputum culture returned MRSA Septic Shock, present on admission hx of Bowel Obstruction with PEG placement Anemia Acute Renal Failure secondary to Vasomotor Nephropathy, resolved DM2 HLD BPH Severe protein malnutrition, present upon admission. Coronary artery disease, status post coronary artery bypass grafting on oral AC Plan ICU monitoring Increase dose of Metoprolol Trend Labs DVT prophylaxis Home Meds Full Code Appreciate subspecialist input Continue Rectal bag Long-term prognosis guarded He is very ill Total time 32 Comment Review of Relevant I have reviewed the following items parminder (where applicable) has been applied. Medications: Current Medications Medications (Trade) Dose Ordered Sig/Yanet Route PRN Reason Start Time Stop Time Status Last Admin Dose Admin Budesonide (Pulmicort) 0.5 mg RTBID NEB 09/03/19 20:00 09/04/19 08:06 Lactobacillus Rhamnosus (Culturelle) 1 cap BID PO 09/04/19 09:00 09/04/19 08:59 Justicifation of Admission Dx: Justifications for Admission: Justification of Admission Dx: Yes Respiratory Failure: Mechanical Ventilation HASMUKH GRANGER III DO Sep 04, 2019 13:16
--- NOTE | 2019-09-04 14:05 | NUR ---
SS following up with discharge planning. SS reviewed pt chart and discussed with pt RN. Pt is currently on BIPAP. Pt on IV Micafungin and IV Zosyn. COVID19 negative. Pt accepted at [facility], ; fax [phone]. Pt's spouse agreeable. Per RN, pt having MRI and EEG today. SS will continue to follow for discharge planning.
[2019-09-04] MEDS: METOPROLOL TART IMMED RELEASE 50 MG TABLET. PEG SCH ×2 (14:29→21:43)
[2019-09-04 15:00] VITALS: BP 117/71
[2019-09-04 19:00] VITALS: BP 159/86
[2019-09-04] MEDS ORDERED: ACETAMINOPHEN 650 MG/20.3 ML SOLUTION. PEG PRN (20:00)
[2019-09-04] MEDS: ATORVASTATIN CALCIUM 40 MG TABLET. PEG SCH (21:44)
[2019-09-04] MEDS: OLANZapine 5 MG TABLET PO SCH (21:44)
[2019-09-04 23:00] VITALS: BP 111/67
[2019-09-05] VITALS (7 sets, daily range): BP systolic 128–169; BP diastolic 68–76
[2019-09-05] MEDS: PIPERACILLIN/TAZOBACTAM 3.375 GM in IV NORMAL SALINE 50ML 50 ML IV SCH ×4 (00:08→17:39)
[2019-09-05] MEDS: INSULIN LISPRO 300 UNITS/3 ML VIAL. SQ SCH ×4 (00:12→17:56)
[2019-09-05] MEDS: BUDESONIDE 0.5 MG/2 ML NEBU. NEB SCH ×2 (07:12→20:48)
--- NOTE | 2019-09-05 08:06 | PDOC ---
Infectious Disease Note Subjective: Subjective Patient remains on BiPAP No fevers last 24 hrs Vital Signs: Vital Signs Vital Signs Date Time Temp Pulse Resp B/P (MAP) Pulse Ox O2 Delivery O2 Flow Rate FiO2 09/05/19 07:13 93 BiPAP/CPAP 09/05/19 04:40 99.3 119 24 128/76 (93) 3.0 99.3 Physical Exam: PHYSICAL EXAM GENERAL: Sedated on BiPAP HEENT: Anicteric NECK: Supple LUNGS: Decreased breath sounds bilaterally. HEART: S1, S2 tachycardia w/ PVCs : Alvarez ABDOMEN: Soft, + BS, incision intact, PEG tube is in place. Yeast in groin. Fecal tube in place EXTREMITIES: Trace edema. No cyanosis. SCDs bilaterally SKIN: Without rash NEUROLOGIC: Sedated PIV Medications: Inpatient Meds: Current Medications Medications (Trade) Dose Ordered Sig/Yanet Start Time Stop Time Status Last Admin Dose Admin Acetaminophen (Tylenol Supp) 650 mg PRN Q6HRS PRN 08/27/19 02:00 08/27/19 02:09 650 MG Acetaminophen (Tylenol) 650 mg PRN Q6HRS PRN 09/04/19 20:00 Albuterol Sulfate (Ventolin Neb Soln) 2.5 mg PRN Q4HRS PRN 09/03/19 12:15 09/03/19 20:56 2.5 MG Apixaban (Eliquis) 5 mg BID 08/27/19 21:00 09/04/19 21:44 5 MG Aspirin (Aspirin Chewable) 81 mg DAILY 08/27/19 17:00 09/04/19 08:59 81 MG Atorvastatin Calcium (Lipitor) 40 mg QHS 09/01/19 21:00 09/04/19 21:44 40 MG Budesonide (Pulmicort) 0.5 mg RTBID 09/03/19 20:00 09/05/19 07:12 0.5 MG Ceftriaxone Sodium (Rocephin) 1 gm Q24H 08/27/19 09:00 08/27/19 13:14 DC 08/27/19 08:32 1 GM Dexmedetomidine HCl 400 mcg/ Sodium Chloride 100 ml @ 0 mls/hr CONT PRN 08/31/19 12:45 08/31/19 23:43 7 MLS/HR Dextrose (Dextrose 50%-Water Syringe) 12.5 gm PRN Q15MIN PRN 08/27/19 14:00 Enoxaparin Sodium (Lovenox 40mg Syringe) 40 mg Q24H 08/26/19 23:00 08/27/19 16:55 DC 08/27/19 00:42 40 MG Famotidine (Pepcid Vial) 20 mg BID 08/27/19 09:00 09/04/19 21:44 20 MG Fentanyl Citrate (Fentanyl 2ml Vial) 50 mcg PRN Q1HR PRN 08/26/19 23:00 Furosemide (Lasix) 40 mg 1X ONCE 09/03/19 11:45 09/03/19 11:46 DC 09/03/19 11:29 40 MG Info (Anti-Coagulation Monitoring By Pharmacy) 1 each PRN DAILY PRN 08/31/19 08:30 09/04/19 09:26 1 EACH Insulin Human Lispro (HumaLOG) 0-7 UNITS Q6HRS 08/28/19 00:00 09/05/19 00:12 3 UNITS Lactobacillus Rhamnosus (Culturelle) 1 cap BID 09/04/19 09:00 09/04/19 21:43 1 CAP Linezolid (Zyvox) 600 mg BID 09/01/19 09:00 09/04/19 21:44 600 MG Magnesium Sulfate 100 ml @ 25 mls/hr 1X ONCE 09/02/19 14:00 09/02/19 14:05 DC Metoprolol Tartrate (Lopressor) 50 mg BID 09/04/19 13:00 09/04/19 21:43 50 MG Metronidazole 100 ml @ 100 mls/hr Q8HRS 08/27/19 06:00 08/27/19 13:14 DC 08/27/19 05:32 100 MLS/HR Micafungin Sodium 100 mg/Dextrose 100 ml @ 100 mls/hr ONCE ONCE 09/01/19 10:00 09/01/19 10:59 DC 09/01/19 09:41 100 MLS/HR Midazolam HCl 100 ml @ 0 mls/hr CONT PRN 08/26/19 23:00 08/30/19 11:23 2 MLS/HR Morphine Sulfate (Morphine Sulfate) 4 mg PRN Q1HR PRN 08/26/19 23:00 Nicotine (Nicoderm Cq 21mg) 1 patch DAILY 08/31/19 13:30 09/04/19 08:59 1 PATCH Norepinephrine Bitartrate 8 mg/ Dextrose 258 ml @ 13.603 mls/ hr CONT PRN 08/26/19 23:00 08/28/19 01:21 10.882 MLS/HR Nystatin (Nystop) 1 lexus BID 08/31/19 21:00 09/04/19 21:45 1 LEXUS Olanzapine (ZyPREXA) 20 mg QHS 09/01/19 21:00 09/04/19 21:44 20 MG Piperacillin Sod/ Tazobactam Sod 3.375 gm/Sodium Chloride 50 ml @ 100 mls/hr Q6HRS 08/27/19 14:00 09/05/19 06:14 100 MLS/HR Potassium Bicarbonate (Potassium Effervescent Tablet) 40 meq 1X ONCE 08/29/19 09:00 08/29/19 09:01 DC 08/29/19 08:59 40 MEQ Potassium Chloride/Water 100 ml @ 100 mls/hr Q1H 09/03/19 13:00 09/03/19 16:59 DC 09/03/19 17:21 100 MLS/HR Propofol 100 ml @ 1.133 mls/ hr CONT PRN 08/31/19 08:30 Sodium Chloride 1,000 ml @ 75 mls/hr [id number] 08/26/19 23:00 09/02/19 13:47 DC 09/02/19 03:17 75 MLS/HR Tamsulosin HCl (Flomax) 0.4 mg DAILY 09/01/19 12:00 09/04/19 08:59 0.4 MG Labs: Lab Laboratory Tests Test 09/04/19 08:15 09/04/19 12:16 09/04/19 18:31 09/04/19 23:58 O2 Saturation 96 % (92-99) Arterial Blood pH 7.51 (7.35-7.45) Arterial Blood pCO2 at Patient Temp 29 mmHg (35-46) Arterial Blood pO2 at Patient Temp 81 mmHg (65-108) Arterial Blood HCO3 23 mmol/L (21-28) Arterial Blood Base Excess 0 mmol/L (-3-3) FiO2 25 Glucose (Fingerstick) 179 mg/dL (70-99) 194 mg/dL (70-99) 169 mg/dL (70-99) Test 09/05/19 06:09 Glucose (Fingerstick) 186 mg/dL (70-99) Objective: Assessment: Respiratory failure. Fever - better Suspected aspiration.;sputum culture positive for MRSA Recent bowel obstruction, s/p surgery and PEG-tube placement. Renal insufficiency yeast in groin. Yeast in urine culture Encephalopathy, likely metabolic Plan: Plan of Care continue zosyn DC micafungin cont zyvox 600 mg bid 08/31 alvarez changed C. difficile PCR neg f/u cultures Maintain aspiration precautions Supportive care d/ wRN KAYCEE WARE MD Sep 05, 2019 08:06
[2019-09-05] MEDS: FAMOTIDINE 20 MG/2 ML VIAL IVP SCH ×2 (08:24→21:16)
[2019-09-05] MEDS: MICAFUNGIN 100 MG in IV DEXTROSE 5% 100ML 100 ML IV SCH (08:26)
--- NOTE | 2019-09-05 08:26 | RAD ---
INDICATION: Reason: rf,cough / Spl. Instructions: / History: COMPARISON: September 01, 2019 FINDINGS: Single view of chest obtained. Enlarged cardiomediastinal silhouette with poststernotomy changes. Interstitial opacities are seen as well as more focal component at the left mid to lower lung which appears increased from prior. IMPRESSION: * Interstitial opacities with more focal component at the left mid to lower lung. Could be secondary to infectious etiology given the focal component within the left lung with a component of pulmonary edema also within the differential. This appears increased from prior. Follow-up could be obtained to ensure this appropriately resolves. Electronically signed by: Alli Elena MD (09/05/2019 8:23 AM) [id number]
--- NOTE | 2019-09-05 08:27 | PDOC ---
PROGRESS NOTES Assessment Metabolic encephalopathy, prolonged intubation, sedation, sepsis, bowel resection, no bedside examination evidence of stroke. Better History of neuropathy and lumbar disc disease. [facility] records reviewed, he had a CT head on 08/24, negative Plan Awaiting Brain MRI and EEG Subjective none Objective Vital Signs Date Time Temp Pulse Resp B/P (MAP) Pulse Ox O2 Delivery O2 Flow Rate FiO2 09/05/19 07:13 93 BiPAP/CPAP 09/05/19 04:40 99.3 119 24 128/76 (93) 3.0 99.3 l Intake and Output 09/05/19 07:00 Intake Total 4233 ml Output Total 3080 ml Balance 1153 ml Tube Feeding 3268 ml Blood Product IV Normal Saline Flush 840 ml Other 125 ml Output Urine Total 2280 ml Stool Total 800 ml PHYSICAL EXAM On BiPAP Alert. Speech nonsensical PERRL. EOMI. CN: no focal findings. Muscle tone: normal. Muscle strength: 4/5 DTR: 1+ Plantar reflex: flexor Gait: not examined in bed. Sensory exam: no abnormal findings. No cerebellar signs elicited. Review of Relevant I have reviewed the following items parminder (where applicable) has been applied. Labs Laboratory Tests Test 09/03/19 11:59 09/03/19 12:00 09/03/19 12:56 09/03/19 18:19 Glucose (Fingerstick) 210 mg/dL (70-99) 180 mg/dL (70-99) Potassium Level 2.9 mmol/L (3.5-5.1) Clostridium difficile Toxin (PCR) Negative (NEGATIVE) Test 09/04/19 00:17 09/04/19 06:14 09/04/19 08:15 09/04/19 12:16 Glucose (Fingerstick) 190 mg/dL (70-99) 177 mg/dL (70-99) 179 mg/dL (70-99) O2 Saturation 96 % (92-99) Arterial Blood pH 7.51 (7.35-7.45) Arterial Blood pCO2 at Patient Temp 29 mmHg (35-46) Arterial Blood pO2 at Patient Temp 81 mmHg (65-108) Arterial Blood HCO3 23 mmol/L (21-28) Arterial Blood Base Excess 0 mmol/L (-3-3) FiO2 25 Test 09/04/19 18:31 7/23/20 23:58 09/05/19 06:09 Glucose (Fingerstick) 194 mg/dL (70-99) 169 mg/dL (70-99) 186 mg/dL (70-99) Laboratory Tests Test 09/04/19 12:16 09/04/19 18:31 09/04/19 23:58 09/05/19 06:09 Glucose (Fingerstick) 179 mg/dL (70-99) 194 mg/dL (70-99) 169 mg/dL (70-99) 186 mg/dL (70-99) Microbiology 08/31/19 Urine Culture - Final, Complete 08/28/19 Gram Stain Evaluation - Final, Complete 08/28/19 Respiratory Culture - Final, Complete 08/28/19 Antimicrobic Susceptibility - Final, Complete 08/26/19 Blood Culture - Final, Complete NO GROWTH AFTER 5 DAYS Medications Current Medications Norepinephrine Bitartrate 8 mg/ Dextrose 258 ml @ 13.603 mls/ hr CONT PRN IV PER PROTOCOL Last administered on 08/28/19at 01:21; Start 08/26/19 at 23:00 Fentanyl Citrate 30 ml @ 0 mls/hr CONT PRN IV SEE PROTOCOL Last administered on 09/01/19at 07:24; Start 08/26/19 at 23:00; Stop 09/01/19 at 16:41; Status DC Fentanyl Citrate (Fentanyl 2ml Vial) 25 mcg PRN Q1HR PRN IV SEE COMMENTS; Start 08/26/19 at 23:00 Fentanyl Citrate (Fentanyl 2ml Vial) 50 mcg PRN Q1HR PRN IV SEE COMMENTS; Start 08/26/19 at 23:00 Famotidine (Pepcid Vial) 20 mg BID IVP Last administered on 09/04/19at 21:44; Start 08/27/19 at 09:00 Morphine Sulfate (Morphine Sulfate) 2 mg PRN Q1HR PRN IV SEE COMMENTS.; Start 08/26/19 at 23:00 Morphine Sulfate (Morphine Sulfate) 4 mg PRN Q1HR PRN IV SEE COMMENTS.; Start 08/26/19 at 23:00 Midazolam HCl 100 ml @ 0 mls/hr CONT PRN IV SEE PROTOCOL Last administered on 08/30/19at 11:23; Start 08/26/19 at 23:00 Enoxaparin Sodium (Lovenox 40mg Syringe) 40 mg Q24H SQ Last administered on 08/27/19at 00:42; Start 08/26/19 at 23:00; Stop 08/27/19 at 16:55; Status DC Metronidazole 100 ml @ 100 mls/hr Q8HRS IV Last administered on 08/27/19at 05:32; Start 08/27/19 at 06:00; Stop 08/27/19 at 13:14; Status DC Ceftriaxone Sodium (Rocephin) 1 gm Q24H IVP Last administered on 08/27/19at 08:32; Start 08/27/19 at 09:00; Stop 08/27/19 at 13:14; Status DC Sodium Chloride 1,000 ml @ 75 mls/hr [id number] IV Last administered on 09/02/19at 03:17; Start 08/26/19 at 23:00; Stop 09/02/19 at 13:47; Status DC Acetaminophen (Tylenol Supp) 650 mg PRN Q6HRS PRN [place] MILD PAIN / TEMP > 100.3'F Last administered on 08/27/19at 02:09; Start 08/27/19 at 02:00 Piperacillin Sod/ Tazobactam Sod 3.375 gm/Sodium Chloride 50 ml @ 100 mls/hr Q6HRS IV Last administered on 09/05/19at 06:14; Start 08/27/19 at 14:00 Insulin Human Lispro (HumaLOG) 0-7 UNITS TIDWMEALS SQ ; Start 08/27/19 at 17:00; Stop 08/27/19 at 20:28; Status DC Dextrose (Dextrose 50%-Water Syringe) 12.5 gm PRN Q15MIN PRN IV SEE COMMENTS; Start 08/27/19 at 14:00 Apixaban (Eliquis) 5 mg BID FT Last administered on 09/04/19at 21:44; Start 08/27/19 at 21:00 Aspirin (Aspirin Chewable) 81 mg DAILY PEG Last administered on 09/04/19at 08:59; Start 08/27/19 at 17:00 Insulin Human Lispro (HumaLOG) 0-7 UNITS Q6HRS SQ Last administered on 09/05/19at 00:12; Start 08/28/19 at 00:00 Potassium Bicarbonate (Potassium Effervescent Tablet) 40 meq 1X ONCE PO Last administered on 08/29/19 08:59; Start 08/29/19 at 09:00; Stop 08/29/19 at 09:01; Status DC Info (Anti-Coagulation Monitoring By Pharmacy) 1 each PRN DAILY PRN MC SEE COMMENTS Last administered on 09/04/19at 09:26; Start 08/31/19 at 08:30 Propofol 100 ml @ 1.133 mls/ hr CONT PRN IV SEE I/O RECORD; Start 08/31/19 at 08:30 Dexmedetomidine HCl 400 mcg/ Sodium Chloride 100 ml @ 0 mls/hr CONT PRN IV SEE COMMENTS Last administered on 08/31/19at 23:43; Start 08/31/19 at 12:45 Nicotine (Nicoderm Cq 21mg) 1 patch DAILY TD Last administered on 09/04/19 08:59; Start 08/31/19 at 13:30 Nystatin (Nystop) 1 lexus BID TP Last administered on 09/04/19 21:45; Start 08/31/19 at 21:00 Linezolid (Zyvox) 600 mg BID PO Last administered on 09/04/19 21:44; Start 09/01/19 at 09:00 Micafungin Sodium 100 mg/Dextrose 100 ml @ 100 mls/hr BID IV ; Start 09/01/19 at 09:00; Stop 09/01/19 at 09:27; Status DC Micafungin Sodium 100 mg/Dextrose 100 ml @ 100 mls/hr DAILY IV Last administered on 09/04/19at 09:00; Start 09/02/19 at 09:00 Micafungin Sodium 100 mg/Dextrose 100 ml @ 100 mls/hr ONCE ONCE IV Last administered on 09/01/19at 09:41; Start 09/01/19 at 10:00; Stop 09/01/19 at 10:59; Status DC Furosemide (Lasix) 40 mg 1X ONCE IVP Last administered on 09/01/19 11:10; Start 09/01/19 at 10:45; Stop 09/01/19 at 11:03; Status DC Acetaminophen (Tylenol) 650 mg PRN Q6HRS PRN PO pain or fever; Start 09/01/19 at 11:30; Status UNV Metoprolol Tartrate (Lopressor) 25 mg BID PEG Last administered on 7/23/20at 09:40; Start 09/01/19 at 12:00; Stop 09/04/19 at 12:37; Status DC Tamsulosin HCl (Flomax) 0.4 mg DAILY PO Last administered on 09/04/19at 08:59; Start 09/01/19 at 12:00 Olanzapine (ZyPREXA) 10 mg DAILY PEG Last administered on 09/04/19at 08:59; Start 09/01/19 at 12:00 Olanzapine (ZyPREXA) 20 mg QHS PO Last administered on 09/04/19at 21:44; Start 09/01/19 at 21:00 Atorvastatin Calcium (Lipitor) 40 mg QHS PEG Last administered on 09/04/19at 21:44; Start 09/01/19 at 21:00 Potassium Chloride/Water 100 ml @ 100 mls/hr Q1H IV Last administered on 09/02/19at 18:06; Start 09/02/19 at 11:00; Stop 09/02/19 at 18:59; Status DC Magnesium Sulfate 50 ml @ 25 mls/hr 1X ONCE IV Last administered on 09/02/19at 11:21; Start 09/02/19 at 11:00; Stop 09/02/19 at 12:59; Status DC Magnesium Sulfate 100 ml @ 25 mls/hr 1X ONCE IV ; Start 09/02/19 at 14:00; Stop 09/02/19 at 14:05; Status DC Furosemide (Lasix) 40 mg 1X ONCE IVP Last administered on 09/03/19at 11:29; Start 09/03/19 at 11:45; Stop 09/03/19 at 11:46; Status DC Potassium Chloride/Water 100 ml @ 50 mls/hr Q2H IV ; Start 09/03/19 at 12:00; Stop 09/03/19 at 12:35; Status DC Albuterol Sulfate (Ventolin Neb Soln) 2.5 mg PRN Q4HRS PRN NEB SHORTNESS OF BREATH Last administered on 09/03/19at 20:56; Start 09/03/19 at 12:15 Budesonide (Pulmicort) 0.5 mg RTBID NEB Last administered on 09/05/19at 07:12; Start 09/03/19 at 20:00 Potassium Chloride/Water 100 ml @ 100 mls/hr Q1H IV Last administered on 09/03/19at 17:21; Start 09/03/19 at 13:00; Stop 09/03/19 at 16:59; Status DC Lactobacillus Rhamnosus (Culturelle) 1 cap BID PO Last administered on 09/04/19at 21:43; Start 09/04/19 at 09:00 Metoprolol Tartrate (Lopressor) 50 mg BID PEG Last administered on 09/04/19at 21:43; Start 09/04/19 at 13:00 Acetaminophen (Tylenol) 650 mg PRN Q6HRS PRN PEG MILD PAIN / TEMP > 100.3'F; Start 09/04/19 at 20:00 Active Scripts Active Reported Pepcid (Famotidine) 20 Mg Tablet 20 Mg PEG BID Famotidine 20 Mg Tablet 20 Mg PO BID Aspirin 81 Mg Tab.chew 1 Tab PEG DAILY Eliquis (Apixaban) 5 Mg Tablet 5 Mg PEG BID Proventil Hfa (Albuterol Sulfate) 6.7 Gm Hfa.aer.ad 1 Puff INH PRN Q6HRS PRN Acetaminophen 325 Mg Tablet 2 Tab PEG PRN Q4-6HRS PRN 24 Days Humalog (Insulin Lispro) 100 Unit/1 Ml Vial 100 Unit SQ Q6HRS Inject 0-24 units under the skin every 6 hours Lantus Solostar (Insulin Glargine,Hum.rec.anlog) 100 Unit/1 Ml Insuln.pen 35 Unit SQ BID Symbicort 160-4.5 Mcg Inhaler (Budesonide/Formoterol Fumarate) 10.2 Gm Hfa.aer.ad 2 Puff IH BID Flomax (Tamsulosin Hcl) 0.4 Mg Cap.er.24h 0.4 Mg PEG DAILY Crestor (Rosuvastatin Calcium) 40 Mg Tablet 1 Tab PEG HS Roxicodone (Oxycodone HCl) 5 Mg Tablet 5 Mg PEG PRN Q4HRS PRN Olanzapine 20 Mg Tablet 1 Tab PEG QHS Olanzapine 10 Mg Tablet 1 Tab PEG DAILY Metoprolol Tartrate 25 Mg Tablet 1 Tab PEG BID Vitals/I & O Vital Sign - Last 24 Hours 09/04/19 09/04/19 09/04/19 09/04/19 09:40 11:00 11:41 14:29 Temp 99.1 99.1 Pulse 126 105 111 Resp 12 B/P (MAP) 153/99 155/84 (107) 155/84 Pulse Ox 99 98 O2 Delivery BiPAP/CPAP BiPAP/CPAP O2 Flow Rate 25.0 09/04/19 09/04/19 09/04/19 09/04/19 15:00 18:12 19:00 20:00 Temp 99.1 99.5 99.1 99.5 Pulse 110 112 Resp 12 32 B/P (MAP) 117/71 (86) 159/86 (110) Pulse Ox 100 98 98 91 O2 Delivery BiPAP/CPAP BiPAP/CPAP BiPAP/CPAP BiPAP/CPAP O2 Flow Rate 25.0 09/04/19 09/04/19 09/04/19 09/05/19 20:00 21:43 23:00 00:23 Pulse 112 102 Resp 25 B/P (MAP) 159/86 111/67 (82) Pulse Ox 98 93 O2 Delivery Bi-pap BiPAP/CPAP BiPAP/CPAP O2 Flow Rate 25.0 25.0 09/05/19 09/05/19 09/05/19 09/05/19 03:00 04:03 04:30 04:40 Temp 98.2 99.3 98.2 99.3 Pulse 107 119 Resp 28 24 B/P (MAP) 132/68 (89) 128/76 (93) Pulse Ox 92 94 92 O2 Delivery Nasal Cannula BiPAP/CPAP Bi-pap Nasal Cannula O2 Flow Rate 25.0 3.0 09/05/19 07:13 Pulse Ox 93 O2 Delivery BiPAP/CPAP Intake and Output 09/04/19 09/04/19 09/05/19 15:00 23:00 07:00 Intake Total 868 ml 2163 ml 1202 ml Output Total 1580 ml 800 ml 700 ml Balance -712 ml 1363 ml 502 ml Justicifation of Admission Dx: Justifications for Admission: Justification of Admission Dx: Yes Respiratory Failure: Mechanical Ventilation ADDIE HILL MD Sep 05, 2019 08:27
[2019-09-05] MEDS: APIXABAN 5 MG TABLET. FT SCH ×2 (08:34→21:17)
[2019-09-05] MEDS: TAMSULOSIN 0.4 MG CAP.ER.24H. PO SCH (08:35)
[2019-09-05] MEDS: METOPROLOL TART IMMED RELEASE 50 MG TABLET. PEG SCH ×2 (08:35→21:16)
[2019-09-05] MEDS: LACTOBACILLUS RHAMNOSUS GG 1 CAPSULE. PO SCH ×2 (08:35→21:23)
[2019-09-05] MEDS: LINEZOLID 600 MG TABLET PO SCH ×2 (08:35→21:16)
[2019-09-05] MEDS: ASPIRIN CHEWABLE 81 MG TABLET. PEG SCH (08:35)
[2019-09-05] MEDS: OLANZapine 5 MG TABLET PEG SCH (08:35)
[2019-09-05] MEDS: NICOTINE 21MG PATCH. TD SCH (08:42)
[2019-09-05] MEDS: NYSTATIN TOPICAL POWDER 15GM BOTTLE. TP SCH ×2 (08:43→21:17)
[2019-09-05] MEDS: ANTI-COAG MONITOR BY PHARMACY. MC PRN (09:05)
--- NOTE | 2019-09-05 09:24 | PDOC ---
PROGRESS NOTES Chief Complaint Chief Complaint impression Acute Hypoxic Resp Failure requiring mechanical Ventilation, intubated 08/25 Suspected Aspiration PNA Interstitial opacities with more focal component at the left mid to lower lung. Could be secondary to infectious etiology given the focal component within the left lung with a component of pulmonary edema also 09/04 within the differential. Sputum culture returned MRSA Suspected aspiration.;sputum culture positive for MRSA Recent bowel obstruction, s/p surgery and PEG-tube placement. Septic Shock, present on admission hx of Bowel Obstruction with PEG placement Anemia Acute Renal Failure secondary to Vasomotor Nephropathy, resolved DM2 HLD BPH Severe protein malnutrition, present upon admission. Coronary artery disease, status post coronary artery bypass grafting on oral AC uti hypokalemia hypomagnesemia plan Up to chair PT OT Monitor H&H Antibiotics per ID to select when cleared by neurology correct lytes, k. mg History of Present Illness History of Present Illness 09/05/2019 IPAP 12/ EPAP 4/ Rate 12/ O2 25% Patient seen and examined Discussed with RN Chart reviewed await eeg and mri, neurology clearance 27 min pt exam, chart review, > 50% of time spent with exam, chart review, pt care coordination 09/03/2019 Patient seen and examined in the ICU Discussed with RN Chart reviewed 09/01 Patient seen and examined Chart reviewed Discussed with RN 09/01/2019 Patient seen and examined in the ICU He remains mechanically ventilated 100/35% Hemoglobin has dropped to 6.9 we have ordered 1 unit of blood Also ordered 40 of Lasix He is currently being fed via PEG Discussed with RN Chart reviewed Discussed with clinical case manager Vitals Vitals Vital Signs Date Time Temp Pulse Resp B/P (MAP) Pulse Ox O2 Delivery O2 Flow Rate FiO2 09/05/19 08:35 124 132/71 09/05/19 07:13 93 BiPAP/CPAP 09/05/19 04:40 99.3 24 3.0 99.3 Physical Exam Physical Exam GENERAL: Sedated on BiPAP HEENT: Anicteric NECK: Supple LUNGS: Decreased breath sounds bilaterally. HEART: S1, S2 tachycardia w/ PVCs : Nava ABDOMEN: Soft, + BS, incision intact, PEG tube is in place. Yeast in groin. Fecal tube in place EXTREMITIES: Trace edema. No cyanosis. SCDs bilaterally SKIN: Without rash NEUROLOGIC: Sedated PIV General: Cooperative, Other (Sedated on vent) Heart: Regular rate Lungs: Crackles Abdomen: Normal bowel sounds, No tenderness Extremities: No clubbing, No edema Skin: No rashes Labs LABS INDICATION: Reason: rf,cough / Spl. Instructions: / History: COMPARISON: September 01, 2019 FINDINGS: Single view of chest obtained. Enlarged cardiomediastinal silhouette with poststernotomy changes. Interstitial opacities are seen as well as more focal component at the left mid to lower lung which appears increased from prior. IMPRESSION: * Interstitial opacities with more focal component at the left mid to lower lung. Could be secondary to infectious etiology given the focal component within the left lung with a component of pulmonary edema also within the differential. This appears increased from prior. Follow-up could be obtained to ensure this appropriately resolves. Electronically signed by: Lane Elena MD (09/05/2019 8:23 AM) [id number] DICTATED and SIGNED BY: LANE ELENA MD DATE: 09/05/19 08 GRAM STAIN EVALUATION Final Final This specimen is of good quality and is acceptable for routine bacterial culture. Culture results to follow. GRAM POSITIVE COCCI:FEW SQUAMOUS EPI CELL:NONE SEEN PMN (WBCs):FEW RESPIRATORY CULTURE Final Final MODERATE FINAL ID= [STAPHYLOCOCCUS AUREUS] STAPHYLOCOCCUS AUREUS (MRSA) STAPHYLOCOCCUS AUREUS ANTIMICROBIAL SUSCEPTIBILITY Final Comment POS VAL TYPE 38 STAPHYLOCOCCUS AUREUS (MRSA) ANTIBIOTIC RESULT INTERPRETATION AZITHROMYCIN >4 R CLINDAMYCIN >4 R CEFOXITIN SCREEN >4 R CIPROFLOXACIN >2 R CEFTAROLINE 1 S ERYTHROMYCIN >4 R GENTAMICIN <=4 S LINEZOLID 4 S LEVOFLOXACIN >4 R OXACILLIN >2 R PENICILLIN >2 R RIFAMPIN <=1 S TRIMETHOPRIM/SULFAMETHOXAZOLE <=0.5/9.5 S TETRACYCLINE <=4 S VANCOMYCIN 2 S Unless otherwise specified, Testing Performed by: [facility] [address] Laboratory Tests Test 09/04/19 12:16 09/04/19 18:31 09/04/19 23:58 09/05/19 06:09 Glucose (Fingerstick) 179 mg/dL (70-99) 194 mg/dL (70-99) 169 mg/dL (70-99) 186 mg/dL (70-99) Comment Review of Relevant I have reviewed the following items parminder (where applicable) has been applied. Labs Laboratory Tests Test 09/03/19 11:59 09/03/19 12:00 09/03/19 12:56 09/03/19 18:19 Glucose (Fingerstick) 210 mg/dL (70-99) 180 mg/dL (70-99) Potassium Level 2.9 mmol/L (3.5-5.1) Clostridium difficile Toxin (PCR) Negative (NEGATIVE) Test 09/04/19 00:17 09/04/19 06:14 09/04/19 08:15 09/04/19 12:16 Glucose (Fingerstick) 190 mg/dL (70-99) 177 mg/dL (70-99) 179 mg/dL (70-99) O2 Saturation 96 % (92-99) Arterial Blood pH 7.51 (7.35-7.45) Arterial Blood pCO2 at Patient Temp 29 mmHg (35-46) Arterial Blood pO2 at Patient Temp 81 mmHg (65-108) Arterial Blood HCO3 23 mmol/L (21-28) Arterial Blood Base Excess 0 mmol/L (-3-3) FiO2 25 Test 09/04/19 18:31 09/04/19 23:58 09/05/19 06:09 Glucose (Fingerstick) 194 mg/dL (70-99) 169 mg/dL (70-99) 186 mg/dL (70-99) Laboratory Tests Test 09/04/19 12:16 09/04/19 18:31 09/04/19 23:58 09/05/19 06:09 Glucose (Fingerstick) 179 mg/dL (70-99) 194 mg/dL (70-99) 169 mg/dL (70-99) 186 mg/dL (70-99) Microbiology 08/31/19 Urine Culture - Final, Complete 08/28/19 Gram Stain Evaluation - Final, Complete 08/28/19 Respiratory Culture - Final, Complete 08/28/19 Antimicrobic Susceptibility - Final, Complete 08/26/19 Blood Culture - Final, Complete NO GROWTH AFTER 5 DAYS Medications Current Medications Norepinephrine Bitartrate 8 mg/ Dextrose 258 ml @ 13.603 mls/ hr CONT PRN IV PER PROTOCOL Last administered on 08/28/19at 01:21; Start 08/26/19 at 23:00 Fentanyl Citrate 30 ml @ 0 mls/hr CONT PRN IV SEE PROTOCOL Last administered on 09/01/19at 07:24; Start 08/26/19 at 23:00; Stop 09/01/19 at 16:41; Status DC Fentanyl Citrate (Fentanyl 2ml Vial) 25 mcg PRN Q1HR PRN IV SEE COMMENTS; Start 08/26/19 at 23:00 Fentanyl Citrate (Fentanyl 2ml Vial) 50 mcg PRN Q1HR PRN IV SEE COMMENTS; Start 08/26/19 at 23:00 Famotidine (Pepcid Vial) 20 mg BID IVP Last administered on 09/05/19at 08:24; Start 08/27/19 at 09:00 Morphine Sulfate (Morphine Sulfate) 2 mg PRN Q1HR PRN IV SEE COMMENTS.; Start 08/26/19 at 23:00 Morphine Sulfate (Morphine Sulfate) 4 mg PRN Q1HR PRN IV SEE COMMENTS.; Start 08/26/19 at 23:00 Midazolam HCl 100 ml @ 0 mls/hr CONT PRN IV SEE PROTOCOL Last administered on 08/30/19at 11:23; Start 08/26/19 at 23:00 Enoxaparin Sodium (Lovenox 40mg Syringe) 40 mg Q24H SQ Last administered on 08/27/19at 00:42; Start 08/26/19 at 23:00; Stop 08/27/19 at 16:55; Status DC Metronidazole 100 ml @ 100 mls/hr Q8HRS IV Last administered on 08/27/19at 05:32; Start 08/27/19 at 06:00; Stop 08/27/19 at 13:14; Status DC Ceftriaxone Sodium (Rocephin) 1 gm Q24H IVP Last administered on 08/27/19at 08:32; Start 08/27/19 at 09:00; Stop 08/27/19 at 13:14; Status DC Sodium Chloride 1,000 ml @ 75 mls/hr [id number] IV Last administered on 09/02/19at 03:17; Start 08/26/19 at 23:00; Stop 09/02/19 at 13:47; Status DC Acetaminophen (Tylenol Supp) 650 mg PRN Q6HRS PRN MS MILD PAIN / TEMP > 100.3'F Last administered on 08/27/19at 02:09; Start 08/27/19 at 02:00 Piperacillin Sod/ Tazobactam Sod 3.375 gm/Sodium Chloride 50 ml @ 100 mls/hr Q6HRS IV Last administered on 09/05/19at 06:14; Start 08/27/19 at 14:00 Insulin Human Lispro (HumaLOG) 0-7 UNITS TIDWMEALS SQ ; Start 08/27/19 at 17:00; Stop 08/27/19 at 20:28; Status DC Dextrose (Dextrose 50%-Water Syringe) 12.5 gm PRN Q15MIN PRN IV SEE COMMENTS; Start 08/27/19 at 14:00 Apixaban (Eliquis) 5 mg BID FT Last administered on 09/05/19at 08:34; Start 08/27/19 at 21:00 Aspirin (Aspirin Chewable) 81 mg DAILY PEG Last administered on 09/05/19at 08:35; Start 08/27/19 at 17:00 Insulin Human Lispro (HumaLOG) 0-7 UNITS Q6HRS SQ Last administered on 09/05/19at 00:12; Start 08/28/19 at 00:00 Potassium Bicarbonate (Potassium Effervescent Tablet) 40 meq 1X ONCE PO Last administered on 08/29/19at 08:59; Start 08/29/19 at 09:00; Stop 08/29/19 at 09:01; Status DC Info (Anti-Coagulation Monitoring By Pharmacy) 1 each PRN DAILY PRN MC SEE CO MMENTS Last administered on 09/05/19at 09:05; Start 08/31/19 at 08:30 Propofol 100 ml @ 1.133 mls/ hr CONT PRN IV SEE I/O RECORD; Start 08/31/19 at 08:30 Dexmedetomidine HCl 400 mcg/ Sodium Chloride 100 ml @ 0 mls/hr CONT PRN IV SEE COMMENTS Last administered on 08/31/19at 23:43; Start 08/31/19 at 12:45 Nicotine (Nicoderm Cq 21mg) 1 patch DAILY TD Last administered on 09/05/19at 0 8:42; Start 08/31/19 at 13:30 Nystatin (Nystop) 1 lexus BID TP Last administered on 09/05/19 08:43; Start 08/31/19 at 21:00 Linezolid (Zyvox) 600 mg BID PO Last administered on 09/05/19 08:35; Start 09/01/19 at 09:00 Micafungin Sodium 100 mg/Dextrose 100 ml @ 100 mls/hr BID IV ; Start 09/01/19 at 09:00; Stop 09/01/19 at 09:27; Status DC Micafungin Sodium 100 mg/Dextrose 100 ml @ 100 mls/hr DAILY IV Last administered on 09/05/19 08:26; Start 09/02/19 at 09:00 Micafungin Sodium 100 mg/Dextrose 100 ml @ 100 mls/hr ONCE ONCE IV Last administered on 09/01/19at 09:41; Start 09/01/19 at 10:00; Stop 09/01/19 at 10:59; Status DC Furosemide (Lasix) 40 mg 1X ONCE IVP Last administered on 09/01/19at 11:10; Start 09/01/19 at 10:45; Stop 09/01/19 at 11:03; Status DC Acetaminophen (Tylenol) 650 mg PRN Q6HRS PRN PO pain or fever; Start 09/01/19 at 11:30; Status UNV Metoprolol Tartrate (Lopressor) 25 mg BID PEG Last administered on 09/04/19 09:40; Start 09/01/19 at 12:00; Stop 09/04/19 at 12:37; Status DC Tamsulosin HCl (Flomax) 0.4 mg DAILY PO Last administered on 09/05/19 08:35; Start 09/01/19 at 12:00 Olanzapine (ZyPREXA) 10 mg DAILY PEG Last administered on 09/05/19 08:35; Start 09/01/19 at 12:00 Olanzapine (ZyPREXA) 20 mg QHS PO Last administered on 09/04/19 21:44; Start 09/01/19 at 21:00 Atorvastatin Calcium (Lipitor) 40 mg QHS PEG Last administered on 7/23/20at 21:44; Start 09/01/19 at 21:00 Potassium Chloride/Water 100 ml @ 100 mls/hr Q1H IV Last administered on 09/02/19at 18:06; Start 09/02/19 at 11:00; Stop 09/02/19 at 18:59; Status DC Magnesium Sulfate 50 ml @ 25 mls/hr 1X ONCE IV Last administered on 09/02/19at 11:21; Start 09/02/19 at 11:00; Stop 09/02/19 at 12:59; Status DC Magnesium Sulfate 100 ml @ 25 mls/hr 1X ONCE IV ; Start 09/02/19 at 14:00; Stop 09/02/19 at 14:05; Status DC Furosemide (Lasix) 40 mg 1X ONCE IVP Last administered on 09/03/19at 11:29; St art 09/03/19 at 11:45; Stop 09/03/19 at 11:46; Status DC Potassium Chloride/Water 100 ml @ 50 mls/hr Q2H IV ; Start 09/03/19 at 12:00; Stop 09/03/19 at 12:35; Status DC Albuterol Sulfate (Ventolin Neb Soln) 2.5 mg PRN Q4HRS PRN NEB SHORTNESS OF BREATH Last administered on 09/03/19at 20:56; Start 09/03/19 at 12:15 Budesonide (Pulmicort) 0.5 mg RTBID NEB Last administered on 09/05/19at 07:12; Start 09/03/19 at 20:00 Potassium Chloride/Water 100 ml @ 100 mls/hr Q1H IV Last administered on 09/03/19at 17:21; Start 09/03/19 at 13:00; Stop 09/03/19 at 16:59; Status DC Lactobacillus Rhamnosus (Culturelle) 1 cap BID PO Last administered on 09/05/19at 08:35; Start 09/04/19 at 09:00 Metoprolol Tartrate (Lopressor) 50 mg BID PEG Last administered on 09/05/19at 08:35; Start 09/04/19 at 13:00 Acetaminophen (Tylenol) 650 mg PRN Q6HRS PRN PEG MILD PAIN / TEMP > 100.3'F; Start 09/04/19 at 20:00 Active Scripts Active Reported Pepcid (Famotidine) 20 Mg Tablet 20 Mg PEG BID Famotidine 20 Mg Tablet 20 Mg PO BID Aspirin 81 Mg Tab.chew 1 Tab PEG DAILY Eliquis (Apixaban) 5 Mg Tablet 5 Mg PEG BID Proventil Hfa (Albuterol Sulfate) 6.7 Gm Hfa.aer.ad 1 Puff INH PRN Q6HRS PRN Acetaminophen 325 Mg Tablet 2 Tab PEG PRN Q4-6HRS PRN 24 Days Humalog (Insulin Lispro) 100 Unit/1 Ml Vial 100 Unit SQ Q6HRS Inject 0-24 units under the skin every 6 hours Lantus Solostar (Insulin Glargine,Hum.rec.anlog) 100 Unit/1 Ml Insuln.pen 35 Unit SQ BID Symbicort 160-4.5 Mcg Inhaler (Budesonide/Formoterol Fumarate) 10.2 Gm Hfa.aer.ad 2 Puff IH BID Flomax (Tamsulosin Hcl) 0.4 Mg Cap.er.24h 0.4 Mg PEG DAILY Crestor (Rosuvastatin Calcium) 40 Mg Tablet 1 Tab PEG HS Roxicodone (Oxycodone HCl) 5 Mg Tablet 5 Mg PEG PRN Q4HRS PRN Olanzapine 20 Mg Tablet 1 Tab PEG QHS Olanzapine 10 Mg Tablet 1 Tab PEG DAILY Metoprolol Tartrate 25 Mg Tablet 1 Tab PEG BID Vitals/I & O Vital Sign - Last 24 Hours 09/04/19 09/04/19 09/04/19 09/04/19 09:40 11:00 11:41 14:29 Temp 99.1 99.1 Pulse 126 105 111 Resp 12 B/P (MAP) 153/99 155/84 (107) 155/84 Pulse Ox 99 98 O2 Delivery BiPAP/CPAP BiPAP/CPAP O2 Flow Rate 25.0 09/04/19 09/04/19 09/04/19 09/04/19 15:00 18:12 19:00 20:00 Temp 99.1 99.5 99.1 99.5 Pulse 110 112 Resp 12 32 B/P (MAP) 117/71 (86) 159/86 (110) Pulse Ox 100 98 98 91 O2 Delivery BiPAP/CPAP BiPAP/CPAP BiPAP/CPAP BiPAP/CPAP O2 Flow Rate 25.0 09/04/19 09/04/19 09/04/19 7/24/20 20:00 21:43 23:00 00:23 Pulse 112 102 Resp 25 B/P (MAP) 159/86 111/67 (82) Pulse Ox 98 93 O2 Delivery Bi-pap BiPAP/CPAP BiPAP/CPAP O2 Flow Rate 25.0 25.0 09/05/19 09/05/19 09/05/19 09/05/19 03:00 04:03 04:30 04:40 Temp 98.2 99.3 98.2 99.3 Pulse 107 119 Resp 28 24 B/P (MAP) 132/68 (89) 128/76 (93) Pulse Ox 92 94 92 O2 Delivery Nasal Cannula BiPAP/CPAP Bi-pap Nasal Cannula O2 Flow Rate 25.0 3.0 09/05/19 09/05/19 07:13 08:35 Pulse 124 B/P (MAP) 132/71 Pulse Ox 93 O2 Delivery BiPAP/CPAP Intake and Output 09/04/19 09/04/19 09/05/19 15:00 23:00 07:00 Intake Total 868 ml 2163 ml 1202 ml Output Total 1580 ml 800 ml 700 ml Balance -712 ml 1363 ml 502 ml Justicifation of Admission Dx: Justifications for Admission: Justification of Admission Dx: Yes Respiratory Failure: Mechanical Ventilation JAGUAR TROY MD Sep 05, 2019 09:24
--- NOTE | 2019-09-05 09:55 | PDOC ---
PULMONARY PROGRESS NOTES Subjective Patient extubated 08/31 remains on BIPAP Follows some commands. Vitals Vital Signs Date Time Temp Pulse Resp B/P (MAP) Pulse Ox O2 Delivery O2 Flow Rate FiO2 09/05/19 08:35 124 132/71 09/05/19 07:13 93 BiPAP/CPAP 09/05/19 07:00 99.3 24 99.3 09/05/19 04:40 3.0 General: Alert Lungs: Crackles Cardiovascular: S1, S2 Abdomen: Soft, Non-tender Extremities: No Edema Skin: Warm Labs Laboratory Tests Test 09/03/19 11:59 09/03/19 12:00 09/03/19 12:56 09/03/19 18:19 Glucose (Fingerstick) 210 mg/dL (70-99) 180 mg/dL (70-99) Potassium Level 2.9 mmol/L (3.5-5.1) Clostridium difficile Toxin (PCR) Negative (NEGATIVE) Test 09/04/19 00:17 09/04/19 06:14 09/04/19 08:15 09/04/19 12:16 Glucose (Fingerstick) 190 mg/dL (70-99) 177 mg/dL (70-99) 179 mg/dL (70-99) O2 Saturation 96 % (92-99) Arterial Blood pH 7.51 (7.35-7.45) Arterial Blood pCO2 at Patient Temp 29 mmHg (35-46) Arterial Blood pO2 at Patient Temp 81 mmHg (65-108) Arterial Blood HCO3 23 mmol/L (21-28) Arterial Blood Base Excess 0 mmol/L (-3-3) FiO2 25 Test 09/04/19 18:31 09/04/19 23:58 09/05/19 06:09 Glucose (Fingerstick) 194 mg/dL (70-99) 169 mg/dL (70-99) 186 mg/dL (70-99) Laboratory Tests Test 09/04/19 12:16 09/04/19 18:31 09/04/19 23:58 09/05/19 06:09 Glucose (Fingerstick) 179 mg/dL (70-99) 194 mg/dL (70-99) 169 mg/dL (70-99) 186 mg/dL (70-99) Medications Active Scripts Medications Dose Route/Sig Max Daily Dose Days Date Category Dose Instructions Pepcid (Famotidine) 20 Mg Tablet 20 Mg PEG BID 08/27/19 Reported Famotidine 20 Mg Tablet 20 Mg PO BID 08/27/19 Reported Aspirin 81 Mg Tab.chew 1 Tab PEG DAILY 08/27/19 Reported Eliquis (Apixaban) 5 Mg Tablet 5 Mg PEG BID 08/27/19 Reported Proventil Hfa (Albuterol Sulfate) 6.7 Gm Hfa.aer.ad 1 Puff INH PRN Q6HRS PRN 08/27/19 Reported Acetaminophen 325 Mg Tablet 2 Tab PEG PRN Q4-6HRS PRN 24 08/27/19 Reported Humalog (Insulin Lispro) 100 Unit/1 Ml Vial 100 Unit SQ Q6HRS 08/27/19 Reported Inject 0-24 units under the skin every 6 hours Lantus Solostar (Insulin Glargine,Hum.rec.anlog) 100 Unit/1 Ml Insuln.pen 35 Unit SQ BID 08/27/19 Reported Symbicort 160-4.5 Mcg Inhaler (Budesonide/Formoterol Fumarate) 10.2 Gm Hfa.aer.ad 2 Puff IH BID 08/27/19 Reported Flomax (Tamsulosin Hcl) 0.4 Mg Cap.er.24h 0.4 Mg PEG DAILY 08/27/19 Reported Crestor (Rosuvastatin Calcium) 40 Mg Tablet 1 Tab PEG HS 08/27/19 Reported Roxicodone (Oxycodone HCl) 5 Mg Tablet 5 Mg PEG PRN Q4HRS PRN 08/27/19 Reported Olanzapine 20 Mg Tablet 1 Tab PEG QHS 08/27/19 Reported Olanzapine 10 Mg Tablet 1 Tab PEG DAILY 08/27/19 Reported Metoprolol Tartrate 25 Mg Tablet 1 Tab PEG BID 08/27/19 Reported Impression . IMPRESSION: 1. Acute hypoxemic respiratory failure, multifactorial., Extubated 08/31, started BiPAP 09/02/ ABG with no hypercapnia 2. Toxic metabolic encephalopathy, present upon admission. 3. Septic shock.resolved 4. Severe protein malnutrition, present upon admission. 5. Recent small bowel resection with PEG tube placement, etiology for the small bowel resection is unclear. 6. Multiple comorbidities of diabetes, chronic obstructive pulmonary disease, and chronic heart failure. 7. Coronary artery disease, status post coronary artery bypass grafting. 8. Acute renal insufficiency. 9. Chronic anemia. 10. SARS-CoV-2 negative 11. Acute drop in hematocrit status post transfusion Plan . Patient discussed with RN/ try off bipap IV Lasix A.m. chest x-ray 09/04 with left lung infiltrate/ effusion Up to chair PT OT Monitor H&H Antibiotics per ID DVT GI prophylaxis Above discussed with MARY MISHRA MD Sep 05, 2019 09:55
--- NOTE | 2019-09-05 10:50 | NUR ---
SS following up with discharge planning. SS reviewed pt chart and discussed with pt RN. Pt accepted at [facility], ; fax [phone]. Pt currently on BIPAP. SS phoned and faxed clinical updates to [facility]. Pt to have MRI and EEG today per RN. Pt on IV Zosyn. COVID19 negative. SS will continue to follow for discharge planning.
[2019-09-05] MEDS: POTASSIUM & SODIUM PHOSPHATES PACKET. PO SCH ×2 (12:00→21:23)
[2019-09-05] MEDS: MAGNESIUM SULFATE 2GM 50 ML IV SCH (12:00)
[2019-09-05] MEDS: POTASSIUM CHLORIDE 10MEQ 100 ML IV SCH ×4 (12:00→15:00)
[2019-09-05] MEDS ORDERED: POTASSIUM BICARB 20 MEQ EFFERVESCENT TABLET. FT ONE (12:00)
[2019-09-05 12:26] LABS: ALBUMIN/GLOBULIN RATIO 0.5 (1.0-1.7); CALCIUM 7.9 mg/dL (8.5-10.1); GFR 73.5; POTASSIUM 3.3 mmol/L (3.5-5.1); TOTAL BILIRUBIN 0.7 mg/dL (0.2-1.0); TOTAL PROTEIN 6.1 g/dL (6.4-8.2)
--- NOTE | 2019-09-05 13:50 | NUR ---
SS following up with discharge planning. SS reviewed pt chart and discussed with pt RN. [facility] contacted SS and reported that bed will be available on 09/06/2019. Opal from [facility] reported that she would contact pt RN on floor with time to set up transport. Discharge orders phoned and faxed to [facility], ; fax [phone]. Packet and ambulance form on the chart. Pt's RN notified. SS will place pt on weekend list.
--- NOTE | 2019-09-05 14:53 | RAD ---
BRAIN W/O CONTRAST History:Reason: AMS / Spl. Instructions: / History: Technique: Multiplanar, multi sequential MR imaging was performed of the brain without contrast. Comparison: None Findings: No acute infarct. No intracranial hemorrhage. No mass effect. No hydrocephalus. Moderate brain parenchymal volume loss. Mild foci of FLAIR hyperintensities within the hemispheric white matter, most often due to chronic microvascular ischemia. Imaged orbits are unremarkable. Imaged paranasal sinuses are clear. Bilateral mastoid effusions. Impression: 1. No acute intracranial abnormality. Electronically signed by: Piero Husain DO (09/05/2019 2:50 PM) [id number]
[2019-09-05] MEDS ORDERED: POTASSIUM CHLORIDE 20 MEQ TABLET.ER. PO ONE (15:30)
[2019-09-05] MEDS ORDERED: ELECTROLYTE (NON-ICU) PROTOCOL MC PRN (15:45)
[2019-09-05] MEDS: ATORVASTATIN CALCIUM 40 MG TABLET. PEG SCH (21:16)
[2019-09-05] MEDS: OLANZapine 5 MG TABLET PO SCH (21:16)
[2019-09-06 03:00] VITALS: BP 150/71
[2019-09-06] MEDS: PIPERACILLIN/TAZOBACTAM 3.375 GM in IV NORMAL SALINE 50ML 50 ML IV SCH ×3 (05:43→13:35)
[2019-09-06] MEDS: INSULIN LISPRO 300 UNITS/3 ML VIAL. SQ SCH ×3 (06:02→12:00)
[2019-09-06 07:05] VITALS: BP 156/79
[2019-09-06] MEDS: BUDESONIDE 0.5 MG/2 ML NEBU. NEB SCH (07:39)
[2019-09-06] MEDS: ALBUTEROL SULFATE 2.5 MG/3 ML NEBU. NEB PRN (07:39)
--- NOTE | 2019-09-06 08:13 | PDOC ---
Infectious Disease Note Subjective: Subjective Awake, agitated Patient on 3 L nasal cannula No fevers last 24 hrs Vital Signs: Vital Signs Vital Signs Date Time Temp Pulse Resp B/P (MAP) Pulse Ox O2 Delivery O2 Flow Rate FiO2 09/06/19 07:39 98 Nasal Cannula 3.0 09/06/19 07:05 98.7 107 20 156/79 (104) 98.7 Physical Exam: PHYSICAL EXAM GENERAL: Sedated on BiPAP HEENT: Anicteric NECK: Supple LUNGS: Decreased breath sounds bilaterally. HEART: S1, S2 tachycardia w/ PVCs : Alvarez ABDOMEN: Soft, + BS, incision intact, PEG tube is in place. Yeast in groin. Fecal tube in place EXTREMITIES: Trace edema. No cyanosis. SCDs bilaterally SKIN: Without rash NEUROLOGIC: Sedated PIV Medications: Inpatient Meds: Current Medications Medications (Trade) Dose Ordered Sig/Yanet Start Time Stop Time Status Last Admin Dose Admin Acetaminophen (Tylenol Supp) 650 mg PRN Q6HRS PRN 08/27/19 02:00 08/27/19 02:09 650 MG Acetaminophen (Tylenol) 650 mg PRN Q6HRS PRN 09/04/19 20:00 Albuterol Sulfate (Ventolin Neb Soln) 2.5 mg PRN Q4HRS PRN 09/03/19 12:15 09/06/19 07:39 2.5 MG Apixaban (Eliquis) 5 mg BID 08/27/19 21:00 09/05/19 21:17 5 MG Aspirin (Aspirin Chewable) 81 mg DAILY 08/27/19 17:00 09/05/19 08:35 81 MG Atorvastatin Calcium (Lipitor) 40 mg QHS 09/01/19 21:00 09/05/19 21:16 40 MG Budesonide (Pulmicort) 0.5 mg RTBID 09/03/19 20:00 09/06/19 07:39 0.5 MG Ceftriaxone Sodium (Rocephin) 1 gm Q24H 08/27/19 09:00 08/27/19 13:14 DC 08/27/19 08:32 1 GM Dexmedetomidine HCl 400 mcg/ Sodium Chloride 100 ml @ 0 mls/hr CONT PRN 08/31/19 12:45 09/05/19 09:34 DC 08/31/19 23:43 7 MLS/HR Dextrose (Dextrose 50%-Water Syringe) 12.5 gm PRN Q15MIN PRN 08/27/19 14:00 Enoxaparin Sodium (Lovenox 40mg Syringe) 40 mg Q24H 08/26/19 23:00 08/27/19 16:55 DC 08/27/19 00:42 40 MG Famotidine (Pepcid Vial) 20 mg BID 08/27/19 09:00 09/05/19 21:16 20 MG Fentanyl Citrate (Fentanyl 2ml Vial) 50 mcg PRN Q1HR PRN 08/26/19 23:00 Furosemide (Lasix) 40 mg 1X ONCE 09/03/19 11:45 09/03/19 11:46 DC 09/03/19 11:29 40 MG Info (Anti-Coagulation Monitoring By Pharmacy) 1 each PRN DAILY PRN 08/31/19 08:30 09/05/19 09:05 1 EACH Info (Non-Icu Electrolyte Protocol) 1 ea CONT PRN PRN 09/05/19 15:45 Insulin Human Lispro (HumaLOG) 0-7 UNITS Q6HRS 08/28/19 00:00 09/06/19 06:02 3 UNITS Lactobacillus Rhamnosus (Culturelle) 1 cap BID 09/04/19 09:00 09/05/19 21:23 1 CAP Linezolid (Zyvox) 600 mg BID 09/01/19 09:00 09/05/19 21:16 600 MG Magnesium Sulfate 50 ml @ 25 mls/hr Q24H 09/05/19 12:00 09/07/19 13:59 Metoprolol Tartrate (Lopressor) 50 mg BID 09/04/19 13:00 09/05/19 21:16 50 MG Metronidazole 100 ml @ 100 mls/hr Q8HRS 08/27/19 06:00 08/27/19 13:14 DC 08/27/19 05:32 100 MLS/HR Micafungin Sodium 100 mg/Dextrose 100 ml @ 100 mls/hr ONCE ONCE 09/01/19 10:00 09/01/19 10:59 DC 09/01/19 09:41 100 MLS/HR Midazolam HCl 100 ml @ 0 mls/hr CONT PRN 08/26/19 23:00 09/05/19 09:33 DC 08/30/19 11:23 2 MLS/HR Morphine Sulfate (Morphine Sulfate) 4 mg PRN Q1HR PRN 08/26/19 23:00 Multivitamins/ Minerals Therapeutic (Centrum Multivit-Mineral Liq) 5 ml DAILY 09/06/19 09:00 Nicotine (Nicoderm Cq 21mg) 1 patch DAILY 08/31/19 13:30 09/05/19 08:42 1 PATCH Norepinephrine Bitartrate 8 mg/ Dextrose 258 ml @ 13.603 mls/ hr CONT PRN 08/26/19 23:00 09/05/19 09:34 DC 08/28/19 01:21 10.882 MLS/HR Nystatin (Nystop) 1 lexus BID 08/31/19 21:00 09/05/19 21:17 1 LEXUS Olanzapine (ZyPREXA) 20 mg QHS 09/01/19 21:00 09/05/19 21:16 20 MG Piperacillin Sod/ Tazobactam Sod 3.375 gm/Sodium Chloride 50 ml @ 100 mls/hr Q6HRS 08/27/19 14:00 09/06/19 05:43 100 MLS/HR Potassium Bicarbonate (Potassium Effervescent Tablet) 40 meq 1X ONCE 09/05/19 12:00 09/05/19 12:01 DC 09/05/19 15:47 40 MEQ Potassium Chloride/Water 100 ml @ 100 mls/hr Q1H 09/05/19 12:00 09/05/19 15:59 DC Potassium Chloride (Klor-Con) 40 meq 1X ONCE 09/05/19 15:30 09/05/19 15:31 DC Potassium Phos/ Sodium Phos (Phos-Nak) 1 pkt BID 09/05/19 12:00 09/05/19 21:01 DC 09/05/19 21:23 1 PKT Propofol 100 ml @ 1.133 mls/ hr CONT PRN 08/31/19 08:30 09/05/19 09:32 DC Sodium Chloride 1,000 ml @ 75 mls/hr [id number] 08/26/19 23:00 09/02/19 13:47 DC 09/02/19 03:17 75 MLS/HR Tamsulosin HCl (Flomax) 0.4 mg DAILY 09/01/19 12:00 09/05/19 08:35 0.4 MG Labs: Lab Laboratory Tests Test 09/05/19 11:45 09/05/19 12:41 09/05/19 17:48 09/05/19 23:09 Sodium Level 139 mmol/L (136-145) Potassium Level 3.3 mmol/L (3.5-5.1) Chloride Level 104 mmol/L (98-107) Carbon Dioxide Level 21 mmol/L (21-32) Anion Gap 14 (6-14) Blood Urea Nitrogen 17 mg/dL (8-26) Creatinine 1.0 mg/dL (0.7-1.3) Estimated GFR (Cockcroft-Gault) 73.5 BUN/Creatinine Ratio 17 (6-20) Glucose Level 231 mg/dL (70-99) Calcium Level 7.9 mg/dL (8.5-10.1) Phosphorus Level 3.0 mg/dL (2.6-4.7) Magnesium Level 2.0 mg/dL (1.8-2.4) Total Bilirubin 0.7 mg/dL (0.2-1.0) Aspartate Amino Transf (AST/SGOT) 60 U/L (15-37) Alanine Aminotransferase (ALT/SGPT) 78 U/L (16-63) Alkaline Phosphatase 245 U/L (46-116) Total Protein 6.1 g/dL (6.4-8.2) Albumin 2.0 g/dL (3.4-5.0) Albumin/Globulin Ratio 0.5 (1.0-1.7) Glucose (Fingerstick) 205 mg/dL (70-99) 168 mg/dL (70-99) 159 mg/dL (70-99) Test 09/06/19 05:43 09/06/19 07:10 09/06/19 07:52 Glucose (Fingerstick) 184 mg/dL (70-99) 182 mg/dL (70-99) Phosphorus Level 3.5 mg/dL (2.6-4.7) Objective: Assessment: Respiratory failure. Fever - better Suspected aspiration.;sputum culture positive for MRSA Recent bowel obstruction, s/p surgery and PEG-tube placement. Renal insufficiency yeast in groin. Yeast in urine culture Encephalopathy, likely metabolic Plan: Plan of Care continue zosyn for now cont zyvox 600 mg bid 08/31 alvarez changed C. difficile PCR neg Off micafungin f/u cultures Maintain aspiration precautions Supportive care d/ wRN KAYCEE WARE MD Sep 06, 2019 08:13
[2019-09-06] MEDS ORDERED: MULTIVITAMINS,THERAPEUTIC 5 ML ORAL LIQUID. PEG SCH (09:00)
[2019-09-06] MEDS: FAMOTIDINE 20 MG/2 ML VIAL IVP SCH (09:14)
[2019-09-06] MEDS: LACTOBACILLUS RHAMNOSUS GG 1 CAPSULE. PO SCH (09:15)
[2019-09-06] MEDS: ASPIRIN CHEWABLE 81 MG TABLET. PEG SCH (09:17)
[2019-09-06] MEDS: LINEZOLID 600 MG TABLET PO SCH (09:17)
[2019-09-06] MEDS: METOPROLOL TART IMMED RELEASE 50 MG TABLET. PEG SCH (09:17)
[2019-09-06] MEDS: APIXABAN 5 MG TABLET. FT SCH (09:18)
[2019-09-06] MEDS: TAMSULOSIN 0.4 MG CAP.ER.24H. PO SCH (09:18)
[2019-09-06] MEDS: NYSTATIN TOPICAL POWDER 15GM BOTTLE. TP SCH (09:19)
[2019-09-06] MEDS: NICOTINE 21MG PATCH. TD SCH (09:19)
--- NOTE | 2019-09-06 09:34 | PDOC ---
PULMONARY PROGRESS NOTES Subjective Patient extubated 08/31 off BIPAP Follows some commands. Vitals Vital Signs Date Time Temp Pulse Resp B/P (MAP) Pulse Ox O2 Delivery O2 Flow Rate FiO2 09/06/19 09:17 107 156/79 09/06/19 07:39 98 Nasal Cannula 3.0 09/06/19 07:05 98.7 20 98.7 General: Alert, No acute distress Lungs: Crackles Cardiovascular: S1, S2 Abdomen: Soft, Non-tender Extremities: No Edema Skin: Warm Labs Laboratory Tests Test 09/04/19 12:16 09/04/19 18:31 09/04/19 23:58 09/05/19 06:09 Glucose (Fingerstick) 179 mg/dL (70-99) 194 mg/dL (70-99) 169 mg/dL (70-99) 186 mg/dL (70-99) Test 09/05/19 11:45 09/05/19 12:41 09/05/19 17:48 09/05/19 23:09 Sodium Level 139 mmol/L (136-145) Potassium Level 3.3 mmol/L (3.5-5.1) Chloride Level 104 mmol/L (98-107) Carbon Dioxide Level 21 mmol/L (21-32) Anion Gap 14 (6-14) Blood Urea Nitrogen 17 mg/dL (8-26) Creatinine 1.0 mg/dL (0.7-1.3) Estimated GFR (Cockcroft-Gault) 73.5 BUN/Creatinine Ratio 17 (6-20) Glucose Level 231 mg/dL (70-99) Calcium Level 7.9 mg/dL (8.5-10.1) Phosphorus Level 3.0 mg/dL (2.6-4.7) Magnesium Level 2.0 mg/dL (1.8-2.4) Total Bilirubin 0.7 mg/dL (0.2-1.0) Aspartate Amino Transf (AST/SGOT) 60 U/L (15-37) Alanine Aminotransferase (ALT/SGPT) 78 U/L (16-63) Alkaline Phosphatase 245 U/L (46-116) Total Protein 6.1 g/dL (6.4-8.2) Albumin 2.0 g/dL (3.4-5.0) Albumin/Globulin Ratio 0.5 (1.0-1.7) Glucose (Fingerstick) 205 mg/dL (70-99) 168 mg/dL (70-99) 159 mg/dL (70-99) Test 09/06/19 05:43 09/06/19 07:10 09/06/19 07:52 Glucose (Fingerstick) 184 mg/dL (70-99) 182 mg/dL (70-99) Phosphorus Level 3.5 mg/dL (2.6-4.7) Laboratory Tests Test 09/05/19 11:45 09/05/19 12:41 09/05/19 17:48 09/05/19 23:09 Sodium Level 139 mmol/L (136-145) Potassium Level 3.3 mmol/L (3.5-5.1) Chloride Level 104 mmol/L (98-107) Carbon Dioxide Level 21 mmol/L (21-32) Anion Gap 14 (6-14) Blood Urea Nitrogen 17 mg/dL (8-26) Creatinine 1.0 mg/dL (0.7-1.3) Estimated GFR (Cockcroft-Gault) 73.5 BUN/Creatinine Ratio 17 (6-20) Glucose Level 231 mg/dL (70-99) Calcium Level 7.9 mg/dL (8.5-10.1) Phosphorus Level 3.0 mg/dL (2.6-4.7) Magnesium Level 2.0 mg/dL (1.8-2.4) Total Bilirubin 0.7 mg/dL (0.2-1.0) Aspartate Amino Transf (AST/SGOT) 60 U/L (15-37) Alanine Aminotransferase (ALT/SGPT) 78 U/L (16-63) Alkaline Phosphatase 245 U/L (46-116) Total Protein 6.1 g/dL (6.4-8.2) Albumin 2.0 g/dL (3.4-5.0) Albumin/Globulin Ratio 0.5 (1.0-1.7) Glucose (Fingerstick) 205 mg/dL (70-99) 168 mg/dL (70-99) 159 mg/dL (70-99) Test 09/06/19 05:43 09/06/19 07:10 09/06/19 07:52 Glucose (Fingerstick) 184 mg/dL (70-99) 182 mg/dL (70-99) Phosphorus Level 3.5 mg/dL (2.6-4.7) Medications Active Scripts Medications Dose Route/Sig Max Daily Dose Days Date Category Dose Instructions Pepcid (Famotidine) 20 Mg Tablet 20 Mg PEG BID 08/27/19 Reported Famotidine 20 Mg Tablet 20 Mg PO BID 08/27/19 Reported Aspirin 81 Mg Tab.chew 1 Tab PEG DAILY 08/27/19 Reported Eliquis (Apixaban) 5 Mg Tablet 5 Mg PEG BID 08/27/19 Reported Proventil Hfa (Albuterol Sulfate) 6.7 Gm Hfa.aer.ad 1 Puff INH PRN Q6HRS PRN 08/27/19 Reported Acetaminophen 325 Mg Tablet 2 Tab PEG PRN Q4-6HRS PRN 24 08/27/19 Reported Humalog (Insulin Lispro) 100 Unit/1 Ml Vial 100 Unit SQ Q6HRS 08/27/19 Reported Inject 0-24 units under the skin every 6 hours Lantus Solostar (Insulin Glargine,Hum.rec.anlog) 100 Unit/1 Ml Insuln.pen 35 Unit SQ BID 08/27/19 Reported Symbicort 160-4.5 Mcg Inhaler (Budesonide/Formoterol Fumarate) 10.2 Gm Hfa.aer.ad 2 Puff IH BID 08/27/19 Reported Flomax (Tamsulosin Hcl) 0.4 Mg Cap.er.24h 0.4 Mg PEG DAILY 08/27/19 Reported Crestor (Rosuvastatin Calcium) 40 Mg Tablet 1 Tab PEG HS 08/27/19 Reported Roxicodone (Oxycodone HCl) 5 Mg Tablet 5 Mg PEG PRN Q4HRS PRN 08/27/19 Reported Olanzapine 20 Mg Tablet 1 Tab PEG QHS 08/27/19 Reported Olanzapine 10 Mg Tablet 1 Tab PEG DAILY 08/27/19 Reported Metoprolol Tartrate 25 Mg Tablet 1 Tab PEG BID 08/27/19 Reported Impression . IMPRESSION: 1. Acute hypoxemic respiratory failure, multifactorial., Extubated 08/31, started BiPAP 09/02/ ABG with no hypercapnia, off now 2. Toxic metabolic encephalopathy, present upon admission. 3. Septic shock.resolved 4. Severe protein malnutrition, present upon admission. 5. Recent small bowel resection with PEG tube placement, etiology for the small bowel resection is unclear. 6. Multiple comorbidities of diabetes, chronic obstructive pulmonary disease, and chronic heart failure. 7. Coronary artery disease, status post coronary artery bypass grafting. 8. Acute renal insufficiency. 9. Chronic anemia. 10. SARS-CoV-2 negative 11. Acute drop in hematocrit status post transfusion Plan . Patient discussed with RN/ off bipap prn suction IV Lasix A.m. chest x-ray 09/04 with left lung infiltrate/ effusion Up to chair PT OT Monitor H&H Antibiotics per ID DVT GI prophylaxis Above discussed with RN ok with transfer to select MARY PALACIOS MD Sep 06, 2019 09:34
--- NOTE | 2019-09-06 09:39 | PDOC ---
PROGRESS NOTES Chief Complaint Chief Complaint impression Acute Hypoxic Resp Failure requiring mechanical Ventilation, intubated 08/25 Suspected Aspiration PNA Interstitial opacities with more focal component at the left mid to lower lung. Could be secondary to infectious etiology given the focal component within the left lung with a component of pulmonary edema also 09/04 within the differential. Sputum culture returned MRSA Suspected aspiration.;sputum culture positive for MRSA Recent bowel obstruction, s/p surgery and PEG-tube placement. Septic Shock, present on admission hx of Bowel Obstruction with PEG placement Anemia Acute Renal Failure secondary to Vasomotor Nephropathy, resolved DM2 HLD BPH Severe protein malnutrition, present upon admission. Coronary artery disease, status post coronary artery bypass grafting on oral AC uti hypokalemia hypomagnesemia plan Up to chair PT OT Monitor H&H Antibiotics per ID to select when cleared by neurology correct lytes, k. mg ok with transfer to select History of Present Illness History of Present Illness 09/05/2019 IPAP 12/ EPAP 4/ Rate 12/ O2 25% Patient seen and examined Discussed with RN Chart reviewed await eeg and mri, neurology clearance 27 min pt exam, chart review, > 50% of time spent with exam, chart review, pt care coordination 09/03/2019 Patient seen and examined in the ICU Discussed with RN Chart reviewed 09/01 Patient seen and examined Chart reviewed Discussed with RN 09/01/2019 Patient seen and examined in the ICU He remains mechanically ventilated 100/35% Hemoglobin has dropped to 6.9 we have ordered 1 unit of blood Also ordered 40 of Lasix He is currently being fed via PEG Discussed with RN Chart reviewed Discussed with onsite case manager Vitals Vitals Vital Signs Date Time Temp Pulse Resp B/P (MAP) Pulse Ox O2 Delivery O2 Flow Rate FiO2 09/06/19 09:17 107 156/79 09/06/19 07:39 98 Nasal Cannula 3.0 09/06/19 07:05 98.7 20 98.7 Physical Exam Physical Exam GENERAL: on BiPAP HEENT: Anicteric NECK: Supple LUNGS: Decreased breath sounds bilaterally. HEART: S1, S2 tachycardia w/ PVCs : Nava ABDOMEN: Soft, + BS, incision intact, PEG tube is in place. Yeast in groin. Fecal tube in place EXTREMITIES: Trace edema. No cyanosis. SCDs bilaterally SKIN: Without rash NEUROLOGIC: Sedated PIV General: Alert, Cooperative, No acute distress, Other (Sedated on vent) Heart: Regular rate Lungs: Crackles Abdomen: Normal bowel sounds, No tenderness Extremities: No clubbing, No cyanosis, No edema Skin: No rashes Labs LABS Laboratory Tests Test 09/05/19 11:45 09/05/19 12:41 09/05/19 17:48 09/05/19 23:09 Sodium Level 139 mmol/L (136-145) Potassium Level 3.3 mmol/L (3.5-5.1) Chloride Level 104 mmol/L (98-107) Carbon Dioxide Level 21 mmol/L (21-32) Anion Gap 14 (6-14) Blood Urea Nitrogen 17 mg/dL (8-26) Creatinine 1.0 mg/dL (0.7-1.3) Estimated GFR (Cockcroft-Gault) 73.5 BUN/Creatinine Ratio 17 (6-20) Glucose Level 231 mg/dL (70-99) Calcium Level 7.9 mg/dL (8.5-10.1) Phosphorus Level 3.0 mg/dL (2.6-4.7) Magnesium Level 2.0 mg/dL (1.8-2.4) Total Bilirubin 0.7 mg/dL (0.2-1.0) Aspartate Amino Transf (AST/SGOT) 60 U/L (15-37) Alanine Aminotransferase (ALT/SGPT) 78 U/L (16-63) Alkaline Phosphatase 245 U/L (46-116) Total Protein 6.1 g/dL (6.4-8.2) Albumin 2.0 g/dL (3.4-5.0) Albumin/Globulin Ratio 0.5 (1.0-1.7) Glucose (Fingerstick) 205 mg/dL (70-99) 168 mg/dL (70-99) 159 mg/dL (70-99) Test 09/06/19 05:43 09/06/19 07:10 09/06/19 07:52 Glucose (Fingerstick) 184 mg/dL (70-99) 182 mg/dL (70-99) Phosphorus Level 3.5 mg/dL (2.6-4.7) Comment Review of Relevant I have reviewed the following items parminder (where applicable) has been applied. Labs Laboratory Tests Test 09/04/19 12:16 09/04/19 18:31 09/04/19 23:58 09/05/19 06:09 Glucose (Fingerstick) 179 mg/dL (70-99) 194 mg/dL (70-99) 169 mg/dL (70-99) 186 mg/dL (70-99) Test 09/05/19 11:45 09/05/19 12:41 09/05/19 17:48 09/05/19 23:09 Sodium Level 139 mmol/L (136-145) Potassium Level 3.3 mmol/L (3.5-5.1) Chloride Level 104 mmol/L (98-107) Carbon Dioxide Level 21 mmol/L (21-32) Anion Gap 14 (6-14) Blood Urea Nitrogen 17 mg/dL (8-26) Creatinine 1.0 mg/dL (0.7-1.3) Estimated GFR (Cockcroft-Gault) 73.5 BUN/Creatinine Ratio 17 (6-20) Glucose Level 231 mg/dL (70-99) Calcium Level 7.9 mg/dL (8.5-10.1) Phosphorus Level 3.0 mg/dL (2.6-4.7) Magnesium Level 2.0 mg/dL (1.8-2.4) Total Bilirubin 0.7 mg/dL (0.2-1.0) Aspartate Amino Transf (AST/SGOT) 60 U/L (15-37) Alanine Aminotransferase (ALT/SGPT) 78 U/L (16-63) Alkaline Phosphatase 245 U/L (46-116) Total Protein 6.1 g/dL (6.4-8.2) Albumin 2.0 g/dL (3.4-5.0) Albumin/Globulin Ratio 0.5 (1.0-1.7) Glucose (Fingerstick) 205 mg/dL (70-99) 168 mg/dL (70-99) 159 mg/dL (70-99) Test 09/06/19 05:43 09/06/19 07:10 09/06/19 07:52 Glucose (Fingerstick) 184 mg/dL (70-99) 182 mg/dL (70-99) Phosphorus Level 3.5 mg/dL (2.6-4.7) Laboratory Tests Test 09/05/19 11:45 09/05/19 12:41 09/05/19 17:48 09/05/19 23:09 Sodium Level 139 mmol/L (136-145) Potassium Level 3.3 mmol/L (3.5-5.1) Chloride Level 104 mmol/L (98-107) Carbon Dioxide Level 21 mmol/L (21-32) Anion Gap 14 (6-14) Blood Urea Nitrogen 17 mg/dL (8-26) Creatinine 1.0 mg/dL (0.7-1.3) Estimated GFR (Cockcroft-Gault) 73.5 BUN/Creatinine Ratio 17 (6-20) Glucose Level 231 mg/dL (70-99) Calcium Level 7.9 mg/dL (8.5-10.1) Phosphorus Level 3.0 mg/dL (2.6-4.7) Magnesium Level 2.0 mg/dL (1.8-2.4) Total Bilirubin 0.7 mg/dL (0.2-1.0) Aspartate Amino Transf (AST/SGOT) 60 U/L (15-37) Alanine Aminotransferase (ALT/SGPT) 78 U/L (16-63) Alkaline Phosphatase 245 U/L (46-116) Total Protein 6.1 g/dL (6.4-8.2) Albumin 2.0 g/dL (3.4-5.0) Albumin/Globulin Ratio 0.5 (1.0-1.7) Glucose (Fingerstick) 205 mg/dL (70-99) 168 mg/dL (70-99) 159 mg/dL (70-99) Test 09/06/19 05:43 09/06/19 07:10 09/06/19 07:52 Glucose (Fingerstick) 184 mg/dL (70-99) 182 mg/dL (70-99) Phosphorus Level 3.5 mg/dL (2.6-4.7) Microbiology 08/31/19 Urine Culture - Final, Complete 08/28/19 Gram Stain Evaluation - Final, Complete 08/28/19 Respiratory Culture - Final, Complete 08/28/19 Antimicrobic Susceptibility - Final, Complete 08/26/19 Blood Culture - Final, Complete NO GROWTH AFTER 5 DAYS Medications Current Medications Norepinephrine Bitartrate 8 mg/ Dextrose 258 ml @ 13.603 mls/ hr CONT PRN IV PER PROTOCOL Last administered on 08/28/19at 01:21; Start 08/26/19 at 23:00; Stop 09/05/19 at 09:34; Status DC Fentanyl Citrate 30 ml @ 0 mls/hr CONT PRN IV SEE PROTOCOL Last administered on 09/01/19at 07:24; Start 08/26/19 at 23:00; Stop 09/01/19 at 16:41; Status DC Fentanyl Citrate (Fentanyl 2ml Vial) 25 mcg PRN Q1HR PRN IV SEE COMMENTS; Start 08/26/19 at 23:00 Fentanyl Citrate (Fentanyl 2ml Vial) 50 mcg PRN Q1HR PRN IV SEE COMMENTS; Sta rt 08/26/19 at 23:00 Famotidine (Pepcid Vial) 20 mg BID IVP Last administered on 09/06/19at 09:14; Start 08/27/19 at 09:00 Morphine Sulfate (Morphine Sulfate) 2 mg PRN Q1HR PRN IV SEE COMMENTS.; Start 08/26/19 at 23:00 Morphine Sulfate (Morphine Sulfate) 4 mg PRN Q1HR PRN IV SEE COMMENTS.; Start 08/26/19 at 23:00 Midazolam HCl 100 ml @ 0 mls/hr CONT PRN IV SEE PROTOCOL Last administered on 08/30/19at 11:23; Start 08/26/19 at 23:00; Stop 09/05/19 at 09:33; Status DC Enoxaparin Sodium (Lovenox 40mg Syringe) 40 mg Q24H SQ Last administered on 08/27/19at 00:42; Start 08/26/19 at 23:00; Stop 08/27/19 at 16:55; Status DC Metronidazole 100 ml @ 100 mls/hr Q8HRS IV Last administered on 08/27/19at 05:32; Start 08/27/19 at 06:00; Stop 08/27/19 at 13:14; Status DC Ceftriaxone Sodium (Rocephin) 1 gm Q24H IVP Last administered on 08/27/19at 08:32; Start 08/27/19 at 09:00; Stop 08/27/19 at 13:14; Status DC Sodium Chloride 1,000 ml @ 75 mls/hr [id number] IV Last administered on 09/02/19at 03:17; Start 08/26/19 at 23:00; Stop 09/02/19 at 13:47; Status DC Acetaminophen (Tylenol Supp) 650 mg PRN Q6HRS PRN [place] MILD PAIN / TEMP > 100.3'F Last administered on 08/27/19at 02:09; Start 08/27/19 at 02:00 Piperacillin Sod/ Tazobactam Sod 3.375 gm/Sodium Chloride 50 ml @ 100 mls/hr Q6HRS IV Last administered on 09/06/19at 05:43; Start 08/27/19 at 14:00 Insulin Human Lispro (HumaLOG) 0-7 UNITS TIDWMEALS SQ ; Start 08/27/19 at 17:00; Stop 08/27/19 at 20:28; Status DC Dextrose (Dextrose 50%-Water Syringe) 12.5 gm PRN Q15MIN PRN IV SEE COMMENTS; Start 08/27/19 at 14:00 Apixaban (Eliquis) 5 mg BID FT Last administered on 09/06/19at 09:18; Start 08/27/19 at 21:00 Aspirin (Aspirin Chewable) 81 mg DAILY PEG Last administered on 09/06/19at 09:17; Start 08/27/19 at 17:00 Insulin Human Lispro (HumaLOG) 0-7 UNITS Q6HRS SQ Last administered on 09/06/19at 06:02; Start 08/28/19 at 00:00 Potassium Bicarbonate (Potassium Effervescent Tablet) 40 meq 1X ONCE PO Last administered on 08/29/19at 08:59; Start 08/29/19 at 09:00; Stop 08/29/19 at 09:01; Status DC Info (Anti-Coagulation Monitoring By Pharmacy) 1 each PRN DAILY PRN MC SEE COMMENTS Last administered on 09/05/19at 09:05; Start 08/31/19 at 08:30 Propofol 100 ml @ 1.133 mls/ hr CONT PRN IV SEE I/O RECORD; Start 08/31/19 at 08:30; Stop 09/05/19 at 09:32; Status DC Dexmedetomidine HCl 400 mcg/ Sodium Chloride 100 ml @ 0 mls/hr CONT PRN IV SEE COMMENTS Last administered on 08/31/19at 23:43; Start 08/31/19 at 12:45; Stop 09/05/19 at 09:34; Status DC Nicotine (Nicoderm Cq 21mg) 1 patch DAILY TD Last administered on 09/06/19 09:19; Start 08/31/19 at 13:30 Nystatin (Nystop) 1 lexus BID TP Last administered on 09/06/19 09:19; Start 08/31/19 at 21:00 Linezolid (Zyvox) 600 mg BID PO Last administered on 09/06/19 09:17; Start 09/01/19 at 09:00 Micafungin Sodium 100 mg/Dextrose 100 ml @ 100 mls/hr BID IV ; Start 09/01/19 at 09:00; Stop 09/01/19 at 09:27; Status DC Micafungin Sodium 100 mg/Dextrose 100 ml @ 100 mls/hr DAILY IV Last administered on 09/05/19 08:26; Start 09/02/19 at 09:00; Stop 09/05/19 at 10:06; Status DC Micafungin Sodium 100 mg/Dextrose 100 ml @ 100 mls/hr ONCE ONCE IV Last administered on 09/01/19at 09:41; Start 09/01/19 at 10:00; Stop 09/01/19 at 10:59; Status DC Furosemide (Lasix) 40 mg 1X ONCE IVP Last administered on 09/01/19at 11:10; Start 09/01/19 at 10:45; Stop 09/01/19 at 11:03; Status DC Acetaminophen (Tylenol) 650 mg PRN Q6HRS PRN PO pain or fever; Start 09/01/19 at 11:30; Status UNV Metoprolol Tartrate (Lopressor) 25 mg BID PEG Last administered on 09/04/19at 09:40; Start 09/01/19 at 12:00; Stop 09/04/19 at 12:37; Status DC Tamsulosin HCl (Flomax) 0.4 mg DAILY PO Last administered on 09/06/19 09:18; Start 09/01/19 at 12:00 Olanzapine (ZyPREXA) 10 mg DAILY PEG Last administered on 09/05/19at 08:35; Start 09/01/19 at 12:00 Olanzapine (ZyPREXA) 20 mg QHS PO Last administered on 09/05/19at 21:16; Start 09/01/19 at 21:00 Atorvastatin Calcium (Lipitor) 40 mg QHS PEG Last administered on 09/05/19at 21:16; Start 09/01/19 at 21:00 Potassium Chloride/Water 100 ml @ 100 mls/hr Q1H IV Last administered on 09/02/19at 18:06; Start 09/02/19 at 11:00; Stop 09/02/19 at 18:59; Status DC Magnesium Sulfate 50 ml @ 25 mls/hr 1X ONCE IV Last administered on 09/02/19at 11:21; Start 09/02/19 at 11:00; Stop 09/02/19 at 12:59; Status DC Magnesium Sulfate 100 ml @ 25 mls/hr 1X ONCE IV ; Start 09/02/19 at 14:00; Stop 09/02/19 at 14:05; Status DC Furosemide (Lasix) 40 mg 1X ONCE IVP Last administered on 09/03/19at 11:29; Start 09/03/19 at 11:45; Stop 09/03/19 at 11:46; Status DC Potassium Chloride/Water 100 ml @ 50 mls/hr Q2H IV ; Start 09/03/19 at 12:00; Stop 09/03/19 at 12:35; Status DC Albuterol Sulfate (Ventolin Neb Soln) 2.5 mg PRN Q4HRS PRN NEB SHORTNESS OF BREATH Last administered on 09/06/19at 07:39; Start 09/03/19 at 12:15 Budesonide (Pulmicort) 0.5 mg RTBID NEB Last administered on 09/06/19at 07:39; Start 09/03/19 at 20:00 Potassium Chloride/Water 100 ml @ 100 mls/hr Q1H IV Last administered on 09/03/19at 17:21; Start 09/03/19 at 13:00; Stop 09/03/19 at 16:59; Status DC Lactobacillus Rhamnosus (Culturelle) 1 cap BID PO Last administered on 09/06/19at 09:15; Start 09/04/19 at 09:00 Metoprolol Tartrate (Lopressor) 50 mg BID PEG Last administered on 09/06/19at 09:17; Start 09/04/19 at 13:00 Acetaminophen (Tylenol) 650 mg PRN Q6HRS PRN PEG MILD PAIN / TEMP > 100.3'F; Start 09/04/19 at 20:00 Potassium Bicarbonate (Potassium Effervescent Tablet) 40 meq 1X ONCE FT Last administered on 09/05/19at 15:47; Start 09/05/19 at 12:00; Stop 09/05/19 at 12:01; Status DC Potassium Chloride/Water 100 ml @ 100 mls/hr Q1H IV ; Start 09/05/19 at 12:00; Stop 09/05/19 at 15:59; Status DC Magnesium Sulfate 50 ml @ 25 mls/hr Q24H IV ; Start 09/05/19 at 12:00; Stop 09/07/19 at 13:59 Potassium Phos/ Sodium Phos (Phos-Nak) 1 pkt BID PO Last administered on 09/05/19at 21:23; Start 09/05/19 at 12:00; Stop 09/05/19 at 21:01; Status DC Potassium Chloride (Klor-Con) 40 meq 1X ONCE PO ; Start 09/05/19 at 15:30; Stop 09/05/19 at 15:31; Status DC Multivitamins/ Minerals Therapeutic (Centrum Multivit-Mineral Liq) 5 ml DAILY PEG Last administered on 09/06/19at 09:15; Start 09/06/19 at 09:00 Info (Non-Icu Electrolyte Protocol) 1 ea CONT PRN PRN MC SEE COMMENTS; Start 09/05/19 at 15:45 Active Scripts Active Reported Pepcid (Famotidine) 20 Mg Tablet 20 Mg PEG BID Famotidine 20 Mg Tablet 20 Mg PO BID Aspirin 81 Mg Tab.chew 1 Tab PEG DAILY Eliquis (Apixaban) 5 Mg Tablet 5 Mg PEG BID Proventil Hfa (Albuterol Sulfate) 6.7 Gm Hfa.aer.ad 1 Puff INH PRN Q6HRS PRN Acetaminophen 325 Mg Tablet 2 Tab PEG PRN Q4-6HRS PRN 24 Days Humalog (Insulin Lispro) 100 Unit/1 Ml Vial 100 Unit SQ Q6HRS Inject 0-24 units under the skin every 6 hours Lantus Solostar (Insulin Glargine,Hum.rec.anlog) 100 Unit/1 Ml Insuln.pen 35 Unit SQ BID Symbicort 160-4.5 Mcg Inhaler (Budesonide/Formoterol Fumarate) 10.2 Gm Hfa.aer.ad 2 Puff IH BID Flomax (Tamsulosin Hcl) 0.4 Mg Cap.er.24h 0.4 Mg PEG DAILY Crestor (Rosuvastatin Calcium) 40 Mg Tablet 1 Tab PEG HS Roxicodone (Oxycodone HCl) 5 Mg Tablet 5 Mg PEG PRN Q4HRS PRN Olanzapine 20 Mg Tablet 1 Tab PEG QHS Olanzapine 10 Mg Tablet 1 Tab PEG DAILY Metoprolol Tartrate 25 Mg Tablet 1 Tab PEG BID Vitals/I & O Vital Sign - Last 24 Hours 09/05/19 09/05/19 09/05/19 09/05/19 10:49 11:04 15:00 16:28 Temp 98.4 97.8 98.4 97.8 Pulse 100 110 Resp B/P (MAP) 139/74 (95) 169/70 (103) Pulse Ox 98 94 98 O2 Delivery BiPAP/CPAP BiPAP/CPAP Nasal Cannula Nasal Cannula O2 Flow Rate 3.0 3.0 09/05/19 09/05/19 09/05/19 09/05/19 18:56 20:05 21:16 22:00 Temp 99.3 99.7 99.3 99.7 Pulse 104 104 88 Resp B/P (MAP) 146/75 (98) 146/75 153/70 (97) Pulse Ox 99 100 O2 Delivery Nasal Cannula Nasal Cannula Nasal Cannula O2 Flow Rate 3.0 3.0 3.0 09/06/19 09/06/19 09/06/19 09/06/19 03:00 07:05 07:39 09:17 Temp 99.2 98.7 99.2 98.7 Pulse 103 107 107 Resp B/P (MAP) 150/71 (97) 156/79 (104) 156/79 Pulse Ox 97 98 98 O2 Delivery Nasal Cannula Nasal Cannula Nasal Cannula O2 Flow Rate 3.0 3.0 3.0 Intake and Output 09/05/19 09/05/19 09/06/19 15:00 23:00 07:00 Intake Total 324 ml 945 ml 300 ml Output Total 0 ml 1175 ml Balance 324 ml 945 ml -875 ml Justicifation of Admission Dx: Justifications for Admission: Justification of Admission Dx: Yes Respiratory Failure: Mechanical Ventilation JAGUAR TROY MD Sep 06, 2019 09:39
[2019-09-06 10:55] VITALS: BP 150/76
--- NOTE | 2019-09-06 12:21 | PDOC3 ---
Discharge Summary Date of Admission: Aug 26, 2019 Date of Discharge: Sep 06, 2019 Follow-Up: 1-2 days Admitting Diagnosis comment: DISCHARGE DX Acute Hypoxic Resp Failure requiring mechanical Ventilation, intubated 08/25 Suspected Aspiration PNA Interstitial opacities with more focal component at the left mid to lower lung. Could be secondary to infectious etiology given the focal component within the left lung with a component of pulmonary edema also 09/04 within the differential. Sputum culture returned MRSA Suspected aspiration.;sputum culture positive for MRSA Recent bowel obstruction, s/p surgery and PEG-tube placement. Septic Shock, present on admission hx of Bowel Obstruction with PEG placement Anemia Acute Renal Failure secondary to Vasomotor Nephropathy, resolved DM2 HLD BPH Severe protein malnutrition, present upon admission. Coronary artery disease, status post coronary artery bypass grafting on oral AC uti hypokalemia hypomagnesemia plan Up to chair PT OT Monitor H&H Antibiotics per ID to select when cleared by neurology correct lytes, k. mg ok with transfer to [facility] History of Present Illness History of Present Illness 09/06/2019 IPAP 12/ EPAP 4/ Rate 12/ O2 25% Patient seen and examined Discussed with RN Chart reviewed await eeg and mri, neurology clearance 37 min pt exam, chart review D/C PLANNING , > 50% of time spent with exam, chart review, pt care coordination 09/03/2019 Patient seen and examined in the ICU Discussed with RN Chart reviewed 09/01 Patient seen and examined Chart reviewed Discussed with RN 09/01/2019 Patient seen and examined in the ICU He remains mechanically ventilated AC/27/06 100/35% Hemoglobin has dropped to 6.9 we have ordered 1 unit of blood Also ordered 40 of Lasix He is currently being fed via PEG Discussed with RN Chart reviewed Discussed with hospice case manager Vitals Vitals Vital Signs Date Time Temp Pulse Resp B/P (MAP) Pulse Ox O2 Delivery O2 Flow Rate FiO2 09/06/19 09:17 107 156/79 09/06/19 07:39 98 Nasal Cannula 3.0 09/06/19 07:05 98.7 20 98.7 Physical Exam Physical Exam GENERAL: on BiPAP HEENT: Anicteric NECK: Supple LUNGS: Decreased breath sounds bilaterally. HEART: S1, S2 tachycardia w/ PVCs : Nava ABDOMEN: Soft, + BS, incision intact, PEG tube is in place. Yeast in groin. Fecal tube in place EXTREMITIES: Trace edema. No cyanosis. SCDs bilaterally SKIN: Without rash NEUROLOGIC: Sedated PIV General: Alert, Cooperative, No acute distress, Other (Sedated on vent) Heart: Regular rate Lungs: Crackles Abdomen: Normal bowel sounds, No tenderness Extremities: No clubbing, No cyanosis, No edema Skin: No rashes Brief Hospital Course Mr. Sky is a 73 old [sex] who presented with [ RESP FAILURE ] CONDITION AT DISCHARGE: Improved Discharge Medications Current Medications Norepinephrine Bitartrate 8 mg/ Dextrose 258 ml @ 13.603 mls/ hr CONT PRN IV PER PROTOCOL Last administered on 08/28/19at 01:21; Start 08/26/19 at 23:00; Stop 09/05/19 at 09:34; Status DC Fentanyl Citrate 30 ml @ 0 mls/hr CONT PRN IV SEE PROTOCOL Last administered on 09/01/19at 07:24; Start 08/26/19 at 23:00; Stop 09/01/19 at 16:41; Status DC Fentanyl Citrate (Fentanyl 2ml Vial) 25 mcg PRN Q1HR PRN IV SEE COMMENTS; Start 08/26/19 at 23:00 Fentanyl Citrate (Fentanyl 2ml Vial) 50 mcg PRN Q1HR PRN IV SEE COMMENTS; Start 08/26/19 at 23:00 Famotidine (Pepcid Vial) 20 mg BID IVP Last administered on 09/06/19at 09:14; Start 08/27/19 at 09:00 Morphine Sulfate (Morphine Sulfate) 2 mg PRN Q1HR PRN IV SEE COMMENTS.; Start 08/26/19 at 23:00 Morphine Sulfate (Morphine Sulfate) 4 mg PRN Q1HR PRN IV SEE COMMENTS.; Start 08/26/19 at 23:00 Midazolam HCl 100 ml @ 0 mls/hr CONT PRN IV SEE PROTOCOL Last administered on 08/30/19at 11:23; Start 08/26/19 at 23:00; Stop 09/05/19 at 09:33; Status DC Enoxaparin Sodium (Lovenox 40mg Syringe) 40 mg Q24H SQ Last administered on 08/27/19at 00:42; Start 08/26/19 at 23:00; Stop 08/27/19 at 16:55; Status DC Metronidazole 100 ml @ 100 mls/hr Q8HRS IV Last administered on 08/27/19at 05:32; Start 08/27/19 at 06:00; Stop 08/27/19 at 13:14; Status DC Ceftriaxone Sodium (Rocephin) 1 gm Q24H IVP Last administered on 08/27/19at 08:32; Start 08/27/19 at 09:00; Stop 08/27/19 at 13:14; Status DC Sodium Chloride 1,000 ml @ 75 mls/hr [id number] IV Last administered on 09/02/19at 03:17; Start 08/26/19 at 23:00; Stop 09/02/19 at 13:47; Status DC Acetaminophen (Tylenol Supp) 650 mg PRN Q6HRS PRN PA MILD PAIN / TEMP > 100.3'F Last administered on 08/27/19at 02:09; Start 08/27/19 at 02:00 Piperacillin Sod/ Tazobactam Sod 3.375 gm/Sodium Chloride 50 ml @ 100 mls/hr Q6HRS IV Last administered on 09/06/19at 05:43; Start 08/27/19 at 14:00 Insulin Human Lispro (HumaLOG) 0-7 UNITS TIDWMEALS SQ ; Start 08/27/19 at 17:00; Stop 08/27/19 at 20:28; Status DC Dextrose (Dextrose 50%-Water Syringe) 12.5 gm PRN Q15MIN PRN IV SEE COMMENTS; Start 08/27/19 at 14:00 Apixaban (Eliquis) 5 mg BID FT Last administered on 09/06/19at 09:18; Start 08/27/19 at 21:00 Aspirin (Aspirin Chewable) 81 mg DAILY PEG Last administered on 09/06/19at 09:17; Start 08/27/19 at 17:00 Insulin Human Lispro (HumaLOG) 0-7 UNITS Q6HRS SQ Last administered on 09/06/19at 06:02; Start 08/28/19 at 00:00 Potassium Bicarbonate (Potassium Effervescent Tablet) 40 meq 1X ONCE PO Last administered on 08/29/19at 08:59; Start 08/29/19 at 09:00; Stop 08/29/19 at 09:01; Status DC Info (Anti-Coagulation Monitoring By Pharmacy) 1 each PRN DAILY PRN MC SEE COMMENTS Last administered on 09/05/19at 09:05; Start 08/31/19 at 08:30 Propofol 100 ml @ 1.133 mls/ hr CONT PRN IV SEE I/O RECORD; Start 08/31/19 at 08:30; Stop 09/05/19 at 09:32; Status DC Dexmedetomidine HCl 400 mcg/ Sodium Chloride 100 ml @ 0 mls/hr CONT PRN IV SEE COMMENTS Last administered on 08/31/19at 23:43; Start 08/31/19 at 12:45; Stop 09/05/19 at 09:34; Status DC Nicotine (Nicoderm Cq 21mg) 1 patch DAILY TD Last administered on 09/06/19 09:19; Start 08/31/19 at 13:30 Nystatin (Nystop) 1 lexus BID TP Last administered on 09/06/19at 09:19; Start 08/31/19 at 21:00 Linezolid (Zyvox) 600 mg BID PO Last administered on 09/06/19at 09:17; Start 09/01/19 at 09:00 Micafungin Sodium 100 mg/Dextrose 100 ml @ 100 mls/hr BID IV ; Start 09/01/19 at 09:00; Stop 09/01/19 at 09:27; Status DC Micafungin Sodium 100 mg/Dextrose 100 ml @ 100 mls/hr DAILY IV Last administered on 09/05/19at 08:26; Start 09/02/19 at 09:00; Stop 09/05/19 at 10:06; Status DC Micafungin Sodium 100 mg/Dextrose 100 ml @ 100 mls/hr ONCE ONCE IV Last administered on 09/01/19at 09:41; Start 09/01/19 at 10:00; Stop 09/01/19 at 10:59; Status DC Furosemide (Lasix) 40 mg 1X ONCE IVP Last administered on 09/01/19at 11:10; Start 09/01/19 at 10:45; Stop 09/01/19 at 11:03; Status DC Acetaminophen (Tylenol) 650 mg PRN Q6HRS PRN PO pain or fever; Start 09/01/19 at 11:30; Status UNV Metoprolol Tartrate (Lopressor) 25 mg BID PEG Last administered on 09/04/19 09:40; Start 09/01/19 at 12:00; Stop 09/04/19 at 12:37; Status DC Tamsulosin HCl (Flomax) 0.4 mg DAILY PO Last administered on 09/06/19 09:18; Start 09/01/19 at 12:00 Olanzapine (ZyPREXA) 10 mg DAILY PEG Last administered on 09/05/19at 08:35; Start 09/01/19 at 12:00 Olanzapine (ZyPREXA) 20 mg QHS PO Last administered on 09/05/19 21:16; Start 09/01/19 at 21:00 Atorvastatin Calcium (Lipitor) 40 mg QHS PEG Last administered on 09/05/19at 21:16; Start 09/01/19 at 21:00 Potassium Chloride/Water 100 ml @ 100 mls/hr Q1H IV Last administered on 09/02/19at 18:06; Start 09/02/19 at 11:00; Stop 09/02/19 at 18:59; Status DC Magnesium Sulfate 50 ml @ 25 mls/hr 1X ONCE IV Last administered on 09/02/19at 11:21; Start 09/02/19 at 11:00; Stop 09/02/19 at 12:59; Status DC Magnesium Sulfate 100 ml @ 25 mls/hr 1X ONCE IV ; Start 09/02/19 at 14:00; Stop 09/02/19 at 14:05; Status DC Furosemide (Lasix) 40 mg 1X ONCE IVP Last administered on 09/03/19at 11:29; Start 09/03/19 at 11:45; Stop 09/03/19 at 11:46; Status DC Potassium Chloride/Water 100 ml @ 50 mls/hr Q2H IV ; Start 09/03/19 at 12:00; Stop 09/03/19 at 12:35; Status DC Albuterol Sulfate (Ventolin Neb Soln) 2.5 mg PRN Q4HRS PRN NEB SHORTNESS OF BREATH Last administered on 09/06/19at 07:39; Start 09/03/19 at 12:15 Budesonide (Pulmicort) 0.5 mg RTBID NEB Last administered on 09/06/19at 07:39; Start 09/03/19 at 20:00 Potassium Chloride/Water 100 ml @ 100 mls/hr Q1H IV Last administered on 09/03/19at 17:21; Start 09/03/19 at 13:00; Stop 09/03/19 at 16:59; Status DC Lactobacillus Rhamnosus (Culturelle) 1 cap BID PO Last administered on 09/06/19at 09:15; Start 09/04/19 at 09:00 Metoprolol Tartrate (Lopressor) 50 mg BID PEG Last administered on 09/06/19at 09:17; Start 09/04/19 at 13:00 Acetaminophen (Tylenol) 650 mg PRN Q6HRS PRN PEG MILD PAIN / TEMP > 100.3'F; Start 09/04/19 at 20:00 Potassium Bicarbonate (Potassium Effervescent Tablet) 40 meq 1X ONCE FT Last administered on 09/05/19at 15:47; Start 09/05/19 at 12:00; Stop 09/05/19 at 12:01; Status DC Potassium Chloride/Water 100 ml @ 100 mls/hr Q1H IV ; Start 09/05/19 at 12:00; Stop 09/05/19 at 15:59; Status DC Magnesium Sulfate 50 ml @ 25 mls/hr Q24H IV ; Start 09/05/19 at 12:00; Stop 09/07/19 at 13:59 Potassium Phos/ Sodium Phos (Phos-Nak) 1 pkt BID PO Last administered on 09/04at 21:23; Start 09/05/19 at 12:00; Stop 09/05/19 at 21:01; Status DC Potassium Chloride (Klor-Con) 40 meq 1X ONCE PO ; Start 09/05/19 at 15:30; Stop 09/05/19 at 15:31; Status DC Multivitamins/ Minerals Therapeutic (Centrum Multivit-Mineral Liq) 5 ml DAILY PEG Last administered on 09/06/19at 09:15; Start 09/06/19 at 09:00 Info (Non-Icu Electrolyte Protocol) 1 ea CONT PRN PRN MC SEE COMMENTS; Start 09/05/19 at 15:45 Active Scripts Active Reported Pepcid (Famotidine) 20 Mg Tablet 20 Mg PEG BID Famotidine 20 Mg Tablet 20 Mg PO BID Aspirin 81 Mg Tab.chew 1 Tab PEG DAILY Eliquis (Apixaban) 5 Mg Tablet 5 Mg PEG BID Proventil Hfa (Albuterol Sulfate) 6.7 Gm Hfa.aer.ad 1 Puff INH PRN Q6HRS PRN Acetaminophen 325 Mg Tablet 2 Tab PEG PRN Q4-6HRS PRN 24 Days Humalog (Insulin Lispro) 100 Unit/1 Ml Vial 100 Unit SQ Q6HRS Inject 0-24 units under the skin every 6 hours Lantus Solostar (Insulin Glargine,Hum.rec.anlog) 100 Unit/1 Ml Insuln.pen 35 Unit SQ BID Symbicort 160-4.5 Mcg Inhaler (Budesonide/Formoterol Fumarate) 10.2 Gm Hfa.aer.ad 2 Puff IH BID Flomax (Tamsulosin Hcl) 0.4 Mg Cap.er.24h 0.4 Mg PEG DAILY Crestor (Rosuvastatin Calcium) 40 Mg Tablet 1 Tab PEG HS Roxicodone (Oxycodone HCl) 5 Mg Tablet 5 Mg PEG PRN Q4HRS PRN Olanzapine 20 Mg Tablet 1 Tab PEG QHS Olanzapine 10 Mg Tablet 1 Tab PEG DAILY Metoprolol Tartrate 25 Mg Tablet 1 Tab PEG BID Vital Signs Vital Signs Date Time Temp Pulse Resp B/P (MAP) Pulse Ox O2 Delivery O2 Flow Rate FiO2 09/06/19 10:55 99.1 92 20 150/76 (100) 97 Nasal Cannula 3.0 99.1 Labs Laboratory Tests Test 09/04/19 18:31 09/04/19 23:58 09/05/19 06:09 09/05/19 11:45 Glucose (Fingerstick) 194 mg/dL (70-99) 169 mg/dL (70-99) 186 mg/dL (70-99) Sodium Level 139 mmol/L (136-145) Potassium Level 3.3 mmol/L (3.5-5.1) Chloride Level 104 mmol/L (98-107) Carbon Dioxide Level 21 mmol/L (21-32) Anion Gap 14 (6-14) Blood Urea Nitrogen 17 mg/dL (8-26) Creatinine 1.0 mg/dL (0.7-1.3) Estimated GFR (Cockcroft-Gault) 73.5 BUN/Creatinine Ratio 17 (6-20) Glucose Level 231 mg/dL (70-99) Calcium Level 7.9 mg/dL (8.5-10.1) Phosphorus Level 3.0 mg/dL (2.6-4.7) Magnesium Level 2.0 mg/dL (1.8-2.4) Total Bilirubin 0.7 mg/dL (0.2-1.0) Aspartate Amino Transf (AST/SGOT) 60 U/L (15-37) Alanine Aminotransferase (ALT/SGPT) 78 U/L (16-63) Alkaline Phosphatase 245 U/L (46-116) Total Protein 6.1 g/dL (6.4-8.2) Albumin 2.0 g/dL (3.4-5.0) Albumin/Globulin Ratio 0.5 (1.0-1.7) Test 09/05/19 12:41 09/05/19 17:48 09/05/19 23:09 09/06/19 05:43 Glucose (Fingerstick) 205 mg/dL (70-99) 168 mg/dL (70-99) 159 mg/dL (70-99) 184 mg/dL (70-99) Test 09/06/19 07:10 09/06/19 07:52 09/06/19 11:32 Phosphorus Level 3.5 mg/dL (2.6-4.7) Glucose (Fingerstick) 182 mg/dL (70-99) 195 mg/dL (70-99) Laboratory Tests Test 09/05/19 12:41 09/05/19 17:48 09/05/19 23:09 09/06/19 05:43 Glucose (Fingerstick) 205 mg/dL (70-99) 168 mg/dL (70-99) 159 mg/dL (70-99) 184 mg/dL (70-99) Test 09/06/19 07:10 09/06/19 07:52 09/06/19 11:32 Phosphorus Level 3.5 mg/dL (2.6-4.7) Glucose (Fingerstick) 182 mg/dL (70-99) 195 mg/dL (70-99) Allergies Allergies Coded Allergies Type Severity Reaction Last Updated Verified I S O L A T I O N *CONTACT* Allergy Unknown 09/01/19 Yes No Known Medication Allergies Allergy Unknown 09/01/19 Yes Disposition/Orders: Other (D/C TO [facility] ) Justicifation of Admission Dx: Justifications for Admission: Justification of Admission Dx: Yes Respiratory Failure: Mechanical Ventilation JAGUAR TROY MD Sep 06, 2019 12:21
--- NOTE | 2019-09-06 12:22 | SNU/HH DC ---
DISCHARGE ORDERS DISCHARGE INFORMATION: DISCHARGE DATE: Sep 06, 2019 CONDITION ON DISCHARGE: Guarded CODE STATUS: Code Status: DNR/DNI ASSISTED: SNF STAY <30 DAYS: No HOSPICE: HOSPICE: No HOSPICE EVAL & TREAT: No LTAC: ADMIT TO LTAC: Yes POST DISCHARGE ORDERS: ACTIVITY ORDERS: Activity as tolerated DIET AFTER DISCHARGE: TUBE FEEDINGS CHECKS AFTER DISCHARGE: CHECKS AFTER DISCHARGE: Check blood press - daily TREATMENT/EQUIPMENT ORDERS: ADAPTIVE EQUIPMENT NEEDED: Front wheeled walker Physical Therapy For: Evalulation/Treatment Occupational Therapy For: Evaluation/Treatment Speech Language Pathology For: Evaluation/Treatment DISCHARGE MEDICATIONS: Home Meds Reported Medications Famotidine (PEPCID) 20 Mg Tablet, 20 MG PEG BID for GERD, TAB 08/27/19 Famotidine (FAMOTIDINE) 20 Mg Tablet, 20 MG PO BID for GERD, TAB 08/27/19 Aspirin (ASPIRIN) 81 Mg Tab.chew, 1 TAB PEG DAILY for Heart health, #30 TAB 3 Refills 08/27/19 Apixaban (ELIQUIS) 5 Mg Tablet, 5 MG PEG BID for anticoagulant, TAB 08/27/19 Albuterol Sulfate (Proventil Hfa) 6.7 Gm Hfa.aer.ad, 1 PUFF INH PRN Q6HRS PRN for SHORTNESS OF BREATH, INHALER 08/27/19 Acetaminophen (ACETAMINOPHEN) 325 Mg Tablet, 2 TAB PEG PRN Q4-6HRS PRN for pain or fever for 24 Days, #100 TAB 0 Refills 08/27/19 Insulin Lispro (HUMALOG) 100 Unit/1 Ml Vial, 100 UNIT SQ Q6HRS for DM, VIAL Inject 0-24 units under the skin every 6 hours 08/27/19 Insulin Glargine,Hum.rec.anlog (LANTUS SOLOSTAR) 100 Unit/1 Ml Insuln.pen, 35 UNIT SQ BID for blood sugar, #15 ML 3 Refills 08/27/19 Budesonide/Formoterol Fumarate (SYMBICORT 160-4.5 MCG INHALER) 10.2 Gm Hfa.aer.ad, 2 PUFF IH BID for COPD, #10.6 GM 3 Refills 08/27/19 Tamsulosin Hcl (FLOMAX) 0.4 Mg Cap.er.24h, 0.4 MG PEG DAILY for BPH, TAB 08/27/19 Rosuvastatin Calcium (CRESTOR) 40 Mg Tablet, 1 TAB PEG HS for HLD, #30 TAB 5 Refills 08/27/19 Oxycodone HCl (Roxicodone) 5 Mg Tablet, 5 MG PEG PRN Q4HRS PRN for PAIN, TAB 08/27/19 Olanzapine (OLANZAPINE) 20 Mg Tablet, 1 TAB PEG QHS for mood, #30 TAB 1 Refill 08/27/19 Olanzapine (OLANZAPINE) 10 Mg Tablet, 1 TAB PEG DAILY for mood, #30 TAB 08/27/19 Metoprolol Tartrate (METOPROLOL TARTRATE) 25 Mg Tablet, 1 TAB PEG BID for HTN, #180 TAB 1 Refill 08/27/19 JAGUAR TROY MD Sep 06, 2019 12:22
[2019-09-06] MEDS: MAGNESIUM SULFATE 2GM 50 ML IV SCH (13:35)
[2019-09-06] MEDS: OLANZapine 5 MG TABLET PEG SCH (13:36)
--- NOTE | 2019-09-06 15:29 | PDOC ---
PROGRESS NOTES Assessment Metabolic encephalopathy, prolonged intubation, sedation, sepsis, bowel resection, no bedside examination evidence of stroke. Better History of neuropathy and lumbar disc disease. [place] records reviewed, he had a CT head on 08/24, negative Brain MRI negative for acute problem, EEG shows diffuse slowing consistent with encephalopathy, no epileptic activity Plan Agree with plans to transfer [facility] with neurology as needed Subjective None Objective Vital Signs Date Time Temp Pulse Resp B/P (MAP) Pulse Ox O2 Delivery O2 Flow Rate FiO2 09/06/19 10:55 99.1 92 20 150/76 (100) 97 Nasal Cannula 3.0 99.1 Intake and Output 09/06/19 07:00 Intake Total 1569 ml Output Total 1175 ml Balance 394 ml Intake Oral 0 ml IV Total 50 ml Tube Feeding 1030 ml Other 489 ml Output Urine Total 1175 ml Gastric Drainage Total 0 ml PHYSICAL EXAM Off BiPAP Alert. Speech nonsensical, but I think he does tell me that he is in the hospital [facility]RL. EOMI. CN: no focal findings. Muscle tone: normal. Muscle strength: 4/5 DTR: 1+ Plantar reflex: flexor Gait: not examined in bed. Sensory exam: no abnormal findings. No cerebellar signs elicited. Review of Relevant I have reviewed the following items parminder (where applicable) has been applied. Labs Laboratory Tests Test 09/04/19 18:31 09/04/19 23:58 09/05/19 06:09 09/05/19 11:45 Glucose (Fingerstick) 194 mg/dL (70-99) 169 mg/dL (70-99) 186 mg/dL (70-99) Sodium Level 139 mmol/L (136-145) Potassium Level 3.3 mmol/L (3.5-5.1) Chloride Level 104 mmol/L (98-107) Carbon Dioxide Level 21 mmol/L (21-32) Anion Gap 14 (6-14) Blood Urea Nitrogen 17 mg/dL (8-26) Creatinine 1.0 mg/dL (0.7-1.3) Estimated GFR (Cockcroft-Gault) 73.5 BUN/Creatinine Ratio 17 (6-20) Glucose Level 231 mg/dL (70-99) Calcium Level 7.9 mg/dL (8.5-10.1) Phosphorus Level 3.0 mg/dL (2.6-4.7) Magnesium Level 2.0 mg/dL (1.8-2.4) Total Bilirubin 0.7 mg/dL (0.2-1.0) Aspartate Amino Transf (AST/SGOT) 60 U/L (15-37) Alanine Aminotransferase (ALT/SGPT) 78 U/L (16-63) Alkaline Phosphatase 245 U/L (46-116) Total Protein 6.1 g/dL (6.4-8.2) Albumin 2.0 g/dL (3.4-5.0) Albumin/Globulin Ratio 0.5 (1.0-1.7) Test 09/05/19 12:41 09/05/19 17:48 09/05/19 23:09 09/06/19 05:43 Glucose (Fingerstick) 205 mg/dL (70-99) 168 mg/dL (70-99) 159 mg/dL (70-99) 184 mg/dL (70-99) Test 09/06/19 07:10 09/06/19 07:52 09/06/19 11:32 Phosphorus Level 3.5 mg/dL (2.6-4.7) Glucose (Fingerstick) 182 mg/dL (70-99) 195 mg/dL (70-99) Laboratory Tests Test 09/05/19 17:48 09/05/19 23:09 09/06/19 05:43 09/06/19 07:10 Glucose (Fingerstick) 168 mg/dL (70-99) 159 mg/dL (70-99) 184 mg/dL (70-99) Phosphorus Level 3.5 mg/dL (2.6-4.7) Test 09/06/19 07:52 09/06/19 11:32 Glucose (Fingerstick) 182 mg/dL (70-99) 195 mg/dL (70-99) Microbiology 08/31/19 Urine Culture - Final, Complete 08/28/19 Gram Stain Evaluation - Final, Complete 08/28/19 Respiratory Culture - Final, Complete 08/28/19 Antimicrobic Susceptibility - Final, Complete 08/26/19 Blood Culture - Final, Complete NO GROWTH AFTER 5 DAYS Medications Current Medications Norepinephrine Bitartrate 8 mg/ Dextrose 258 ml @ 13.603 mls/ hr CONT PRN IV PER PROTOCOL Last administered on 08/28/19at 01:21; Start 08/26/19 at 23:00; Stop 09/05/19 at 09:34; Status DC Fentanyl Citrate 30 ml @ 0 mls/hr CONT PRN IV SEE PROTOCOL Last administered on 09/01/19at 07:24; Start 08/26/19 at 23:00; Stop 09/01/19 at 16:41; Status DC Fentanyl Citrate (Fentanyl 2ml Vial) 25 mcg PRN Q1HR PRN IV SEE COMMENTS; Start 08/26/19 at 23:00 Fentanyl Citrate (Fentanyl 2ml Vial) 50 mcg PRN Q1HR PRN IV SEE COMMENTS; Start 08/26/19 at 23:00 Famotidine (Pepcid Vial) 20 mg BID IVP Last administered on 09/06/19at 09:14; Start 08/27/19 at 09:00 Morphine Sulfate (Morphine Sulfate) 2 mg PRN Q1HR PRN IV SEE COMMENTS.; Start 08/26/19 at 23:00 Morphine Sulfate (Morphine Sulfate) 4 mg PRN Q1HR PRN IV SEE COMMENTS.; Start 08/26/19 at 23:00 Midazolam HCl 100 ml @ 0 mls/hr CONT PRN IV SEE PROTOCOL Last administered on 08/30/19at 11:23; Start 08/26/19 at 23:00; Stop 09/05/19 at 09:33; Status DC Enoxaparin Sodium (Lovenox 40mg Syringe) 40 mg Q24H SQ Last administered on 08/27/19at 00:42; Start 08/26/19 at 23:00; Stop 08/27/19 at 16:55; Status DC Metronidazole 100 ml @ 100 mls/hr Q8HRS IV Last administered on 08/27/19at 05:32; Start 08/27/19 at 06:00; Stop 08/27/19 at 13:14; Status DC Ceftriaxone Sodium (Rocephin) 1 gm Q24H IVP Last administered on 08/27/19at 08:32; Start 08/27/19 at 09:00; Stop 08/27/19 at 13:14; Status DC Sodium Chloride 1,000 ml @ 75 mls/hr [id number] IV Last administered on 09/02/19at 03:17; Start 08/26/19 at 23:00; Stop 09/02/19 at 13:47; Status DC Acetaminophen (Tylenol Supp) 650 mg PRN Q6HRS PRN ND MILD PAIN / TEMP > 100.3'F Last administered on 08/27/19at 02:09; Start 08/27/19 at 02:00 Piperacillin Sod/ Tazobactam Sod 3.375 gm/Sodium Chloride 50 ml @ 100 mls/hr Q6HRS IV Last administered on 09/06/19at 13:35; Start 08/27/19 at 14:00 Insulin Human Lispro (HumaLOG) 0-7 UNITS TIDWMEALS SQ ; Start 08/27/19 at 17:00; Stop 08/27/19 at 20:28; Status DC Dextrose (Dextrose 50%-Water Syringe) 12.5 gm PRN Q15MIN PRN IV SEE COMMENTS; Start 08/27/19 at 14:00 Apixaban (Eliquis) 5 mg BID FT Last administered on 09/06/19at 09:18; Start 08/27/19 at 21:00 Aspirin (Aspirin Chewable) 81 mg DAILY PEG Last administered on 09/06/19at 09:17; Start 08/27/19 at 17:00 Insulin Human Lispro (HumaLOG) 0-7 UNITS Q6HRS SQ Last administered on 09/06/19at 06:02; Start 08/28/19 at 00:00 Potassium Bicarbonate (Potassium Effervescent Tablet) 40 meq 1X ONCE PO Last administered on 08/29/19at 08:59; Start 08/29/19 at 09:00; Stop 08/29/19 at 09:01; Status DC Info (Anti-Coagulation Monitoring By Pharmacy) 1 each PRN DAILY PRN MC SEE COMMENTS Last administered on 09/05/19at 09:05; Start 08/31/19 at 08:30 Propofol 100 ml @ 1.133 mls/ hr CONT PRN IV SEE I/O RECORD; Start 08/31/19 at 08:30; Stop 09/05/19 at 09:32; Status DC Dexmedetomidine HCl 400 mcg/ Sodium Chloride 100 ml @ 0 mls/hr CONT PRN IV SEE COMMENTS Last administered on 08/31/19at 23:43; Start 08/31/19 at 12:45; Stop 09/05/19 at 09:34; Status DC Nicotine (Nicoderm Cq 21mg) 1 patch DAILY TD Last administered on 09/06/19 09:19; Start 08/31/19 at 13:30 Nystatin (Nystop) 1 lexus BID TP Last administered on 09/06/19 09:19; Start 08/31/19 at 21:00 Linezolid (Zyvox) 600 mg BID PO Last administered on 09/06/19 09:17; Start 09/01/19 at 09:00 Micafungin Sodium 100 mg/Dextrose 100 ml @ 100 mls/hr BID IV ; Start 09/01/19 at 09:00; Stop 09/01/19 at 09:27; Status DC Micafungin Sodium 100 mg/Dextrose 100 ml @ 100 mls/hr DAILY IV Last administered on 09/05/19at 08:26; Start 09/02/19 at 09:00; Stop 09/05/19 at 10:06; Status DC Micafungin Sodium 100 mg/Dextrose 100 ml @ 100 mls/hr ONCE ONCE IV Last administered on 09/01/19at 09:41; Start 09/01/19 at 10:00; Stop 09/01/19 at 10:59; Status DC Furosemide (Lasix) 40 mg 1X ONCE IVP Last administered on 09/01/19at 11:10; Start 09/01/19 at 10:45; Stop 09/01/19 at 11:03; Status DC Acetaminophen (Tylenol) 650 mg PRN Q6HRS PRN PO pain or fever; Start 09/01/19 at 11:30; Status UNV Metoprolol Tartrate (Lopressor) 25 mg BID PEG Last administered on 09/04/19at 09:40; Start 09/01/19 at 12:00; Stop 09/04/19 at 12:37; Status DC Tamsulosin HCl (Flomax) 0.4 mg DAILY PO Last administered on 09/06/19 09:18; Start 09/01/19 at 12:00 Olanzapine (ZyPREXA) 10 mg DAILY PEG Last administered on 09/06/19at 13:36; Start 09/01/19 at 12:00 Olanzapine (ZyPREXA) 20 mg QHS PO Last administered on 09/05/19at 21:16; Start 09/01/19 at 21:00 Atorvastatin Calcium (Lipitor) 40 mg QHS PEG Last administered on 09/05/19at 21:16; Start 09/01/19 at 21:00 Potassium Chloride/Water 100 ml @ 100 mls/hr Q1H IV Last administered on 09/02/19at 18:06; Start 09/02/19 at 11:00; Stop 09/02/19 at 18:59; Status DC Magnesium Sulfate 50 ml @ 25 mls/hr 1X ONCE IV Last administered on 09/02/19at 11:21; Start 09/02/19 at 11:00; Stop 09/02/19 at 12:59; Status DC Magnesium Sulfate 100 ml @ 25 mls/hr 1X ONCE IV ; Start 09/02/19 at 14:00; Stop 09/02/19 at 14:05; Status DC Furosemide (Lasix) 40 mg 1X ONCE IVP Last administered on 09/03/19at 11:29; Start 09/03/19 at 11:45; Stop 09/03/19 at 11:46; Status DC Potassium Chloride/Water 100 ml @ 50 mls/hr Q2H IV ; Start 09/03/19 at 12:00; Stop 09/03/19 at 12:35; Status DC Albuterol Sulfate (Ventolin Neb Soln) 2.5 mg PRN Q4HRS PRN NEB SHORTNESS OF BREATH Last administered on 09/06/19at 07:39; Start 09/03/19 at 12:15 Budesonide (Pulmicort) 0.5 mg RTBID NEB Last administered on 09/06/19at 07:39; Start 09/03/19 at 20:00 Potassium Chloride/Water 100 ml @ 100 mls/hr Q1H IV Last administered on 09/03/19at 17:21; Start 09/03/19 at 13:00; Stop 09/03/19 at 16:59; Status DC Lactobacillus Rhamnosus (Culturelle) 1 cap BID PO Last administered on 09/06/19at 09:15; Start 09/04/19 at 09:00 Metoprolol Tartrate (Lopressor) 50 mg BID PEG Last administered on 09/06/19at 09:17; Start 09/04/19 at 13:00 Acetaminophen (Tylenol) 650 mg PRN Q6HRS PRN PEG MILD PAIN / TEMP > 100.3'F; Start 7/23/20 at 20:00 Potassium Bicarbonate (Potassium Effervescent Tablet) 40 meq 1X ONCE FT Last administered on 09/05/19at 15:47; Start 09/05/19 at 12:00; Stop 09/05/19 at 1 2:01; Status DC Potassium Chloride/Water 100 ml @ 100 mls/hr Q1H IV ; Start 09/05/19 at 12:00; Stop 09/05/19 at 15:59; Status DC Magnesium Sulfate 50 ml @ 25 mls/hr Q24H IV Last administered on 09/06/19at 13:35; Start 09/05/19 at 12:00; Stop 09/07/19 at 13:59 Potassium Phos/ Sodium Phos (Phos-Nak) 1 pkt BID PO Last administered on 09/05/19at 21:23; Start 09/05/19 at 12:00; Stop 09/05/19 at 21:01; Status DC Potassium Chloride (Klor-Con) 40 meq 1X ONCE PO ; Start 09/05/19 at 15:30; Stop 09/05/19 at 15:31; Status DC Multivitamins/ Minerals Therapeutic (Centrum Multivit-Mineral Liq) 5 ml DAILY PEG Last administered on 09/06/19at 09:15; Start 09/06/19 at 09:00 Info (Non-Icu Electrolyte Protocol) 1 ea CONT PRN PRN MC SEE COMMENTS; Start 09/05/19 at 15:45 Active Scripts Active Reported Pepcid (Famotidine) 20 Mg Tablet 20 Mg PEG BID Famotidine 20 Mg Tablet 20 Mg PO BID Aspirin 81 Mg Tab.chew 1 Tab PEG DAILY Eliquis (Apixaban) 5 Mg Tablet 5 Mg PEG BID Proventil Hfa (Albuterol Sulfate) 6.7 Gm Hfa.aer.ad 1 Puff INH PRN Q6HRS PRN Acetaminophen 325 Mg Tablet 2 Tab PEG PRN Q4-6HRS PRN 24 Days Humalog (Insulin Lispro) 100 Unit/1 Ml Vial 100 Unit SQ Q6HRS Inject 0-24 units under the skin every 6 hours Lantus Solostar (Insulin Glargine,Hum.rec.anlog) 100 Unit/1 Ml Insuln.pen 35 Unit SQ BID Symbicort 160-4.5 Mcg Inhaler (Budesonide/Formoterol Fumarate) 10.2 Gm Hfa.aer.ad 2 Puff IH BID Flomax (Tamsulosin Hcl) 0.4 Mg Cap.er.24h 0.4 Mg PEG DAILY Crestor (Rosuvastatin Calcium) 40 Mg Tablet 1 Tab PEG HS Roxicodone (Oxycodone HCl) 5 Mg Tablet 5 Mg PEG PRN Q4HRS PRN Olanzapine 20 Mg Tablet 1 Tab PEG QHS Olanzapine 10 Mg Tablet 1 Tab PEG DAILY Metoprolol Tartrate 25 Mg Tablet 1 Tab PEG BID Vitals/I & O Vital Sign - Last 24 Hours 09/05/19 09/05/19 09/05/19 09/05/19 16:28 18:56 20:05 21:16 Temp 99.3 99.3 Pulse 104 104 Resp 18 B/P (MAP) 146/75 (98) 146/75 Pulse Ox 99 O2 Delivery Nasal Cannula Nasal Cannula Nasal Cannula O2 Flow Rate 3.0 3.0 3.0 09/05/19 09/06/19 09/06/19 09/06/19 22:00 03:00 07:05 07:39 Temp 99.7 99.2 98.7 99.7 99.2 98.7 Pulse 88 103 107 Resp 18 20 20 B/P (MAP) 153/70 (97) 150/71 (97) 156/79 (104) Pulse Ox 100 97 98 98 O2 Delivery Nasal Cannula Nasal Cannula Nasal Cannula Nasal Cannula O2 Flow Rate 3.0 3.0 3.0 3.0 09/06/19 09/06/19 09/06/19 08:07 09:17 10:55 Temp 99.1 99.1 Pulse 107 92 Resp 20 B/P (MAP) 156/79 150/76 (100) Pulse Ox 97 O2 Delivery Nasal Cannula Nasal Cannula O2 Flow Rate 3.0 3.0 Intake and Output 09/05/19 09/05/19 09/06/19 15:00 23:00 07:00 Intake Total 324 ml 945 ml 300 ml Output Total 0 ml 1175 ml Balance 324 ml 945 ml -875 ml Images BRAIN W/O CONTRAST History:Reason: AMS / Spl. Instructions: / History: Technique: Multiplanar, multi sequential MR imaging was performed of the brain without contrast. Comparison: None Findings: No acute infarct. No intracranial hemorrhage. No mass effect. No hydrocephalus. Moderate brain parenchymal volume loss. Mild foci of FLAIR hyperintensities within the hemispheric white matter, most often due to chronic microvascular ischemia. Imaged orbits are unremarkable. Imaged paranasal sinuses are clear. Bilateral mastoid effusions. Impression: 1. No acute intracranial abnormality. Justicifation of Admission Dx: Justifications for Admission: Justification of Admission Dx: Yes Respiratory Failure: Mechanical Ventilation ADDIE HILL MD Sep 06, 2019 15:29
--- NOTE | 2019-09-06 16:17 | NUR ---
[facility] picked up pt at 1520 to take him to [facility] across the parking lot. Report was called into nurse at [facility] at 1430. pt was sent there with IV, Nava and rectal tube still in pt. Sabas Chavez RN
--- NOTE | 2019-09-07 16:34 | PDOC ---
DATE DATE OF STUDY 09/05/19, EEG # [id number]. EEG STUDY RESULTS EEG STUDY RESULTS OBJECTIVE: The patient is a 73-year-old male with altered mental status. DESCRIPTION: This is a digital study. Electrodes are placed according to the international 10-20 system. Bipolar and referential montages are available. Activation procedures typically include hyperventilation and intermittent photic stimulation. INTERPRETATION: The waking background consists of 5-6 Hz, 20-50 microvolt activity. There is very little reactivity. There is some muscle artifact. Sleep is not achieved. Hyperventilation is not performed. Intermittent photic stimulation is noncontributory. IMPRESSION: This electroencephalogram with the patient in an obtunded state is abnormal because of a moderate, diffuse disturbance of cerebral activity as may be seen in any of a variety of toxic or metabolic encephalopathies. There is no focal, paroxysmal, or epileptiform activity. Thank you for letting us help with the patient's care. ADDIE HILL MD Sep 07, 2019 16:34
== END 2019-09-06 16:18 | DRG 870 ==
LOC: 1 WEST ICU 22:35 → 2 NORTH 09-05 04:42
PROVIDERS: ADMIT Internal Medicine; ATTEND Internal Medicine
PROC: 5A1955Z Respiratory Ventilation, Greater than 96 Consecutive Hours (ICD-10-PCS; principal; 2019-08-26)
PROC: 0BH17EZ Insertion of Endotracheal Airway into Trachea, Via Natural or Artificial Opening (ICD-10-PCS; 2019-08-26)
PROC: 30233N1 Transfusion of Nonautologous Red Blood Cells into Peripheral Vein, Percutaneous Approach (ICD-10-PCS; 2019-09-01)
PROC: 5A09357 Assistance with Respiratory Ventilation, Less than 24 Consecutive Hours, Continuous Positive Airway Pressure (ICD-10-PCS; 2019-09-03)
PROC: 5A09357 Assistance with Respiratory Ventilation, Less than 24 Consecutive Hours, Continuous Positive Airway Pressure (ICD-10-PCS; 2019-09-04)
PROC: 5A09357 Assistance with Respiratory Ventilation, Less than 24 Consecutive Hours, Continuous Positive Airway Pressure (ICD-10-PCS; 2019-09-05)
DX: A41.9 Sepsis, unspecified organism (principal); J96.01 Acute respiratory failure with hypoxia; E43 Unspecified severe protein-calorie malnutrition; N17.0 Acute kidney failure with tubular necrosis; R65.21 Severe sepsis with septic shock; J69.0 Pneumonitis due to inhalation of food and vomit; G92 Toxic encephalopathy; N39.0 Urinary tract infection, site not specified; K56.609 Unspecified intestinal obstruction, unspecified as to partial versus complete obstruction; B37.2 Candidiasis of skin and nail; D64.9 Anemia, unspecified; I50.9 Heart failure, unspecified; E83.42 Hypomagnesemia; E11.51 Type 2 diabetes mellitus with diabetic peripheral angiopathy without gangrene; E78.5 Hyperlipidemia, unspecified; E87.6 Hypokalemia; F17.200 Nicotine dependence, unspecified, uncomplicated; F43.10 Post-traumatic stress disorder, unspecified; I11.0 Hypertensive heart disease with heart failure; I25.10 Atherosclerotic heart disease of native coronary artery without angina pectoris; I49.3 Ventricular premature depolarization; J44.9 Chronic obstructive pulmonary disease, unspecified; M81.0 Age-related osteoporosis without current pathological fracture; N40.0 Benign prostatic hyperplasia without lower urinary tract symptoms; K21.9 Gastro-esophageal reflux disease without esophagitis; E11.9 Type 2 diabetes mellitus without complications; Z66 Do not resuscitate; Z20.828 Contact with and (suspected) exposure to other viral communicable diseases; Z82.49 Family history of ischemic heart disease and other diseases of the circulatory system; Z93.1 Gastrostomy status; Z95.1 Presence of aortocoronary bypass graft; Z95.5 Presence of coronary angioplasty implant and graft
CPT/HCPCS: 36415; 36600; 70551; 71045; 80048; 80053; 80076; 81001; 82805; 82962; 83605; 83735; 84100; 84132; 85007; 85025; 86850; 86900; 86901; 86920; 87040; 87070; 87086; 87106; 87205; 87493; 93306; 94002; 94003; 94640; 94660; 94760; 95816; J0696; J1650; J1815; J1940; J2248; J2250; J2543; J3010; J3475; J3480; J3490; J7030; J7060; P9016; G0378; J7613; J7626; U0003-CS